=== PATIENT | female | born 1995 | race Caucasian/White ===

== ENCOUNTER 2022-02-01 09:16 | Emergency (ER) | payer OTHER ==
[2022-02-01 09:40] LABS: Absolute Lymphocytes (CBC) 0.7 K/uL (0.7-4.9); Hematocrit 36.5 % (36.0-45.0); Lymphocytes % 14.6 % (15.3-44.8); MCV 84.9 fL (80-100); MPV 6.8 fL (7.6-11.3)
[2022-02-01] MEDS ORDERED: NA CHLORIDE 0.9% 1,000 ML ONE (09:44)
[2022-02-01] MEDS ORDERED: ONDANSETRON 4 MG/2 ML VIAL ONE (09:44)
[2022-02-01 09:45] LABS: Urine Blood 1+ (Negative); Urine Glucose Negative (Negative); Urine Protein Negative (Negative); Urine pH 5.5 (5.0-7.0)
[2022-02-01] MEDS ORDERED: FAMOTIDINE 20 MG/2 ML VIAL IV ONE (09:46)
[2022-02-01 10:06] LABS: Albumin 3.9 g/dL (3.4-5.0); Bilirubin Total 0.3 mg/dL (0.2-1.0); Protein, Total 7.3 g/dL (6.4-8.2)
[2022-02-01 10:11] LABS: Potassium 3.8 mmol/L (3.5-5.1)
[2022-02-01] MEDS ORDERED: PROMETHAZINE INJ 25 MG/ML AMP ONE ×2 (10:29→12:03)
[2022-02-01] MEDS ORDERED: MORPHINE 2 MG/ML SYR ONE (10:30)
--- NOTE | 2022-02-01 10:50 | RAD REPORT ---
EXAM DESCRIPTION: CT - Abdomen Pelvis W Contrast - 02/01/2022 10:38 am CLINICAL HISTORY: Abdominal pain COMPARISON: none. TECHNIQUE: Computed axial tomography of the abdomen pelvis was obtained. 100 cc Isovue-300 was admin istered intravenously. Oral contrast was not requested which limits evaluation of bowel and appendix All CT scans are performed using dose optimization technique as appropriate and may include automated exposure control or mA/KV adjustment according to patient size. FINDINGS: The liver, spleen, pancreas, adrenal and kidneys appear unremarkable. There is no evidence of diverticulitis. Normal appendix. 2.1 centimeter right ovarian cyst with small amount of free fluid. IMPRESSION: 2.1 centimeter right ovarian cyst with small amount of free fluid.
--- NOTE | 2022-02-01 11:18 | EDPHYS ---
Physician Documentation [facility] Name: Deyanira Baxter Age: 26 yrs Sex: Female : 1995 Arrival Date: 02/01/2022 Time: 09:17 Bed 10 Private MD: BRIGID Physician Klaus Bernard HPI: 02/01 10:31 This 26 yrs old Female presents to ER via Ambulatory with complaints of jl9 Abdominal Pain, Back Pain, Vomiting. Patient reports a history of IBS and c/o worsening symptoms after eating fatty food. . 10:31 The patient presents with abdominal pain in the epigastric area. Onset: The jl9 symptoms/episode began/occurred yesterday. The symptoms do not radiate. Associated signs and symptoms: Pertinent positives: nausea and vomiting. Associated signs and symptoms: Pertinent positives: dysuria. The symptoms are described as achy. Modifying factors: The symptoms are alleviated by nothing, the symptoms are aggravated by food. Severity of pain: in the emergency department the pain is a 6 / 10. The patient has experienced a previous episode. Historical: - Allergies: 09:24 Reglan; tw2 09:24 Adhesives; tw2 - Home Meds: 09:24 Clonidine Oral [Active]; Latuda oral [Active]; tw2 - PMHx: 09:24 GERD; tw2 09:26 Anxiety; Bipolar disorder; tw2 09:27 CHF; Micardial infarction; tw2 - Immunization history:: Client reports receiving the 2nd dose of the Covid vaccine. - Social history:: Smoking status: Reported history of juuling and/or vaping. ROS: 10:32 Constitutional: Negative for fever, chills, and weight loss, Eyes: Negative for injury, jl9 pain, redness, and discharge, ENT: Negative for injury, pain, and discharge, Neck: Negative for injury, pain, and swelling, Cardiovascular: Negative for chest pain, palpitations, and edema, Respiratory: Negative for shortness of breath, cough, wheezing, and pleuritic chest pain. 10:32 Back: Negative for injury and pain, MS/Extremity: Negative for injury and deformity, Skin: Negative for injury, rash, and discoloration, Neuro: Negative for headache, weakness, numbness, tingling, and seizure, Psych: Negative for depression, anxiety, suicide ideation, homicidal ideation, and hallucinations. 10:32 Allergy/Immunology: Negative for hives, rash, and allergies, Endocrine: Negative for neck swelling, polydipsia, polyuria, polyphagia, and marked weight changes, Hematologic/Lymphatic: Negative for swollen nodes, abnormal bleeding, and unusual bruising. 10:32 Abdomen/GI: Positive for abdominal pain, nausea and vomiting. 10:32 : Positive for urinary symptoms. Exam: 10:33 Constitutional: This is a well developed, well nourished patient who is awake, alert, jl9 and in no acute distress. Head/Face: Normocephalic, atraumatic. Eyes: Pupils equal round and reactive to light, extra-ocular motions intact. Lids and lashes normal. Conjunctiva and sclera are non-icteric and not injected. Cornea within normal limits. Periorbital areas with no swelling, redness, or edema. ENT: Mucous membranes moist. Neck: Trachea midline, no thyromegaly or masses palpated, and no cervical lymphadenopathy. Supple, full range of motion without nuchal rigidity, or vertebral point tenderness. No Meningismus. Chest/axilla: Normal chest wall appearance and motion. Nontender with no deformity. No lesions are appreciated. Cardiovascular: Regular rate and rhythm with a normal S1 and S2. No gallops, murmurs, or rubs. Normal PMI, no JVD. No pulse deficits. Respiratory: Lungs have equal breath sounds bilaterally, clear to auscultation and percussion. No rales, rhonchi or wheezes noted. No increased work of breathing, no retractions or nasal flaring. 10:33 Back: No spinal tenderness. No costovertebral tenderness. Full range of motion. Skin: Warm, dry with normal turgor. Normal color with no rashes, no lesions, and no evidence of cellulitis. MS/ Extremity: Pulses equal, no cyanosis. Neurovascular intact. Full, normal range of motion. Neuro: Awake and alert, GCS 15, oriented to person, place, time, and situation. Cranial nerves II-XII grossly intact. Motor strength 5/5 in all extremities. Sensory grossly intact. Cerebellar exam normal. Normal gait. Psych: Awake, alert, with orientation to person, place and time. Behavior, mood, and affect are within normal limits. 10:33 Abdomen/GI: Inspection: abdomen appears normal, Bowel sounds: normal, Palpation: mild abdominal tenderness. Vital Signs: 09:21 BP 136 / 83; Pulse 105; Resp 18; Temp 98.2(TE); Pulse Ox 99% on R/A; Weight 90.72 kg tw2 (R); Height 5 ft. 4 in. (162.56 cm); Pain 7/10; 12:19 BP 118 / 72; Pulse 89; Resp 18; Temp 97.9; Pulse Ox 99% on R/A; ph 09:21 Body Mass Index 34.33 (90.72 kg, 162.56 cm) tw2 MDM: 09:28 Patient medically screened. samina 10:33 Data reviewed: vital signs, nurses notes. 9 11:16 Counseling: I had a detailed discussion with the patient and/or guardian regarding: the jl9 historical points, exam findings, and any diagnostic results supporting the discharge/admit diagnosis, lab results, radiology results, the need for outpatient follow up. Response to treatment: the patient's symptoms have markedly improved after treatment. 11:19 Special discussion: Patient agrees to follow up with [employer]. Patient requesting refill jl9 on her carafate. . 02/01 09:26 Order name: CBC with Diff; Complete Time: 10:03 jl9 02/01 09:26 Order name: CMP; Complete Time: 10:14 02/01 09:26 Order name: Lipase; Complete Time: 10:14 02/01 09:26 Order name: CT Abd/Pelvis - IV Contrast Only; Complete Time: 10:51 9 02/01 09:45 Order name: Urine Dipstick-Ancillary; Complete Time: 10:03 EDPA 02/01 09:26 Order name: IV Saline Lock; Complete Time: 09:34 02/01 09:26 Order name: Labs collected and sent; Complete Time: 09:34 9 02/01 09:26 Order name: Urine Dipstick-Ancillary (obtain specimen); Complete Time: :44 02/01 09:26 Order name: Urine Test (obtain specimen); Complete Time: :44 jl Administered Medications: :44 Drug: Pepcid (famotidine) 20 mg Route: IVP; Site: right antecubital; 11:29 Follow up: Response: No adverse reaction; Marked relief of symptoms ph 09:48 Drug: NS 0.9% 1000 ml Route: IV; Rate: 1 bolus; Site: right antecubital; ss 11:29 Follow up: IV Status: Completed infusion; IV Intake: 1000ml ph 09:48 Drug: Zofran (Ondansetron) 4 mg Route: IVP; Site: right antecubital; ss 11:30 Follow up: Response: Marked relief of symptoms ph 10:24 Drug: Phenergan (promethazine) 12.5 mg Route: IVP; Site: right antecubital; ss 12:18 Follow up: Response: No adverse reaction ph 10:27 Drug: morphine 2 mg Route: IVP; Infused Over: 4 mins; Site: right antecubital; ss 12:18 Follow up: Response: No adverse reaction; RASS: Alert and Calm (0) ph 12:04 Drug: Phenergan (promethazine) 12.5 mg Route: IVP; Site: right antecubital; ph 12:18 Follow up: Response: No adverse reaction ph 12:18 Drug: Ketorolac 30 mg Route: IVP; Site: right antecubital; ph 12:18 Follow up: Response: No adverse reaction ph Disposition Summary: 02/01/22 11:17 Discharge Ordered Location: Home jl9 Condition: Stable jl9 Diagnosis - Other ovarian cysts jl9 Followup: jl9 - With: Private Physician - When: 1 - 2 days - Reason: Recheck today's complaints, Continuance of care, Re-evaluation by your physician Discharge Instructions: - Discharge Summary Sheet tw2 - Ovarian Cyst, [id number] jl9 Forms: - Work release form tw2 - Family Work Release tw2 - Medication Reconciliation Form jl9 - Thank You Letter jl9 - Antibiotic Education jl9 - Prescription Opioid Use jl9 Prescriptions: - Carafate 1 gram Oral Tablet - take 1 tablet by ORAL route 4 times per day As needed take on an empty stomach, jl9 beginning on waking and last dose at bedtime; 100 tablet; Refills: 0, Product Selection Permitted - Tramadol 50 mg Oral Tablet - take 1 tablet by ORAL route every 8 hours as needed; 12 tablet; Refills: 0, jl9 Product Selection Permitted - dicyclomine 20 mg Oral Tablet - take 1 tablet by ORAL route 3 times per day As needed; 20 tablet; Refills: 0, jl9 Product Selection Permitted - ondansetron 8 mg Oral tablet,disintegrating - take 1 tablet by ORAL route every 8 hours As needed; 20 tablet; Refills: 0, jl9 Product Selection Permitted Signatures: Dispatcher [employer] Klaus Randhawa, Rebeca Styles MD, cha, RN RN Afshan Starks, RN RN Nancy Gordon RN RN tw2 Ivan Carbajal jl9
--- NOTE | 2022-02-01 11:18 | ER ---
Nurse's Notes [facility] Name: Deyanira Baxter Age: 26 yrs Sex: Female : 1995 Arrival Date: 02/01/2022 Time: 09:17 Bed 10 Private MD: Diagnosis: Other ovarian cysts Presentation: 02/01 09:21 Chief complaint: Patient states: i had the pain in my upper stomach for a while a few tw2 weeks. it feels bloated and swollen and when i eat pizz and or a burger. now any time i eat i throw up and it hurt when i peed and the pain is in my upper middle back. and i have indigestion and GERD but i am in so much pain now. Coronavirus screen: At this time, the client does not indicate any symptoms associated with coronavirus-19. Ebola Screen: Patient denies travel to an Ebola-affected area in the 21 days before illness onset. Initial Sepsis Screen: Does the patient meet any 2 criteria? HR > 90 bpm. No. Patient's initial sepsis screen is negative. Does the patient have a suspected source of infection? No. Patient's initial sepsis screen is negative. Risk Assessment: Do you want to hurt yourself or someone else? Patient reports no desire to harm self or others. Onset of symptoms was February 01, 2022. 09:21 Method Of Arrival: Ambulatory tw 09:21 Acuity: DEEPAK 3 tw2 09:26 Note pt actively vomiting in triage. tw2 Triage Assessment: 09:24 General: Appears uncomfortable, Behavior is calm, cooperative, appropriate for age. tw2 Pain: Complains of pain in abdomen Pain radiates to back. GI: Reports indigestion, nausea, vomiting. Historical: - Allergies: 09:24 Reglan; tw2 09:24 Adhesives; tw2 - Home Meds: 09:24 Clonidine Oral [Active]; Latuda oral [Active]; tw2 - PMHx: 09:24 GERD; tw2 09:26 Anxiety; Bipolar disorder; tw2 09:27 CHF; Micardial infarction; tw2 - Immunization history:: Client reports receiving the 2nd dose of the Covid vaccine. - Social history:: Smoking status: Reported history of juuling and/or vaping. Screenin:48 Abuse screen: Denies threats or abuse. Denies injuries from another. Nutritional ss screening: No deficits noted. Tuberculosis screening: Never had TB. Fall Risk None identified. Assessment: 09:48 General: Appears in no apparent distress. Behavior is calm, cooperative, Denies fever, ss fatigue, chills. Pain: Complains of pain in epigastric area Pain currently is 7 out of 10 on a pain scale. Quality of pain is described as "Like a dull pain" Pain began "It started weeks ago, like a month, but I've just been dealing with it at home." Is continuous. Neuro: Level of Consciousness is awake, alert, obeys commands, Oriented to person, place, time, situation. Cardiovascular: Capillary refill < 3 seconds is brisk in bilateral fingers Patient's skin is warm and dry. Respiratory: Airway is patent Respiratory effort is even, unlabored, Respiratory pattern is regular, symmetrical. GI: Bowel sounds present X 4 quads. Abd is soft X 4 quads Reports nausea, vomiting, "off and on for a month". EENT: Nares are clear Oral mucosa is moist. Derm: Skin is intact, is healthy with good turgor, Skin is dry, Skin is pink, warm \\T\\ dry. normal. Vital Signs: 09:21 BP 136 / 83; Pulse 105; Resp 18; Temp 98.2(TE); Pulse Ox 99% on R/A; Weight 90.72 kg tw2 (R); Height 5 ft. 4 in. (162.56 cm); Pain 7/10; 12:19 BP 118 / 72; Pulse 89; Resp 18; Temp 97.9; Pulse Ox 99% on R/A; ph 09:21 Body Mass Index 34.33 (90.72 kg, 162.56 cm) tw2 ED Course: 09:17 Patient arrived in ED. mr 09:18 [facility] jl9 09:18 Klaus Bernard MD is Attending Physician. jl9 09:24 Triage completed. tw2 09:26 Arm band placed on. tw2 09:34 CBC with Diff Sent. kc6 09:35 CMP Sent. kc6 09:35 Lipase Sent. kc6 09:35 Inserted saline lock: 20 gauge in right antecubital area, using aseptic technique. kc6 Blood collected. 09:39 Rebeca Eugene, RN is Primary Nurse. ss 09:48 Patient has correct armband on for positive identification. Bed in low position. Call ss light in reach. Side rails up X 1. Adult w/ patient. Pulse ox on. NIBP on. 10:40 CT Abd/Pelvis - IV Contrast Only In Process Unspecified. EDMS 12:19 No provider procedures requiring assistance completed. IV discontinued, intact, ph bleeding controlled, No redness/swelling at site. Pressure dressing applied. Administered Medications: 09:44 Drug: Pepcid (famotidine) 20 mg Route: IVP; Site: right antecubital; ss 11:29 Follow up: Response: No adverse reaction; Marked relief of symptoms ph 09:48 Drug: NS 0.9% 1000 ml Route: IV; Rate: 1 bolus; Site: right antecubital; ss 11:29 Follow up: IV Status: Completed infusion; IV Intake: 1000ml ph 09:48 Drug: Zofran (Ondansetron) 4 mg Route: IVP; Site: right antecubital; ss 11:30 Follow up: Response: Marked relief of symptoms ph 10:24 Drug: Phenergan (promethazine) 12.5 mg Route: IVP; Site: right antecubital; ss 12:18 Follow up: Response: No adverse reaction ph 10:27 Drug: morphine 2 mg Route: IVP; Infused Over: 4 mins; Site: right antecubital; ss 12:18 Follow up: Response: No adverse reaction; RASS: Alert and Calm (0) ph 12:04 Drug: Phenergan (promethazine) 12.5 mg Route: IVP; Site: right antecubital; ph 12:18 Follow up: Response: No adverse reaction ph 12:18 Drug: Ketorolac 30 mg Route: IVP; Site: right antecubital; ph 12:18 Follow up: Response: No adverse reaction ph Medication: 09:48 VIS not applicable for this client. ss Intake: 11:29 IV: 1000ml; Total: 1000ml. ph Outcome: 11:17 Discharge ordered by jlSatya 12:19 Discharged to home ambulatory, with significant other. ph 12:19 Condition: good 12:19 Discharge instructions given to patient, Instructed on discharge instructions, follow up and referral plans. medication usage, Demonstrated understanding of instructions, follow-up care, medications, Prescriptions given X 4. 12:19 Patient left the ED. ph Signatures: Dispatcher [employer] EDDC Alexus Garland Rebeca Lee RN RN Afshan Starks RN RN Nancy Gordon RN RN tw2 Ivan Carbajal 9 Barbara Pepper
[2022-02-01] MEDS ORDERED: KETOROLAC 30 MG/ML INJ ONE (12:20)
[2022-02-02 13:21] VITALS: O2SAT 99
[2022-02-02 13:26] VITALS: BP 118/72; TEMP 97.9
== END 2022-02-01 12:19 | disposition home or self-care (01) ==
LOC: ER 09:16
DX: N83.299 Other ovarian cyst, unspecified side (principal); R30.0 Dysuria
CPT/HCPCS: 96361; 85025; 36415; 81003; 83690; 80053; 74177; 96375; 96374; 99284; Q9967; J2550 ×2; J2270; J7030; J2405

== ENCOUNTER 2022-02-02 20:02 | Emergency (ER) | payer OTHER ==
--- OUTSIDE RECORDS SUMMARY | 2022-02-02 20:17 | XMS REPORT | Continuity of Care Document ---
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 (50 ity of (PROTONIX) 07:00: 05:09 mL/hr), IV [place] 80 mg in 00 :00 Piggyback, Medic al NaCl 0.9% CONTINUOUS Bran ch (NS) 500 mL , Starting infusion Sat07/22/19 at 0100, Until Sat07/22/19 at 2309, 500 mL proMETHazin 2019-0 2020- No 25mg 25 mg, IV Univers e 07-21 Piggyback, ity of (PHENERGAN) 06:13: 18:29 Q6HPRN, [place] 25 mg in 25 :57 Starting Medical NaCl 0.9% 07/22/19 Bran ch (NS) 50 mL at 0013, piggyback Until Sat07/22/19 at 1229, 50 mL ALBUTEROL 2020-0 Yes Inhale. [facility] rs INHALE 07-21 ity of 05:43: [place] 24 Medical Branch acetaminoph 2020-0 Yes 650mg 650 mg, Un trev en 07-21 Oral, ity of (TYLENOL) 05:42: Q6HPRN, [place] tablet 650 46 Starting Medic al mg 07/21/19 Branch at 2342, Until Discontinu ed, Routine, Pain (scale 1-3) proMETHazin 2019-0 2020- No 12.5mg 12.5 mg, Univers e 07-21 IV ity of (PHENERGAN) 03:30: 02:19 Piggyback, [place] 12.5 mg in 00 :00 ONCE, 1 Medica l NaCl 0.9% dose, e Branc h (NS) 50 mL 07/21/19 at piggyback 2130, 50 mL LORazepam 2019-0 2020- No 1mg 1 mg, Slow U nivers (ATIVAN) 07-21 IV Push, ity of injection 1 02:15: 04:12 ONCE, 1 [place] mg 00 :00 dose, [facility] Medical 07/21/19 at Branch 2014, STAT pantoprazol 2020-0 2020- No 80mg 80 mg, IV Univers e 07-20 Push, ity of (PROTONIX) 23:30: 23:32 ONCE, 1 [place] 80 mg in 00 :00 dose, Tue Medica l NaCl 0.9% 07/21/19 at [facility] h (NS) 20 mL 1730, 20 syringe mL NaCl 0.9% 2020-0 2020- No 1000mL at 999 Uni vers (NS) bolus 07-20 mL/hr, ity of infusion 23:15: 01:00 1,000 mL, [place] 1,000 mL 00 :00 IV Medical Infusion, [place] ONCE, 1 dose, [facility] 07/21/19 at 1715, STAT proMETHazin 2019-0 2020- No 12.5mg 12.5 mg, Univers e 07-20 IV ity of (PHENERGAN) 23:15: 22:29 Piggyback, [place] 12.5 mg in 00 :00 ONCE, 1 Medica l NaCl 0.9% dose, [facility] (NS) 50 mL 07/21/19 at piggyback 1715, 50 mL diphenhydrA 2019-0 2020- No 25mg 25 mg, Uni vers MINE 07-02- Slow IV ity of (BENADRYL) 02:15: 02:15 Push, [place] injection 00 :00 ONCE, 1 Medical 25 mg dose, Wed Branch 07/01/19 at 2015, STAT haloperidol 2020-0 2020- No 5mg 5 mg, Univ ers lactate 07-02 Intravenou ity o f (HALDOL) 01:30: 00:31 s, ONCE, 1 [place] injection 5 00 :00 dose, Wed Med ical mg 07/01/19 at Branch 1930, STAT pantoprazol 2020-0 Yes 8mg/h 8 mg/hr Un trev e 07-02 (50 ity of (PROTONIX) 01:15: mL/hr), IV [place] 80 mg in 00 Piggyback, Medic al NaCl 0.9% CONTINUOUS Bran ch (NS) 500 mL , Starting infusion 07/01/19 at 1915, Until Discontinu ed, 500 mL pantoprazol 2019-0 2020- No 80mg 80 mg, IV Univers e 07-02 Push, ity of (PROTONIX) 01:15: 00:59 ONCE, 1 [place] 80 mg in 00 :00 dose, Wed Medica l NaCl 0.9% 07/01/19 at [facility] ch (NS) 20 mL 1915, 20 syringe mL ondansetron 2020- No 4mg 4 mg, Slow Univers (ZOFRAN 07-02 IV Push, ity of (PF)) 01:15: 00:31 ONCE, 1 [place] injection 4 00 :00 dose, Sat Med ical mg 07/01/19 at Branch 1915, MARY NaCl 0.9% 2019-0 2020- No 1000mL at 999 Uni vers (NS) bolus 07-02 mL/hr, ity of infusion 00:15: 00:57 1,000 mL, [place] 1,000 mL 00 :00 IV Medical Infusion, [place] ONCE, 1 dose, 07/01/19 at 1815, MARY pantoprazol 2019-0 Yes 40mg 40 mg, Univ ers e 2-11 Oral, ity of (PROTONIX) 15:00: DAILY, [place] EC tablet 00 First dose Medi charli 40 mg on [facility] 06/30/19 at 0900, Until Discontinu ed, Routine pantoprazol 2020-0 Yes [id number] 40mg Take 1 Univers e 40 mg EC 2-11 tablet by ity of tablet 00:00: mouth [place] 00 daily. [facility] pantoprazol 2020-0 Yes [id number] 40mg Take 1 Univers e 40 mg EC 2-11 tablet by ity of tablet 00:00: mouth [place] 00 daily. [facility] pantoprazol 2020-0 Yes [id number] 40mg Take 1 Univers e 40 mg EC 2-11 tablet by ity of tablet 00:00: mouth [place] 00 daily. [facility] pantoprazol 2020-0 Yes [id number] 40mg Take 1 Univers e 40 mg EC 2-11 tablet by ity of tablet 00:00: mouth [place] 00 daily. [facility] pantoprazol 2020-0 Yes [id number] 40mg Take 1 Univers e 40 mg EC 2-11 tablet by ity of tablet 00:00: mouth [place] 00 daily. Medical Branch pantoprazol 2020-0 Yes [id number] 40mg Take 1 Univers e 40 mg EC 2-11 tablet by ity of tablet 00:00: mouth [place] 00 daily. Medical Branch pantoprazol 2020-0 Yes [id number] 40mg Take 1 Univers e 40 mg EC 2-11 tablet by ity of tablet 00:00: mouth [place] 00 daily. Medical Branch pantoprazol 2019-0 2020- No [id number] 40mg Take 1 Univers e 40 mg EC 2-11 03-05 tablet by ity of tablet 00:00: 00:00 mouth [place] 00 :00 daily. Medical Branch ALBUTEROL 2020-0 Yes Inhale. Unive rs INHALE 2-10 ity of 23:44: [place] 00 [facility] Branch ALBUTEROL 2020-0 Yes Inhale. Unive rs INHALE 2-10 ity of 23:44: [place] 00 [facility] Branch ALBUTEROL 2020-0 Yes Inhale. Unive rs INHALE 2-10 ity of 23:44: [place] 00 [facility] Branch ALBUTEROL 2020-0 Yes Inhale. Unive rs INHALE 2-10 ity of 23:44: [place] 00 [facility] Branch ALBUTEROL 2020-0 Yes Inhale. Unive rs INHALE 2-10 ity of 23:44: [place] 00 Medical Branch ALBUTEROL 2020-0 Yes Inhale. Unive rs INHALE 2-10 ity of 23:44: [place] 00 [facility] Branch proMETHazin 2019-0 Yes 25mg 25 mg, IV U nivers e 2-10 Piggyback, ity of (PHENERGAN) 18:00: Q4H WHILE [place] 25 mg in 00 AWAKE, Medical NaCl 0.9% First dose Bran ch (NS) 50 mL on Mon piggyback 06/29/19 at 1200, Until Discontinu ed, 50 mL lactated 2019-0 2020- No 1000mL at 150 Univ ers ringers IV 2-10 02-10 mL/hr, ity of infusion 03:00: 02:22 1,000 mL, [place] 1,000 mL 00 :00 Intravenou Medic al s, ONCE, 1 Branch dose, 06/28/19 at 2100, Routine ipratropium 2020-0 Yes 3mL 3 mL, Unive rs -albuterol 2-10 Inhalation ity of (DUONEB) 00:20: , Q6HPRN, [place] 0.5 mg-3 32 Starting Medical mg(2.5 mg 06/28/19 Bran ch base)/3 mL at 1820, nebulizer Until solution 3 Discontinu mL ed, Routine, Wheezing, Shortness of Breath acetaminoph 2020- No [id number] 650mg Take 2 Univers en 325 mg 2-10 02-10 tablets by ity of tablet 00:00: 05:59 mouth [place] 00 :00 every 6 Medical (six) Branch hours as needed for Pain (scale 1-3) or Pain (scale 4-6). acetaminoph 2020- No [id number] 650mg Take 2 Univers en 325 mg 2-10 02-10 tablets by ity of tablet 00:00: 05:59 mouth [place] 00 :00 every 6 Medical (six) Branch hours as needed for Pain (scale 1-3) or Pain (scale 4-6). acetaminoph 2020- No [id number] 650mg Take 2 Univers en 325 mg 2-10 02-10 tablets by ity of tablet 00:00: 05:59 mouth [place] 00 :00 every 6 Medical (six) Branch hours as needed for Pain (scale 1-3) or Pain (scale 4-6). acetaminoph 2020- No [id number] 650mg Take 2 Univers en 325 mg 2-10 02-10 tablets by ity of tablet 00:00: 05:59 mouth [place] 00 :00 every 6 Medical (six) Branch hours as needed for Pain (scale 1-3) or Pain (scale 4-6). acetaminoph 2020- No [id number] 650mg Take 2 Univers en 325 mg 2-10 02-10 tablets by ity of tablet 00:00: 05:59 mouth [place] 00 :00 every 6 Medical (six) Branch hours as needed for Pain (scale 1-3) or Pain (scale 4-6). acetaminoph 2020- No [id number] 650mg Take 2 Univers en 325 mg 2-10 02-10 tablets by ity of tablet 00:00: 05:59 mouth [place] 00 :00 every 6 Medical (six) Branch hours as needed for Pain (scale 1-3) or Pain (scale 4-6). acetaminoph 2020- No [id number] 650mg Take 2 Univers en 325 mg 2-10 02-10 tablets by ity of tablet 00:00: 05:59 mouth [place] 00 :00 every 6 Medical (six) Branch hours as needed for Pain (scale 1-3) or Pain (scale 4-6). acetaminoph 2020- No [id number] 650mg Take 2 Univers en 325 mg 2-10 02-10 tablets by ity of tablet 00:00: 05:59 mouth [place] 00 :00 every 6 Medical (six) Branch hours as needed for Pain (scale 1-3) or Pain (scale 4-6). acetaminoph 2020- No [id number] 650mg Take 2 Univers en 325 mg 2-10 02-10 tablets by ity of tablet 00:00: 05:59 mouth [place] 00 :00 every 6 Medical (six) Branch hours as needed for Pain (scale 1-3) or Pain (scale 4-6). acetaminoph 2020- No [id number] 650mg Take 2 Univers en 325 mg 2-10 02-10 tablets by ity of tablet 00:00: 05:59 mouth [place] 00 :00 every 6 Medical (six) Branch hours as needed for Pain (scale 1-3) or Pain (scale 4-6). acetaminoph 2020- No [id number] 650mg Take 2 Univers en 325 mg 2-10 02-10 tablets by ity of tablet 00:00: 05:59 mouth [place] 00 :00 every 6 Medical (six) Branch hours as needed for Pain (scale 1-3) or Pain (scale 4-6). acetaminoph 2020- No [id number] 650mg Take 2 Univers en 325 mg 2-10 02-10 tablets by ity of tablet 00:00: 05:59 mouth [place] 00 :00 every 6 Medical (six) Branch hours as needed for Pain (scale 1-3) or Pain (scale 4-6). acetaminoph 2020- No [id number] 650mg Take 2 Univers en 325 mg 2-10 02-10 tablets by ity of tablet 00:00: 05:59 mouth [place] 00 :00 every 6 Medical (six) Branch hours as needed for Pain (scale 1-3) or Pain (scale 4-6). acetaminoph 2019-2020- No [id number] 650mg Take 2 Univers en 325 mg 2-10 02-10 tablets by ity of tablet 00:00: 05:59 mouth [place] 00 :00 every 6 Medical (six) Branch hours as needed for Pain (scale 1-3) or Pain (scale 4-6). acetaminoph 2019-2020- No [id number] 650mg Take 2 Univers en 325 mg 2-10 02-10 tablets by ity of tablet 00:00: 05:59 mouth [place] 00 :00 every 6 Medical (six) Branch hours as needed for Pain (scale 1-3) or Pain (scale 4-6). acetaminoph 2019-2020- No [id number] 650mg Take 2 Univers en 325 mg 2-10 02-10 tablets by ity of tablet 00:00: 05:59 mouth [place] 00 :00 every 6 Medical (six) Branch hours as needed for Pain (scale 1-3) or Pain (scale 4-6). acetaminoph 2020- No [id number] 650mg Take 2 Univers en 325 mg 2-10 02-10 tablets by ity of tablet 00:00: 05:59 mouth [place] 00 :00 every 6 Medical (six) Branch hours as needed for Pain (scale 1-3) or Pain (scale 4-6). proMETHazin 2019-2019- No [id number] 25mg Take 1 Univers e 25 mg 2-10 02-26 tablet by ity of tablet 00:00: 05:59 mouth [place] 00 :00 every 4 Medical (four) Branch hours as needed for Nausea and Vomiting (N/V) for up to 15 days. proMETHazin 2019-2019- No [id number] 25mg Take 1 Univers e 25 mg 2-10 02-26 tablet by ity of tablet 00:00: 05:59 mouth [place] 00 :00 every 4 Medical (four) Branch hours as needed for Nausea and Vomiting (N/V) for up to 15 days. proMETHazin 2019- No [id number] 25mg Take 1 Univers e 25 mg 2-10 02-26 tablet by ity of tablet 00:00: 05:59 mouth [place] 00 :00 every 4 Medical (four) Branch hours as needed for Nausea and Vomiting (N/V) for up to 15 days. proMETHazin 2020-0 2020- No [id number] 25mg Take 1 Univers e 25 mg 06-29 tablet by ity of tablet 00:00: 05:59 mouth [place] 00 :00 every 4 Medical (four) Branch hours as needed for Nausea and Vomiting (N/V) for up to 15 days. HYDROcodone 2020-0 Yes 1{tbl} 1 tablet, Univers -acetaminop 2-09 Oral, ity of hen (NORCO 22:38: Q6HPRN, [place] 5) 5-325 mg 03 Starting Medi charli tablet 1 06/28/19 Branc h tablet at 1638, Until Discontinu ed, Routine, Pain (scale 4-6), Pain (scale 7-10) proMETHazin 2020-0 2020- No 25mg 25 mg, IV Univers e 206-29 Piggyback, ity of (PHENERGAN) 22:00: 15:56 Q4H WHILE [place] 25 mg in 00 :10 AWAKE, Medical NaCl 0.9% First dose Bran ch (NS) 50 mL on Sun piggyback 06/28/19 at 1600, Until Discontinu ed, 50 mL ondansetron 2020-0 Yes 4mg 4 mg, Slow Univers (ZOFRAN 06-28 IV Push, ity of (PF)) 21:55: Q6HPRN, [place] injection 4 58 Starting Medi charli mg 06/28/19 Branch at 1555, Until Discontinu ed, Routine, N/V unresponsi ve to Promethazi ne maalox:diph 2020-0 Yes 15mL 15 mL, Univ ers enhydrAMINE 2 Oral, ity of :lidocaine 21:55: QDAILYPRN, [place] 2 % viscous 00 Starting Medi charli 1:1:1 06/28/19 Branch (FIRST-MOUT at 1555, HWASH BLM) Until oral Discontinu suspension ed, MARY, 15 mL Heartburn/ esophagiti s acetaminoph 2020-0 Yes 650mg 650 mg, Un trev en 2 Oral, ity of (TYLENOL) 21:39: Q6HPRN, [place] tablet 650 29 Starting Medic al mg 06/28/19 Branch at 1539, Until Discontinu ed, Routine, Pain (scale 1-3) albuterol 2020-0 Yes 2{puff} 2 Puff, Un trev (VENTOLIN) 06-28 Inhalation ity of inhaler 2 21:25: , Q6HPRN, [place] Puff 31 Starting Medical 06/28/19 Branch at 1525, Until Discontinu ed, Wheezing, Shortness of Breath, Chest tightness pantoprazol 2019-0 2020- No 8mg/h 8 mg/hr U nivers e 06-28 (50 ity of (PROTONIX) 19:15: 15:56 mL/hr), IV [place] 80 mg in 00 :10 Piggyback, Medic al NaCl 0.9% CONTINUOUS Bran ch (NS) 500 mL , Starting infusion 06/28/19 at 1315, Until 06/29/19 at 0956, 500 mL proMETHazin 2019-0 2020- No 25mg 25 mg, IV Univers e 06-28 Piggyback, ity of (PHENERGAN) 19:15: 18:30 ONCE, 1 [place] 25 mg in 00 :00 dose, [place] Medica l NaCl 0.9% 06/28/19 at Branc h (NS) 50 mL 1315, 50 piggyback mL pantoprazol 2019-0 2020- No 80mg 80 mg, IV Univers e 06-28 Push, ity of (PROTONIX) 18:00: 17:06 ONCE, 1 [place] 80 mg in 00 :00 dose, [place] Medica l NaCl 0.9% 06/28/19 at Branc h (NS) 20 mL 1200, 20 syringe mL ondansetron 2019-0 2020- No 4mg 4 mg, Slow Univers (ZOFRAN 06-28 IV Push, ity of (PF)) 17:45: 16:53 ONCE, 1 [place] injection 4 00 :00 dose, [place] Med ical mg 06/28/19 at Branch 1145, MARY NaCl 0.9% 2020-0 2020- No 1000mL at 999 Uni vers (NS) bolus 06-28 mL/hr, ity of infusion 17:45: 16:53 1,000 mL, [place] 1,000 mL 00 :00 IV Medical Infusion, Branch ONCE, 1 dose, 06/28/19 at 1145, STAT ALBUTEROL 2019-0 Yes Inhale. Unive rs INHALE -09 ity of 15:52: [address] ALBUTEROL 2020-0 Yes Inhale. Unive rs INHALE - ity of 15:52: [address] ALBUTEROL 2019-0 Yes Inhale. Unive rs INHALE - ity of 15:52: [address] azithromyci 2018-05 Yes [id number] Take 500 Univers n 250 mg 2-06 mg day 1, ity of tablet 00:00: then 250 [place] 00 mg days 2 Medical to 5. [place] azithromyci 2018-05 Yes [id number] Take 500 Univers n 250 mg 2-06 mg day 1, ity of tablet 00:00: then 250 [place] 00 mg days [facility] [id number] Take 500 Univers n 250 mg 2-06 mg day 1, ity of tablet 00:00: then 250 [place] 00 mg days 2 [facility]- No [id number] Take 500 Univers n 250 mg 2-06 02-10 mg day 1, ity o f tablet 00:00: 00:00 then 250 [place] 00 :00 mg days 2 Medical to 5. Branch furosemide 2018-05 Yes [id number] 40mg Take 1 Univers 40 mg 2-03 tablet by ity of tablet 00:00: mouth [place] 00 every Medical morning Branch and evening. fluticasone 2018-05 Yes [id number] 1{puff} Inhale 1 Univers propionate 2-03 Puff every ity of (FLOVENT 00:00: 12 [place] HFA) 110 00 (twelve) Medical mcg/actuati hours. Branch on inhaler furosemide 2018-05 Yes [id number] 40mg Take 1 Univers 40 mg 2-03 tablet by ity of tablet 00:00: mouth [place] 00 every Medical morning Branch and evening. fluticasone 2018-05 Yes [id number] 1{puff} Inhale 1 Univers propionate 2-03 Puff every ity of (FLOVENT 00:00: 12 [place] HFA) 110 00 (twelve) Medical mcg/actuati hours. Branch on inhaler furosemide 2018-05 Yes [id number] 40mg Take 1 Univers 40 mg 2-03 tablet by ity of tablet 00:00: mouth [place] 00 every Medical morning Branch and evening. fluticasone 2018-05 Yes [id number] 1{puff} Inhale 1 Univers propionate 2-03 Puff every ity of (FLOVENT 00:00: 12 [place] HFA) 110 00 (twelve) Medical mcg/actuati hours. Branch on inhaler fluticasone 2018-05 Yes [id number] 1{puff} Inhale 1 Univers propionate 2-03 Puff every ity of (FLOVENT 00:00: 12 [place] HFA) 110 00 (twelve) Medical mcg/actuati hours. Branch on inhaler fluticasone 2018-05 Yes [id number] 1{puff} Inhale 1 Univers propionate 2-03 Puff every ity of (FLOVENT 00:00: 12 [place] HFA) 110 00 (twelve) Medical mcg/actuati hours. Branch on inhaler fluticasone 2018-05 Yes [id number] 1{puff} Inhale 1 Univers propionate 2-03 Puff every ity of (FLOVENT 00:00: 12 [place] HFA) 110 00 (twelve) Medical mcg/actuati hours. Branch on inhaler fluticasone 2018-05 Yes [id number] 1{puff} Inhale 1 Univers propionate 2-03 Puff every ity of (FLOVENT 00:00: 12 [place] HFA) 110 00 (twelve) Medical mcg/actuati hours. Branch on inhaler fluticasone 2018-05 Yes [id number] 1{puff} Inhale 1 Univers propionate 2-03 Puff every ity of (FLOVENT 00:00: 12 [place] HFA) 110 00 (twelve) Medical mcg/actuati hours. Branch on inhaler fluticasone 2018-05 Yes [id number] 1{puff} Inhale 1 Univers propionate 2-03 Puff every ity of (FLOVENT 00:00: 12 [place] HFA) 110 00 (twelve) Medical mcg/actuati hours. Branch on inhaler fluticasone 2018-05 Yes [id number] 1{puff} Inhale 1 Univers propionate 2-03 Puff every ity of (FLOVENT 00:00: 12 [place] HFA) 110 00 (twelve) Medical mcg/actuati hours. Branch on inhaler fluticasone 2018-05 Yes [id number] 1{puff} Inhale 1 Univers propionate 2-03 Puff every ity of (FLOVENT 00:00: 12 [place] HFA) 110 00 (twelve) Medical mcg/actuati hours. Branch on inhaler fluticasone 2018-05 Yes [id number] 1{puff} Inhale 1 Univers propionate 2-03 Puff every ity of (FLOVENT 00:00: 12 [place] HFA) 110 00 (twelve) Medical mcg/actuati hours. Branch on inhaler fluticasone 2018-05 Yes [id number] 1{puff} Inhale 1 Univers propionate 2-03 Puff every ity of (FLOVENT 00:00: 12 [place] HFA) 110 00 (twelve) Medical mcg/actuati hours. Branch on inhaler fluticasone 2018-05 Yes [id number] 1{puff} Inhale 1 Univers propionate 2-03 Puff every ity of (FLOVENT 00:00: 12 [place] HFA) 110 00 (twelve) Medical mcg/actuati hours. Branch on inhaler fluticasone 2018-05 Yes [id number] 1{puff} Inhale 1 Univers propionate 2-03 Puff every ity of (FLOVENT 00:00: 12 [place] HFA) 110 00 (twelve) Medical mcg/actuati hours. Branch on inhaler fluticasone 2018-05 Yes [id number] 1{puff} Inhale 1 Univers propionate 2-03 Puff every ity of (FLOVENT 00:00: 12 [place] HFA) 110 00 (twelve) Medical mcg/actuati hours. Branch on inhaler fluticasone 2018-05 Yes [id number] 1{puff} Inhale 1 Univers propionate 2-03 Puff every ity of (FLOVENT 00:00: 12 [place] HFA) 110 00 (twelve) Medical mcg/actuati hours. Branch on inhaler fluticasone 2018-05 Yes [id number] 1{puff} Inhale 1 Univers propionate 2-03 Puff every ity of (FLOVENT 00:00: 12 [place] HFA) 110 00 (twelve) Medical mcg/actuati hours. Branch on inhaler fluticasone 2018-05 Yes [id number] 1{puff} Inhale 1 Univers propionate 2-03 Puff every ity of (FLOVENT 00:00: 12 [place] HFA) 110 00 (twelve) Medical mcg/actuati hours. Branch on inhaler fluticasone 2018-05 Yes [id number] 1{puff} Inhale 1 Univers propionate 2-03 Puff every ity of (FLOVENT 00:00: 12 [place] HFA) 110 00 (twelve) Medical mcg/actuati hours. Branch on inhaler fluticasone 2018-05 Yes [id number] 1{puff} Inhale 1 Univers propionate 2-03 Puff every ity of (FLOVENT 00:00: 12 [place] HFA) 110 00 (twelve) Medical mcg/actuati hours. Branch on inhaler fluticasone 2018-05 Yes [id number] 1{puff} Inhale 1 Univers propionate 2-03 Puff every ity of (FLOVENT 00:00: 12 [place] HFA) 110 00 (twelve) Medical mcg/actuati hours. Branch on inhaler fluticasone 2018-05 Yes [id number] 1{puff} Inhale 1 Univers propionate 2-03 Puff every ity of (FLOVENT 00:00: 12 [place] HFA) 110 00 (twelve) Medical mcg/actuati hours. Branch on inhaler furosemide 2018-05 2020- No [id number] 40mg Take 1 Univers 40 mg 2-03 02-10 tablet by ity of tablet 00:00: 00:00 mouth [place] 00 :00 every Medical morning Branch and evening. Catheter 2018-05 Yes [id number] Use as Un trev (SELF-HARDY 1-21 directed ity of TER, 00:00: [place] FEMALE) Medical Fr Misc Branch Catheter 2018-05 Yes [id number] Use as Un trev (SELF-HARDY 1-21 directed ity of TER, 00:00: [place] FEMALE) Medical Fr Misc Branch Catheter 2018-05 Yes [id number] Use as Un trev (SELF-HARDY 1-21 directed ity of TER, 00:00: [place] FEMALE) Medical Fr Misc Branch Catheter 2018-05 Yes [id number] Use as Un trev (SELF-HARDY 1-21 directed ity of TER, 00:00: [place] FEMALE) Medical Fr Misc Branch Catheter 2018-05 Yes [id number] Use as Un trev (SELF-HARDY 1-21 directed ity of TER, 00:00: [place] FEMALE) Medical Fr Misc Branch Catheter 2018-05 Yes [id number] Use as Un trev (SELF-HARDY 1-21 directed ity of TER, 00:00: [place] FEMALE) 14 Medical Fr Misc Branch Catheter 2018-05 Yes [id number] Use as Un trev (SELF-HARDY 1-21 directed ity of TER, 00:00: [place] FEMALE) 14 Medical Fr Misc Branch Catheter 2018-05 Yes [id number] Use as Un trev (SELF-HARDY 1-21 directed ity of TER, 00:00: [place] FEMALE) 14 Medical Fr Misc Branch Catheter 2018-05 Yes [id number] Use as Un trev (SELF-HARDY 1-21 directed ity of TER, 00:00: [place] FEMALE) Medical Fr Misc Branch Catheter 2018-05 Yes [id number] Use as Un trev (SELF-HARDY 1-21 directed ity of TER, 00:00: [place] FEMALE) Medical Fr Misc Branch Catheter 2018-05 Yes [id number] Use as Un trev (SELF-HARDY 1-21 directed ity of TER, 00:00: [place] FEMALE) Medical Fr Misc Branch Catheter 2018-05 Yes [id number] Use as Un trev (SELF-HARDY 1-21 directed ity of TER, 00:00: [place] FEMALE) Medical Fr Misc Branch Catheter 2018-05 Yes [id number] Use as Un trev (SELF-HARDY 1-21 directed ity of TER, 00:00: [place] FEMALE) Medical Fr Misc Branch Catheter 2018-05 Yes [id number] Use as Un trev (SELF-HARDY 1-21 directed ity of TER, 00:00: [place] FEMALE) Medical Fr Misc Branch Catheter 2018-05 Yes [id number] Use as Un trev (SELF-HARDY 1-21 directed ity of TER, 00:00: [place] FEMALE) Medical Fr Misc Branch Catheter 2018-05 Yes [id number] Use as Un trev (SELF-HARDY 1-21 directed ity of TER, 00:00: [place] FEMALE) Medical Fr Misc Branch Catheter 2018-05 Yes [id number] Use as Un trev (SELF-HARDY 1-21 directed ity of TER, 00:00: [place] FEMALE) Medical Fr Misc Branch Catheter 2018-05 Yes [id number] Use as Un trev (SELF-HARDY 1-21 directed ity of TER, 00:00: [place] FEMALE) 14 Medical Fr Misc Branch Catheter 2018-05 Yes [id number] Use as Un trev (SELF-HARDY 1-21 directed ity of TER, 00:00: [place] FEMALE) Medical Fr Misc Branch Catheter 2018-05 Yes [id number] Use as Un trev (SELF-HARDY 1-21 directed ity of TER, 00:00: [place] FEMALE) Medical Fr Misc Branch Catheter 2018-05 Yes [id number] Use as Un trev (SELF-HARDY 1-21 directed ity of TER, 00:00: [place] FEMALE) Medical Fr Misc Branch Catheter 2018-05 Yes [id number] Use as Un trev (SELF-HARDY 1-21 directed ity of TER, 00:00: [place] FEMALE) Medical Fr Misc Branch Catheter 2018-05 Yes [id number] Use as Un trev (SELF-HARDY 1-21 directed ity of TER, 00:00: [place] FEMALE) Medical Fr Misc Branch lamoTRIgine 2018-05 Yes [id number] 150mg Take 1 Univers 150 mg 1-20 tablet by ity of tablet 00:00: mouth 2 00 (two) Medical times Branch daily. traZODone 2018-05 Yes [id number] 200mg Take 2 Univers 100 mg 1-20 tablets by ity of tablet 00:00: mouth at [place] 00 bedtime. Medical Branch busPIRone 2018-05 Yes [id number] 20mg Take 2 U nivers 10 mg 1-20 tablets by ity of tablet 00:00: mouth 3 [place] 00 (three) Medical times Branch daily. benzonatate 2018-05 Yes [id number] 100mg Take 1 Univers (TESSALON 1-20 capsule by ity of PERLES) 100 00:00: mouth [place] mg capsule 00 every 6 Medica l (six) Branch hours as needed for Cough. sod 2018-05 Yes [id number] 1{each} 1 Each by U nivers chlor-bicar 1-20 sinus ity of b-squeez 00:00: irrigation [place] bottle 00 route Medical (NEILMED daily. Branch SINUS RINSE COMPLETE) pkdv lamoTRIgine 2018-05 Yes [id number] 150mg Take 1 Univers 150 mg 1-20 tablet by ity of tablet 00:00: mouth 2 [place] 00 (two) Medical times Branch daily. traZODone 2018-05 Yes [id number] 200mg Take 2 Univers 100 mg 1-20 tablets by ity of tablet 00:00: mouth at [place] 00 bedtime. Medical Branch busPIRone 2018-05 Yes [id number] 20mg Take 2 U nivers 10 mg 1-20 tablets by ity of tablet 00:00: mouth 3 [place] 00 (three) Medical times Branch daily. benzonatate 2018-05 Yes [id number] 100mg Take 1 [facility] (TESSALON 1-20 capsule by ity of PERLES) 100 00:00: mouth [place] mg capsule 00 every 6 Medica l (six) Branch hours as needed for Cough. sod 2018-05 Yes [id number] 1{each} 1 Each by U nivers chlor-bicar 1-20 sinus ity of b-squeez 00:00: irrigation [place] as bottle 00 route Medical (NEILMED daily. Branch SINUS RINSE COMPLETE) pkdv lamoTRIgine 2018-05 Yes [id number] 150mg Take 1 [facility] 150 mg 1-20 tablet by ity of tablet 00:00: mouth 2 00 (two) Medical times Branch daily. traZODone 2018-05 Yes [id number] 200mg Take 2 [facility] 100 mg 1-20 tablets by ity of tablet 00:00: mouth at [place] 00 bedtime. Medical Branch busPIRone 2018-05 Yes [id number] 20mg Take 2 U nivers 10 mg 1-20 tablets by ity of tablet 00:00: mouth 3 [place] 00 (three) Medical times Branch daily. benzonatate 2018-05 Yes [id number] 100mg Take 1 [facility] (TESSALON 1-20 capsule by ity of PERLES) 100 00:00: mouth [place] mg capsule 00 every 6 Medica l (six) Branch hours as needed for Cough. sod 2018-05 Yes [id number] 1{each} 1 Each by U nivers chlor-bicar 1-20 sinus ity of b-squeez 00:00: irrigation [place] as bottle 00 route Medical (NEILMED daily. Branch SINUS RINSE COMPLETE) pkdv lamoTRIgine 2018-05 Yes [id number] 150mg Take 1 [facility] 150 mg 1-20 tablet by ity of tablet 00:00: mouth 2 (two) Medical times Branch daily. sod 2018-05 Yes [id number] 1{each} 1 Each by U nivers chlor-bicar 1-20 sinus ity of b-squeez 00:00: irrigation [place] as bottle 00 route Medical (NEILMED daily. Branch SINUS RINSE COMPLETE) pkdv lamoTRIgine 2018-05 Yes [id number] 150mg Take 1 [facility] 150 mg 1-20 tablet by ity of tablet 00:00: mouth 2 (two) Medical times Branch daily. sod 2018-05 Yes [id number] 1{each} 1 Each by U nivers chlor-bicar 1-20 sinus ity of b-squeez 00:00: irrigation [place] as bottle 00 route Medical (NEILMED daily. Branch SINUS RINSE COMPLETE) pkdv lamoTRIgine 2018-05 Yes [id number] 150mg Take 1 [facility] 150 mg 1-20 tablet by ity of tablet 00:00: mouth 2 (two) Medical times Branch daily. sod 2018-05 Yes [id number] 1{each} 1 Each by U nivers chlor-bicar 1-20 sinus ity of b-squeez 00:00: irrigation [place] as bottle 00 route Medical (NEILMED daily. Branch SINUS RINSE COMPLETE) pkdv lamoTRIgine 2018-05 Yes [id number] 150mg Take 1 [facility] 150 mg 1-20 tablet by ity of tablet 00:00: mouth 2 (two) Medical times Branch daily. sod 2018-05 Yes [id number] 1{each} 1 Each by U nivers chlor-bicar 1-20 sinus ity of b-squeez 00:00: irrigation [place] bottle 00 route Medical (NEILMED daily. Branch SINUS RINSE COMPLETE) pkdv lamoTRIgine 2018-05 Yes [id number] 150mg Take 1 [facility] 150 mg 1-20 tablet by ity of tablet 00:00: mouth 2 (two) Medical times Branch daily. sod 2018-05 Yes [id number] 1{each} 1 Each by U nivers chlor-bicar 1-20 sinus ity of b-squeez 00:00: irrigation [place] bottle 00 route Medical (NEILMED daily. Branch SINUS RINSE COMPLETE) pkdv lamoTRIgine 2018-05 Yes [id number] 150mg Take 1 [facility] 150 mg 1-20 tablet by ity of tablet 00:00: mouth 2 (two) Medical times Branch daily. sod 2018-05 Yes [id number] 1{each} 1 Each by U nivers chlor-bicar 1-20 sinus ity of b-squeez 00:00: irrigation [place] bottle 00 route Medical (NEILMED daily. Branch SINUS RINSE COMPLETE) pkdv lamoTRIgine 2018-05 Yes [id number] 150mg Take 1 [facility] 150 mg 1-20 tablet by ity of tablet 00:00: mouth 2 (two) Medical times Branch daily. sod 2018-05 Yes [id number] 1{each} 1 Each by U nivers chlor-bicar 1-20 sinus ity of b-squeez 00:00: irrigation [place] as bottle 00 route Medical (NEILMED daily. Branch SINUS RINSE COMPLETE) pkdv lamoTRIgine 2018-05 Yes [id number] 150mg Take 1 [facility] 150 mg 1-20 tablet by ity of tablet 00:00: mouth 2 (two) Medical times Branch daily. sod 2018-05 Yes [id number] 1{each} 1 Each by U nivers chlor-bicar 1-20 sinus ity of b-squeez 00:00: irrigation [place] bottle 00 route Medical (NEILMED daily. Branch SINUS RINSE COMPLETE) pkdv lamoTRIgine 2018-05 Yes [id number] 150mg Take 1 [facility] 150 mg 1-20 tablet by ity of tablet 00:00: mouth 2 (two) Medical times Branch daily. sod 2018-05 Yes [id number] 1{each} 1 Each by U nivers chlor-bicar 1-20 sinus ity of b-squeez 00:00: irrigation [place] bottle 00 route Medical (NEILMED daily. Branch SINUS RINSE COMPLETE) pkdv lamoTRIgine 2018-05 Yes [id number] 150mg Take 1 [facility] 150 mg 1-20 tablet by ity of tablet 00:00: mouth 2 (two) Medical times Branch daily. sod 2018-05 Yes [id number] 1{each} 1 Each by U nivers chlor-bicar 1-20 sinus ity of b-squeez 00:00: irrigation [place] bottle 00 route Medical (NEILMED daily. Branch SINUS RINSE COMPLETE) pkdv lamoTRIgine 2018-05 Yes [id number] 150mg Take 1 [facility] 150 mg 1-20 tablet by ity of tablet 00:00: mouth 2 (two) Medical times Branch daily. sod 2018-05 Yes [id number] 1{each} 1 Each by U nivers chlor-bicar 1-20 sinus ity of b-squeez 00:00: irrigation [place] bottle 00 route Medical (NEILMED daily. Branch SINUS RINSE COMPLETE) pkdv lamoTRIgine 2018-05 Yes [id number] 150mg Take 1 [facility] 150 mg 1-20 tablet by ity of tablet 00:00: mouth 2 (two) Medical times Branch daily. sod 2018-05 Yes [id number] 1{each} 1 Each by U nivers chlor-bicar 1-20 sinus ity of b-squeez 00:00: irrigation [place] bottle 00 route Medical (NEILMED daily. Branch SINUS RINSE COMPLETE) pkdv lamoTRIgine 2018-05 Yes [id number] 150mg Take 1 [facility] 150 mg 1-20 tablet by ity of tablet 00:00: mouth 2 (two) Medical times Branch daily. sod 2018-05 Yes [id number] 1{each} 1 Each by U nivers chlor-bicar 1-20 sinus ity of b-squeez 00:00: irrigation [place] bottle 00 route Medical (NEILMED daily. Branch SINUS RINSE COMPLETE) pkdv lamoTRIgine 2018-05 Yes [id number] 150mg Take 1 [facility] 150 mg 1-20 tablet by ity of tablet 00:00: mouth 2 (two) Medical times Branch daily. sod 2018-05 Yes [id number] 1{each} 1 Each by U nivers chlor-bicar 1-20 sinus ity of b-squeez 00:00: irrigation [place] bottle 00 route Medical (NEILMED daily. Branch SINUS RINSE COMPLETE) pkdv lamoTRIgine 2018-05 Yes [id number] 150mg Take 1 [facility] 150 mg 1-20 tablet by ity of tablet 00:00: mouth 2 (two) Medical times Branch daily. sod 2018-05 Yes [id number] 1{each} 1 Each by U nivers chlor-bicar 1-20 sinus ity of b-squeez 00:00: irrigation [place] bottle 00 route Medical (NEILMED daily. Branch SINUS RINSE COMPLETE) pkdv lamoTRIgine 2018-05 Yes [id number] 150mg Take 1 [facility] 150 mg 1-20 tablet by ity of tablet 00:00: mouth 2 (two) Medical times Branch daily. sod 2018-05 Yes [id number] 1{each} 1 Each by U nivers chlor-bicar 1-20 sinus ity of b-squeez 00:00: irrigation [place] bottle 00 route Medical (NEILMED daily. Branch SINUS RINSE COMPLETE) pkdv lamoTRIgine 2018-05 Yes [id number] 150mg Take 1 [facility] 150 mg 1-20 tablet by ity of tablet 00:00: mouth 2 (two) Medical times Branch daily. sod 2018-05 Yes [id number] 1{each} 1 Each by U nivers chlor-bicar 1-20 sinus ity of b-squeez 00:00: irrigation [place] bottle 00 route Medical (NEILMED daily. Branch SINUS RINSE COMPLETE) pkdv lamoTRIgine 2018-05 Yes [id number] 150mg Take 1 [facility] 150 mg 1-20 tablet by ity of tablet 00:00: mouth 2 (two) Medical times Branch daily. sod 2018-05 Yes [id number] 1{each} 1 Each by U nivers chlor-bicar 1-20 sinus ity of b-squeez 00:00: irrigation [place] bottle 00 route Medical (NEILMED daily. Branch SINUS RINSE COMPLETE) pkdv lamoTRIgine 2018-05 Yes [id number] 150mg Take 1 [facility] 150 mg 1-20 tablet by ity of tablet 00:00: mouth 2 (two) Medical times Branch daily. sod 2018-05 Yes [id number] 1{each} 1 Each by U nivers chlor-bicar 1-20 sinus ity of b-squeez 00:00: irrigation [place] bottle 00 route Medical (NEILMED daily. Branch SINUS RINSE COMPLETE) pkdv lamoTRIgine 2018-05 Yes [id number] 150mg Take 1 [facility] 150 mg 1-20 tablet by ity of tablet 00:00: mouth 2 (two) Medical times Branch daily. sod 2018-05 Yes [id number] 1{each} 1 Each by U nivers chlor-bicar 1-20 sinus ity of b-squeez 00:00: irrigation [place] as bottle 00 route Medical (NEILMED daily. Branch SINUS RINSE COMPLETE) pkdv traZODone 2018-05- No [id number] 200mg Take 2 [facility] 100 mg 1-20 02-10 tablets by ity of tablet 00:00: 00:00 mouth at [place] 00 :00 bedtime. Medical Branch busPIRone 2018-05 2020- No [id number] 20mg Take 2 [facility] 10 mg 1-20 02-10 tablets by ity of tablet 00:00: 00:00 mouth 3 [place] 00 :00 (three) Medical times Branch daily. benzonatate 2018-05- No [id number] 100mg Take 1 [facility] (TESSALON 1-20 02-10 capsule by ity of YAMILKA) 100 00:00: 00:00 mouth [place] mg capsule 00 :00 every 6 Medica l (six) Branch hours as needed for Cough. FLUTICASONE 2018-05 Yes [id number] SHAKE U nivers PROPIONATE 0-29 LIQUID AND ity of 50 00:00: USE 2 [place] mcg/actuati 00 SPRAYS IN Med ical on nasal EACH Branch spray NOSTRIL DAILY FOR 10 DAYS FLUTICASONE 2018-05 Yes [id number] SHAKE U nivers PROPIONATE 0-29 LIQUID AND ity of 50 00:00: USE 2 [place] mcg/actuati 00 SPRAYS IN Med ical on nasal EACH Branch spray NOSTRIL DAILY FOR 10 DAYS FLUTICASONE 2018-05 Yes [id number] SHAKE U nivers PROPIONATE 0-29 LIQUID AND ity of 50 00:00: USE 2 [place] mcg/actuati 00 SPRAYS IN Med ical on nasal EACH Branch spray NOSTRIL DAILY FOR 10 DAYS FLUTICASONE 2018-05 Yes [id number] SHAKE U nivers PROPIONATE 0-29 LIQUID AND ity of 50 00:00: USE 2 [place] mcg/actuati 00 SPRAYS IN Med ical on nasal EACH Branch spray NOSTRIL DAILY FOR 10 DAYS FLUTICASONE 2018-05 Yes [id number] SHAKE U nivers PROPIONATE 0-29 LIQUID AND ity of 50 00:00: USE 2 [place] mcg/actuati 00 SPRAYS IN Med ical on nasal EACH Branch spray NOSTRIL DAILY FOR 10 DAYS FLUTICASONE 2018-05 Yes [id number] SHAKE U nivers PROPIONATE 0-29 LIQUID AND ity of 50 00:00: USE 2 [place] mcg/actuati 00 SPRAYS IN Med ical on nasal EACH Branch spray NOSTRIL DAILY FOR 10 DAYS FLUTICASONE 2018-05 Yes [id number] SHAKE U nivers PROPIONATE 0-29 LIQUID AND ity of 50 00:00: USE 2 [place] mcg/actuati 00 SPRAYS IN Med ical on nasal EACH Branch spray NOSTRIL DAILY FOR 10 DAYS FLUTICASONE 2018-05 Yes [id number] SHAKE U nivers PROPIONATE 0-29 LIQUID AND ity of 50 00:00: USE 2 [place] mcg/actuati 00 SPRAYS IN Med ical on nasal EACH Branch spray NOSTRIL DAILY FOR 10 DAYS FLUTICASONE 2018-05 Yes [id number] SHAKE U nivers PROPIONATE 0-29 LIQUID AND ity of 50 00:00: USE 2 [place] mcg/actuati 00 SPRAYS IN Med ical on nasal EACH Branch spray NOSTRIL DAILY FOR 10 DAYS FLUTICASONE 2018-05 Yes [id number] SHAKE U nivers PROPIONATE 0-29 LIQUID AND ity of 50 00:00: USE 2 [place] mcg/actuati 00 SPRAYS IN Med ical on nasal EACH Branch spray NOSTRIL DAILY FOR 10 DAYS FLUTICASONE 2018-05 Yes [id number] SHAKE U nivers PROPIONATE 0-29 LIQUID AND ity of 50 00:00: USE 2 [place] mcg/actuati 00 SPRAYS IN Med ical on nasal EACH Branch spray NOSTRIL DAILY FOR 10 DAYS FLUTICASONE 2018-05 Yes [id number] SHAKE U nivers PROPIONATE 0-29 LIQUID AND ity of 50 00:00: USE 2 [place] mcg/actuati 00 SPRAYS IN Med ical on nasal EACH Branch spray NOSTRIL DAILY FOR 10 DAYS FLUTICASONE 2018-05 Yes [id number] SHAKE U nivers PROPIONATE 0-29 LIQUID AND ity of 50 00:00: USE 2 [place] mcg/actuati 00 SPRAYS IN Med ical on nasal EACH Branch spray NOSTRIL DAILY FOR 10 DAYS FLUTICASONE 2018-05 Yes [id number] SHAKE U nivers PROPIONATE 0-29 LIQUID AND ity of 50 00:00: USE 2 [place] mcg/actuati 00 SPRAYS IN Med ical on nasal EACH Branch spray NOSTRIL DAILY FOR 10 DAYS FLUTICASONE 2018-05 Yes [id number] SHAKE U nivers PROPIONATE 0-29 LIQUID AND ity of 50 00:00: USE 2 [place] mcg/actuati 00 SPRAYS IN Med ical on nasal EACH Branch spray NOSTRIL DAILY FOR 10 DAYS FLUTICASONE 2018-05 Yes [id number] SHAKE U nivers PROPIONATE 0-29 LIQUID AND ity of 50 00:00: USE 2 [place] mcg/actuati 00 SPRAYS IN Med ical on nasal EACH Branch spray NOSTRIL DAILY FOR 10 DAYS FLUTICASONE 2018-05 Yes [id number] SHAKE U nivers PROPIONATE 0-29 LIQUID AND ity of 50 00:00: USE 2 [place] mcg/actuati 00 SPRAYS IN Med ical on nasal EACH Branch spray NOSTRIL DAILY FOR 10 DAYS FLUTICASONE 2018-05 Yes [id number] SHAKE U nivers PROPIONATE 0-29 LIQUID AND ity of 50 00:00: USE 2 [place] mcg/actuati 00 SPRAYS IN Med ical on nasal EACH Branch spray NOSTRIL DAILY FOR 10 DAYS FLUTICASONE 2018-05 Yes [id number] SHAKE U nivers PROPIONATE 0-29 LIQUID AND ity of 50 00:00: USE 2 [place] mcg/actuati 00 SPRAYS IN Med ical on nasal EACH Branch spray NOSTRIL DAILY FOR 10 DAYS FLUTICASONE 2018-05 Yes [id number] SHAKE U nivers PROPIONATE 0-29 LIQUID AND ity of 50 00:00: USE 2 [place] mcg/actuati 00 SPRAYS IN Med ical on nasal EACH Branch spray NOSTRIL DAILY FOR 10 DAYS FLUTICASONE 2018-05 Yes [id number] SHAKE U nivers PROPIONATE 0-29 LIQUID AND ity of 50 00:00: USE 2 [place] mcg/actuati 00 SPRAYS IN Med ical on nasal EACH Branch spray NOSTRIL DAILY FOR 10 DAYS FLUTICASONE 2018-05 Yes [id number] SHAKE U nivers PROPIONATE 0-29 LIQUID AND ity of 50 00:00: USE 2 [place] mcg/actuati 00 SPRAYS IN Med ical on nasal EACH Branch spray NOSTRIL DAILY FOR 10 DAYS FLUTICASONE 2018-05 Yes [id number] SHAKE U nivers PROPIONATE 0-29 LIQUID AND ity of 50 00:00: USE 2 [place] mcg/actuati 00 SPRAYS IN Med ical on nasal EACH Branch spray NOSTRIL DAILY FOR 10 DAYS furosemide Yes 80mg Take 80 mg U nivers 80 mg 8-05 by mouth. ity of tablet 15:13: [address] omeprazole Yes 10mg Take 10 mg U nivers 10 mg 8-05 by mouth. ity of capsule 15:13: [address] furosemide Yes 80mg Take 80 mg U nivers 80 mg 8-05 by mouth. ity of tablet 15:13: [address] omeprazole Yes 10mg Take 10 mg U nivers 10 mg 8-05 by mouth. ity of capsule 15:13: [address] furosemide Yes 80mg Take 80 mg U nivers 80 mg 8-05 by mouth. ity of tablet 15:13: [address] omeprazole Yes 10mg Take 10 mg U nivers 10 mg 8-05 by mouth. ity of capsule 15:13: [address] proMETHazin 2018- No 25mg 25 mg, IV Univers e 12-22 Piggyback, ity of (PHENERGAN) 04:00: 04:00 [place] 1 [place] 25 mg in 00 :00 dose, [facility] NaCl 0.9% 12/21/18 at [facility] h (NS) 50 mL 2300, 50 piggyback mL iohexol 2018- No 100mL 100 mL, Unive rs (OMNIPAQUE 12-22 Intravenou it y of 350 02:45: 02:35 s, ONCE, 1 [place] BULK-100 00 :00 dose, [facility] mL) 12/21/18 at [place] injection 2145, 100 mL Routine dicyclomine 2018- No 20mg 20 mg, Uni vers (BENTYL) 12-22 Intramuscu ity of injection 01:15: 02:17 [place], ONCE, [place] 20 mg 00 :00 1 dose, Medical [place] 12/21/18 Branch at 2014, Routine ondansetron 2018- No 4mg 4 mg, Slow Univers (ZOFRAN 12-22 IV Push, ity of (PF)) 01:15: 01:53 ONCE, 1 [place] injection 4 00 :00 dose, [place] Med ical mg 12/21/18 at Branch 2015, MARY NaCl 0.9% 2019- 2019- No 1000mL at 999 Uni vers (NS) bolus 8-05 08-05 mL/hr, ity of infusion 00:15: 04:25 1,000 mL, [place]bo[place] as 1,000 mL 00 :00 IV Medical Infusion, Branch ONCE, 1 dose, 12/21/18 at 1915, MARY proMETHazin 2018-0 Yes [id number] 25mg Take 1 Univers e 25 mg 8-05 tablet by ity of tablet 00:00: mouth [place] 00 every 4 Medical (four) Branch hours as needed for N/V unresponsi ve to Ondansetro n. proMETHazin 2018- Yes [id number] 25mg Take 1 Univers e 25 mg 8-05 tablet by ity of tablet 00:00: mouth [place] 00 every 4 Medical (four) Branch hours as needed for N/V unresponsi ve to Ondansetro n. proMETHazin 2018- Yes [id number] 25mg Take 1 Univers e 25 mg 8-05 tablet by ity of tablet 00:00: mouth [place] 00 every 4 Medical (four) Branch hours as needed for N/V unresponsi ve to Ondansetro n. ondansetron 2018- Yes [id number] 4mg Take 1 [facility] (ZOFRAN 8-04 tablet by ity of ODT) 4 mg 00:00: mouth [place] disintegrat 00 every 8 Medic al ing tablet (eight) Branch hours as needed for Nausea and Vomiting (N/V). ondansetron 2018- Yes [id number] 4mg Take 1 [facility] (ZOFRAN 8-04 tablet by ity of ODT) 4 mg 00:00: mouth [place] disintegrat 00 every 8 Medic al ing tablet (eight) Branch hours as needed for Nausea and Vomiting (N/V). ondansetron 2018- Yes [id number] 4mg Take 1 [facility] (ZOFRAN 8-04 tablet by ity of ODT) 4 mg 00:00: mouth [place] disintegrat 00 every 8 Medic al ing tablet (eight) Branch hours as needed for Nausea and Vomiting (N/V). ondansetron 2018- Yes [id number] 4mg Take 1 [facility] (ZOFRAN 8-04 tablet by ity of ODT) 4 mg 00:00: mouth [place] disintegrat 00 every 8 Medic al ing tablet (eight) Branch hours as needed for Nausea and Vomiting (N/V). lamoTRIgine Yes TK 1 T PO U nivers 25 mg 7-20 D ity of tablet 00:00: [place] 00 [facility] lamoTRIgine Yes TK 1 T PO U nivers 25 mg 7-20 D ity of tablet 00:00: [address] lamoTRIgine Yes TK 1 T PO U nivers 25 mg 7-20 D ity of tablet 00:00: [place] 00 [facility] lamoTRIgine Yes TK 1 T PO U nivers 25 mg 7-20 D ity of tablet 00:00: [address] hydrOXYzine Yes TK 1-2 T Un trev 25 mg 7-20 PO BID PRN ity of tablet 00:00: [address] hydrOXYzine 2019- No TK 1-2 T U nivers 25 mg 7-20 08-05 PO BID PRN ity of tablet 00:00: 00:00 [place] 00 :00 [facility] hydrOXYzine 2019- No TK 1-2 T U nivers 25 mg 7-20 08-05 PO BID PRN ity of tablet 00:00: 00:00 [place] 00 :00 [facility] furosemide Yes 80mg Take 80 mg U nivers 80 mg 5-21 by mouth. ity of tablet 14:58: [address] omeprazole Yes 10mg Take 10 mg U nivers 10 mg 5-21 by mouth. ity of capsule 14:58: [address] montelukast 2019- No [id number] 10mg Take 1 [facility] 10 mg 5-21 08-20 tablet by ity of tablet 00:00: 04:59 mouth [place] 00 :00 daily for Medical 90 days. Branch fluticasone 2019- No [id number] 1{spray Use 1 [facility] 50 5-21 08-20 } [place] in ity of mcg/actuati 00:00: 04:59 each [place] on nasal 00 :00 nostril Medical spray daily for Branch 90 days. montelukast 2019- No [id number] 10mg Take 1 [facility] 10 mg 5-21 08-20 tablet by ity of tablet 00:00: 04:59 mouth [place] 00 :00 daily for Medical 90 days. [place] fluticasone 2019- No [id number] 1{spray Use 1 [facility] 50 5-21 08-20 } [place] in ity of mcg/actuati 00:00: 04:59 each [place] on nasal 00 :00 nostril Medical spray daily for Branch 90 days. montelukast 2019- No [id number] 10mg Take 1 [facility] 10 mg 5-21 08-20 tablet by ity of tablet 00:00: 04:59 mouth [place] 00 :00 daily for Medical 90 days. [place] fluticasone 2019- No [id number] 1{spray Use 1 [facility] 50 5-21 08-20 } [place] in ity of mcg/actuati 00:00: 04:59 each [place] on nasal 00 :00 nostril Medical spray daily for Branch 90 days. montelukast 2019- No [id number] 10mg Take 1 [facility] 10 mg 5-21 08-20 tablet by ity of tablet 00:00: 04:59 mouth [place] 00 :00 daily for Medical 90 days. [place] fluticasone 2019- No [id number] 1{spray Use 1 [facility] 50 5-21 08-20 } [place] in ity of mcg/actuati 00:00: 04:59 each [place] on nasal 00 :00 nostril Medical spray daily for Branch 90 days. ondansetron 2019- No [id number] 4mg Take 1 [facility] 4 mg 5-16 08-04 tablet by ity of disintegrat 00:00: 00:00 mouth [place] ing tablet 00 :00 every 8 Medica l (eight) Branch hours as needed for Nausea and Vomiting (N/V). Loperamide Yes [id number] 4mg Take 2 U nivers HCl 2 mg 5-03 tablets by ity o f Tab tablet 00:00: mouth 3 [place] 00 (three) Medical times Branch daily as needed (Diarrhea) . proCHLORper Yes [id number] 10mg Take 1 [facility] azine 10 mg 5-03 tablet by ity of tablet 00:00: mouth [place] 00 every 6 Medical (six) Branch hours as needed for Nausea and Vomiting (N/V) or N/V unresponsi ve to Promethazi ne. Loperamide Yes [id number] 4mg Take 2 U nivers HCl 2 mg 5-03 tablets by ity o f Tab tablet 00:00: mouth 3 [place] 00 (three) Medical times Branch daily as needed (Diarrhea) . proCHLORper 2018- Yes [id number] 10mg Take 1 [facility] azine 10 mg 5-03 tablet by ity of tablet 00:00: mouth [place] 00 every 6 Medical (six) Branch hours as needed for Nausea and Vomiting (N/V) or N/V unresponsi ve to [facility]. Loperamide Yes [id number] 4mg Take 2 U nivers HCl 2 mg 5-03 tablets by ity o f Tab tablet 00:00: mouth 3 [place] 00 (three) Medical times Branch daily as needed (Diarrhea) . proCHLORper Yes [id number] 10mg Take 1 [facility] azine 10 mg 5-03 tablet by ity of tablet 00:00: mouth [place] 00 every 6 Medical (six) Branch hours as needed for Nausea and Vomiting (N/V) or N/V unresponsi ve to [facility]. Loperamide Yes [id number] 4mg Take 2 U nivers HCl 2 mg 5-03 tablets by ity o f Tab tablet 00:00: mouth 3 [place] 00 (three) Medical times Branch daily as needed (Diarrhea) . proCHLORper Yes [id number] 10mg Take 1 [facility] azine 10 mg 5-03 tablet by ity of tablet 00:00: mouth [place] 00 every 6 Medical (six) Branch hours as needed for Nausea and Vomiting (N/V) or N/V unresponsi ve to [facility]. pantoprazol Yes 40mg Take 1 Univ ers e 40 mg EC 5-17 tablet by ity of tablet 00:00: mouth [place] 00 daily. Medical Branch pantoprazol Yes 40mg Take 1 Univ ers e 40 mg EC 5-17 tablet by ity of tablet 00:00: mouth [place] 00 daily. Medical Branch pantoprazol Yes 40mg Take 1 Univ ers e 40 mg EC 5-17 tablet by ity of tablet 00:00: mouth [place] 00 daily. Medical Branch pantoprazol Yes 40mg Take 1 Univ ers e 40 mg EC 5-17 tablet by ity of tablet 00:00: mouth [place] 00 daily. Medical Branch aspirin 81 Yes 81mg QD Take [address] MG EC 4-22 by mouth [facility] tablet 22:32: daily. [address] furosemide 0 Yes 80mg Q.5D Take [address] (LASIX) 80 4-22 by mouth 2 [facility]el [facility] MG tablet 22:32: (two) Medical 20 times Center daily. albuterol Yes 1{puff} Inhale [address] HFA 4-22 puff by [facility] (VENTOLIN 22:32: mouth via Med ical HFA) 90 20 inhaler Center mcg/actuati every 6 on inhaler (six) hours as needed for Wheezing. omeprazole Yes 10mg QD Take [address] (PRILOSEC) 4-22 by mouth [facility] 10 MG 22:32: daily. Medical capsule [address] [place] [address] aspirin 81 Yes 81mg QD Take [address] MG EC 4-22 by mouth [facility] tablet 22:32: daily. [address] furosemide 0 Yes 80mg Q.5D Take [address] (LASIX) 80 4-22 by mouth 2 [facility] es MG tablet 22:32: (two) Medical 20 times Center daily. albuterol Yes 1{puff} Inhale [address] HFA 4-22 puff by [facility] (VENTOLIN 22:32: mouth via Med ical HFA) 90 20 inhaler Center mcg/actuati every 6 on inhaler (six) hours as needed for Wheezing. omeprazole Yes 10mg QD Take [address] (PRILOSEC) 4-22 by mouth [facility] 10 MG 22:32: daily. Medical capsule [address] [place] [address] proMETHazin Yes 25mg Take 1 Univ ers e 25 mg 4-21 tablet by ity of tablet 00:00: mouth [place] 00 every 4 Medical (four) Branch hours as needed for N/V unresponsi ve to Ondansetro n. proMETHazin 2019- No 25mg Take 1 Uni vers e 25 mg 4-21 08-05 tablet by ity of tablet 00:00: 00:00 mouth [place] 00 :00 every 4 Medical (four) Branch hours as needed for N/V unresponsi ve to Ondansetro n. proMETHazin 2018-0 2019- No 25mg Take 1 Uni vers e 25 mg 09-07 tablet by ity of tablet 00:00: 00:00 mouth [place] 00 :00 every 4 Medical (four) Branch hours as needed for N/V unresponsi ve to Ondansetro n. busPIRone 2018-0 Yes 10mg Take 10 mg Un trev 10 mg 2-19 by mouth. ity of tablet 00:00: [address] Branch traZODONE 2018-0 Yes 100mg Take 100 Uni vers 100 mg 2-19 mg by ity of tablet 00:00: mouth. [address] lamoTRIgine 2017-0 Yes 50mg Take 50 mg Univers 150 mg 2-19 by mouth ity of tablet 00:00: daily. [address] busPIRone 2017-0 Yes 10mg Take 10 mg Un trev 10 mg 2-19 by mouth. ity of tablet 00:00: [address] Branch traZODONE 2018-0 Yes 100mg Take 100 Uni vers 100 mg 2-19 mg by ity of tablet 00:00: mouth. [address] lamoTRIgine 2017-0 Yes 50mg Take 50 mg Univers 150 mg 2-19 by mouth ity of tablet 00:00: daily. [address] busPIRone 2017-0 Yes 10mg Take 10 mg Un trev 10 mg 2-19 by mouth. ity of tablet 00:00: [address] traZODONE 2018-0 Yes 100mg Take 100 Uni vers 100 mg 2-19 mg by ity of tablet 00:00: mouth. [address] lamoTRIgine 2018-0 Yes 50mg Take 50 mg Univers 150 mg 2-19 by mouth ity of tablet 00:00: daily. [address] busPIRone 2018-0 Yes 10mg Take 10 mg Un trev 10 mg 2-19 by mouth. ity of tablet 00:00: [address] traZODONE 2018-0 Yes 100mg Take 100 Uni vers 100 mg 2-19 mg by ity of tablet 00:00: mouth. [address] lamoTRIgine 2018-0 Yes 150mg Take 150 U nivers 150 mg 2-19 mg by ity of tablet 00:00: mouth. [address] busPIRone Yes 10mg Q.5D Take [address] [facility] [address] (BUSPAR) 10 2-19 by mouth 2 Candie kes MG tablet 00:00: (two) Medical 00 times Center daily. divalproex Yes TAKE 2 [facility] (DEPAKOTE[facility] 2-19 TABLETS BY [facility] 500 MG EC 00:00: MOUTH Medical tablet 00 EVERY Center MORNING & 2 TABLETS EVERY EVENING FLUoxetine Yes 80mg QD Take [address] (PROZAC) 40 2-19 by mouth [facility] MG capsule 00:00: daily. Medic al [place] lamoTRIgine Yes 150mg Q.5D Take [address] (LAMICTAL) 2-19 mg by [facility] 150 MG 00:00: mouth 2 Medical tablet 00 (two) Center times daily. traZODone Yes 100mg QD Take [address] [facility] [address] (DESYREL) 2-19 mg by [facility] 100 MG 00:00: mouth Medical tablet 00 nightly. [place] divalproex Yes TAKE 2 [facility] (DEPAKOTE) 2-19 TABLETS BY [facility]el es 500 MG EC 00:00: MOUTH Medical tablet 00 EVERY Center MORNING & 2 TABLETS EVERY EVENING FLUoxetine Yes 80mg QD Take [address] (PROZAC) 40 2-19 by mouth [facility] MG capsule 00:00: daily. Medic al [place] lamoTRIgine Yes 150mg Q.5D Take [address] (LAMICTAL) 2-19 mg by [facility] 150 MG 00:00: mouth 2 Medical tablet 00 (two) Center times daily. traZODone 2017-0 Yes 100mg QD Take [address] [facility] (DESYREL) 2-19 mg by [facility] 00:00: mouth Medical tablet 00 nightly. [place] busPIRone Yes 10mg Q.5D Take [address] [facility] [address] [facility] (BUSPAR) 10 2-19 by mouth 2 Candie kes MG tablet 00:00: (two) Medical 00 times Center daily. FLUoxetine 2016-05 Yes 80mg Take 2 Unive rs 40 mg 1-25 capsules ity of capsule 00:00: by mouth [place] [id number] daily. Medical Branch divalproex 2016-05 Yes 1000mg Take 2 Uni vers ER 500 mg 1-25 tablets by ity of 24 hr 00:00: mouth [place] tablet 00 every 24 Medical (twenty- Branch ur) hours. gabapentin 2016-05 Yes 600mg Take 1 Univ ers 600 mg 1-25 tablet by ity of tablet 00:00: mouth 3 [place] 00 (three) Medical times Branch daily. FLUoxetine 2016-05 Yes 80mg Take 2 Unive rs 40 mg 1-25 capsules ity of capsule 00:00: by mouth [place] 00 daily. Medical Branch divalproex 2016-05 Yes 1000mg Take 2 Uni vers ER 500 mg 1-25 tablets by ity of 24 hr 00:00: mouth [place] tablet 00 every 24 Medical (twenty-fo Branch ur) hours. gabapentin 2016-05 Yes 600mg Take 1 Univ ers 600 mg 1-25 tablet by ity of tablet 00:00: mouth 3 [place] 00 (three) Medical times Branch daily. FLUoxetine 2016-05 Yes 80mg Take 2 Unive rs 40 mg 1-25 capsules ity of capsule 00:00: by mouth [place] 00 daily. Medical Branch divalproex 2016-05 Yes 1000mg Take 2 Uni vers ER 500 mg 1-25 tablets by ity of 24 hr 00:00: mouth [place] tablet 00 every 24 Medical (twenty-fo Branch ur) hours. gabapentin 2016-05 Yes 600mg Take 1 Univ ers 600 mg 1-25 tablet by ity of tablet 00:00: mouth 3 [place] 00 (three) Medical times Branch daily. FLUoxetine 2016-05 Yes 80mg Take 2 Unive rs 40 mg 1-25 capsules ity of capsule 00:00: by mouth [place] 00 daily. Medical Branch divalproex 2016-05 Yes 1000mg Take 2 Uni vers ER 500 mg 1-25 tablets by ity of 24 hr 00:00: mouth [place] tablet 00 every 24 Medical (twenty-fo Branch ur) hours. gabapentin 2016-05 Yes 600mg Take 1 Univ ers 600 mg 1-25 tablet by ity of tablet 00:00: mouth 3 [place] 00 (three) Medical times Branch daily. No known No No known Metho di medications 9-[address] [facility] l metOLazone Yes Take 1 Unive rs 2.5 mg 3-08 tablet 30 ity of tablet 00:00: minutes [place] 00 before Medical morning Branch dose of lasix if you gain > 3-5 lbs weight above baseline metOLazone Yes Take 1 Unive rs 2.5 mg 3-08 tablet 30 ity of tablet 00:00: minutes [place] 00 before Medical morning Branch dose of lasix if you gain > 3-5 lbs weight above baseline metOLazone Yes Take 1 Unive rs 2.5 mg 3-08 tablet 30 ity of tablet 00:00: minutes [place] 00 before Medical morning Branch dose of lasix if you gain > 3-5 lbs weight above baseline metOLazone Yes Take 1 Unive rs 2.5 mg 3-08 tablet 30 ity of tablet 00:00: minutes [place] 00 before Medical morning Branch dose of lasix if you gain > 3-5 lbs weight above baseline ciprofloxac Yes 500 mg = 1 Memoria in 500 mg 1-15 tab, PO, l oral 17:42: Daily, X [place] tablet, 00 day, # extended 10 tab, 0 release Refill(s) Acetaminoph No Notes: Do M emoria en 325 MG / -15 not exceed l Hydrocodone 16:38: 4gm/day of [place] Bitartrate 00 acetaminop 10 MG Oral hen. (Same Tablet as: [place] [[place] 325/10) 10/325] lactulose Yes 20 gm = 1 Mem oria 20 g oral 1-15 ea, PO, l powder 16:29: BID, X 14 David n 00 day, # 28 ea, 2 Refill(s) Sodium No 1,000 mL, Memori a Chloride -15 1,000 l 0.154 14:48: ml/hr, [place] MEQ/ML 00 Infuse Injectable Over: 1 Solution hr, Route: IV, ONCE, Priority: STAT, Dosing Weight 113.636 kg, Start date: 06/03/16 8:48:00 [employer], Duration: 1 doses or times, Stop date: 06/03/16 8:48:00 [employer] Zofran No 4 mg, Memoria -15 Route: l 14:48: IVP, Drug [place] 00 form: INJ, ONCE, Dosing Weight 113.636, kg, Priority: STAT, Start date: 06/03/16 8:48:00 [employer]SEM[employer]ER, Stop date: 06/03/16 8:48:00 [employer] Morphine No 4 mg, Memoria 15 Route: l 14:48: IVP, ONCE, [place] 00 Dosing Weight 113.636, kg, Start date: 06/03/16 8:48:00 SHE[employer]SEM[employer]ER, Stop date: 06/03/16 8:48:00 [employer] Divalproex Yes 125 mg = 1 M emoria Sodium 125 1-11 tab, PO, l MG Enteric 21:18: BID, 0 Meliza nn Coated 00 Refill(s) Tablet [Depakote] Aspirin Yes 81 mg = 1 Memor ia Enteric 1-11 tab, PO, l Coated 81 21:17: Daily, 0 Herm cristian mg oral 00 Refill(s) delayed release tablet Furosemide Yes 40 mg = 1 Me moria 40 MG Oral 1-11 tab, PO, l Tablet 21:17: BID, 0 [place] [Lasix] 00 Refill(s) aspirin 81 2015-05 Yes 81mg Take 1 Unive rs mg chewable 2-10 tablet by ity of tablet 00:00: mouth [place] 00 daily. Medical Branch aspirin 81 2015-05 Yes 81mg Take 1 Unive rs mg chewable 2-10 tablet by ity of tablet 00:00: mouth [place] 00 daily. Medical Branch aspirin 81 2015-05 Yes 81mg Take 1 Unive rs mg chewable 2-10 tablet by ity of tablet 00:00: mouth [place] 00 daily. Medical Branch aspirin 81 2015-05 Yes 81mg Take 1 Unive rs mg chewable 2-10 tablet by ity of tablet 00:00: mouth [place] 00 daily. Medical Branch ferrous 2015-05 Yes [id number] 325mg Take 1 Un trev sulfate 325 0-27 tablet by ity of mg (65 mg 00:00: mouth [place] iron) 00 daily. Medical tablet Branch ferrous 2015-05 Yes [id number] 325mg Take 1 Un trev sulfate 325 0-27 tablet by ity of mg (65 mg 00:00: mouth [place] iron) 00 daily. Medical tablet Branch ferrous 2015-05 Yes [id number] 325mg Take 1 Un trev sulfate 325 0-27 tablet by ity of mg (65 mg 00:00: mouth [place] iron) 00 daily. Medical tablet Branch ferrous 2015-05 Yes [id number] 325mg Take 1 Un trev sulfate 325 0-27 tablet by ity of mg (65 mg 00:00: mouth [place] iron) 00 daily. Medical tablet Branch ferrous 2015-05 Yes [id number] 325mg Take 1 Un trev sulfate 325 0-27 tablet by ity of mg (65 mg 00:00: mouth [place] iron) 00 daily. Medical tablet Branch ferrous 2015-05 Yes [id number] 325mg Take 1 Un trev sulfate 325 0-27 tablet by ity of mg (65 mg 00:00: mouth [place] iron) 00 daily. Medical tablet Branch ferrous 2015-05 Yes [id number] 325mg Take 1 Un trev sulfate 325 0-27 tablet by ity of mg (65 mg 00:00: mouth [place] iron) 00 daily. Medical tablet Branch ferrous 2015-05 Yes [id number] 325mg Take 1 Un trev sulfate 325 0-27 tablet by ity of mg (65 mg 00:00: mouth [place] iron) 00 daily. Medical tablet Branch ferrous 2015-05 Yes [id number] 325mg Take 1 Un trev sulfate 325 0-27 tablet by ity of mg (65 mg 00:00: mouth [place] iron) 00 daily. Medical tablet Branch ferrous 2015-05 Yes [id number] 325mg Take 1 Un trev sulfate 325 0-27 tablet by ity of mg (65 mg 00:00: mouth [place] iron) 00 daily. Medical tablet Branch ferrous 2015-05 Yes [id number] 325mg Take 1 Un trev sulfate 325 0-27 tablet by ity of mg (65 mg 00:00: mouth [place] iron) 00 daily. Medical tablet Branch ferrous 2015-05 Yes [id number] 325mg Take 1 Un trev sulfate 325 0-27 tablet by ity of mg (65 mg 00:00: mouth [place] iron) 00 daily. Medical tablet Branch ferrous 2015-05 Yes [id number] 325mg Take 1 Un trev sulfate 325 0-27 tablet by ity of mg (65 mg 00:00: mouth [place] iron) 00 daily. Medical tablet Branch ferrous 2015-05 Yes [id number] 325mg Take 1 Un trev sulfate 325 0-27 tablet by ity of mg (65 mg 00:00: mouth [place] iron) 00 daily. Medical tablet Branch ferrous 2015-05 Yes [id number] 325mg Take 1 Un trev sulfate 325 0-27 tablet by ity of mg (65 mg 00:00: mouth [place] iron) 00 daily. Medical tablet Branch [facility] 2015-05 Yes [id number] 325mg Take 1 Un trev sulfate 325 0-27 tablet by ity of mg (65 mg 00:00: mouth [place] iron) 00 daily. Medical tablet Branch ferrous 2015-05 Yes [id number] 325mg Take 1 Un trev sulfate 325 0-27 tablet by ity of mg (65 mg 00:00: mouth [place] iron) 00 daily. Medical tablet Branch [facility] 2015-05 Yes [id number] 325mg Take 1 Un trev sulfate 325 0-27 tablet by ity of mg (65 mg 00:00: mouth [place] iron) 00 daily. Medical tablet Branch [facility] 2015-05 Yes [id number] 325mg Take 1 Un trev sulfate 325 0-27 tablet by ity of mg (65 mg 00:00: mouth [place] iron) 00 daily. Medical tablet Branch [facility] 2015-05 Yes [id number] 325mg Take 1 Un trev sulfate 325 0-27 tablet by ity of mg (65 mg 00:00: mouth [place] iron) 00 daily. Medical tablet Branch [facility] 2015-05 Yes [id number] 325mg Take 1 Un trev sulfate 325 0-27 tablet by ity of mg (65 mg 00:00: mouth [place] iron) 00 daily. Medical tablet Branch [facility] 2015-05 Yes [id number] 325mg Take 1 Un trev sulfate 325 0-27 tablet by ity of mg (65 mg 00:00: mouth [place] iron) 00 daily. Medical tablet Branch [facility] 2015-05 Yes [id number] 325mg Take 1 Un trev sulfate 325 0-27 tablet by ity of mg (65 mg 00:00: mouth [place] iron) 00 daily. Medical tablet Branch [facility] 2015-05 Yes [id number] 325mg Take 1 Un trev sulfate 325 0-27 tablet by ity of mg (65 mg 00:00: mouth [place] iron) 00 daily. Medical tablet Branch ferrous 2015-05 Yes [id number] 325mg Take 1 Un trev sulfate 325 0-27 tablet by ity of mg (65 mg 00:00: mouth [place] iron) 00 daily. Medical tablet Branch [facility] 2015-05 Yes [id number] 325mg Take 1 Un trev sulfate 325 0-27 tablet by ity of mg (65 mg 00:00: mouth [place] iron) 00 daily. Medical tablet Branch [facility] Yes [id number] 325mg Take 1 Un trev sulfate 325 0-27 tablet by ity of mg (65 mg 00:00: mouth [place] iron) 00 daily. [facility] tablet [place] Immunizations Ordered Immunization Filled Immunization Date Status Commen ts Source Name Name HEPATITIS A 2015-12-16 Completed University [facility] 00:00:00 [facility] HPV 2015-12-16 Completed University of 00:00:00 [facility] Meningococcal 2015-12-16 Completed University of Polysaccharide 00:00:00 [place] [facility] (groups A, C, Y and Branc h W-135) conjugate vaccine (MCV4P) HEPATITIS A 2015-12-16 Completed University of 00:00:00 [facility] HPV 2015-12-16 Completed University of 00:00:00 [facility] Meningococcal 2015-12-16 Completed University of Polysaccharide 00:00:00 [place] [facility] (groups A, C, Y and Branc h W-135) conjugate vaccine (MCV4P) influenza virus 2015-06-13 Completed [facility] vaccine, 20:42:00 inactivated<sup>1</moya p> Influenza Virus 2015-06-13 Completed Universit y of Vaccine 00:00:00 [facility] Influenza Virus 2015-06-13 Completed Universit y of Vaccine 00:00:00 [facility] Influenza Virus 2015-06-13 Completed Universit y of Vaccine 00:00:00 [facility] Influenza Virus 2015-06-13 Completed Universit y of Vaccine 00:00:00 [facility] Influenza Virus 2015-06-13 Completed Universit y of Vaccine 00:00:00 [facility] Influenza Virus 2015-06-13 Completed Universit y of Vaccine 00:00:00 [facility] Influenza Virus 2015-06-13 Completed Universit y of Vaccine 00:00:00 [facility] Influenza Virus 2015-06-13 Completed Universit y of Vaccine 00:00:00 [facility] Influenza Virus 2015-06-13 Completed Universit y of Vaccine 00:00:00 [facility] Influenza Virus 2015-06-13 Completed Universit y of Vaccine 00:00:00 [facility] Influenza Virus 2015-06-13 Completed Universit y of Vaccine 00:00:00 [facility] HEPATITIS A 2010-01-05 Completed University of 00:00:00 [facility] Meningococcal 2010-01-05 Completed University of Polysaccharide 00:00:00 [facility] (groups A, C, Y and Branc h W-135) conjugate vaccine (MCV4P) TDAP 2010-01-05 Completed University of 00:00:00 [facility] Varicella 2010-01-05 Completed University of (varivax)(chicken 00:00:00 [place] [facility] pox) Branch HEPATITIS A 2010-01-05 Completed University of 00:00:00 [facility] Meningococcal 2010-01-05 Completed University of Polysaccharide 00:00:00 [facility] (groups A, C, Y and Branc h W-135) conjugate vaccine (MCV4P) TDAP 2010-01-05 Completed University of 00:00:00 [facility] Varicella 2010-01-05 Completed University of (varivax)(chicken 00:00:00 [place] [facility] pox) [facility] DTAP 2002-09-30 Completed University of 00:00:00 [facility] MMR 2002-09-30 Completed University of 00:00:00 [facility] Polio (IPV/OPV) 2002-09-30 Completed Universit y of 00:00:00 [facility] DTAP 2002-09-30 Completed University of 00:00:00 [facility] MMR 2002-09-30 Completed University of 00:00:00 [facility] Polio (IPV/OPV) 2002-09-30 Completed Universit y of 00:00:00 [facility] Varicella 1999-01-18 Completed University of (varivax)(chicken 00:00:00 [place] [facility] pox) [facility] Varicella 1999-01-18 Completed University of (varivax)(chicken 00:00:00 [place] [facility] pox) [facility] HIB 3 Dose Schedule 1998-11-04 Completed Unive rsity of 00:00:00 [facility] MMR 1998-11-04 Completed University of 00:00:00 [facility] Polio (IPV/OPV) 1998-11-04 Completed Universit y of 00:00:00 [facility] HIB 3 Dose Schedule 1998-11-04 Completed Unive rsity of 00:00:00 [facility] MMR 1998-11-04 Completed University of 00:00:00 [facility] Polio (IPV/OPV) 1998-11-04 Completed Universit y of 00:00:00 [facility] Polio (IPV/OPV) 1998-04-30 Completed Universit y of 00:00:00 [facility] Polio (IPV/OPV) 1998-04-30 Completed Universit y of 00:00:00 [facility] DTAP 1998-02-07 Completed University of 00:00:00 [facility] Hep B, Adol or Pedi 1998-02-07 Completed Unive rsity of Dosage 00:00:00 [facility] DTAP 1998-02-07 Completed University of 00:00:00 [facility] Hep B, Adol or Pedi 1998-02-07 Completed Unive rsity of Dosage 00:00:00 [facility] DTAP 1997 Completed University of 00:00:00 [facility] Polio (IPV/OPV) 1997 Completed Universit y of 00:00:00 [facility] DTAP 1997 Completed University of 00:00:00 [facility] Polio (IPV/OPV) 1997 Completed Universit y of 00:00:00 [facility] DTAP 1997 Completed University of 00:00:00 [facility] HIB 3 Dose Schedule 1997 Completed Unive rsity of 00:00:00 [facility] Hep B, Adol or Pedi 1997 Completed Unive rsity of Dosage 00:00:00 [facility] Polio (IPV/OPV) 1997 Completed Universit y of 00:00:00 [facility] DTAP 1997 Completed University of 00:00:00 [facility] HIB 3 Dose Schedule 1997 Completed Unive rsity of 00:00:00 [facility] Branch Hep B, Adol or Pedi 1997 Completed Unive rsity of Dosage 00:00:00 [facility] Polio (IPV/OPV) 1997 Completed Universit y of 00:00:00 [facility] Hep B, Adol or Pedi 1997 Completed Unive rsity of Dosage 00:00:00 [facility] Hep B, Adol or Pedi 1997 Completed Unive rsity of Dosage 00:00:00 [facility] Vital Signs Vital Name Observation Time Observation Value Comments Source Systolic blood 2019-07-29 14:59:00 114 mm[Hg] Univer sity of pressure [place] [facility] Diastolic blood 2019-07-29 14:59:00 82 mm[Hg] Unive rsity of pressure [place] [facility] Heart rate 2019-07-29 14:59:00 92 /min Universi ty of [place] [facility] Body temperature 2019-07-29 14:59:00 36.56 Marielena Univ ersity of [place] [facility] Respiratory rate 2019-07-29 14:59:00 18 /min Univ ersity of [place] [facility] Body height 2019-07-29 14:59:00 165.1 cm Universi ty of [place] [facility] Body weight 2019-07-29 14:59:00 105.348 kg Universi ty of [place] [facility] BMI 2019-07-29 14:59:00 38.65 kg/m2 Universi ty of [place] [facility] Oxygen saturation in 2019-07-29 14:59:00 98 /min University of Arterial blood by [facility] Pulse oximetry Branch Systolic blood 2019-07-29 14:59:00 114 mm[Hg] Univer sity of pressure [place] [facility] Diastolic blood 2019-07-29 14:59:00 82 mm[Hg] Unive rsity of pressure [place] [facility] Heart rate 2019-07-29 14:59:00 92 /min Universi ty of [place] [facility] Body temperature 2019-07-29 14:59:00 36.56 Marielena Univ ersity of [place] [facility] Respiratory rate 2019-07-29 14:59:00 18 /min Univ ersity of [place] [facility] Body height 2019-07-29 14:59:00 165.1 cm Universi ty of [place] [facility] Body weight 2019-07-29 14:59:00 105.348 kg Universi ty of [place] [facility] BMI 2019-07-29 14:59:00 38.65 kg/m2 Universi ty of [place] [facility] Oxygen saturation in 2019-07-29 14:59:00 98 /min University of Arterial blood by [facility] Pulse oximetry Branch Systolic blood 2019-07-23 13:37:00 129 mm[Hg] Univer sity of pressure [place] [facility] Diastolic blood 2019-07-23 13:37:00 73 mm[Hg] Unive rsity of pressure [place] [facility] Heart rate 2019-07-23 13:37:00 70 /min Universi ty of [place] [facility] Body temperature 2019-07-23 13:37:00 36.94 Marielena Univ ersity of [place] [facility] Respiratory rate 2019-07-23 13:37:00 18 /min Univ ersity of [place] [facility] Oxygen saturation in 2019-07-23 13:37:00 93 /min University of Arterial blood by [facility] Pulse oximetry Branch Body height 2019-07-21 20:52:00 165.1 cm Universi ty of [place] [facility] Body weight 2019-07-21 20:52:00 104.327 kg Universi ty of [place] [facility] BMI 2019-07-21 20:52:00 38.27 kg/m2 [facility] [place] [facility] Systolic blood 2019-07-02 00:58:18 127 mm[Hg] Univer sity of pressure [place] [facility] Diastolic blood 2019-07-02 00:58:18 89 mm[Hg] Unive rsity of pressure [place] [facility] Heart rate 2019-07-02 00:58:18 93 /min Universi ty of [place] [facility] Respiratory rate 2019-07-02 00:58:18 14 /min Univ ersity of [place] [facility] Oxygen saturation in 2019-07-02 00:58:18 96 /min University of Arterial blood by [facility] Pulse oximetry Branch Body temperature 2019-07-01 23:06:00 37.06 Marielena Univ ersity of [place] [facility] Body weight 2019-07-01 23:06:00 99.791 kg Universi ty of [place] [facility] BMI 2019-07-01 23:06:00 36.61 kg/m2 [facility] [place] [facility] Systolic blood 2019-06-29 17:33:00 114 mm[Hg] Univer sity of pressure [place] [facility] Diastolic blood 2019-06-29 17:33:00 63 mm[Hg] Unive rsity of pressure [place] [facility] Heart rate 2019-06-29 17:33:00 87 /min Universi ty [facility] [place] [facility] Body temperature 2019-06-29 17:33:00 36.78 Marielena Univ ersity of [place] [facility] Respiratory rate 2019-06-29 17:33:00 18 /min Univ ersity of [place] [facility] Oxygen saturation in 2019-06-29 17:33:00 97 /min University of Arterial blood by [facility] Pulse oximetry Branch Body height 2019-06-28 16:14:00 165.1 cm Universi ty [facility] [place] [facility] Body weight 2019-06-28 16:14:00 99.791 kg Universi ty of [place] [facility] BMI 2019-06-28 16:14:00 36.61 kg/m2 [facility] [place] [facility] Systolic blood 2019-05-28 15:39:00 119 mm[Hg] Univer sity of pressure [place] [facility] Diastolic blood 2019-05-28 15:39:00 80 mm[Hg] Unive rsity of pressure [facility] Branch Heart rate 2019-05-28 15:39:00 108 /min Universi ty of [facility] Body temperature 2019-05-28 15:39:00 36.94 Marielena Univ ersity of [facility] Body height 2019-05-28 15:39:00 162.6 cm Universi ty of [facility] Body weight 2019-05-28 15:39:00 98.657 kg Universi ty [facility] [place] [facility] [place] BMI 2019-05-28 15:39:00 37.33 kg/m2 Universi ty of [facility] Systolic blood 2018-12-22 15:09:00 100 mm[Hg] Univer sity of pressure [facility] Diastolic blood 2018-12-22 15:09:00 70 mm[Hg] Unive rsity of pressure [facility] Heart rate 2018-12-22 15:09:00 78 /min Universi ty of [facility] Body temperature 2018-12-22 15:09:00 36.5 Marielena Univ ersity of [facility] Respiratory rate 2018-12-22 15:09:00 18 /min Univ ersity of [facility] Body height 2018-12-22 15:09:00 165.1 cm Universi ty [facility] [place] [facility] [place] Body weight 2018-12-22 15:09:00 91.371 kg Universi ty [facility] [place] [facility] BMI 2018-12-22 15:09:00 33.52 kg/m2 Universi ty of [facility] Oxygen saturation in 2018-12-22 15:09:00 99 /min University of Arterial blood by [facility] Pulse oximetry Branch Systolic blood 2018-12-22 04:24:22 115 mm[Hg] Univer sity of pressure [place] [facility] Diastolic blood 2018-12-22 04:24:22 90 mm[Hg] Unive rsity of pressure [facility] Heart rate 2018-12-22 04:24:22 97 /min Universi ty of [facility] Body temperature 2018-12-22 04:24:22 36.89 Marielena [facility] Respiratory rate 2018-12-22 04:24:22 17 /min [facility] Oxygen saturation in 2018-12-22 04:24:22 99 /min [facility] Arterial blood by [facility] Pulse oximetry Branch Body weight 2018-12-22 00:03:00 87.091 kg [facility] BMI 2018-12-22 00:03:00 31.95 kg/m2 [facility] Systolic (mm Hg) 2016-06-03 18:13:00 Ollie rial [place] Diastolic (mm Hg) 2016-06-03 18:13:00 Mem orial [place] Systolic (mm Hg) 2016-06-03 14:19:00 Ollie rial [place] Diastolic (mm Hg) 2016-06-03 14:19:00 Mem orial [place] Respitory Rate 2016-06-03 14:19:00 Memori al [place] Weight 2016-06-03 13:47:00 [facility] [place] Height 2016-06-03 13:47:00 165.1 cm [facility] [place] Temperature Oral (F) 2016-06-03 13:47:00 97.7 F [facility] [place] Systolic (mm Hg) 2016-06-03 13:47:00 Ollie rial [place] Diastolic (mm Hg) 2016-06-03 13:47:00 Mem orial [place] Heart Rate 2016-06-03 13:47:00 [facility] [place] Respitory Rate 2016-06-03 13:47:00 Memori al [place] BMI Calculated 2016-06-03 13:47:00 Memori al [place] BMI Calculated 2016-05-30 21:15:00 Memori al [place] Weight 2016-05-30 21:15:00 [facility] [place] Height 2016-05-30 21:15:00 165.1 cm [facility] [place] Respitory Rate 2016-05-30 21:15:00 Memori al [place] Temperature Oral (F) 2016-05-30 21:15:00 98.6 F [facility] [place] Heart Rate 2016-05-30 21:15:00 [facility] [place] Systolic (mm Hg) 2016-05-30 21:15:00 Ollie rial [place] Diastolic (mm Hg) 2016-05-30 21:15:00 Delgado Jiménez Procedures Procedure Date / Time Performing Clinician Source Performed AUTHORIZATION FOR 2021-02-02 05:01:00 Doctor Unassigned, No [facility] RELEASE OF PHI Name Medical Branch CONSENT/REFUSAL FOR 2019-10-07 06:39:17 [facility] Name Medical Branch XR CHEST 2 VW 2019-07-23 15:50:00 Ines Buckley [facility] PROFILE / HEMOGRAM 2019 16:34:00 [facility] / INR 2019 16:34:00 Ines Buckley [facility] ACTIVATED PARTIAL 2019 16:34:00 Ines Buckley [facility] THRMPLAS VANESSA [facility] FIBRINOGEN 2019 16:34:00 Ina Ines [facility] LACTIC ACID WHOLE BLOOD 2019 16:34:00 [facility]es [facility] 16:07:01 [facility] ABORH CONFIRMATION 2019 08:09:00 Luciana Lama [facility] HB ABO GROUPING 2019 07:12:00 Davida [facility] FERRITIN SERUM 2019 07:11:00 Davida [facility] IRON 2019 07:11:00 Davida [facility] THYROID STIMULATING 2019 07:11:00 Davida [facility] HORMONE [facility] ETHANOL 2019 07:11:00 Davida [facility] CBC WITH DIFFERENTIAL 2019 07:11:[facility] 07:11[facility]00 [facility] HIV 1/2 AG-AB WITH 2019 07:11:00 Ines Buckley [facility] REFLEX Medical Branch XR CHEST 1 VW 2019 07:09:34 Malik Higuera [facility] ACUTE CARE ARTERIAL 2019 06:43:00 Malik Higuera [facility] BLOOD GAS Medical Branch ADC / LCC - DRUG SCREEN 2019 00:18:00 Luciana Lama [facility] TRIAGE [facility] URINALYSIS 2019-07-21 21:56:00 Luciana Lama Marysol Leola o [facility] POCT TEST 2019-07-21 21:56:00 Luciana Lama [facility] LIPASE 2019-07-21 21:13:[address] [facility] MAGNESIUM 2019-07-21 21:13:[address] [facility] COMP. METABOLIC PANEL 2019-07-21 21:13:00 Luciana Lama [facility] ([id number]) Medical Branch CBC WITH DIFFERENTIAL 2019-07-21 21:13:00 Luciana Lama [facility] NOTICE OF PRIVACY 2019-07-21 20:43:04 Doctor Unassigned, No [facility] Name Medical Branch CONSENT/REFUSAL FOR 2019-07-21 20:42:51 Doctor Unassigned, No [facility] DIAGNOSIS AND TREATMENT Name Medical Branch LIPASE 2019-07-02 00:24:00 Niki Mendoza [facility] COMP. METABOLIC PANEL 2019-07-02 00:24:00 [id number] Branch CBC WITH DIFFERENTIAL 2019-07-02 00:24:00 N[facility] URINALYSIS 2019-07-02 00:16:00 Niki Mendoza [facility] ADC / LCC - DRUG SCREEN 2019-07-02 00:16:00 Niki Mendoza [facility] TRIAGE [facility] CONSENT/REFUSAL FOR 2019-07-01 22:59:59 Doctor Unassigned, No [facility] [place] DIAGNOSIS AND TREATMENT Name [facility] PROFILE / HEMOGRAM 2019-06-29 15:13:00 Zachary Harmon [facility] MAGNESIUM 2019-06-29 10:30:00 [facility] BASIC METABOLIC PANEL 2019-06-29 10:30:00 Delgado, [facility] (NA, K, CL, CO2, Medical Branch GLUCOSE, BUN, CREATININE, CA) GALV/CLC ONLY - URINE 2019-06-29 04:07:00 Zachary Harmon [facility] DRUG (IMMUNOASSAY) - Medical [facility] COMPREHENSIVE DRUG SCREEN PROFILE / HEMOGRAM 2019-06-29 02:22:00 Zachary Harmon [facility] XR CHEST 1 VW 2019-06-29 00:02:00 Zachary Harmon [facility] PROTHROMBIN TIME / INR 2019-06-28 17:12:00 Antonella Royal [facility] ACTIVATED PARTIAL 2019-06-28 17:12:00 Antonella Royal [facility] LIPASE 2019-06-28 17:07:[address] [facility] COMP. METABOLIC PANEL 2019-06-28 17:07:00 Antonella Royal [facility] ([id number]) [facility] CBC WITH DIFFERENTIAL 2019-06-28 17:07:00 Antonella Royal [facility] URINALYSIS 2019-06-28 17:07:[address] [facility] URINE CULTURE 2019-06-28 17:07:00 Alysha Jefferson [facility] POCT TEST 2019-06-28 16:54:00 Antonella Royal [facility] NOTICE OF PRIVACY 2019-06-28 16:07:27 Doctor Unassigned, No [facility] PRACTICES Name Medical Branch CONSENT/REFUSAL FOR 2019-06-28 16:07:09 Doctor Unassigned, No [facility] DIAGNOSIS AND TREATMENT Name [facility] POCT URINALYSIS 2019-05-28 19:37:[address] [facility] CT ABDOMEN PELVIS W 2018-12-22 02:43:42 Alysha Jefferson [facility] Azleayesha [facility] CONTRAST [facility] XR ABDOMEN ACUTE SERIES 2018-12-22 01:06:26 [facility] 2018-12-22 00:55:00 Alysha Jefferson [facility] HEPATIC FUNCTION PANEL 2018-12-22 00:55:00 [facility] ([id number] (ALB,T.PRO,BILI [facility] T,BU/BC,ALT,AST,ALK PHOS) BASIC METABOLIC PANEL 2018-12-22 00:55:00 Alysha Jefferson [facility] (NA, K, CL, CO2, Medical Branch GLUCOSE, BUN, CREATININE, CA) CBC WITH DIFFERENTIAL 2018-12-22 00:55:00 Alysha Jefferson [facility] URINALYSIS 2018-12-22 00:55:00 Alysha Jefferson [facility] POCT TEST 2018-12-22 00:49:00 Alysha Jefferson [facility] Azlee [facility] Plan of Care Planned Activity Planned Date Details Comments Source Future Scheduled 2022-01-18 HEPATITIS B VACCINES Met [facility] Test 14:02:58 (1 of 3 - 3-dose series) [code = HEPATITIS B VACCINES (1 of 3 - 3-dose series)] Future Scheduled 2022-01-18 COVID-19 VACCINE (#1) [facility] Test 14:02:58 [code = COVID-19 VACCINE (#1)] Future Scheduled 2022-01-18 Screening for [facility] Test 14:02:58 Chlamydia trachomatis (procedure) [code = 462510937] Future Scheduled 2022-01-18 Screening for [facility] Test 14:02:58 malignant neoplasm of cervix (procedure) [code = 146306113] Future Scheduled 2022-01-18 INFLUENZA VACCINE Method [facility] Test 14:02:58 [code = INFLUENZA VACCINE] Encounters Start End Encounter Admission Attending Care Care Encounter Source Date/Time Date/Time Type Type Clinicians Facility Department ID 2021-03-16 Emergency [facility] [id number] Univers 21:37:[address] [facility] 2021-03-16 Outpatient R BRIEN SANZ [facility] GIE [id number] Univers 14:56:[address] [facility] 2021-02-02 2021-02-02 Orders Doctor MARYSOL 1.2.840.114 [id number] Univers 00:00:00 00:00:00 Only Unassigned, MARISOL 350.1.13.10 ity of [place] [facility] 4.2.7.2.686 [place] as [phone] [facility] 009 Branch 2020-12-14 2020-12-14 Emergency EM Oliver, [facility] [id number] [facility] 13:51:00 15:30:[address] [place] [address] 2020-10-03 2020-10-03 Case Vu Antonioalec 1.2.840.114 [id number] Univers 00:00:00 00:00:00 Management Mera Jones 350.1.13.10 ity of [place] [phone] [facility] 086 Branch 2020-10-03 2020-10-03 Case Vu Antonioalec 1.2.840.114 [id number] 00:00:00 00:00:00 Management Mera Jones 350.1.13.10 [place] [phone] 08 2020-08-09 2020-08-09 Patient Florencio [facility] 1.2.840.114 [id number] Univers 00:00:00 00:00:00 Outreach Eh PRIMARY 350.1.13.10 i ty of [place] [phone] La dical 388 Branch 2020-08-09 2020-08-09 Patient Florencio, [facility] 1.2.840.114 [id number] 00:00:00 00:00:00 Outreach Eh PRIMARY 350.1.13.10 Ed CARE 4.2.7.2.686 PAVILLION [id number] 388 2019-10-07 2019-10-07 Orders Doctor MARYSOL 1.2.840.114 [id number] Univers 00:00:00 00:00:00 Only Unassigned, MARISOL 350.1.13.10 ity of [place] [facility] 4.2.7.2.686 [place] [phone] [facility] 009 Branch 2019-10-07 2019-10-07 Orders Doctor MARYSOL 1.2.840.114 [id number] 00:00:00 00:00:00 Only Unassigned, MARISOL 350.1.13.10 [place] [facility] 4.2.7.2.686 [phone] 009 2019-09-08 2019-09-08 Telephone Too Rojo 1.2.840.114 [id number] Univers 00:00:00 00:00:00 , Maren Pediatric 350.1.13.10 ity [place] [phone] [facility] [address] [place] [facility] 2019-09-08 2019-09-08 Telephone Too Rojo 1.2.840.114 [id number] 00:00:00 00:00:00 , [facility] 350.1.13.10 M s and 4.2.7.2.686 Adult [phone] [address] 2019-09-03 2019-09-03 Outpatient R [facility] [id number] Univers 10:00:00 10:00:[id number] [facility] 2019-09-03 2019-09-03 Outpatient R [facility] [id number] Univers 10:00:00 10:00:[address] [facility] 2019-09-03 2019-09-03 Telemedici Neymar Beth UNIVERS 1.2.840.114 [id number] Univers 07:25:10 07:55:10 ne Visit Andres Khalil HEALTH 350.1.13 .10 ity of CL[place]ICS [place] [phone] [place] [address] [place] 2019-09-03 2019-09-03 Telemedici Ignacia [facility] 1.2.840.114 [id number] 07:25:10 07:55:10 ne Visit [facility] HEALTH 350.1.13.10 [facility] 4.2.7.2.686 [place] [phone] 071 2019-08-25 2019-08-25 Telephone Reep, UNIVERSIT 1.2.840.114 [id number] Univers 00:00:00 00:00:00 Brien L Y HEALTH 350.1.13.10 ity of CLINICS [place] [phone] [place] [address] [place] 2019-08-25 2019-08-25 Telephone Reep, UNIVERSIT 1.2.840.114 [id number] 00:00:00 00:00:00 Brien L Y HEALTH 350.1.13.10 CLINICS 4.2.7.2.686 [id number] [facility] 2019-08-05 2019-08-05 Patient Doctor UNIVERSIT 1.2.550.095 [id number] Univers 00:00:00 00:00:00 Secure Msg Unassigned, Y HEALTH 350.1.13.10 ity of [place] [facility] 4[place] [phone] [facility] 807 [place] 2019-08-05 2019-08-05 Patient Doctor UNIVERSIT 1.2.800.752 [id number] 00:00:00 00:00:00 Secure Msg Unassigned, Y HEALTH 350.1.13.10 [place] [facility] [id number] [employer] 2019-07-29 2019-07-29 Office Too Rojo 1.2.840.114 [id number] Univers 09:43:16 10:35:10 Visit , [facility] 350.1.13.10 ity of [place] [phone] [address] [facility] 2019-07-29 2019-07-29 Office Too Rojo 1.2.840.114 [id number] 09:43:16 10:35:10 Visit , [facility] 350.1.13.10 M s and 4.2.7.2.686 Adult [phone] [address] 2019-07-29 2019-07-29 Outpatient Aminta GAGE [facility] [id number] Univers 09:45:00 09:45:00 , MAREN [id number] it y of [facility] 2019-07-29 2019-07-29 Outpatient R TOO [facility] [id number] Univers 09:45:00 09:45:00 , MAREN it y of [facility] 2019-07-24 2019-07-24 Transition Zully Kapoor 1.2.840.114 [id number] Univers 00:00:00 00:00:00 of Care Nitadavid Jones 350.1.13.10 i ty of [place]2.7.2.[place] [phone] [facility] 403 Branch 2019-07-21 2019-07-23 Emergency KelbyLuciana salamanca Dior 1.2.840. 114 [id number] Univers 14:49:21 11:45:00 Nathen Mix 350.1.13.10 ity of [facility] 4.2.7.2 .686 [place] [phone] [facility] 094 Branch 2019-07-21 2019-07-23 Outpatient X MARIA DEL ROSARIO [facility] [id number] Univers 14:49:21 11:45:00 NATHEN ity of [facility] 2019 2019 Case MARYSOL Avina 1.2.007.222 [id number] Univers 00:00:00 00:00:00 Management Jared DAMON 350.1.13.10 ity of [facility] 4.2.7.2.686 [place] Salena [phone] [facility] 046 Branch 2019-07-21 2019-07-21 Orders Doctor MARYSOL 1.2.840.114 [id number] Univers 00:00:00 00:00:00 Only Unassigned, MARISOL 350.1.13.10 ity of [facility] 4.2.7.2.686 [place] [phone] [facility] 009 Branch 2019-07-02 2019-07-02 Patient Zully Ken 1.2.840.114 [id number] Univers 00:00:00 00:00:00 Outreach Mercedes Jones 350.1.13.10 ity of [place] 4[place] [phone] [facility] 403 Branch 2019-07-01 2019-07-01 Emergency [facility] 1.2.840.114 [id number] Univers 17:08:53 19:55:00 [facility] 350.1.13.10 ity of [place] [phone] [address] ([facility]) 2019-07-01 2019-07-01 Emergency X REJI [facility] ERT [id number] Univers 17:08:53 19:55:00 FOLUSHO ity of [facility] 2019-06-30 2019-06-30 Transition Zully Kapoor 1.2.840.114 [id number] Univers 00:00:00 00:00:00 of Care Nita Jones 350.1.13.10 i ty of [place]2.[place] [phone] [facility] 403 [place] 2019-06-28 2019-06-29 Emergency Antonella Royal 1.2.840.1 14 [id number] Univers 10:18:50 15:00:00 Yarely Thacker 350.1.13.10 ity of [facility] 4.2.7.2.686 [place] [phone] [facility] 094 Branch 2019-06-28 2019-06-29 Outpatient X KEDAR [facility] [id number] Univers 10:18:50 15:00:00 YARELY ity of [facility] 2019-06-29 2019-06-29 [facility] 1.2.840.114 [id number] Univers 00:00:00 00:00:00 Jeyanthan PRIMARY 350.1.13.10 ity of [place] [phone] [address] 2019-06-29 2019-06-29 [facility] 1.2.840.114 [id number] Univers 00:00:00 00:00:00 (Out) Jeyanthan PRIMARY 350.1.13.10 ity of [place] [id number] La dical 388 Branch 2019-06-29 2019-06-29 Letter Marquita [facility] 1.2.840.114 [id number] 00:00:00 00:00:00 (Out) Tavo PRIMARY 350.1.13.10 CARE 4.2.7.2.686 PAVILLION [id number] 388 2019-06-28 2019-06-28 Orders Doctor MARYSOL 1.2.840.114 [id number] Univers 00:00:00 00:00:00 Only Unassigned, MARISOL 350.1.13.10 ity of [place] [facility] 4.2.7.2.686 [place] [phone] [facility] 009 Branch 2019-05-28 2019-05-28 Office Jessica [facility] 1.2.840.114 [id number] Univers 09:33:17 12:08:23 Visit Donavan SPECIALTY 350.1.13.10 ity of C[place] C[place] AT [phone] La dicraad VICTORAbdias 098 [facility] 2019-04-21 2019-04-21 Outpatient R TOO [facility] [id number] Univers 09:20:00 23:59:00 , MAREN monteiro y of [facility] 2018-12-24 2018-12-24 Patient Zully Jacobo 1.2.840.114 [id number] Univers 00:00:00 00:00:00 Outreach Nu Jones 350.1.13.10 ity of [place] [phone] [facility] 403 Branch 2018-12-22 2018-12-22 Office Karmen Gonzalez 1.2.840.114 [id number] Univers 10:01:40 10:16:40 Visit Ali Pediatric 350.1.13.10 ity of s and [place] [phone] [facility] Primary 314 [place] [facility] 2018-12-21 2018-12-21 Emergency [facility] 1.2.840.114 [id number] Univers 19:06:32 23:26:00 Alysha [facility] 350.1.13.10 i [facility] 4.2.7.2.686 [facility] [phone] [address] ([facility]) 2016-06-03 2016-06-03 Emergency nullFlavo [facility] [id number] Memoria 13:37:00 18:26:00 aminta Jiménez 06 [facility] 2016-06-03 2016-06-03 Outpatient Mickey [facility] [id number] 07:37:00 12:26:00 Luisraad Whittaker 2016-05-30 2016-05-31 [id number] Memoria 19:46:00 05:59:00 r Tino 04 [facility] [place] [facility] Advanced Heart Failure 2016-05-30 2016-05-30 Outpatient Lyndsey [facility] [id number] 13:46:00 23:59:00 Dominic 04 2016-01-26 2016-01-26 Outpatient MHIE MHIE [id number] Memoria 13:30:00 13:30:00 09 erick Jiménez 2015-12-01 2015-12-01 Outpatient MHIE MHIE [id number] Memoria 09:40:00 09:40:00 08 erick Jiménez 2015-09-27 2015-09-27 Outpatient MHIE MHIE [id number] Memoria 09:00:00 09:00:00 07 erick Jiménez 2015-09-14 2015-09-14 Outpatient MHIE MHIE [id number] Memoria 14:15:00 14:15:00 05 erick Jiménez 2015-09-13 2015-09-13 Outpatient MHIE MHIE [id number] Memoria 13:15:00 13:15:00 06 erick Jiménez 2015-09-01 2015-09-01 Outpatient MHIE MHIE [id number] Memoria 13:15:00 13:15:00 04 erick Jiménez 2015-07-18 2015-07-18 Outpatient MHIE MHIE [id number] Memoria 09:45:00 09:45:00 03 erick Jiménez 2015-06-13 2015-06-13 Outpatient MHIE MHIE [id number] Memoria 13:30:00 13:30:00 02 erick Jiménez 2015-05-31 2015-05-31 Outpatient MHIE MHIE [id number] Memoria 13:00:00 13:00:00 01 erick Jiménez Results Test Description Test Time Test Comments Results Result [facility] ayesha Comments - CT HEAD/BRAIN 2020-11-18 W/O CONT 8 14:54:00 [facility] 1995 Sex: F Patient Name: MIKHAIL OSORIO Unit No: [id number] EXAMS: CPT CODE: [id number] CT HEAD/BRAIN W/O CONT 31417 Reason: fall/loc Location Code: B2 HISTORY: Fall, closed head injury. COMMENT: Axial imaging of the patient's brain was obtained without IV contrast. Soft tissue and bone window images were provided. No priors Dose lowering technique with automatic exposure control utilized. There is no evidence for acute mass effect, midline shift, hemorrhage, or herniation. The ventricles, sulci, and cisterns within normal limits. No intra or extra-axial fluid collections. The bone-windowing examination demonstrates no focal bony abnormalities. No abnormality within the sinuses. IMPRESSION: No acute intracranial findings at 1454 Reported and signed by: Yogesh Lund MD CC: Brett Boyd MD Technologist: DAGOBERTO Serrano Trscrpt Dt/ (1454)t.RK5 Orig Print D/T: S: 12/14/2020 (1107) CTDI: DLP: Chao FSED NAME: MIKHAIL OSORIO [address] PHYS: [place] [address] : 1995 AGE: 25 SEX: F LOC: ISABELLA PHONE #: EXAM DATE: 12/14/2020 STATUS: PRE ER FAX #: RAD NO: DC Dt: PAGE 1 Signed Report XR CHEST 2 VW EXAM: XR CHEST 2 VW Un iversity of 5 HISTORY: cough, SOB [facility] 17:25:17 COMPARISON: None. Branch FINDINGS: The heart and great vessels are normal and the lungs are well expanded andclear.[facility], Radiant Results Inft User - 07/23/2019 11:26 AM CSTEXAM: XR CHEST 2 VWHISTORY: cough, SOB COMPARISON: None.FINDINGS:The heart and great vessels are normal and the lungs are well expanded andclear. HIV 1/2 AG-AB WITH REFLEX 2019 22:46:00 Test Item Value Reference Range Interpretation Comme nts HIV Semi-quantitative (test code = Negative Negative 75501-2) JEFF (test code = JEFF) Non-reactive for HIV-1 antigen and HIV-1/HIV-2 antibodies. ?No laboratory evidence of HIV infection. ?Repeat in 2-4 weeks if acute HIV infection is suspected. [facility] 1 [id number] 17:06:28 No acute cardiopulmonary process. Preliminary Report Dictated by Resident: Donna Anguiano I, Rj Ho MD., have reviewed this study and agree with theabove report.XR CHEST 1 VW HISTORY: SOB COMPARISON: X-rays dated 06/28/2019 FINDINGS: The lungs are well expanded and clear. The costophrenic angles are clear.The heart is normal in size. No pneumothorax is found. [facility], Radiant Results Inft User - 2019 11:07 AM CSTXR CHEST 1 VWHISTORY: SOB COMPARISON: X-rays dated 06/28/2019FINDINGS: The lungs are well expanded and clear. The costophrenic angles are clear.The heart is normal insize.No pneumothorax is found.IMPRESSIONNo acute cardiopulmonary process.Preliminary Report Dictatedby Resident: Donna Miles, Rj Ho MD., have reviewed this study and agree with theabove report.[facility] HospitalLactic Acid Whole [id number] 17:05:00 Test Item Value Reference Range Interpretation Comments LACTIC ACID (test code = 1.33 mmol/L 0.5-2.2 0116571052) Lab Interpretation (test code = Normal 15901-2) [facility] HospitalPROTHROMBIN TIME / [id number] 16:52:00 Test Item Value Reference Range Interpretation Comments PROTIME PATIENT (test See_Comment [Auto mated message] code = 5964-2) The system [employer] generated this result transmitted ref erence range: 10.1 - 1 2.6 Seconds. The re ference range was not u sed to interpret this result as normal/abnor mal. INR (test code = 6301-6) Nor mal INR <1.1; Warfarin Therap eutic range 2.0 to 3. 0 or 2.5 to 3.5, dep ending upon the indica tions. Lab Interpretation (test Normal code = 76067-5) [facility] HospitalaPTT2020-03-04 16:52:00 Test Item Value Reference Range Interpretation Comments APTT Patient (test code = See_Comment [ Automated message] 3173-2) The system [employer] generated this result transmitted ref erence range: 26 - 36 Seconds. The re ference range was not u sed to interpret this result as normal/abnor mal. Lab Interpretation (test Normal code = 83206-9) [facility] HospitalFIBRINOGEN2020-03-04 16:52:00 Test Item Value Reference Range Interpretation Comments Fibrinogen (test code = 7026996685) 312 mg/dL 167-453 Lab Interpretation (test code = Normal 96751-6) [facility] HospitalPROFILE / [id number] 16:44:00 Test Item Value Reference Range Interpretation Comments WBC (test code = 6690-2) See_Comment [A utomated message] The system [employer] generated this result transmit jaya reference range : 4.30 - 11.10 10*3/?L. The reference range was not used to interpret this result as normal/abnormal . RBC (test code = 789-8) See_Comment [Au tomated message] The system [employer] generated this result transmit jaya reference range : 3.93 - 5.25 10* 6/?L. The reference r faisal was not used to interpret this result as normal/abnormal . HGB (test code = 718-7) 11.6 g/dL 11.6-15 HCT (test code = 4544-3) 36.5 % 35.7-45.2 MCH (test code = 785-6) 29.1 pg 25.9-32.8 MCV (test code = 787-2) 91.7 fL 80.6-95.5 MCHC (test code = 786-4) 31.8 g/dL 31.6-35.1 PLT (test code = 777-3) See_Comment [Au tomated message] The system [employer] generated this result transmit jaya reference range : 166 - 358 10*3/?L. The reference range was not used to interpret this result as normal/abnormal . MPV (test code = 9.4 fL 9.5-12.9 L 83842-1) RDW-CV (test code = 12.9 % 12-15.5 788-0) RDW-SD (test code = 42.9 fL 39-49.9 92974-2) NRBC x10^3 (test code = <0.01 See_Comment [Au tomated message] [id number]) The system [employer] generated this result transmit jaya reference range : 10*3/?L. The reference range was not used to interpret this result as normal/abnormal . NRBC/100 WBC (test code See_Comment [Au tomated message] = 5116394407) The system 1010data generated this result transmit jaya reference range : 0.0 - 10.0 /100 WBC s. The reference r faisal was not used to interpret this result as normal/abnormal . IPF % (test code = 4074204509) Lab Interpretation (test Abnormal code = 49927-1) [facility] HospitalTHYROID STIMULATING [id number] 11:57:00 Test Item Value Reference Range Interpretation Comments TSH (test code = See_Comment Biotin has been 5253938403) reported to cau se a negative bias, interpret resul ts relative to pat ient's use of biotin. [Automated mess age] The system [employer] generated this result transmitted ref erence range: 0.45 - 4 .70 mIU/L. The refe rence range was not u sed to interpret this result as normal/abnor mal. Lab Interpretation (test Normal code = 76270-2) [facility] HospitalABORH [id number] 09:00:29 Test Item Value Reference Range Interpretation Comments ABO & RH (test code O Positive Performe d at [facility] = 20) Laboratory [facility] Blood Bank3 [facility] [address]Fkbo Free: [phone] A No. [id number] [facility] HospitalFERRITIN [id number] 08:51:00 Test Item Value Reference Range Interpretation Comments FERRITIN (test code = 36.3 ng/mL 6-137 9337389125) JEFF (test code = JEFF) Biotin has been reported to cause a negative bias, interpret results relative to patient's use of biotin. Lab Interpretation (test Normal code = 69022-9) [facility] HospitalN-TERMINAL [id number] 08:25:00 Test Item Value Reference Range Interpretation Comments NT-proBNP (test code 33 pg/mL See_Comment [Autom ated = 0874239143) message] The system which generated this result transmitted reference range : <=125. The reference range was not used to interpret this result as normal/abnormal . JEFF (test code = JEFF) Biotin has been reported to cause a negative bias, interpret results relative to patient's use of biotin. Lab Interpretation Normal (test code = 53709-9) [facility] HospitalType and Screen - ONCE [id number] 08:11:50 Test Item Value Reference Range Interpretation Comments ABO & RH (test code O POSITIVE Performe d at [facility] = 20) Laboratory [facility] Blood Bank3 [facility] [address]Cjjg Free: [phone] A No. [id number] IAT (test code = Negative Performed a t [facility] 1185) Laboratory [facility] Blood Bank3 [facility] [address]Heto Free: [id number] A No. [id number] [facility]00 Test Item Value Reference Range Interpretation Comments ALCOHOL (test code = <10 mg/dL 4925762119) JEFF (test code = Toxic Greater than or JEFF) equal to 80 mg/dL. NOTE: Whole blood values are approximately 10% to 15% lower than serum and plasma. [facility]00 Test Item Value Reference Range Interpretation Comments IRON (test code = 8209123774) 95 ug/dL 50-160 Lab Interpretation (test code = Normal 85900-3) [facility] WITH [id number] 07:27:00 Test Item Value Reference Range Interpretation Comments WBC (test code = See_Comment [Automated 9890-2) message] The sy stem which generated this result transmitted reference range : 4.30 - 11.10 10*3/?L. The reference range was not used to interpret this result as normal/abnormal . RBC (test code = See_Comment [Automated 789-8) message] The sy stem which generated this result transmitted reference range : 3.93 - 5.25 10*6/?L. The reference range was not used to interpret this result as normal/abnormal . HGB (test code = 11.9 g/dL 11.6-15 718-7) HCT (test code = 36.2 % 35.7-45.2 4544-3) MCV (test code = 89.2 fL 80.6-95.5 787-2) MCH (test code = 29.3 pg 25.9-32.8 785-6) MCHC (test code = 32.9 g/dL 31.6-35.1 786-4) RDW-SD (test code = 42.6 fL 39-49.9 64733-8) RDW-CV (test code = 13.0 % 12-15.5 788-0) PLT (test code = See_Comment [Automated 777-3) message] The sy stem which generated this result transmitted reference range : 166 - 358 10*3/ ?L. The reference r faisal was not used to interpret this result as normal/abnormal . MPV (test code = 9.5 fL 9.5-12.9 36038-7) NRBC/100 WBC (test See_Comment [Automat ed code = 8202094438) message] The system which generated this result transmitted reference range : 0.0 - 10.0 /100 WBCs. The refer ence range was not u sed to interpret th is result as normal/abnormal . NRBC x10^3 (test code <0.01 See_Comment [Auto mated = 9333947254) message] The s ystem which generated this result transmitted reference range : 10*3/?L. The reference range was not used to interpret this result as normal/abnormal . GRAN MAT (NEUT) % 56.1 % (test code = 770-8) IMM GRAN % (test code 0.40 % = 8228202747) LYMPH % (test code = 34.2 % 736-9) MONO % (test code = 5.4 % 5905-5) EOS % (test code = 3.3 % 713-8) BASO % (test code = 0.6 % 706-2) GRAN MAT x10^3(ANC) 2.94 10*3/uL 1.88-7.09 (test code = 2053206385) IMM GRAN x10^3 (test <0.03 0-0.06 code = 6100226042) LYMPH x10^3 (test code 1.79 10*3/uL 1.32-3.29 = 731-0) MONO x10^3 (test code 0.28 10*3/uL 0.33-0.92 L = 742-7) EOS x10^3 (test code = 0.17 10*3/uL 0.03-0.39 711-2) BASO x10^3 (test code 0.03 10*3/uL 0.01-0.07 = 704-7) Lab Interpretation Abnormal (test code = 41106-5) [facility] [place] [facility].2019-07-22 07:02:00 Test Item Value Reference Range Interpretation Comments PH (test code = 2) 7.35-7.45 PCO2 (test code = See_Comment [Automate d message] 1512880545) The system [employer] generated this result transmitted ref erence range: 35 - 45 mmHg. The reference r faisal was not used to interpret this result as normal/abnor mal. PO2 (test code = See_Comment [Automated message] 3933904846) The system [employer] generated this result transmitted ref erence range: 80 - 100 mmHg. The reference r faisal was not used to interpret this result as normal/abnor mal. HCO3 (test code = See_Comment [Automate d message] 1844918070) The system [employer] generated this result transmitted ref erence range: 22 - 26 mEq/L. The reference r faisal was not used to interpret this result as normal/abnor mal. BE (test code = See_Comment [Automated message] 7955588114) The system [employer] generated this result transmitted ref erence range: -3.0 - 3 .0 mEq/L. The refe rence range was not u sed to interpret this result as normal/abnor mal. Lab Interpretation (test Normal code = 55652-5) [facility] / [facility] - DRUG SCREEN [id number] 00:43:00 Test Item Value Reference Range Interpretation Comments BENZO U (test code = Negative Negative 3203488492) LIGIA U (test code = Negative Negative 3606978712) AMPHET (test code = Negative Negative 9526863743) THC (test code = Presumptive Negative A Confirmatio n of 5401124213) Positive Presumptive Positive THC result requires physician order . METHADONE (test code Negative Negative = 5356000081) Meth U (test code = Negative Negative 9512726755) OPIATES (test code = Negative Negative 3341152500) Cocaine Metabolite Negative Negative (test code = 9999332367) PROPOXY (test code = Negative Negative 5518948542) Tric U (test code = Negative Negative 9875936572) PCP (test code = Negative Negative 5451512681) OXYCOD (test code = Negative Negative 3189597922) JEFF (test code = Urine Drug Cutoff JEFF) Ranges Benzodiazepines: ? ? 150 ng/mLBarbiturates : ?200 ng/mLAmphetamine: ? 500 ng/mLCannabinoids : ?50 ?ng/mLMethadone: ? 200 ng/mLMethamphetam ine: ? ? 500 ng/mL Opiates: ? 100 ng/mL or 2000 ng/mLCocaine: ? 150 ng/mLPropoxyphene : ?300 ng/mLTricyclics: ?300 ng/mLOxycodone: ? 100 ng/mLPCP: ? 25 ?ng/mL The results are to be used only for medical (i.e., treatment) purposes. Unconfirmed screening results must not be used for non-medical purposes (e.g., employment testing, legal testing). Lab Interpretation Abnormal (test code = 38483-2) [facility] 22:43:00 Test Item Value Reference Range Interpretation Comments APPEARANCE (test code = Hazy Clear A 6808341112) COLOR (test code = Yellow Yellow 4927949752) PH (test code = 4.8-8.0 0624780051) SP GRAVITY (test code = 1.003-1.030 H 3380512879) GLU U QUAL (test code = Normal Normal 3248974848) BLOOD (test code = Negative Negative 5376957973) KETONES (test code = Negative Negative 6646983414) PROTEIN (test code = Negative Negative 2887-8) UROBILIN (test code = Normal Normal 2234821014) BILIRUBIN (test code = Negative Negative 2988742680) NITRITE (test code = Negative Negative 9066268300) LEUK NOÉ (test code = Negative Negative 3076350366) RBC/HPF (test code = See_Comment H [Autom ated message] 4523473450) The system [employer] generated this result transmitted ref erence range: 0 - 3 HP F. The reference range was not used to int erpret this result as normal/abnormal . WBC/HPF (test code = See_Comment [Autom ated message] 7963821515) The system [employer] generated this result transmitted ref erence range: 0 - 5 HP F. The reference range was not used to int erpret this result as normal/abnormal . BACTERIA (test code = Negative Negative 9015929530) MUCOUS (test code = Marked Negative LPF A 0765236179) SQ EPITH (test code = HPF 7880340805) HYAL CAST (test code = See_Comment [Aut omated message] 0490454381) The system [employer] generated this result transmitted ref erence range: <=2 LPF. The reference range was not used to int erpret this result as normal/abnormal . Lab Interpretation (test Abnormal code = 23631-1) [facility]PO[facility] [id number] 21:56:00 Test Item Value Reference Range Interpretation Comments POCT PREG (test code = 1605) negative On board controls acceptable with C present Line (test code = 3574) Lab Interpretation (test code = Normal 01945-2) [facility]. METABOLIC PANEL (00169)2019-07-21 21:48:00 Test Item Value Reference Range Interpretation Comments NA (test code = 140 mmol/L 135-145 3199391247) K (test code = 3.9 mmol/L 3.5-5 5012981134) CL (test code = 106 mmol/L 98-108 0466030298) CO2 TOTAL (test code = 25 mmol/L 23-31 3514894237) AGAP (test code = 2-16 2308621449) BUN (test code = 15 mg/dL 7-23 9159431303) GLUCOSE (test code = 90 mg/dL 70-110 9794507358) CREATININE (test code 0.87 mg/dL 0.5-1.04 = 3501398221) TOTAL BILI (test code 0.2 mg/dL 0.1-1.1 = 6126886514) CALCIUM (test code = 9.1 mg/dL 8.6-10.6 4963501480) T PROTEIN (test code = 7.5 g/dL 6.3-8.2 8090035594) ALBUMIN (test code = 4.5 g/dL 3.5-5 1143311197) ALK PHOS (test code = 72 U/L 34-122 6470478021) ALTv (test code = 33 U/L 5-35 1742-6) AST(SGOT) (test code = 21 U/L 13-40 7548331069) eGFR Calculation mL/min/1.73m2 (Non-) (test code = 9315564227) eGFR Calculation mL/min/1.73m2 () (test code = 4536963141) JEFF (test code = JEFF) Association of Glomerular Filtration Rate (GFR) and Staging of Kidney Disease* + -+ + ---+| GFR (mL/min/1.73 m2) ?| With Kidney Damage ?| ?Without Kidney Damage+ -------+ ------+ ---------+| ?>90 ?| ?Stage one ?| ? Normal ?+ --+ -+ ----+| ?60-89 ?| ?Stage two ?| ? Decreased GFR ? + -+ + ---+| ?30-59 ?| ?Stage three ?| ? Stage three ? + -+ + ---+| ?15-29 ?| ?Stage four ? | ? Stage four ?+ --+ -+ ----+| ?<15 (or dialysis) ? ?| ?Stage five ? | ? Stage five ?+ --+ -+ ----+ *Each stage assumes the associated GFR level has been in effect for at least three months. ?Stages 1 to 5, with or without kidney disease, indicate chronic kidney disease. Notes: Determination of stages one and two (with eGFR >59mL/min/1.73 m2) requires estimation of kidney damage for at least three months as defined by structural or functional abnormalities of the kidney, manifested by either:Pathological abnormalities or Markers of kidney damage (including abnormalities in the composition of the blood or urine or abnormalities in imaging tests). [facility]UM[facility] 21:48:00 Test Item Value Reference Range Interpretation Comments MAGNESIUM (test code = 7356784145) 2.1 mg/dL 1.7-2.4 Lab Interpretation (test code = Normal 07393-5) [facility] 21:47:00 Test Item Value Reference Range Interpretation Comments LIPASE (test code = 4701812562) 81 U/L 0-220 Lab Interpretation (test code = Normal 42717-9) [facility]CB WITH [id number] 21:34:00 Test Item Value Reference Range Interpretation Comments WBC (test code = See_Comment [Automated message] 6690-2) The system [employer] generated this result transmitted ref erence range: 4.30 - 1 1.10 10*3/?L. The re ference range was not u sed to interpret this result as normal/abnor mal. RBC (test code = See_Comment [Automated message] 789-8) The system [employer] generated this result transmitted ref erence range: 3.93 - 5 .25 10*6/?L. The re ference range was not u sed to interpret this result as normal/abnor mal. HGB (test code = 13.1 g/dL 11.6-15 718-7) HCT (test code = 40.1 % 35.7-45.2 4544-3) MCV (test code = 89.7 fL 80.6-95.5 787-2) MCH (test code = 29.3 pg 25.9-32.8 785-6) MCHC (test code = 32.7 g/dL 31.6-35.1 786-4) RDW-SD (test code 42.1 fL 39-49.9 = 87000-3) RDW-CV (test code 12.9 % 12-15.5 = 788-0) PLT (test code = See_Comment [Automated message] 777-3) The system [employer] h generated this result transmitted ref erence range: 166 - 35 8 10*3/?L. The re ference range was not u sed to interpret this result as normal/abnor mal. MPV (test code = 9.7 fL 9.5-12.9 17961-8) NRBC/100 WBC (test See_Comment [Automat ed message] code = 5002181987) The syste m which generated this result transmitted ref erence range: 0.0 - 10 .0 /100 WBCs. The refer ence range was not u sed to interpret this result as normal/abnor mal. NRBC x10^3 (test <0.01 See_Comment [Automated message] code = 3768916744) The syste m which generated this result transmitted ref erence range: 10*3/?L. The reference range was not used to interpr et this result as normal/abnormal . GRAN MAT (NEUT) % 69.4 % (test code = 770-8) IMM GRAN % (test 0.50 % code = 9075790645) LYMPH % (test code 20.6 % = 736-9) MONO % (test code 6.6 % = 5905-5) EOS % (test code = 2.3 % 713-8) BASO % (test code 0.6 % = 706-2) GRAN MAT 4.45 10*3/uL 1.88-7.09 x10^3(ANC) (test code = 5513286063) IMM GRAN x10^3 0.03 10*3/uL 0-0.06 (test code = 6484050270) LYMPH x10^3 (test 1.32 10*3/uL 1.32-3.29 code = 731-0) MONO x10^3 (test 0.42 10*3/uL 0.33-0.92 code = 742-7) EOS x10^3 (test 0.15 10*3/uL 0.03-0.39 code = 711-2) BASO x10^3 (test 0.04 10*3/uL 0.01-0.07 code = 704-7) [facility]. METABOLIC PANEL (96528)2019-07-02 01:24:00 Test Item Value Reference Range Interpretation Comments NA (test code = 138 mmol/L 135-145 4611719103) K (test code = 4.4 mmol/L 3.5-5 8668361206) CL (test code = 104 mmol/L 98-108 3832502227) CO2 TOTAL (test code = 24 mmol/L 23-31 6321926510) AGAP (test code = 2-16 5646960848) BUN (test code = 17 mg/dL 7-23 1865188986) GLUCOSE (test code = 88 mg/dL 70-110 5181340322) CREATININE (test code = 0.75 mg/dL 0.5-1.04 9909095000) TOTAL BILI (test code = 0.3 mg/dL 0.1-1.9 3930181809) CALCIUM (test code = 9.4 mg/dL 8.6-10.6 5043357422) T PROTEIN (test code = 7.1 g/dL 6.3-8.2 7772239926) ALBUMIN (test code = 4.1 g/dL 3.5-5 5906864033) ALK PHOS (test code = 70 U/L 34-122 6665850954) ALTv (test code = 42 U/L 5-35 H 1742-6) AST(SGOT) (test code = 26 U/L 13-40 8629941021) eGFR Calculation mL/min/1.73m2 (Non-) (test code = 7901139167) eGFR Calculation mL/min/1.73m2 () (test code = 8942411198) JEFF (test code = JEFF) Association of Glomerular Filtration Rate (GFR) and Staging of Kidney Disease* + --+ --+ ------+| GFR (mL/min/1.73 m2) ?| With Kidney Damage ?| ?Without Kidney Damage+ --------+ --------+ +| ?>90 ?| ?Stage one ?| ? Normal ?+ ---+ ---+ -------+| ?60-89 ?| ?Stage two ?| ? Decreased GFR ? + --+ --+ ------+| ?30-59 ?| ?Stage three ?| ? Stage three ? + --+ --+ ------+| ?15-29 ?| ?Stage four ? | ? Stage four ?+ ---+ ---+ -------+| ?<15 (or dialysis) ? ?| ?Stage five ? | ? Stage five ?+ ---+ ---+ -------+ *Each stage assumes the associated GFR level has been in effect for at least three months. ?Stages 1 to 5, with or without kidney disease, indicate chronic kidney disease. Notes: Determination of stages one and two (with eGFR >59mL/min/1.73 m2) requires estimation of kidney damage for at least three months as defined by structural or functional abnormalities of the kidney, manifested by either:Pathological abnormalities or Markers of kidney damage (including abnormalities in the composition of the blood or urine or abnormalities in imaging tests). Lab Interpretation Abnormal (test code = 14884-4) [facility] 01:24:00 Test Item Value Reference Range Interpretation Comments LIPASE (test code = 4279687928) 107 U/L 0-220 Lab Interpretation (test code = Normal 35038-6) [facility] [id number] 00:57:00 Test Item Value Reference Range Interpretation Comments BENZO U (test code = Negative Negative 6917042875) LIGIA U (test code = Negative Negative 8879450245) AMPHET (test code = Negative Negative 1978812729) THC (test code = Presumptive Negative A Confirmatio n of 4393002617) Positive Presumptive Positive THC result requires physician order . METHADONE (test code Negative Negative = 0129276951) Meth U (test code = Negative Negative 9268960778) OPIATES (test code = Negative Negative 1072322953) Cocaine Metabolite Negative Negative (test code = 2797343249) PROPOXY (test code = Negative Negative 8588672914) Tric U (test code = Negative Negative 6487509495) PCP (test code = Negative Negative 9576584739) OXYCOD (test code = Negative Negative 8901769856) JEFF (test code = Urine Drug Cutoff JEFF) Ranges Benzodiazepines: ? ? 150 ng/mLBarbiturates : ?200 ng/mLAmphetamine: ? 500 ng/mLCannabinoids : ?50 ?ng/mLMethadone: ? 200 ng/mLMethamphetam ine: ? ? 500 ng/mL Opiates: ? 100 ng/mL or 2000 ng/mLCocaine: ? 150 ng/mLPropoxyphene : ?300 ng/mLTricyclics: ?300 ng/mLOxycodone: ? 100 ng/mLPCP: ? 25 ?ng/mL The results are to be used only for medical (i.e., treatment) purposes. Unconfirmed screening results must not be used for non-medical purposes (e.g., employment testing, legal testing). Lab Interpretation Abnormal (test code = 24374-3) [facility] HospitalUrinalysis2020-[facility] 00:56:00 Test Item Value Reference Range Interpretation Comments APPEARANCE (test code = Clear Clear 9228412118) COLOR (test code = Yellow Yellow 7300705540) PH (test code = 4.8-8.0 7070504826) SP GRAVITY (test code = 1.003-1.030 7534541274) GLU U QUAL (test code = Normal Normal 9864196263) BLOOD (test code = Negative Negative 2697414308) KETONES (test code = Negative Negative 1279260384) PROTEIN (test code = Negative Negative 2887-8) UROBILIN (test code = Normal Normal 4002624263) BILIRUBIN (test code = Negative Negative 4152387872) NITRITE (test code = Negative Negative 6268093926) LEUK NOÉ (test code = Negative Negative 9343855803) RBC/HPF (test code = See_Comment [Autom ated message] 4102525606) The system [employer] generated this result transmitted ref erence range: 0 - 3 HP F. The reference range was not used to int erpret this result as normal/abnormal . WBC/HPF (test code = See_Comment [Autom ated message] 4602254235) The system [employer] generated this result transmitted ref erence range: 0 - 5 HP F. The reference range was not used to int erpret this result as normal/abnormal . BACTERIA (test code = Negative Negative 1449567238) SQ EPITH (test code = <1 See_Comment [Auto mated message] 4355086447) The system [employer] generated this result transmitted ref erence range: <=2 HPF. The reference range was not used to int erpret this result as normal/abnormal . Lab Interpretation (test Normal code = 78359-6) [facility] WITH [id number] 00:35:00 Test Item Value Reference Range Interpretation Comments WBC (test code = See_Comment [Automated 6690-2) message] The sy stem which generated this result transmitted reference range : 4.30 - 11.10 10*3/?L. The reference range was not used to interpret this result as normal/abnormal . RBC (test code = See_Comment [Automated 789-8) message] The sy stem which generated this result transmitted reference range : 3.93 - 5.25 10*6/?L. The reference range was not used to interpret this result as normal/abnormal . HGB (test code = 13.1 g/dL 11.6-15 718-7) HCT (test code = 38.9 % 35.7-45.2 4544-3) MCV (test code = 90.0 fL 80.6-95.5 787-2) MCH (test code = 30.3 pg 25.9-32.8 785-6) MCHC (test code = 33.7 g/dL 31.6-35.1 786-4) RDW-SD (test code = 42.5 fL 39-49.9 58448-2) RDW-CV (test code = 13.0 % 12-15.5 788-0) PLT (test code = See_Comment [Automated 777-3) message] The sy stem which generated this result transmitted reference range : 166 - 358 10*3/ ?L. The reference r faisal was not used to interpret this result as normal/abnormal . MPV (test code = 9.6 fL 9.5-12.9 98682-3) NRBC/100 WBC (test See_Comment [Automat ed code = 6647274172) message] The system which generated this result transmitted reference range : 0.0 - 10.0 /100 WBCs. The refer ence range was not u sed to interpret th is result as normal/abnormal . NRBC x10^3 (test code <0.01 See_Comment [Auto mated = 0548946273) message] The s ystem which generated this result transmitted reference range : 10*3/?L. The reference range was not used to interpret this result as normal/abnormal . GRAN MAT (NEUT) % 76.2 % (test code = 770-8) IMM GRAN % (test code 0.30 % = 2418688875) LYMPH % (test code = 18.6 % 736-9) MONO % (test code = 4.0 % 5905-5) EOS % (test code = 0.5 % 713-8) BASO % (test code = 0.4 % 706-2) GRAN MAT x10^3(ANC) 5.97 10*3/uL 1.88-7.09 (test code = 5874982939) IMM GRAN x10^3 (test <0.03 0-0.06 code = 0044394413) LYMPH x10^3 (test code 1.46 10*3/uL 1.32-3.29 = 731-0) MONO x10^3 (test code 0.31 10*3/uL 0.33-0.92 L = 742-7) EOS x10^3 (test code = 0.04 10*3/uL 0.03-0.39 711-2) BASO x10^3 (test code 0.03 10*3/uL 0.01-0.07 = 704-7) Lab Interpretation Abnormal (test code = 59488-3) [facility]URINE [id number] 22:23:00 Test Item Value Reference Range Interpretation Comments URINE CULTURE (test No aerobic organisms code = 630-4) isolated [facility]PROFILE / [id number] 15:33:00 Test Item Value Reference Range Interpretation Comments WBC (test code = 6690-2) See_Comment [A utomated message] The system [employer] generated this result transmit jaya reference range : 4.30 - 11.10 10*3/?L. The reference range was not used to interpret this result as normal/abnormal . RBC (test code = 789-8) See_Comment L [Au tomated message] The system [employer] generated this result transmit jaya reference range : 3.93 - 5.25 10* 6/?L. The reference r faisal was not used to interpret this result as normal/abnormal . HGB (test code = 718-7) 11.1 g/dL 11.6-15 L HCT (test code = 4544-3) 34.5 % 35.7-45.2 L MCH (test code = 785-6) 29.7 pg 25.9-32.8 MCV (test code = 787-2) 92.2 fL 80.6-95.5 MCHC (test code = 786-4) 32.2 g/dL 31.6-35.1 PLT (test code = 777-3) See_Comment L [Au tomated message] The system [employer] generated this result transmit jaya reference range : 166 - 358 10*3/?L. The reference range was not used to interpret this result as normal/abnormal . MPV (test code = 10.3 fL 9.5-12.9 02606-9) RDW-CV (test code = 13.2 % 12-15.5 788-0) RDW-SD (test code = 45.2 fL 39-49.9 98546-9) NRBC x10^3 (test code = <0.01 See_Comment [Au tomated message] 3912497133) The system [employer] generated this result transmit jaya reference range : 10*3/?L. The reference range was not used to interpret this result as normal/abnormal . NRBC/100 WBC (test code See_Comment [Au tomated message] = 1158662321) The system [employer] generated this result transmit jaya reference range : 0.0 - 10.0 /100 WBC s. The reference r faisal was not used to interpret this result as normal/abnormal . IPF % (test code = 7005316417) Lab Interpretation (test Abnormal code = 54778-7) [facility] Metabolic Panel (NA, K, CL, CO2, GLUCOSE, BUN, CREATININE, CA)2019-06-29 11:17:00 Test Item Value Reference Range Interpretation Comments NA (test code = 139 mmol/L 135-145 4459703078) K (test code = 3.9 mmol/L 3.5-5 4103170848) CL (test code = 109 mmol/L 98-108 H 7678338909) CO2 TOTAL (test code = 24 mmol/L 23-31 8327827611) AGAP (test code = 2-16 7061262337) BUN (test code = 15 mg/dL 7-23 5142705092) GLUCOSE (test code = 93 mg/dL 70-110 8698034055) CREATININE (test code = 0.78 mg/dL 0.5-1.04 1970061456) CALCIUM (test code = 8.2 mg/dL 8.6-10.6 L 1159584584) eGFR Calculation mL/min/1.73m2 (Non-) (test code = 1710453048) eGFR Calculation mL/min/1.73m2 () (test code = 0735347945) JEFF (test code = JEFF) Association of Glomerular Filtration Rate (GFR) and Staging of Kidney Disease* + --+ --+ ------+| GFR (mL/min/1.73 m2) ?| With Kidney Damage ?| ?Without Kidney Damage+ --------+ --------+ +| ?>90 ?| ?Stage one ?| ? Normal ?+ ---+ ---+ -------+| ?60-89 ?| ?Stage two ?| ? Decreased GFR ? + --+ --+ ------+| ?30-59 ?| ?Stage three ?| ? Stage three ? + --+ --+ ------+| ?15-29 ?| ?Stage four ? | ? Stage four ?+ ---+ ---+ -------+| ?<15 (or dialysis) ? ?| ?Stage five ? | ? Stage five ?+ ---+ ---+ -------+ *Each stage assumes the associated GFR level has been in effect for at least three months. ?Stages 1 to 5, with or without kidney disease, indicate chronic kidney disease. Notes: Determination of stages one and two (with eGFR >59mL/min/1.73 m2) requires estimation of kidney damage for at least three months as defined by structural or functional abnormalities of the kidney, manifested by either:Pathological abnormalities or Markers of kidney damage (including abnormalities in the composition of the blood or urine or abnormalities in imaging tests). Lab Interpretation Abnormal (test code = 30683-2) [facility] HospitalMagnesium [id number] 11:17:00 Test Item Value Reference Range Interpretation Comments MAGNESIUM (test code = 7845069385) 1.9 mg/dL 1.7-2.4 Lab Interpretation (test code = Normal 78706-5) [facility] 1 [id number] 05:35:23 No acute cardiopulmonary abnormality. Preliminary Report Dictated by Resident: Paramjit Kitchen MD., have reviewed this study and agree with the abovereport.XR CHEST 1 VW HISTORY: rule out aspiration COMPARISON: 04/21/2019 TECHNIQUE: Frontal radiographs of the chest were performed. FINDINGS: The lungs are clear. No focal consolidation, pneumothorax or pleuraleffusion is seen. The cardiomediastinal silhouette is normal. No acute osseous abnormality. [facility], Radiant Results Inft User - 06/28/2019 11:36 PM CSTXR CHEST 1 VWHISTORY: rule out aspiration COMPARISON: 04/21/2019TECHNIQUE: Frontal radiographs of the chest were performed.FINDINGS:The lungs are clear. No focal consolidation, pneu mothorax or pleuraleffusion is seen.The cardiomediastinal silhouette is normal.No acute osseous abnormality.IMPRESSIONNo acute cardiopulmonary abnormality.Preliminary Report Dictated by Resident: Paramjit Reid MD., have reviewed this study and agree with the abovereport.[facility]GAL[facility]CLC ONLY - URINE DRUG (IMMUNOASSAY) - COMPREHENSIVE DRUG [id number] 05:14:00 Test Item Value Reference Range Interpretation Comments AMPHET (test code = Negative Negative 2111822786) LIGIA U (test code = Negative Negative 3655387112) BENZO U (test code = Negative Negative 9463492824) Cocaine Metabolite (test Negative Negative code = 8919538602) METHADONE (test code = Negative Negative 3495783061) OPIATES (test code = Presumptive Positive Negative A 3000317569) PCP (test code = Negative Negative 0802308233) THC (test code = Presumptive Positive Negative A 8441319168) JEFF (test code = JEFF) Urine Drug Cutoff Ranges Cocaine: ? 150 ng/mLBenzodiazepines: ? ? 200 ng/mLMethadone: ? 300 ng/mLAmphetamine: ? 1,000 ng/mLOpiates: ? 300 ng/mLCannabinoids: ?50 ng/mLPhencyclidine: ? ? ? 25 ng/mLBarbiturates: ?200 ng/mL The results are to be used only for medical (i.e., treatment) purposes. Unconfirmed screening results must not be used for non-medical purposes (e.g., employment testing, legal testing). Lab Interpretation (test Abnormal code = 67894-9) [facility]PROFILE / [id number] 02:47:00 Test Item Value Reference Range Interpretation Comments WBC (test code = See_Comment [Automated message] The 6690-2) system which nerated this result tra nsmitted reference range : 4.30 - 11.10 10*3/?L. The reference range was not used to interpr et this result as normal/abnormal . RBC (test code = See_Comment [Automated message] The 789-8) system which nerated this result tra nsmitted reference range : 3.93 - 5.25 10*6/?L. T he reference range was not used to interpr et this result as normal/abnormal . HGB (test code = 12.4 g/dL 11.6-15 718-7) HCT (test code = 38.3 % 35.7-45.2 4544-3) MCH (test code = 29.2 pg 25.9-32.8 785-6) MCV (test code = 90.1 fL 80.6-95.5 787-2) MCHC (test code = 32.4 g/dL 31.6-35.1 786-4) PLT (test code = See_Comment [Automated message] The 777-3) system which ge nerated this result tra nsmitted reference range : 166 - 358 10*3/?L. Th e reference range was not used to interpr et this result as normal/abnormal . MPV (test code = 9.5 fL 9.5-12.9 44445-3) RDW-CV (test code = 13.0 % 12-15.5 788-0) RDW-SD (test code = 43.3 fL 39-49.9 29133-4) NRBC x10^3 (test <0.01 See_Comment [Automated message] The code = 7277081845) system [facility] generated this result tra nsmitted reference range : 10*3/?L. The reference r faisal was not used to int erpret this result as normal/abnormal . NRBC/100 WBC (test See_Comment [Automat ed message] The code = 1728530474) system [facility] generated this result tra nsmitted reference range : 0.0 - 10.0 /100 WBCs. The reference range was not used to interpr et this result as normal/abnormal . IPF % (test code = 8644319527) [facility] HospitalURINALYSIS2020-02-09 17:52:00 Test Item Value Reference Range Interpretation Comments APPEARANCE (test code = Clear Clear 1394143319) COLOR (test code = Yellow Yellow 7158673417) PH (test code = 4.8-8.0 5512366285) SP GRAVITY (test code = 1.003-1.030 6281245381) GLU U QUAL (test code = Normal Normal 2375831909) BLOOD (test code = Negative Negative 5304668234) KETONES (test code = Negative Negative 0193915552) PROTEIN (test code = Negative Negative 2887-8) UROBILIN (test code = Normal Normal 0212548992) BILIRUBIN (test code = Negative Negative 5293984650) NITRITE (test code = Negative Negative 2118147253) LEUK NOÉ (test code = Negative Negative 4129498827) RBC/HPF (test code = See_Comment H [Autom ated message] 1984965883) The system [employer] generated this result transmitted ref erence range: 0 - 3 HP F. The reference range was not used to int erpret this result as normal/abnormal . WBC/HPF (test code = See_Comment [Autom ated message] 7656367155) The system [employer] generated this result transmitted ref erence range: 0 - 5 HP F. The reference range was not used to int erpret this result as normal/abnormal . BACTERIA (test code = Negative Negative 0698183229) MUCOUS (test code = Moderate Negative LPF A 0745705664) SQ EPITH (test code = HPF 2310204638) Lab Interpretation (test Abnormal code = 75463-7) [facility] HospitalPROTHROMBIN TIME / [id number] 17:37:00 Test Item Value Reference Range Interpretation Comments PROTIME PATIENT (test See_Comment [Auto mated message] code = 5964-2) The system ich generated this result transmitted ref erence range: 12.0 - 1 4.7 Seconds. The re ference range was not u sed to interpret this result as normal/abnor mal. INR (test code = 6301-6) Nor mal INR <1.1; Warfarin Therap eutic range 2.0 to 3. 0 or 2.5 to 3.5, dep ending upon the indica tions. Lab Interpretation (test Normal code = 89829-3) [facility] HospitalaPTT2020-02-09 17:36:00 Test Item Value Reference Range Interpretation Comments APTT Patient (test See_Comment [Automat ed code = 3173-2) message] The system which generated this result transmitted reference range : 23 - 38 Seconds . The reference range was not used to interpr et this result as normal/abnormal . JEFF (test code = JEFF) The [facility] patient population mean normal value for aPTT is 30 seconds. Lab Interpretation Normal (test code = 43667-0) [facility] HospitalCOMP. METABOLIC PANEL (44739)2019-06-28 17:34:00 Test Item Value Reference Range Interpretation Comments NA (test code = 142 mmol/L 135-145 6510478678) K (test code = 4.1 mmol/L 3.5-5 6296687221) CL (test code = 106 mmol/L 98-108 7445961675) CO2 TOTAL (test code = 26 mmol/L 23-31 1853676394) AGAP (test code = 2-16 1020837419) BUN (test code = 13 mg/dL 7-23 9656732819) GLUCOSE (test code = 103 mg/dL 70-110 8471928152) CREATININE (test code = 0.84 mg/dL 0.5-1.04 5397031758) TOTAL BILI (test code = 0.3 mg/dL 0.1-1.8 8895216901) CALCIUM (test code = 9.3 mg/dL 8.6-10.6 3995212341) T PROTEIN (test code = 7.2 g/dL 6.3-8.2 4826667588) ALBUMIN (test code = 4.6 g/dL 3.5-5 5692814765) ALK PHOS (test code = 61 U/L 34-122 6237973369) ALTv (test code = 57 U/L 5-35 H 1742-6) AST(SGOT) (test code = 28 U/L 13-40 2540577480) eGFR Calculation mL/min/1.73m2 (Non-) (test code = 8487472755) eGFR Calculation mL/min/1.73m2 () (test code = 9223442883) JEFF (test code = JEFF) Association of Glomerular Filtration Rate (GFR) and Staging of Kidney Disease* + --+ --+ ------+| GFR (mL/min/1.73 m2) ?| With Kidney Damage ?| ?Without Kidney Damage+ --------+ --------+ +| ?>90 ?| ?Stage one ?| ? Normal ?+ ---+ ---+ -------+| ?60-89 ?| ?Stage two ?| ? Decreased GFR ? + --+ --+ ------+| ?30-59 ?| ?Stage three ?| ? Stage three ? + --+ --+ ------+| ?15-29 ?| ?Stage four ? | ? Stage four ?+ ---+ ---+ -------+| ?<15 (or dialysis) ? ?| ?Stage five ? | ? Stage five ?+ ---+ ---+ -------+ *Each stage assumes the associated GFR level has been in effect for at least three months. ?Stages 1 to 5, with or without kidney disease, indicate chronic kidney disease. Notes: Determination of stages one and two (with eGFR >59mL/min/1.73 m2) requires estimation of kidney damage for at least three months as defined by structural or functional abnormalities of the kidney, manifested by either:Pathological abnormalities or Markers of kidney damage (including abnormalities in the composition of the blood or urine or abnormalities in imaging tests). Lab Interpretation Abnormal (test code = 36971-0) [facility] HospitalLIPASE2020-02-09 17:33:00 Test Item Value Reference Range Interpretation Comments LIPASE (test code = 2490129442) 96 U/L 0-220 Lab Interpretation (test code = Normal 84852-8) [facility] HospitalCB WITH [id number] 17:22:00 Test Item Value Reference Range Interpretation Comments WBC (test code = See_Comment [Automated 4590-2) message] The sy stem which generated this result transmitted reference range : 4.30 - 11.10 10*3/?L. The reference range was not used to interpret this result as normal/abnormal . RBC (test code = See_Comment [Automated 630-8) message] The sy stem which generated this result transmitted reference range : 3.93 - 5.25 10*6/?L. The reference range was not used to interpret this result as normal/abnormal . HGB (test code = 13.2 g/dL 11.6-15 718-7) HCT (test code = 41.2 % 35.7-45.2 4544-3) MCV (test code = 89.2 fL 80.6-95.5 787-2) MCH (test code = 28.6 pg 25.9-32.8 785-6) MCHC (test code = 32.0 g/dL 31.6-35.1 786-4) RDW-SD (test code = 42.4 fL 39-49.9 50983-0) RDW-CV (test code = 13.0 % 12-15.5 788-0) PLT (test code = See_Comment [Automated 307-3) message] The sy stem which generated this result transmitted reference range : 166 - 358 10*3/ ?L. The reference r faisal was not used to interpret this result as normal/abnormal . MPV (test code = 9.7 fL 9.5-12.9 41669-8) NRBC/100 WBC (test See_Comment [Automat ed code = 2291509570) message] The system which generated this result transmitted reference range : 0.0 - 10.0 /100 WBCs. The refer ence range was not u sed to interpret th is result as normal/abnormal . NRBC x10^3 (test code <0.01 See_Comment [Auto mated = 4113485953) message] The s ystem which generated this result transmitted reference range : 10*3/?L. The reference range was not used to interpret this result as normal/abnormal . GRAN MAT (NEUT) % 70.9 % (test code = 770-8) IMM GRAN % (test code 0.40 % = 8492614943) LYMPH % (test code = 22.9 % 736-9) MONO % (test code = 4.2 % 5905-5) EOS % (test code = 0.7 % 713-8) BASO % (test code = 0.9 % 706-2) GRAN MAT x10^3(ANC) 3.18 10*3/uL 1.88-7.09 (test code = 6276025095) IMM GRAN x10^3 (test <0.03 0-0.06 code = 0515936496) LYMPH x10^3 (test code 1.03 10*3/uL 1.32-3.29 L = 731-0) MONO x10^3 (test code 0.19 10*3/uL 0.33-0.92 L = 742-7) EOS x10^3 (test code = 0.03 10*3/uL 0.03-0.39 711-2) BASO x10^3 (test code 0.04 10*3/uL 0.01-0.07 = 704-7) Lab Interpretation Abnormal (test code = 04064-9) [facility] HospitalPOCT [id number] 16:54:00 Test Item Value Reference Range Interpretation Comments POCT PREG (test code = 1605) negative On board controls acceptable with C present Line (test code = 3574) Lab Interpretation (test code = Normal 24648-1) [facility] HospitalPOLA URINALYSIS W SPECIFIC [id number] 19:39:00 Test Item Value Reference Range Interpretation Comments POCT U SP GRAV (test code = 1.015 mg/dl 1.005-1.025 3255) POCT PH U (test code = 3254) 5 mg/dl 5-8 POCT U LEUK EST (test code = neg Negative - Negative 3263) POCT U NIT (test code = 3262) neg Negative - Negative POCT U PROT (test code = trace Negative - Negative 3259) POCT U GLU (test code = 3256) normal Negative - Negative POCT U KETONE (test code = neg Negative - Negative 3258) POCT U UROBILI (test code = normal 0.2-1 3260) POCT U BILI (test code = neg Negative - Negative 3261) POCT U BLD (test code = 3257) trace Negative - Negative POCT U COLOR (test code = yellow 3266) POCT U APPEAR (test code = clear 3267) Lab Interpretation (test code Abnormal = 08910-1) [facility]POL[facility] URINALYSIS W SPECIFIC [id number] 19:39:00 Test Item Value Reference Range Interpretation Comments POCT U SP GRAV (test code = 1.015 mg/dl 1.005-1.025 3255) POCT PH U (test code = 3254) 5 mg/dl 5-8 POCT U LEUK EST (test code = neg Negative - Negative 3263) POCT U NIT (test code = 3262) neg Negative - Negative POCT U PROT (test code = trace Negative - Negative 3259) POCT U GLU (test code = 3256) normal Negative - Negative POCT U KETONE (test code = neg Negative - Negative 3258) POCT U UROBILI (test code = normal 0.2-1 3260) POCT U BILI (test code = neg Negative - Negative 3261) POCT U BLD (test code = 3257) trace Negative - Negative POCT U COLOR (test code = yellow 3266) POCT U APPEAR (test code = clear 3267) Lab Interpretation (test code Abnormal = 82549-3) [facility]- XR ABDOMEN 1V (KUB)2019-01-02 20:07:00 FAX: Maren Wilkinson NP [phone] [place]: St: REG Name: MIKHAIL OSORIO [facility] [place] : 1995 Age/S: 23/F [address] [place] [address] Blvd Unit #: [id number] Loc: [place] [address] Phys: Jamia Wilkinson Acct: [id number] Dis Date: Status: REG ER PHONE #: [phone] Exam Date: 01/02/20192003 FAX #: [phone] Reason: Abdominal Pain EXAMS: CPT CODE: [id number] XR ABDOMEN 1V (KUB) 37715 ABDOMENSINGLE VIEW HISTORY: Abdominal pain. COMPARISON: CT abdomen dated 04/05/16 FINDINGS: There are no dilated small bowel loops or small bowel air-fluid levels. There is moderate formed fecal material in the ascending colon. There is no gross free intraperitoneal air. No abnormal calcifications identified. The lung bases are clear. IMPRESSION: 1. Nonspecific/unobstructed abdominal bowel gas pattern. 2.Moderate formed fecal material in ascending colon, consistent with constipation. SL:01 at 2006 Reported and signed by: Chace Rojas M.D. CC: Maren Wilkinson NP Technologist: RT Manuel(Aminta) Trnscrd Date/Time/By: 01/02/2019 (2006) : By: Quang Orig Print D/T: S: 01/02/2019 (2010) PAGE 1 Signed Report- US TRANSVAGINAL NON [id number] 19:50:00 Name: MIKHAIL OSORIO [facility] [place] : 1995 Age/S: 23 / F [address] [place] [address] Unit #: [id number] Loc: [place] [address] Phys: Phuc Espinal MD Acct: [id number] Dis Date: Status: REG ER PHONE #: [phone] Exam Date: 01/02/20191931 FAX #: [phone] Reason: PAIN EXAMS: CPT CODE: [id number] [place] [address] PELVIC ULTRASOUND HISTORY: Pelvic pain. Comparison made to CT abdomen dated 04/05/16. TECHNIQUE: Grayscale, color, and Doppler transabdominal and transvaginal imaging of the pelvis was performed with standard technique. Transvaginal ultrasound was obtained for further evaluation of the endometrium and adnexal regions. FINDINGS: Transabdominal images show uterine length of 6.8 cm. The endometrium is approximately 7 mm in thickness. Transvaginal imagesshow a retroverted uterus. There is small volume free pelvic fluid. The left ovary measures 2.8 x 1.9 x 1.7 cm, the right ovary measures 2.8 x 1.8 x 1.9 cm. Both ovaries have a normal sonographic appearance. Complex 15 mm cystic structure at the right ovary likely represents a hemorrhagic cyst. There is documented arterial flow to the right and left ovary by Doppler. IMPRESSION: 1. Echogenic lesion measuring 15 mm at the right ovary, likely representing a hemorrhagic cyst, consider follow-up to document resolution of finding. 2. Small volume free pelvic fluid. SL:01 at 1950 Reported and signed by: Chace Rojas M.D. CC:Phuc Espinal MD Technologist: Jaycee Harry RDMS(OB)(AB) Trnscb Date/Time: 01/02/2019 (1949) Quang Orig Print D/T: S: 01/02/2019 (1952) Probe: [id number] PAGE 1 Signed Report- DUP AB/PEL/SC/[id number] 19:50:00 Name: MIKHAIL OSORIO [facility] : 1995 Age/S: 23 / F [address] [place] [address] Unit #: [id number] Loc: [place] [address] Phys: Phuc Espinal MD Acct: [id number] Dis Date: Status: REG ER PHONE #: [phone] Exam Date: 01/02/20191931 FAX #: [phone] Reason: PAIN EXAMS: CPT CODE: [id number] DUP AB/PEL/SC/LTD 73775 PELVIC ULTRASOUND HISTORY: Pelvic pain. Comparison made to CT abdomen dated 04/05/16. TECHNIQUE: Grayscale, color, and Doppler transabdominal and transvaginal imaging of the pelvis was performed with standard technique. Transvaginal ultrasound was obtained for further evaluation of the endometrium and adnexal regions. FINDINGS: Transabdominal images show uterine length of 6.8 cm. The endometrium is approximately 7 mm in thickness. Transvaginal images show a retroverted uterus. There is small volume free pelvic fluid. The left ovary measures 2.8 x 1.9 x 1.7 cm, the right ovary measures 2.8 x 1.8 x 1.9 cm. Both ovaries have a normal sonographic appearance. Complex 15 mm cystic structure at the right ovary likely represents a hemorrhagic cyst. There is documented arterial flow to the right and left ovary by Doppler. IMPRESSION: 1. Echogenic lesion measuring 15 mm at the right ovary, likely representing a hemorrhagic cyst, consider follow-up to document resolution of finding. 2. Small volume free pelvic fluid. SL:01 at 1950 Reported and signed by: Chace Rojas M.D. CC: Phuc Espinal MD Technologist: Jaycee Harry RDMS(OB)(AB) Trnscb Date/Time: 01/02/2019 (1949) t.WUOrig Print D/T: S: 01/02/2019 (1952) Probe: PAGE 1 Signed Report- US PELVIS [id number] 19:50:00 Name: OSORIOMIKHAIL [facility] : 1995 Age/S: 23 / F [address] [place] [address] Unit #: [id number] Loc: [place] [address] Phys: Maren Wilkinson NP Acct: [id number] Dis Date: Status: REG ER PHONE #: [phone] Exam Date: 01/02/2019 193 FAX #: [phone] Reason: Pelvic Pain EXAMS: CPT CODE: [id number] US PELVIS COMPLETE 34865 PELVIC ULTRASOUND HISTORY: Pelvic pain. Comparison made to CT abdomen dated 04/05/16. TECHNIQUE: Grayscale, color, and Doppler transabdominal and transvaginal imaging of the pelvis was performed with standard technique. Transvaginal ultrasound was obtained for further evaluation of the endometrium and adnexal regions. FINDINGS: Transabdominal images show uterine length of 6.8 cm. The endometrium is approximately 7 mm in thickness. Transvaginal imagesshow a retroverted uterus. There is small volume free pelvic fluid. The left ovary measures 2.8 x 1.9 x 1.7 cm, the right ovary measures 2.8 x 1.8 x 1.9 cm. Both ovaries have a normal sonographic appearance. Complex 15 mm cystic structure at the right ovary likely represents a hemorrhagic cyst. There is documented arterial flow to the right and left ovary by Doppler. IMPRESSION: 1. Echogenic lesion measuring 15 mm at the right ovary, likely representing a hemorrhagic cyst, consider follow-up to document resolution of finding. 2. Small volume free pelvic fluid. SL:01 at 1950 Reported and signed by: Chace Rojas M.D. CC: Maren Wilkinson NP Technologist: Jaycee Harry RDMS(OB)(AB) Trnscb Date/Time: 01/02/2019 (1949) tDUNIA Orig Print D/T: S: 01/02/2019 (1952) Probe: PAGE 1 Signed ReportBASIC METABOLIC [id number] 19:24:00 Test Item Value Reference Range Interpretation Comments SODIUM (test code = NA) 139 mEq/L 134-147 N POTASSIUM (test code = 3.6 mEq/L 3.4-5.0 N K) CHLORIDE (test code = 106 mEq/L 100-108 N CL) CARBON DIOXIDE (test 28 mEq/L 21-33 N code = CO2) ANION GAP (test code = 9 0-20 N GAP) GLUCOSE (test code = 86 mg/dL 70-110 N GLU) BLOOD UREA NITROGEN 16 mg/dL 7-18 N (test code = BUN) GLOMERULAR FILTRATION 70.0 110-120 L Units of measure = RATE (test code = GFR) ml/mi n/1.73 m2 CREATININE (test code = 1.0 mg/dL 0.6-1.3 N CREAT) CALCIUM (test code = 9.1 mg/dL 8.0-10.5 N CA) HEPATIC FUNCTION [id number] 19:24:00 Test Item Value Reference Range Interpretation Comments TOTAL PROTEIN (test code = PROT) 7.5 g/dL 6.4-8.2 N ALBUMIN (test code = ALB) 4.20 g/dL 3.4-5.0 N BILIRUBIN TOTAL (test code = 0.20 mg/dL 0.0-1.0 N BILT) BILIRUBIN DIRECT (test code = < 0.10 MG/DL 0.0-0.30 N BILD) BILIRUBIN INDIRECT (test code = 0.10 MG/DL BILIND) SGOT/AST (test code = AST) 11 IUnit/L 15-37 L SGPT/ALT (test code = ALT) 26 IUnit/L 15-65 N ALKALINE PHOSPHATASE TOTAL (test 65 IUnit/L 20-125 N code = ALKP) [id number] 19:24:00 Test Item Value Reference Range Interpretation Comments LIPASE (test code = LIP) 156 IUnit/L 73-393 N HCG SERUM [id number] 19:24:00 Test Item Value Reference Range Interpretation Comments HCG SERUM QUAL (test code = SERUM NEGATIVE NEGATIVE HCGQL) HEPATIC FUNCTION [id number] 19:21:00 Test Item Value Reference Range Interpretation Comments TOTAL PROTEIN (test code = PROT) g/dL 6.4-8.2 ALBUMIN (test code = ALB) 4.20 g/dL 3.4-5.0 N BILIRUBIN TOTAL (test code = mg/dL 0.0-1.0 BILT) BILIRUBIN DIRECT (test code = < 0.10 MG/DL 0.0-0.30 N BILD) SGOT/AST (test code = AST) 11 IUnit/L 15-37 L SGPT/ALT (test code = ALT) 26 IUnit/L 15-65 N ALKALINE PHOSPHATASE TOTAL (test IUnit/L 20-125 code = ALKP) [id number] 19:21:00 Test Item Value Reference Range Interpretation Comments LIPASE (test code = LIP) 156 IUnit/L 73-393 N HCG SERUM [id number] 19:21:00 Test Item Value Reference Range Interpretation Comments HCG SERUM QUAL (test code = SERUM NEGATIVE NEGATIVE HCGQL) BASIC METABOLIC [id number] 19:21:00 Test Item Value Reference Range Interpretation Comments SODIUM (test code = NA) 139 mEq/L 134-147 N POTASSIUM (test code = 3.6 mEq/L 3.4-5.0 N K) CHLORIDE (test code = 106 mEq/L 100-108 N CL) CARBON DIOXIDE (test 28 mEq/L 21-33 N code = CO2) ANION GAP (test code = 9 0-20 N GAP) GLUCOSE (test code = 86 mg/dL 70-110 N GLU) BLOOD UREA NITROGEN 16 mg/dL 7-18 N (test code = BUN) GLOMERULAR FILTRATION 70.0 110-120 L Units of measure = RATE (test code = GFR) ml/mi n/1.73 m2 CREATININE (test code = 1.0 mg/dL 0.6-1.3 N CREAT) CALCIUM (test code = 9.1 mg/dL 8.0-10.5 N CA) URINALYSIS [id number] 19:17:00 Test Item Value Reference Range Interpretation Comments UA COLOR (test code = COLU) YELLOW YEL/STRAW UA APPEARANCE (test code = CLEAR CLEAR APPU) UA GLUCOSE DIPSTICK (test NEGATIVE NEGATIVE code = DGLUU) UA BILIRUBIN DIPSTICK (test NEGATIVE NEGATIVE code = BILU) UA KETONE DIPSTICK (test NEGATIVE NEGATIVE code = KETU) UA SPECIFIC GRAVITY (test 1.019 1.005-1.030 N code = SGU) UA BLOOD DIPSTICK (test NEGATIVE NEGATIVE code = DALJIT) UA PH DIPSTICK (test code = 5.0 5.0-7.0 N RALPH) UA PROTEIN DIPSTICK (test NEGATIVE NEGATIVE code = PROU) UA UROBILINIOGEN DIPSTICK 0.2 mg/dL 0.2-1.0 (test code = URO) UA NITRITE DIPSTICK (test NEGATIVE NEGATIVE code = ISREAL) UA LEUKOCYTE ESTERASE NEGATIVE NEGATIVE DIPSTICK (test code = LEUU) UA RBC (test code = RBCU) 4-10 RBC/HPF 0-3 UA WBC NO REFLEX (test code NONE SEEN WBC/HPF 0-3 = WBCUCL) UA BACTERIA (test code = NONE SEEN /HPF NONE SEEN BACU) UA SQUAMOUS CELLS (test 0-5 /HPF NONE SEEN code = SQU) UA MUCUS (test code = MUCU) TRACE /LPF NONE SEEN COMMENTS: Clean CatchBASIC METABOLIC [id number] 19:14:00 Test Item Value Reference Range Interpretation Comments SODIUM (test code = NA) mEq/L 134-147 POTASSIUM (test code = K) mEq/L 3.4-5.0 CHLORIDE (test code = CL) mEq/L 100-108 CARBON DIOXIDE (test code = CO2) mEq/L 21-33 ANION GAP (test code = GAP) 0-20 GLUCOSE (test code = GLU) mg/dL 70-110 BLOOD UREA NITROGEN (test code = BUN) mg/dL 7-18 GLOMERULAR FILTRATION RATE (test code 110-120 = GFR) CREATININE (test code = CREAT) mg/dL 0.6-1.3 CALCIUM (test code = CA) mg/dL 8.0-10.5 HEPATIC FUNCTION [id number] 19:14:00 Test Item Value Reference Range Interpretation Comments TOTAL PROTEIN (test code = PROT) g/dL 6.4-8.2 ALBUMIN (test code = ALB) g/dL 3.4-5.0 BILIRUBIN TOTAL (test code = BILT) mg/dL 0.0-1.0 BILIRUBIN DIRECT (test code = BILD) MG/DL 0.0-0.30 SGOT/AST (test code = AST) IUnit/L 15-37 SGPT/ALT (test code = ALT) IUnit/L 15-65 ALKALINE PHOSPHATASE TOTAL (test IUnit/L 20-125 code = ALKP) [id number] 19:14:00 Test Item Value Reference Range Interpretation Comments LIPASE (test code = LIP) IUnit/L 73-393 HCG SERUM [id number] 19:14:00 Test Item Value Reference Range Interpretation Comments HCG SERUM QUAL (test code = SERUM NEGATIVE NEGATIVE HCGQL) CBC W/AUTO [id number] 19:07:00 Test Item Value Reference Range Interpretation Comments WHITE BLOOD CELL (test code = 8.60 x10 3/uL 4.5-11.0 N WBC) RED BLOOD CELL (test code = 4.78 x10 6/uL 3.54-5.02 N RBC) HEMOGLOBIN (test code = HGB) 13.9 g/dL 11.0-15.0 N HEMATOCRIT (test code = HCT) 42.9 % 33.0-45.0 N MEAN CELL VOLUME (test code = 89.7 fL 81.0-99.0 N MCV) MEAN CELL HGB (test code = MCH) 29.1 pg 27.0-33.0 N MEAN CELL HGB CONCETRATION 32.4 g/dL 33.0-37.0 L (test code = MCHC) RED CELL DISTRIBUTION WIDTH CV 13.4 % 11.5-14.5 N (test code = RDW) RED CELL DISTRIBUTION WIDTH SD 44.1 fL 37.0-54.0 N (test code = RDW-SD) PLATELET COUNT (test code = 220 x10 3/uL 150-400 N PLT) MEAN PLATELET VOLUME (test code 9.4 fL 7.0-9.0 H = MPV) NEUTROPHIL % (test code = NT%) 68.7 % 56.0-77.0 N IMMATURE GRANULOCYTE % (test 0.3 % 0.0-2.0 N code = IG%) LYMPHOCYTE % (test code = LY%) 24.8 % 14.0-32.0 N MONOCYTE % (test code = MO%) 5.1 % 4.8-9.0 N EOSINOPHIL % (test code = EO%) 0.8 % 0.3-3.7 N BASOPHIL % (test code = BA%) 0.3 % 0.0-2.0 N NUCLEATED RBC % (test code = 0.0 % 0-0 N NRBC%) NEUTROPHIL # (test code = NT#) 5.90 x10 3/uL 2.0-7.6 N IMMATURE GRANULOCYTE # (test 0.03 x10 3/uL 0.00-0.03 N code = IG#) LYMPHOCYTE # (test code = LY#) 2.13 x10 3/uL 1.0-3.8 N MONOCYTE # (test code = MO#) 0.44 x10 3/uL 0.1-0.8 N EOSINOPHIL # (test code = EO#) 0.07 x10 3/uL 0.0-0.2 N BASOPHIL # (test code = BA#) 0.03 x10 3/uL 0.0-0.2 N NUCLEATED RBC # (test code = 0.00 x10 3/uL 0.0-0.1 N NRBC#) MANUAL DIFF REQUIRED (test code NO = MDIFF) CT ABDOMEN PELVIS W [id number] 03:57:54 Right buttock soft tissue stranding with foci of air. Correlate forinjection site. Cystic structurewithin the right adnexal region measuring 1.9 x 1.5 cm,potentially reflect an ovarian cyst. The appendix is normal. Evaluation of lower abdomen/pelvic structures arelimited secondary to patient's motion. Cale Garcia MD., have reviewed this study and agree with theabove report.* * * * * * ORIGINAL REPORT * * * * * * * *EXAM: CT ABDOMEN AND PELVIS WITH CONTRAST HISTORY: Abd pain, acute,generalized COMPARISON: 01/06/2018 DOSE: 780.33 mGy-cm TECHNIQUE AND FINDINGS: Contiguous axial imaging from the level of the lungbases through the pubic symphysis was performed after the uncomplicatedadministration of 120 cc of intravenous Omnipaque contrast. Coronal andsagittal reconstructions were ob tained.?Auto mA and/or iterativereconstruction were used to reduce radiation dose. FINDINGS: Evaluation of the pelvis is limited by patient's motion. LOWER THORAX: The lungs bases are clear. No cardiomegaly. LIVER: No focal hepatic lesions.?Normal contour. GALLBLADDER AND BILIARY TREE: No biliary ductal dilation.?No gallbladderwall thickening. PANCREAS: No ductal dilation or masses. SPLEEN: No splenomegaly. ADRENAL GLANDS: No adrenal nodules. KIDNEYS: No hydronephrosis, stones, or masses. PERITONEUMAND RETROPERITONEUM: No free air or fluid. LYMPH NODES: No lymphadenopathy. VESSELS: Unremarkable. GI TRACT: No dilation or wall thickening. The appendix is normal. PELVIS/BLADDER: A cystic structure measuring 1.9 x 1.5 cm (3:89) is notedwithin the right adnexal region, presumably reflect an ovarian cyst. Smallamount of fluid is noted within the uterine cavity. BONES AND SOFT TISSUES: No acute osseous finding. Soft tissue strandingwithin the right buttock in association with foci of air noted (3:93) [facility], Radiant Results Inft User - 12/21/2018 11:00 PM CDT* * * * * * * * ORIGINAL REPORT * * * * * *EXAM: CT ABDOMEN AND PELVIS WITH CONTRASTHISTORY: Abd pain, acute, generalized COMPARISON: 01/06/2018DOSE: 780.33 mGy-cmTECHNIQUE AND FINDINGS: Contiguous axial imaging from the level of the lungbases through the pubic symphysis was performed after the uncomplicatedadministration of 120 cc of intravenous Omnipaque contrast. Coronal andsagittal reconstructions were obtained. Auto mA and/or iterativereconstruction were used to reduce radiation dose.FINDINGS:Evaluation of the pelvis is limited by patient's motion.LOWER THORAX: The lungs bases are clear. No cardiomegaly.LIVER: No focal hepatic lesions. Normal contour.GALLBLADDER AND BILIARY TREE: No biliary ductal dilation. No gallbladderwall thickening.PANCREAS: No ductal dilation or masses.SPLEEN: No splenomegaly.ADRENAL GLANDS: No adrenal nodules.KIDNEYS: No hydronephrosis, stones, or masses.PERITONEUM AND RETROPERITONEUM: No free air or fluid.LYMPH NODES: No lymphadenopathy.VESSELS: Unremarkable.GI TRACT: No dilation or wall thickening. The appendix is normal.PELVIS/BLADDER: A cystic structure measuring 1.9 x 1.5 cm (3:89) is notedwithin theright adnexal region, presumably reflect an ovarian cyst. Smallamount of fluid is noted within the ut erine cavity.BONES AND SOFT TISSUES: No acute osseous finding. Soft tissue strandingwithin the rightbuttock in association with foci of air noted (3:93)IMPRESSIONRight buttock soft tissue stranding with foci of air. Correlate forinjection site.Cystic structure within the right adnexal region measuring 1.9 x 1.5 cm,potentially reflect an ovarian cyst.The appendix is normal. Evaluation of lower abdomen/pelvic structures arelimited secondary to patient's motion.Kayy Garcia MD., have reviewed this study and agree with theabove report.[facility]domen [id number] 01:49:11 No acute or pulmonary abnormality. Nonobstructive bowel gas pattern.XR ABDOMEN ACUTE SERIES Comparison: None available History: abdominal pain Findings: The lungs are clear with no focal consolidation. No pleural effusion orpneumothorax is present. The heart is normal in size. The bowel gas pattern is nonobstructive. No evidence of freeintra-abdominal air is present. No definite urolithiasis identified. No acute osseous abnormality is seen. [facility], Radiant Results Inft User - 12/21/2018 8:51 PM CDTXRABDOMEN ACUTE SERIESComparison: None availableHistory: abdominal pain Findings:The lungs are clear with no focal consolidation. No pleural effusion orpneumothorax is present. The heart is normal in size.The bowel gas pattern is nonobstructive. No evidence of freeintra-abdominal air is present.No definite urolithiasis identified. No acute osseous abnormality is seen.IMPRESSIONNo acute or pulmonary abnormality. Nonobstructive bowel gas pattern.[facility] Metabolic Panel (NA, K, CL, CO2, GLUCOSE, BUN, CREATININE, CA)2018-12-22 01:14:00 Test Item Value Reference Range Interpretation Comments NA (test code = 143 mmol/L 135-145 3901132653) K (test code = 4.5 mmol/L 3.5-5 Slight hemoly sis 1098152373) CL (test code = 107 mmol/L 98-108 8236353434) CO2 TOTAL (test 26 mmol/L 23-31 code = 2900245651) AGAP (test code = 2-16 4754497962) BUN (test code = 14 mg/dL 7-23 Slight hemo lysis 7179794368) GLUCOSE (test code 88 mg/dL 70-110 = 4283007490) CREATININE (test 0.92 mg/dL 0.5-1.04 code = 9373291447) CALCIUM (test code 9.5 mg/dL 8.6-10.6 = 1759382747) eGFR Calculation mL/min/1.73m2 (Non-) (test code = 4564168770) eGFR Calculation mL/min/1.73m2 () (test code = 7762968350) JEFF (test code = Association of JFEF) Glomerular Filtration Rate (GFR) and Staging of Kidney Disease*+ +------- +----- +| GFR (mL/min/1.73 m2)?| With Kidney Damage?|?Without Kidney Damage+ +--------- +------- +| ?>90?|?Stage one?|? Normal?+ +-------- +------ + |?60-89?|?Stage two?|? Decreased GFR? + ----+ ------+ +|?30-59 ?|?Stage three?|? Stage three? + ----+ ------+ +|?15-29 ?|?Stage four? |? Stage four?+ ---------+ +-------- +|? <15 (or dialysis)?|?Stage five? |? Stage five?+ ---------+ +-------- +*E ach stage assumes the associated GFR level has been in effect for at least three months.?Stages 1 to 5, with or without kidney disease, indicate chronic kidney disease.Notes: Determination of stages one and two (with eGFR >59mL/min/1.73 m2) requires estimation of kidney damage for at least three months as defined by structural or functional abnormalities of the kidney, manifested by either:Pathological abnormalities or Markers of kidney damage (including abnormalities in the composition of the blood or urine or abnormalities in imaging tests). [facility] (ALB, T.PRO, BILI T, BU/BC, ALT, AST, ALK PHOS)2018-12-22 01:14:00 Test Item Value Reference Range Interpretation Comments TOTAL BILI (test code = 7641246837) 0.6 mg/dL 0.1-1.1 BILI UNCON (test code = 6194030271) 0.3 mg/dL 0.1-1.1 BILI CONJ (test code = 7658744668) 0.0 mg/dL 0-0.3 T PROTEIN (test code = 8890949089) 7.8 g/dL 6.3-8.2 ALBUMIN (test code = 9095317899) 4.7 g/dL 3.5-5 ALK PHOS (test code = 1032535121) 49 U/L 34-122 ALT(SGPT) (test code = 7460089941) 30 U/L 9-51 AST(SGOT) (test code = 1361579877) 26 U/L 13-40 Lab Interpretation (test code = Normal 73849-0) [facility] HospitalLipase [id number] 01:14:00 Test Item Value Reference Range Interpretation Comments LIPASE (test code = 4579481237) 110 U/L 0-220 Lab Interpretation (test code = Normal 85935-0) [facility] HospitalUrinalysis2019-08-05 01:13:00 Test Item Value Reference Range Interpretation Comments APPEARANCE (test code = Hazy Clear A 1083592609) COLOR (test code = Yellow Yellow 8498434960) PH (test code = 4.8-8.0 1651765124) SP GRAVITY (test code = 1.003-1.030 0677632175) GLU U QUAL (test code = Normal Normal 1439513017) BLOOD (test code = Negative Negative INTERFERE NCE FROM 2698148507) ASCORBIC ACID M AY CAUSE FALSE NEG ATIVE RESULT KETONES (test code = Negative Negative 6021266496) PROTEIN (test code = Negative Negative 2887-8) UROBILIN (test code = Normal Normal 5649391516) BILIRUBIN (test code = Negative Negative 8449107484) NITRITE (test code = Negative Negative 0979093718) LEUK NOÉ (test code = Negative Negative 5575652194) RBC/HPF (test code = See_Comment H [Autom ated message] 6224694936) The system [employer] generated this result transmitted ref erence range: 0 - 3 HP F. The reference range was not used to int erpret this result as normal/abnormal . WBC/HPF (test code = See_Comment [Autom ated message] 1995195353) The system [employer] generated this result transmitted ref erence range: 0 - 5 HP F. The reference range was not used to int erpret this result as normal/abnormal . BACTERIA (test code = Negative Negative 9028723934) MUCOUS (test code = Slight Negative LPF A 6355961422) SQ EPITH (test code = See_Comment H [Auto mated message] 3955551048) The system [employer] generated this result transmitted ref erence range: <=2 HPF. The reference range was not used to int erpret this result as normal/abnormal . Lab Interpretation (test Abnormal code = 34712-1) [facility] HospitalCBC WITH [id number] 01:04:00 Test Item Value Reference Range Interpretation Comments WBC (test code = See_Comment [Automated 4090-2) message] The sy stem which generated this result transmitted reference range : 4.30 - 11.10 10*3/?L. The reference range was not used to interpret this result as normal/abnormal . RBC (test code = See_Comment [Automated 789-8) message] The sy stem which generated this result transmitted reference range : 3.93 - 5.25 10*6/?L. The reference range was not used to interpret this result as normal/abnormal . HGB (test code = 14.3 g/dL 11.6-15 718-7) HCT (test code = 42.8 % 35.7-45.2 4544-3) MCV (test code = 88.6 fL 80.6-95.5 787-2) MCH (test code = 29.6 pg 25.9-32.8 785-6) MCHC (test code = 33.4 g/dL 31.6-35.1 786-4) RDW-SD (test code = 44.0 fL 39-49.9 88266-9) RDW-CV (test code = 13.5 % 12-15.5 788-0) PLT (test code = See_Comment [Automated 777-3) message] The sy stem which generated this result transmitted reference range : 166 - 358 10*3/ ?L. The reference r faisal was not used to interpret this result as normal/abnormal . MPV (test code = 9.4 fL 9.5-12.9 L 46169-6) NRBC/100 WBC (test See_Comment [Automat ed code = 8376155078) message] The system which generated this result transmitted reference range : 0.0 - 10.0 /100 WBCs. The refer ence range was not u sed to interpret th is result as normal/abnormal . NRBC x10^3 (test code <0.01 See_Comment [Auto mated = 9566073410) message] The s ystem which generated this result transmitted reference range : 10*3/?L. The reference range was not used to interpret this result as normal/abnormal . GRAN MAT (NEUT) % 81.7 % (test code = 770-8) IMM GRAN % (test code 0.30 % = 1826292934) LYMPH % (test code = 14.9 % 736-9) MONO % (test code = 2.8 % 5905-5) EOS % (test code = 0.1 % 713-8) BASO % (test code = 0.2 % 706-2) GRAN MAT x10^3(ANC) 7.04 10*3/uL 1.88-7.09 (test code = 4215019106) IMM GRAN x10^3 (test 0.03 10*3/uL 0-0.06 code = 1177742245) LYMPH x10^3 (test code 1.29 10*3/uL 1.32-3.29 L = 731-0) MONO x10^3 (test code 0.24 10*3/uL 0.33-0.92 L = 742-7) EOS x10^3 (test code = <0.03 0.03-0.39 L 711-2) BASO x10^3 (test code <0.03 0.01-0.07 = 704-7) Lab Interpretation Abnormal (test code = 68873-2) [facility]PO[facility], [id number] 00:50:00 Test Item Value Reference Range Interpretation Comments POCT PREG (test code = 1605) Negative On board controls acceptable with C Yes Line (test code = 3574) POCT PREG LOT # (test code = 3575) POCT PREG TEST DATE (test code = 3576) Lab Interpretation (test code = Normal 79142-9) [facility] AND [id number] 16:08:00 Test Item Value Reference Range Interpretation Comments UA Leuk Est (test code Trace *ABN*(06/03/16 = UA Leuk Est) 10:08 AM) [facility] AND [id number] 16:08:00 Test Item Value Reference Range Interpretation Comments UA Urobilinogen (test code = UA 0.2 0.1-1.0 Urobilinogen) [facility] AND [id number] 16:08:00 Test Item Value Reference Range Interpretation Comments UA Nitrite (test code Negative (06/03/16 10:08 = UA Nitrite) AM) [facility] AND [id number] 16:08:00 Test Item Value Reference Range Interpretation Comments UA Bili (test code = Negative *NA*(06/03/16 UA Bili) 10:08 AM) [facility] AND [id number] 16:08:00 Test Item Value Reference Range Interpretation Comments UA Blood (test code = Negative (06/03/16 10:08 UA Blood) AM) [facility] AND [id number] 16:08:00 Test Item Value Reference Range Interpretation Comments UA Ketones (test code Negative *NA*(06/03/16 = UA Ketones) 10:08 AM) [facility] AND [id number] 16:08:00 Test Item Value Reference Range Interpretation Comments UA Spec Grav (test code = UA Spec 1.015 1 Grav) [facility] AND [id number] 16:08:00 Test Item Value Reference Range Interpretation Comments UA pH (test code = UA pH) 7.0 1 5.0-8.0 [facility] AND [id number] 16:08:00 Test Item Value Reference Range Interpretation Comments UA Turbidity (test code = Clear (06/03/16 10:08 UA Turbidity) AM) [facility] AND [id number] 16:08:00 Test Item Value Reference Range Interpretation Comments UA Color (test code = Yellow *NA*(06/03/16 UA Color) 10:08 AM) [facility] AND [id number] 16:08:00 Test Item Value Reference Range Interpretation Comments UA Glucose (test code Negative (06/03/16 10:08 = UA Glucose) AM) [facility] AND [id number] 16:08:00 Test Item Value Reference Range Interpretation Comments UA Protein (test code Negative (06/03/16 10:08 = UA Protein) AM) [facility] AND [id number] 16:08:00 Test Item Value Reference Range Interpretation Comments UA Sq Epi (test code = UA Sq Occasional /LPF Epi) [facility] AND [id number] 16:08:00 Test Item Value Reference Range Interpretation Comments UA WBC (test code = UA WBC) 21-50 /HPF [facility] AND [id number] 16:08:00 Test Item Value Reference Range Interpretation Comments UA RBC (test code = 0-2 /HPF See_Comment [Automa jaya message] The UA RBC) system which ge nerated this result tra nsmitted reference range : <=2. The reference range was not used to interpr et this result as sterling l/abnormal. [facility] [id number] 16:08:00 Test Item Value Reference Range Interpretation Comments UA Bacteria (test code = UA Occasional /HPF Bacteria) [facility] AND [id number] 16:08:00 Test Item Value Reference Range Interpretation Comments UA Mucus (test code = UA Mucus) Rare /LPF [facility] [id number] 16:08:00 Test Item Value Reference Range Interpretation Comments U Preg (test code = U Negative (06/03/16 10:08 Preg) AM) [facility]2017-01-15 14:53:56 Test Item Value Reference Range Interpretation Comments Lipase Lvl (test code = Lipase Lvl) 118 73-393 [facility]2017-01-15 14:53:56 Test Item Value Reference Range Interpretation Comments Lactic Acid WB (test code = Lactic Acid 0.9 0.5-2.2 WB) [facility]2017-01-15 14:53:56 Test Item Value Reference Range Interpretation Comments A/G Ratio (test code = A/G Ratio) 1.0 0.7-1.6 [facility]2017-01-15 14:53:56 Test Item Value Reference Range Interpretation Comments Globulin (test code = Globulin) 3.3 2.7-4.2 [facility]2017-01-15 14:53:56 Test Item Value Reference Range Interpretation Comments Albumin Lvl (test code = Albumin Lvl) 3.2 3.5-5.0 [facility]2017-01-15 14:53:56 Test Item Value Reference Range Interpretation Comments Total Protein (test code = Total 6.5 6.4-8.4 Protein) [facility]2017-01-15 14:53:56 Test Item Value Reference Range Interpretation Comments AST (test code = AST) 10 See_Comment [Auto mated message] The system which ge nerated this result transmit jaya reference range : <=37. The reference range was not used to interpr et this result as sterling l/abnormal. [facility]2017-01-15 14:53:56 Test Item Value Reference Range Interpretation Comments Alk Phos (test code = Alk Phos) 91 39-136 [facility]2017-01-15 14:53:56 Test Item Value Reference Range Interpretation Comments Bili Total (test code = Bili Total) 0.1 0.2-1.3 [facility]2017-01-15 14:53:56 Test Item Value Reference Range Interpretation Comments ALT (test code = ALT) 18 See_Comment [Auto mated message] The system which ge nerated this result transmit jaya reference range : <=65. The reference range was not used to interpr et this result as sterling l/abnormal. [facility]2017-01-15 14:53:56 Test Item Value Reference Range Interpretation Comments Bili Direct (test code 0.0 See_Comment [Aut omated message] The = Bili Direct) system which generated this result tra nsmitted reference range : <=0.3. The reference r faisal was not used to int erpret this result as sterling l/abnormal. [facility]2017-01-15 14:53:56 Test Item Value Reference Range Interpretation Comments Bili Indirect (test 0.1 See_Comment [Automa jaya message] The code = Bili Indirect) system which generated this result tra nsmitted reference range : <=1.0. The reference r faisal was not used to int erpret this result as normal/abnormal . [facility]WbfixwfJOCEMSXJBYWR1408-13-40 14:53:56 Test Item Value Reference Range Interpretation Comments AGAP (test code = AGAP) 16.2 10.0-20.0 [facility] HospitalRtxqrwfEYSKQCIXLBZQ8420-57-27 14:53:56 Test Item Value Reference Range Interpretation Comments Calcium Lvl (test code = Calcium Lvl) 8.4 8.5-10.5 [facility] HospitalFjunxwcGGPELOWAJTKR5606-13-12 14:53:56 Test Item Value Reference Range Interpretation Comments Chloride Lvl (test code = Chloride Lvl) 105 95-109 [facility] HospitalZymqdslJGGATWCNUGAF8996-19-32 14:53:56 Test Item Value Reference Range Interpretation Comments CO2 (test code = CO2) 26 24-32 [facility] HospitalPlugdweSOGVXBZDZYJK9719-82-08 14:53:56 Test Item Value Reference Range Interpretation Comments Potassium Lvl (test code = Potassium 4.2 3.5-5.1 Lvl) [facility] HospitalOeyhkhwDLWEKNDOZFUN2114-70-27 14:53:56 Test Item Value Reference Range Interpretation Comments Sodium Lvl (test code = Sodium Lvl) 143 135-145 [facility] HospitalZdqbqquZIDEOZVNGJQT9026-46-89 14:53:56 Test Item Value Reference Range Interpretation Comments BUN (test code = BUN) 14 7-22 [facility] HospitalVwxkzznLBDVLDZLRPKR9682-15-81 14:53:56 Test Item Value Reference Range Interpretation Comments Creatinine Lvl (test code = Creatinine 0.96 0.50-1.40 Lvl) [facility] HospitalDspmqfqIVEDHLNFLPUQ7300-69-11 14:53:56 Test Item Value Reference Range Interpretation Comments Glucose Lvl (test code = Glucose Lvl) 92 70-99 [facility] HospitalSpsahutPIZFCCNSGFHA6841-80-91 14:53:56 Test Item Value Reference Range Interpretation Comments eGFR (test code = eGFR) [address] [facility] [place], TXHpqrwsyUHQCUFIPUG6535-00-01 14:53:56 Test Item Value Reference Range Interpretation Comments Platelet (test code = Platelet) 233 133-[address] [facility] [place], TXQthgssrLSZHZUQJZT7919-20-80 14:53:56 Test Item Value Reference Range Interpretation Comments MPV (test code = MPV) 7.3 7.4-10.[address] [facility] [place], TXHjhkomzCTUXSNQDVG0833-00-40 14:53:56 Test Item Value Reference Range Interpretation Comments Hct (test code = Hct) 32.5 36.0-48.[address] [facility] [place], TXXllnigxCEZJQBBBFN8675-04-05 14:53:56 Test Item Value Reference Range Interpretation Comments MCH (test code = MCH) 26.0 pg 27.0-31.[address] [facility] [place], TXYcnbjspBVXXXAFINW1171-59-06 14:53:56 Test Item Value Reference Range Interpretation Comments MCV (test code = MCV) 81.1 80.0-98.[address] [facility] [place], TXOitittnFVRZLHYHHO3799-23-81 14:53:56 Test Item Value Reference Range Interpretation Comments RDW (test code = RDW) 16.8 11.5-14.[address] [facility] [place], TXCehnvqwDMUSCANKVJ2875-87-09 14:53:56 Test Item Value Reference Range Interpretation Comments MCHC (test code = MCHC) 32.1 32.0-36.[address] [facility] [place], TXPzomuxkXKGKJJRITQ0921-96-21 14:53:56 Test Item Value Reference Range Interpretation Comments RBC (test code = RBC) 4.01 4.20-5.[address] [facility] [place], TXPxauoasFLARYYKGIX7097-00-79 14:53:56 Test Item Value Reference Range Interpretation Comments Hgb (test code = Hgb) 10.4 12.0-16.[address] [facility] [place], TXIrllzjgYUWTIHOKFF2197-65-18 14:53:56 Test Item Value Reference Range Interpretation Comments WBC (test code = WBC) 7.7 3.7-10.[address] [facility] [place], TXMzlkafbTULGFDWBPW2448-44-39 14:53:56 Test Item Value Reference Range Interpretation Comments Monocytes # (test code 0.5 See_Comment [Aut omated message] The = Monocytes #) system which generated this result tra nsmitted reference range : <=0.8. The reference r faisal was not used to int erpret this result as normal/abnormal . [facility] [place], TXRbrizkkPCLVXHFYWS9589-37-89 14:53:56 Test Item Value Reference Range Interpretation Comments Lymphocytes # (test code = Lymphocytes 1.5 1.0-5.5 #) [facility] [place], TXXyoilnmIRNMBKBPQK9207-63-84 14:53:56 Test Item Value Reference Range Interpretation Comments Segs-Bands # (test code = Segs-Bands #) 5.6 1.5-8.[address] [facility] [place], TXGvabepiQHFCCUBAEG0019-11-25 14:53:56 Test Item Value Reference Range Interpretation Comments Basophils (test code = 0.3 See_Comment [Aut omated message] The Basophils) system which ge nerated this result tra nsmitted reference range : <=1.0. The reference r faisal was not used to int erpret this result as normal/abnormal . [facility] [place], TXGvntjotNINTRXHPUS9949-02-20 14:53:56 Test Item Value Reference Range Interpretation Comments Eosinophils (test code = 1.1 See_Comment [A utomated message] The Eosinophils) system which ge nerated this result tra nsmitted reference range : <=4.0. The reference r faisal was not used to int erpret this result as normal/abnormal . [facility] [place], TXUralvviRRWRDGRZUJ7110-56-25 14:53:56 Test Item Value Reference Range Interpretation Comments Segs (test code = Segs) 72.0 45.0-75.[address] [facility] [place], TXCfapmhkOEJLOMLBAD2394-84-35 14:53:56 Test Item Value Reference Range Interpretation Comments Monocytes (test code = Monocytes) 7.1 2.0-12.[address] [facility] [place], TXMzgjujtUTHEIEAGTM0215-70-51 14:53:56 Test Item Value Reference Range Interpretation Comments Lymphocytes (test code = Lymphocytes) 19.5 20.0-40.[address] [facility] [place], [id number] 14:53:56 Test Item Value Reference Range Interpretation Comments Eosinophils # (test code 0.1 See_Comment [A utomated message] The = Eosinophils #) system [employer] generated this result tra nsmitted reference range : <=0.5. The reference r faisal was not used to int erpret this result as normal/abnormal . [facility]
[2022-02-02] MEDS ORDERED: MORPHINE 4 MG/ML SYR ONE ×2 (21:27→23:16)
[2022-02-02] MEDS ORDERED: ONDANSETRON 4 MG/2 ML VIAL ONE (21:27)
[2022-02-02 21:37] LABS: Urine Blood Negative (Negative); Urine Glucose Negative (Negative); Urine Protein Negative (Negative); Urine Specific Gravity >=1.030 (1.005-1.030)
[2022-02-02 21:59] LABS: Potassium 3.4 mmol/L (3.5-5.1)
[2022-02-02 22:00] LABS: Albumin 3.8 g/dL (3.4-5.0); Bilirubin Total 0.2 mg/dL (0.2-1.0); Protein, Total 7.2 g/dL (6.4-8.2)
[2022-02-02 22:04] LABS: Absolute Lymphocytes (CBC) 0.7 K/uL (0.7-4.9); Hematocrit 36.5 % (36.0-45.0); Lymphocytes % 9.5 % (15.3-44.8); MCV 86.5 fL (80-100); MPV 7.2 fL (7.6-11.3); RBC Red Blood Cell Count 4.23 M/uL (3.86-4.86)
[2022-02-02 22:20] LABS: Urine Bacteria 20-50 /HPF (<20); Urine Mucus 3+ /HPF (None Seen)
--- NOTE | 2022-02-02 22:30 | RAD REPORT ---
EXAM DESCRIPTION: CT - CTFBWCON CLINICAL HISTORY: left upper dental pain COMPARISON: No comparisons TECHNIQUE: Axial 2 mm thick images of the face were obtained with sagittal and coronal reconstructio n images. All CT scans are performed using dose optimization technique as appropriate and may include automated exposure control or mA/KV adjustment according to patient size. FINDINGS: No acute facial bone fracture is seen.The mandible is intact. The globes and orbital contents are grossly unremarkable.The paranasal sinuses and mastoids are clear . Dental caries noted. Reportedly, there was an attempted tooth extraction with residual tooth remainin g. This may be the second left maxillary molar. The tooth is intact at the root. No periapical lucenc ies. IMPRESSION: The enamel and part of the second left maxillary molar is absent. Reportedly, the patien t had an attempted tooth extraction. This is presumably the tooth. The roots remain embedded in the m axilla and are intact. No abscess identified.
--- NOTE | 2022-02-02 23:05 | ER ---
Nurse's Notes [facility] Name: Deyanira Baxter Age: 26 yrs Sex: Female : 1995 Arrival Date: 02/02/2022 Time: 20:03 Bed 25 Private MD: Diagnosis: Encounter for surgical aftercare following surgery on the teeth or oral cavity Presentation: 02/02 20:57 Chief complaint: Patient states: "They were trying to pull the tooth and it broke. Now vc1 it hurts worse than when I went in.". Coronavirus screen: Vaccine status: Patient reports receiving the 2nd dose of the covid vaccine. Pfizer At this time, the client does not indicate any symptoms associated with coronavirus-19. Ebola Screen: No symptoms or risks identified at this time. Onset of symptoms was February 02, 2022 at 17:00. 20:57 Method Of Arrival: Wheelchair vc1 20:57 Acuity: DEEPAK 4 vc1 20:58 Risk Assessment: Do you want to hurt yourself or someone else? Patient reports no vc1 desire to harm self or others. 21:03 Care prior to arrival: Medication(s) given: 1 tramadol. vc1 23:13 Initial Sepsis Screen: Does the patient meet any 2 criteria? No. Patient's initial hb sepsis screen is negative. Does the patient have a suspected source of infection? No. Patient's initial sepsis screen is negative. 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 - Social history:: Smoking status: Reported history of juuling and/or vaping. Screenin:41 Abuse screen: Denies threats or abuse. Denies injuries from another. Nutritional hb screening: No deficits noted. Tuberculosis screening: No symptoms or risk factors identified. Fall Risk None identified. Assessment: 21:42 General: Appears in no apparent distress. Pain: Pain currently is 10 out of 10 on a hb pain scale. Neuro: Level of Consciousness is awake, alert, obeys commands, Oriented to person, place, time, situation. Cardiovascular: Patient's skin is warm and dry. Respiratory: Respiratory effort is even, unlabored, Respiratory pattern is regular, symmetrical. GI: No signs and/or symptoms were reported involving the gastrointestinal system. : No signs and/or symptoms were reported regarding the genitourinary system. EENT: No signs and/or symptoms were reported regarding the EENT system. Derm: Skin is pink, warm \\T\\ dry. Musculoskeletal: No signs and/or symptoms reported regarding the musculoskeletal system. 22:30 Reassessment: Patient appears in no apparent distress at this time. Patient and/or hb family updated on plan of care and expected duration. Pain level reassessed. Patient is alert, oriented x 3, equal unlabored respirations, skin warm/dry/pink. 23:12 Reassessment: Patient appears in no apparent distress at this time. Patient and/or hb family updated on plan of care and expected duration. Pain level reassessed. Patient is alert, oriented x 3, equal unlabored respirations, skin warm/dry/pink. Vital Signs: 21:00 BP 157 / 102; Pulse 88; Resp 17; Pulse Ox 100% ; Weight 90.72 kg; Height 5 ft. 4 in. vc1 (162.56 cm); Pain 10/10; 23:00 BP 142 / 82; Pulse 84; Resp 16; Pulse Ox 99% on R/A; Pain 10/10; hb 21:00 Body Mass Index 34.33 (90.72 kg, 162.56 cm) vc1 ED Course: 20:03 Patient arrived in ED. bp1 20:58 Triage completed. vc1 21:00 Klaus Butcher PA is PHCP. cp 21:00 Jose G Moses MD is Attending Physician. cp 21:00 Arm band placed on right wrist. vc1 21:24 Inserted saline lock: 20 gauge in left antecubital area, using aseptic technique. Blood hb collected. 21:41 Patient has correct armband on for positive identification. hb 22:19 CT Facial Bones W/ Con \\T\\ Mpr In Process Unspecified. EDMS 23:02 Bryan Hannon DDS is Referral Physician. cp 23:49 Melinda Sullivan, RN is Primary Nurse. hb 23:49 No provider procedures requiring assistance completed. IV discontinued, intact, hb bleeding controlled, No redness/swelling at site. Administered Medications: 21:25 Drug: Zofran (Ondansetron) 4 mg Route: IVP; Site: left antecubital; hb 22:00 Follow up: Response: No adverse reaction hb 21:25 Drug: morphine 4 mg Route: IVP; Infused Over: 4 mins; Site: left antecubital; hb 22:00 Follow up: Response: No adverse reaction hb 23:12 Drug: Clindamycin 900 mg Route: IVPB; Infused Over: 30 mins; Site: left antecubital; hb 23:12 Drug: morphine 4 mg Route: IVP; Infused Over: 4 mins; Site: left antecubital; hb Medication: 21:42 VIS not applicable for this client. hb Outcome: 23:04 Discharge ordered by . cp 23:49 Discharged to home ambulatory. hb 23:49 Condition: stable 23:49 Discharge instructions given to patient, Instructed on discharge instructions, follow up and referral plans. medication usage, Demonstrated understanding of instructions, follow-up care, medications, Prescriptions given X 2. 23:50 Patient left the ED. hb Signatures: Dispatcher [employer] EDMS Klaus Butcher PA PA cp Baxter, Heather, RN RN Missy Angel Vanessa, RN RN vc1
--- NOTE | 2022-02-02 23:05 | EDPHYS ---
Physician Documentation [facility] Name: Deyanira Baxter Age: 26 yrs Sex: Female : 1995 Arrival Date: 02/02/2022 Time: 20:03 Bed 25 Private MD: ED Physician Jose G Moses HPI: 02/02 21:30 This 26 yrs old Female presents to ER via Wheelchair with complaints of Post Surgical cp Pain, Passed Out Prior To Arrival. 21:30 The patient presents with pain. cp 21:30 The problem is located in the left upper jaw. Associated signs and symptoms: Pertinent cp positives: nausea, pain, vomiting. Patient reports having right upper molar partially extracted today at [facility]. Patient reports she was told tooth was only partially removed and to f/u at a later date to complete extraction. Patient reports bleeding and increased pain. 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 - Social history:: Smoking status: Reported history of juuling and/or vaping. ROS: 21:33 Constitutional: Negative for body aches, chills, fever. cp 21:33 Eyes: Negative for injury, pain, redness, and discharge. cp 21:33 ENT: Positive for dental pain, Negative for difficulty swallowing, difficulty handling secretions. 21:33 Cardiovascular: Negative for chest pain, palpitations. 21:33 Abdomen/GI: Positive for nausea and vomiting. 21:33 Neuro: Positive for syncope. 21:33 All other systems are negative. Exam: 21:40 Constitutional: The patient appears alert, awake, non-toxic, well developed, well cp nourished, in obvious pain, uncomfortable. 21:40 Head/face: Noted is swelling, that is mild, of the left cheek. cp 21:40 Eyes: Periorbital structures: appear normal, Conjunctiva: normal, no exudate, no injection, Sclera: no appreciated abnormality, Lids and lashes: appear normal, bilaterally. 21:40 ENT: External ear(s): are unremarkable, Nose: is normal, Mouth: Lips: moist, Oral mucosa: pink and intact, moist, Posterior pharynx: Airway: no evidence of obstruction, patent, swelling, is not appreciated, erythema, is not appreciated, exudate, is not appreciated, Dental exam: fractured teeth are noted, specifically the upper left second molar (#15), Voice: is normal. 21:40 Neck: ROM/movement: is normal, is supple, without pain, no range of motions limitations, no nuchal rigidity. 21:40 Chest/axilla: Inspection: normal. 21:40 Cardiovascular: Rate: normal, Rhythm: regular. 21:40 Respiratory: the patient does not display signs of respiratory distress, Respirations: normal, no use of accessory muscles, no retractions, labored breathing, is not present, Breath sounds: are clear throughout, no decreased breath sounds, no stridor, no wheezing. 21:40 Abdomen/GI: Exam negative for discomfort, distension, guarding, Inspection: abdomen appears normal. 21:40 Neuro: Orientation: to person, place \T\ time. Mentation: is normal, Motor: moves all fours, strength is normal. Vital Signs: 21:00 BP 157 / 102; Pulse 88; Resp 17; Pulse Ox 100% ; Weight 90.72 kg; Height 5 ft. 4 in. vc1 (162.56 cm); Pain 10/10; 23:00 BP 142 / 82; Pulse 84; Resp 16; Pulse Ox 99% on R/A; Pain 10/10; hb 21:00 Body Mass Index 34.33 (90.72 kg, 162.56 cm) vc1 MDM: 21:14 Patient medically screened. cp 23:04 Data reviewed: vital signs, nurses notes, lab test result(s), radiologic studies, CT cp scan. 23:04 Counseling: I had a detailed discussion with the patient and/or guardian regarding: the cp historical points, exam findings, and any diagnostic results supporting the discharge/admit diagnosis, lab results, radiology results. Response to treatment: the patient's symptoms have markedly improved after treatment, and as a result, I will discharge patient. ED course: VSS. Pain markedly improved with meds. Will discharge to home for continued monitoring. 02/02 21:15 Order name: CBC with Diff; Complete Time: 22:42 cp 02/02 21:15 Order name: CMP; Complete Time: 22:42 cp 02/02 21:15 Order name: Lipase; Complete Time: 22:42 cp 02/02 21:15 Order name: Urine Microscopic Only; Complete Time: 22:42 cp 02/02 21:38 Order name: Urine Dipstick-Ancillary; Complete Time: 21:54 EDMS 02/02 21:15 Order name: IV Saline Lock; Complete Time: 21:40 cp 02/02 21:15 Order name: Labs collected and sent; Complete Time: 21:41 cp 02/02 21:15 Order name: Urine Test (obtain specimen); Complete Time: 21:37 cp 02/02 21:55 Order name: CT Facial Bones W/ Con \T\ Mpr; Complete Time: 22:42 cp 02/02 22:43 Order name: PO challenge; Complete Time: 23:12 cp Administered Medications: 21:25 Drug: Zofran (Ondansetron) 4 mg Route: IVP; Site: left antecubital; hb 22:00 Follow up: Response: No adverse reaction hb 21:25 Drug: morphine 4 mg Route: IVP; Infused Over: 4 mins; Site: left antecubital; hb 22:00 Follow up: Response: No adverse reaction hb 23:12 Drug: Clindamycin 900 mg Route: IVPB; Infused Over: 30 mins; Site: left antecubital; hb 23:12 Drug: morphine 4 mg Route: IVP; Infused Over: 4 mins; Site: left antecubital; hb Disposition Summary: 02/02/22 23:04 Discharge Ordered Location: Home cp Problem: new cp Symptoms: have improved cp Condition: Stable cp Diagnosis - Encounter for surgical aftercare following surgery on the teeth or oral cavity cp Followup: cp - With: Bryan Hannon DDS - When: 2 - 3 days - Reason: Recheck today's complaints Discharge Instructions: - Discharge Summary Sheet cp - Dental Extraction cp - Dental Pain cp Forms: - Medication Reconciliation Form cp - Thank You Letter cp - Antibiotic Education cp - Prescription Opioid Use cp Prescriptions: - Clindamycin HCl 300 mg Oral Capsule - take 1 capsule by ORAL route every 6 hours for 10 days; 40 capsule; Refills: 0, cp Product Selection Permitted - Diclofenac Sodium 75 mg Oral Tablet Sustained Release - take 1 tablet by ORAL route 2 times per day; 30 tablet; Refills: 0, Product cp Selection Permitted Signatures: Dispatcher [employer] Klaus Messer PA PA cp Baxter, Heather, RN RN hb Bessie Haynes RN RN vc1
[2022-02-02] MEDS ORDERED: CLINDAMYCIN 900MG/D5W 900 MG/50 ML IVPB IV ONE (23:07)
[2022-02-04 09:59] VITALS: BP 142/82; O2SAT 99
== END 2022-02-02 23:50 | disposition home or self-care (01) ==
LOC: ER 20:02
DX: Z48.814 Encounter for surgical aftercare following surgery on the teeth or oral cavity (principal)
CPT/HCPCS: 85025; 36415; 83690; 80053; 70487; 76377; 96375; 96374; 99284; Q9967; J2405; 81003; 81015

== ENCOUNTER 2022-03-03 20:14 | Inpatient (IN) | payer OTHER ==
--- OUTSIDE RECORDS SUMMARY | 2022-03-03 20:27 | XMS REPORT | Continuity of Care Document ---
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 Branch hours as needed for Pain (scale 1-3) or Pain (scale 4-6). acetaminoph 2020- No [id number] 650mg Take 2 Univers en 325 mg 2-10 02-10 tablets by ity of tablet 00:00: 05:59 mouth [place] 00 :00 every 6 Medical (six) Branch hours as needed for Pain (scale 1-3) or Pain (scale 4-6). acetaminoph 2020- No [id number] 650mg Take 2 Univers en 325 mg 2-10 02-10 tablets by ity of tablet 00:00: 05:59 mouth [place] 00 :00 every 6 Medical (six) Branch hours as needed for Pain (scale 1-3) or Pain (scale 4-6). acetaminoph 2020- No [id number] 650mg Take 2 Univers en 325 mg 2-10 02-10 tablets by ity of tablet 00:00: 05:59 mouth [place] 00 :00 every 6 Medical (six) Branch hours as needed for Pain (scale 1-3) or Pain (scale 4-6). acetaminoph 2020- No [id number] 650mg Take 2 Univers en 325 mg 2-10 02-10 tablets by ity of tablet 00:00: 05:59 mouth [place] 00 :00 every 6 Medical (six) Branch hours as needed for Pain (scale 1-3) or Pain (scale 4-6). acetaminoph 2020- No [id number] 650mg Take 2 Univers en 325 mg 2-10 02-10 tablets by ity of tablet 00:00: 05:59 mouth [place] 00 :00 every 6 Medical (six) Branch hours as needed for Pain (scale 1-3) or Pain (scale 4-6). acetaminoph 2020- No [id number] 650mg Take 2 Univers en 325 mg 2-10 02-10 tablets by ity of tablet 00:00: 05:59 mouth [place] 00 :00 every 6 Medical (six) Branch hours as needed for Pain (scale 1-3) or Pain (scale 4-6). acetaminoph 2020- No [id number] 650mg Take 2 Univers en 325 mg 2-10 02-10 tablets by ity of tablet 00:00: 05:59 mouth [place] 00 :00 every 6 Medical (six) Branch hours as needed for Pain (scale 1-3) or Pain (scale 4-6). acetaminoph 2020- No [id number] 650mg Take 2 Univers en 325 mg 2-10 02-10 tablets by ity of tablet 00:00: 05:59 mouth [place] 00 :00 every 6 Medical (six) Branch hours as needed for Pain (scale 1-3) or Pain (scale 4-6). acetaminoph 2020- No [id number] 650mg Take 2 Univers en 325 mg 2-10 02-10 tablets by ity of tablet 00:00: 05:59 mouth [place] 00 :00 every 6 Medical (six) Branch hours as needed for Pain (scale 1-3) or Pain (scale 4-6). acetaminoph 2020- No [id number] 650mg Take 2 Univers en 325 mg 2-10 02-10 tablets by ity of tablet 00:00: 05:59 mouth [place] 00 :00 every 6 Medical (six) Branch hours as needed for Pain (scale 1-3) or Pain (scale 4-6). acetaminoph 2020- No [id number] 650mg Take 2 Univers en 325 mg 2-10 02-10 tablets by ity of tablet 00:00: 05:59 mouth [place] 00 :00 every 6 Medical (six) Branch hours as needed for Pain (scale 1-3) or Pain (scale 4-6). acetaminoph 2019-2020- No [id number] 650mg Take 2 Univers en 325 mg 2-10 02-10 tablets by ity of tablet 00:00: 05:59 mouth [place] 00 :00 every 6 Medical (six) Branch hours as needed for Pain (scale 1-3) or Pain (scale 4-6). acetaminoph 2019-2020- No [id number] 650mg Take 2 Univers en 325 mg 2-10 02-10 tablets by ity of tablet 00:00: 05:59 mouth [place] 00 :00 every 6 Medical (six) Branch hours as needed for Pain (scale 1-3) or Pain (scale 4-6). acetaminoph 2019-2020- No [id number] 650mg Take 2 Univers en 325 mg 2-10 02-10 tablets by ity of tablet 00:00: 05:59 mouth [place] 00 :00 every 6 Medical (six) Branch hours as needed for Pain (scale 1-3) or Pain (scale 4-6). acetaminoph 2020- No [id number] 650mg Take 2 Univers en 325 mg 2-10 02-10 tablets by ity of tablet 00:00: 05:59 mouth [place] 00 :00 every 6 Medical (six) Branch hours as needed for Pain (scale 1-3) or Pain (scale 4-6). proMETHazin 2019-2019- No [id number] 25mg Take 1 Univers e 25 mg 2-10 02-26 tablet by ity of tablet 00:00: 05:59 mouth [place] 00 :00 every 4 Medical (four) Branch hours as needed for Nausea and Vomiting (N/V) for up to 15 days. proMETHazin 2019-2019- No [id number] 25mg Take 1 Univers e 25 mg 2-10 02-26 tablet by ity of tablet 00:00: 05:59 mouth [place] 00 :00 every 4 Medical (four) Branch hours as needed for Nausea and Vomiting (N/V) for up to 15 days. proMETHazin 2019-2019- No [id number] 25mg Take 1 Univers e 25 mg 2-10 02-26 tablet by ity of tablet 00:00: 05:59 mouth [place] 00 :00 every 4 Medical (four) Branch hours as needed for Nausea and Vomiting (N/V) for up to 15 days. proMETHazin 2020-0 2020- No [id number] 25mg Take 1 Univers e 25 mg 06-29- tablet by ity of tablet 00:00: 05:59 mouth [place] 00 :00 every 4 Medical (four) Branch hours as needed for Nausea and Vomiting (N/V) for up to 15 days. HYDROcodone 2020-0 Yes 1{tbl} 1 tablet, Univers -acetaminop 2- Oral, ity of hen (NORCO 22:38: Q6HPRN, [place] 5) 5-325 mg 03 Starting Medi charli tablet 1 06/28/19 Branc h tablet at 1638, Until Discontinu ed, Routine, Pain (scale 4-6), Pain (scale 7-10) proMETHazin 2020-0 2020- No 25mg 25 mg, IV Univers e 2 02- Piggyback, ity of (PHENERGAN) 22:00: 15:56 Q4H WHILE [place] 25 mg in 00 :10 AWAKE, Medical NaCl 0.9% First dose Bran ch (NS) 50 mL on Sun piggyback 06/28/19 at 1600, Until Discontinu ed, 50 mL ondansetron 2020-0 Yes 4mg 4 mg, Slow Univers (ZOFRAN 06-28 IV Push, ity of (PF)) 21:55: Q6HPRN, [place] injection 4 58 Starting Medi charli mg [...] Yes 650mg 650 mg, Un trev en 2- Oral, ity of (TYLENOL) 21:39: Q6HPRN, [place] tablet 650 29 Starting Medic al mg [...] 06/28/19 at Branch 1145, MARY NaCl 0.9% 2019-0 2020- No 1000mL at 999 Uni vers (NS) bolus 06-28 mL/hr, ity of infusion 17:45: 16:53 1,000 mL, [place] 1,000 mL 00 :00 IV Medical Infusion, Branch ONCE, 1 dose, 06/28/19 at 1145, STAT ALBUTEROL 2019-0 Yes Inhale. Unive rs INHALE - ity of 15:52: [address] ALBUTEROL 2020-0 Yes Inhale. Unive rs INHALE - ity of 15:52: [address] ALBUTEROL 2019-0 Yes Inhale. Unive rs INHALE - ity of 15:52: [address] azithromyci 2018-05 Yes [id number] Take 500 Univers n 250 mg 2-06 mg day 1, ity of tablet 00:00: then 250 [place] 00 mg days 2 Medical to 5. [place] azithromyci 2018-05 Yes [id number] Take 500 Univers n 250 mg 2-06 mg day 1, ity of tablet 00:00: then 250 [place] 00 mg days 2 [facility] Yes [id number] Take 500 Univers n 250 mg 2-06 mg day 1, ity of tablet 00:00: then 250 [place] 00 mg days 2 Medical to 5. [facility] 2018-05 2020- No [id number] Take 500 Univers n 250 mg 2-06 02-10 mg day 1, ity o f tablet 00:00: 00:00 then 250 [place] 00 :00 mg days 2 Medical to 5. Branch furosemide 2018-05 Yes [id number] 40mg Take 1 Univers 40 mg 2-03 tablet by ity of tablet 00:00: mouth [place] 00 every Medical morning Branch and evening. fluticasone 2018-05 Yes [id number] 1{puff} Inhale 1 Univers propionate 2-03 Puff every ity of (FLOVENT 00:00: 12 [place] HFA) 110 00 (twelve) Medical mcg/actuati hours. Branch on inhaler furosemide 2018-05 Yes [id number] 40mg Take 1 Univers 40 mg 2-03 tablet by ity of tablet 00:00: mouth [place] 00 every Medical morning Branch and evening. fluticasone 2018-05 Yes [id number] 1{puff} Inhale 1 Univers propionate 2-03 Puff every ity of (FLOVENT 00:00: 12 [place] HFA) 110 00 (twelve) Medical mcg/actuati hours. Branch on inhaler furosemide 2018-05 Yes [id number] 40mg Take 1 Univers 40 mg 2-03 tablet by ity of tablet 00:00: mouth [place] 00 every Medical morning Branch and evening. fluticasone 2018-05 Yes [id number] 1{puff} Inhale 1 Univers propionate 2-03 Puff every ity of (FLOVENT 00:00: 12 [place] HFA) 110 00 (twelve) Medical mcg/actuati hours. Branch on inhaler fluticasone 2018-05 Yes [id number] 1{puff} Inhale 1 Univers propionate 2-03 Puff every ity of (FLOVENT 00:00: 12 [place] HFA) 110 00 (twelve) Medical mcg/actuati hours. Branch on inhaler fluticasone 2018-05 Yes [id number] 1{puff} Inhale 1 Univers propionate 2-03 Puff every ity of (FLOVENT 00:00: 12 [place] HFA) 110 00 (twelve) Medical mcg/actuati hours. Branch on inhaler fluticasone 2018-05 Yes [id number] 1{puff} Inhale 1 Univers propionate 2-03 Puff every ity of (FLOVENT 00:00: 12 [place] HFA) 110 00 (twelve) Medical mcg/actuati hours. Branch on inhaler fluticasone 2018-05 Yes [id number] 1{puff} Inhale 1 Univers propionate 2-03 Puff every ity of (FLOVENT 00:00: 12 [place] HFA) 110 00 (twelve) Medical mcg/actuati hours. Branch on inhaler fluticasone 2018-05 Yes [id number] 1{puff} Inhale 1 Univers propionate 2-03 Puff every ity of (FLOVENT 00:00: 12 [place] HFA) 110 00 (twelve) Medical mcg/actuati hours. Branch on inhaler fluticasone 2018-05 Yes [id number] 1{puff} Inhale 1 Univers propionate 2-03 Puff every ity of (FLOVENT 00:00: 12 [place] HFA) 110 00 (twelve) Medical mcg/actuati hours. Branch on inhaler fluticasone 2018-05 Yes [id number] 1{puff} Inhale 1 Univers propionate 2-03 Puff every ity of (FLOVENT 00:00: 12 [place] HFA) 110 00 (twelve) Medical mcg/actuati hours. Branch on inhaler fluticasone 2018-05 Yes [id number] 1{puff} Inhale 1 Univers propionate 2-03 Puff every ity of (FLOVENT 00:00: 12 [place] HFA) 110 00 (twelve) Medical mcg/actuati hours. Branch on inhaler fluticasone 2018-05 Yes [id number] 1{puff} Inhale 1 Univers propionate 2-03 Puff every ity of (FLOVENT 00:00: 12 [place] HFA) 110 00 (twelve) Medical mcg/actuati hours. Branch on inhaler fluticasone 2018-05 Yes [id number] 1{puff} Inhale 1 Univers propionate 2-03 Puff every ity of (FLOVENT 00:00: 12 [place] HFA) 110 00 (twelve) Medical mcg/actuati hours. Branch on inhaler fluticasone 2018-05 Yes [id number] 1{puff} Inhale 1 Univers propionate 2-03 Puff every ity of (FLOVENT 00:00: 12 [place] HFA) 110 00 (twelve) Medical mcg/actuati hours. Branch on inhaler fluticasone 2018-05 Yes [id number] 1{puff} Inhale 1 Univers propionate 2-03 Puff every ity of (FLOVENT 00:00: 12 [place] HFA) 110 00 (twelve) Medical mcg/actuati hours. Branch on inhaler fluticasone 2018-05 Yes [id number] 1{puff} Inhale 1 Univers propionate 2-03 Puff every ity of (FLOVENT 00:00: 12 [place] HFA) 110 00 (twelve) Medical mcg/actuati hours. Branch on inhaler fluticasone 2018-05 Yes [id number] 1{puff} Inhale 1 Univers propionate 2-03 Puff every ity of (FLOVENT 00:00: 12 [place] HFA) 110 00 (twelve) Medical mcg/actuati hours. Branch on inhaler fluticasone 2018-05 Yes [id number] 1{puff} Inhale 1 Univers propionate 2-03 Puff every ity of (FLOVENT 00:00: 12 [place] HFA) 110 00 (twelve) Medical mcg/actuati hours. Branch on inhaler fluticasone 2018-05 Yes [id number] 1{puff} Inhale 1 Univers propionate 2-03 Puff every ity of (FLOVENT 00:00: 12 [place] HFA) 110 00 (twelve) Medical mcg/actuati hours. Branch on inhaler fluticasone 2018-05 Yes [id number] 1{puff} Inhale 1 Univers propionate 2-03 Puff every ity of (FLOVENT 00:00: 12 [place] HFA) 110 00 (twelve) Medical mcg/actuati hours. Branch on inhaler fluticasone 2018-05 Yes [id number] 1{puff} Inhale 1 Univers propionate 2-03 Puff every ity of (FLOVENT 00:00: 12 [place] HFA) 110 00 (twelve) Medical mcg/actuati hours. Branch on inhaler fluticasone 2018-05 Yes [id number] 1{puff} Inhale 1 Univers propionate 2-03 Puff every ity of (FLOVENT 00:00: 12 [place] HFA) 110 00 (twelve) Medical mcg/actuati hours. Branch on inhaler fluticasone 2018-05 Yes [id number] 1{puff} Inhale 1 Univers propionate 2-03 Puff every ity of (FLOVENT 00:00: 12 [place] HF) 110 00 (twelve) Medical mcg/actuati hours. Branch on inhaler furosemide 2018-05 2020- No [id number] 40mg Take 1 Univers 40 mg 2-03 02-10 tablet by ity of tablet 00:00: 00:00 mouth [place] 00 :00 every Medical morning Branch and evening. Catheter 2018-05 Yes [id number] Use as Un trev (SELF-HARDY 1-21 directed ity of TER, 00:00: [place] FEMALE) 14 Medical Fr Misc Branch Catheter 2018-05 Yes [id number] Use as Un trev (SELF-HARDY 1-21 directed ity of TER, 00:00: [place] FEMALE) 14 Medical Fr Misc Branch Catheter 2018-05 Yes [id number] Use as Un trev (SELF-HARDY 1-21 directed ity of TER, 00:00: [place] FEMALE) 14 Medical Fr Misc Branch Catheter 2018-05 Yes [id number] Use as Un trev (SELF-HARDY 1-21 directed ity of TER, 00:00: [place] FEMALE) 14 Medical Fr Misc Branch Catheter 2018-05 Yes [id number] Use as Un trev (SELF-HARDY 1-21 directed ity of TER, 00:00: [place] FEMALE) 14 Medical Fr Misc Branch Catheter 2019-1 Yes [id number] Use as Un trev (SELF-HARDY 1-21 directed ity of TER, 00:00: [place] FEMALE) 14 Medical Fr Misc Branch Catheter 2018-05 Yes [id number] Use as Un trev (SELF-AHRDY 1-21 directed ity of TER, 00:00: [place] FEMALE) 14 Medical Fr Misc Branch Catheter 2018-05 Yes [id number] Use as Un trev (SELF-HARDY 1-21 directed ity of TER, 00:00: [place] FEMALE) 14 Medical Fr Misc Branch Catheter 2018-05 Yes [id number] Use as Un trev (SELF-HARDY 1-21 directed ity of TER, 00:00: [place] FEMALE) 14 Medical Fr Misc Branch Catheter 2018-05 Yes [id number] Use as Un trev (SELF-HARDY 1-21 directed ity of TER, 00:00: [place] FEMALE) Medical Fr Misc Branch Catheter 2018-05 Yes [id number] Use as Un trev (SELF-HARDY 1-21 directed ity of TER, 00:00: [place] FEMALE) Medical Fr Misc Branch Catheter 2018-05 Yes [id number] Use as Un trev (SELF-HARDY 1-21 directed ity of TER, 00:00: [place] FEMALE) Medical Fr Misc Branch Catheter 2018-05 Yes [id number] Use as Un trev (SELF-HARDY 1-21 directed ity of TER, 00:00: [place] FEMALE) Medical Fr Misc Branch Catheter 2018-05 Yes [id number] Use as Un trev (SELF-HARDY 1-21 directed ity of TER, 00:00: [place] FEMALE) 14 Medical Fr Misc Branch Catheter 2018-05 Yes [id number] Use as Un trev (SELF-HARDY 1-21 directed ity of TER, 00:00: [place] FEMALE) 14 Medical Fr Misc Branch Catheter 2018-05 Yes [id number] Use as Un trev (SELF-HARDY 1-21 directed ity of TER, 00:00: [place] FEMALE) 14 Medical Fr Misc Branch Catheter 2018-05 Yes [id number] Use as Un trev (SELF-HARDY 1-21 directed ity of TER, 00:00: [place] FEMALE) 14 Medical Fr Misc Branch Catheter 2018-05 Yes [id number] Use as Un trev (SELF-HARDY 1-21 directed ity of TER, 00:00: [place] FEMALE) 14 Medical Fr Misc Branch Catheter 2018-05 Yes [id number] Use as Un trev (SELF-HARDY 1-21 directed ity of TER, 00:00: [place] FEMALE) Medical Fr Misc Branch Catheter 2018-05 Yes [id number] Use as Un trev (SELF-HARDY 1-21 directed ity of TER, 00:00: [place] FEMALE) Medical Fr Misc Branch Catheter 2018-05 Yes [id number] Use as Un trev (SELF-HARDY 1-21 directed ity of TER, 00:00: [place] FEMALE) Medical Fr Misc Branch Catheter 2018-05 Yes [id number] Use as Un trev (SELF-HARDY 1-21 directed ity of TER, 00:00: [place] FEMALE) Medical Fr Misc Branch Catheter 2018-05 Yes [id number] Use as Un trev (SELF-HARDY 1-21 directed ity of TER, 00:00: [place] FEMALE) Medical Fr Misc Branch lamoTRIgine 2018-05 Yes [id number] 150mg Take 1 Univers 150 mg 1-20 tablet by ity of tablet 00:00: mouth 2 00 (two) Medical times Branch daily. traZODone 2018-05 Yes [id number] 200mg Take 2 Univers 100 mg 1-20 tablets by ity of tablet 00:00: mouth at [place] 00 bedtime. Medical Branch busPIRone 2018-05 Yes [id number] 20mg Take 2 U nivers 10 mg 1-20 tablets by ity of tablet 00:00: mouth 3 [place] 00 (three) Medical times Branch daily. benzonatate 2018-05 Yes [id number] 100mg Take 1 Univers (TESSALON 1-20 capsule by ity of PERLKAYODE) 100 00:00: mouth [place] mg capsule 00 every 6 Medica l (six) Branch hours as needed for Cough. sod 2018-05 Yes [id number] 1{each} 1 Each by U nivers chlor-bicar 1-20 sinus ity of b-squeez 00:00: irrigation [place] as bottle 00 route Medical (NEILMED daily. Branch SINUS RINSE COMPLETE) pkdv lamoTRIgine 2018-05 Yes [id number] 150mg Take 1 Univers 150 mg 1-20 tablet by ity of tablet 00:00: mouth 2 [place] 00 (two) Medical times Branch daily. traZODone 2018-05 Yes [id number] 200mg Take 2 Univers 100 mg 1-20 tablets by ity of tablet 00:00: mouth at [place] 00 bedtime. Medical Branch busPIRone 2018-05 Yes [id number] 20mg Take 2 U nivers 10 mg 1-20 tablets by ity of tablet 00:00: mouth 3 [place] 00 (three) Medical times Branch daily. benzonatate 2018-05 Yes [id number] 100mg Take 1 Univers (TESSALON 1-20 capsule by ity of PERLES) 100 00:00: mouth [place] mg capsule 00 every 6 Medica l (six) Branch hours as needed for Cough. sod 2018-05 Yes [id number] 1{each} 1 Each by U nivers chlor-bicar 1-20 sinus ity of b-squeez 00:00: irrigation [place] as bottle 00 route Medical (NEILMED daily. Branch SINUS RINSE COMPLETE) pkdv lamoTRIgine 2018-05 Yes [id number] 150mg Take 1 Univers 150 mg 1-20 tablet by ity of tablet 00:00: mouth 2 [place] 00 (two) Medical times Branch daily. traZODone 2018-05 Yes [id number] 200mg Take 2 Univers 100 mg 1-20 tablets by ity of tablet 00:00: mouth at [place] 00 bedtime. Medical Branch busPIRone 2018-05 Yes [id number] 20mg Take 2 U nivers 10 mg 1-20 tablets by ity of tablet 00:00: mouth 3 [place] 00 (three) Medical times Branch daily. benzonatate 2018-05 Yes [id number] 100mg Take 1 Univers (TESSALON 1-20 capsule by ity of PERLES) 100 00:00: mouth [place] mg capsule 00 every 6 Medica l (six) Branch hours as needed for Cough. sod 2018-05 Yes [id number] 1{each} 1 Each by U nivers chlor-bicar 1-20 sinus ity of b-squeez 00:00: irrigation [place] as bottle 00 route Medical (NEILMED daily. Branch SINUS RINSE COMPLETE) pkdv lamoTRIgine 2018-05 Yes [id number] 150mg Take 1 Univers 150 mg 1-20 tablet by ity of tablet 00:00: mouth 2 (two) Medical times Branch daily. sod 2018-05 Yes [id number] 1{each} 1 Each by U nivers chlor-bicar 1-20 sinus ity of b-squeez 00:00: irrigation [place] bottle 00 route Medical (NEILMED daily. Branch SINUS RINSE COMPLETE) pkdv lamoTRIgine 2018-05 Yes [id number] 150mg Take 1 Univers 150 mg 1-20 tablet by ity of tablet 00:00: mouth 2 (two) Medical times Branch daily. sod 2018-05 Yes [id number] 1{each} 1 Each by U nivers chlor-bicar 1-20 sinus ity of b-squeez 00:00: irrigation [place] bottle 00 route Medical (NEILMED daily. Branch SINUS RINSE COMPLETE) pkdv lamoTRIgine 2018-05 Yes [id number] 150mg Take 1 Univers 150 mg 1-20 tablet by ity of tablet 00:00: mouth 2 (two) Medical times Branch daily. sod 2018-05 Yes [id number] 1{each} 1 Each by U nivers chlor-bicar 1-20 sinus ity of b-squeez 00:00: irrigation [place] bottle 00 route Medical (NEILMED daily. Branch SINUS RINSE COMPLETE) pkdv lamoTRIgine 2018-05 Yes [id number] 150mg Take 1 Univers 150 mg 1-20 tablet by ity of tablet 00:00: mouth 2 (two) Medical times Branch daily. sod 2018-05 Yes [id number] 1{each} 1 Each by U nivers chlor-bicar 1-20 sinus ity of b-squeez 00:00: irrigation [place] as bottle 00 route Medical (NEILMED daily. Branch SINUS RINSE COMPLETE) pkdv lamoTRIgine 2018-05 Yes [id number] 150mg Take 1 Univers 150 mg 1-20 tablet by ity of tablet 00:00: mouth 2 (two) Medical times Branch daily. sod 2018-05 Yes [id number] 1{each} 1 Each by U nivers chlor-bicar 1-20 sinus ity of b-squeez 00:00: irrigation [place] bottle 00 route Medical (NEILMED daily. Branch SINUS RINSE COMPLETE) pkdv lamoTRIgine 2018-05 Yes [id number] 150mg Take 1 Univers 150 mg 1-20 tablet by ity of tablet 00:00: mouth 2 (two) Medical times Branch daily. sod 2018-05 Yes [id number] 1{each} 1 Each by U nivers chlor-bicar 1-20 sinus ity of b-squeez 00:00: irrigation [place] as bottle 00 route Medical (NEILMED daily. Branch SINUS RINSE COMPLETE) pkdv lamoTRIgine 2018-05 Yes [id number] 150mg Take 1 Univers 150 mg 1-20 tablet by ity of tablet 00:00: mouth 2 (two) Medical times Branch daily. sod 2018-05 Yes [id number] 1{each} 1 Each by U nivers chlor-bicar 1-20 sinus ity of b-squeez 00:00: irrigation [place] bottle 00 route Medical (NEILMED daily. Branch SINUS RINSE COMPLETE) pkdv lamoTRIgine 2018-05 Yes [id number] 150mg Take 1 Univers 150 mg 1-20 tablet by ity of tablet 00:00: mouth 2 (two) Medical times Branch daily. sod 2018-05 Yes [id number] 1{each} 1 Each by U nivers chlor-bicar 1-20 sinus ity of b-squeez 00:00: irrigation [place] as bottle 00 route Medical (NEILMED daily. Branch SINUS RINSE COMPLETE) pkdv lamoTRIgine 2018-05 Yes [id number] 150mg Take 1 Univers 150 mg 1-20 tablet by ity of tablet 00:00: mouth 2 (two) Medical times Branch daily. sod 2018-05 Yes [id number] 1{each} 1 Each by U nivers chlor-bicar 1-20 sinus ity of b-squeez 00:00: irrigation [place] as bottle 00 route Medical (NEILMED daily. Branch SINUS RINSE COMPLETE) pkdv lamoTRIgine 2018-05 Yes [id number] 150mg Take 1 Univers 150 mg 1-20 tablet by ity of tablet 00:00: mouth 2 (two) Medical times Branch daily. sod 2018-05 Yes [id number] 1{each} 1 Each by U nivers chlor-bicar 1-20 sinus ity of b-squeez 00:00: irrigation [place] as bottle 00 route Medical (NEILMED daily. Branch SINUS RINSE COMPLETE) pkdv lamoTRIgine 2018-05 Yes [id number] 150mg Take 1 Univers 150 mg 1-20 tablet by ity of tablet 00:00: mouth 2 (two) Medical times Branch daily. sod 2018-05 Yes [id number] 1{each} 1 Each by U nivers chlor-bicar 1-20 sinus ity of b-squeez 00:00: irrigation [place] as bottle 00 route Medical (NEILMED daily. Branch SINUS RINSE COMPLETE) pkdv lamoTRIgine 2018-05 Yes [id number] 150mg Take 1 Univers 150 mg 1-20 tablet by ity of tablet 00:00: mouth 2 (two) Medical times Branch daily. sod 2018-05 Yes [id number] 1{each} 1 Each by U nivers chlor-bicar 1-20 sinus ity of b-squeez 00:00: irrigation [place] as bottle 00 route Medical (NEILMED daily. Branch SINUS RINSE COMPLETE) pkdv lamoTRIgine 2018-05 Yes [id number] 150mg Take 1 Univers 150 mg 1-20 tablet by ity of tablet 00:00: mouth 2 (two) Medical times Branch daily. sod 2018-05 Yes [id number] 1{each} 1 Each by U nivers chlor-bicar 1-20 sinus ity of b-squeez 00:00: irrigation [place] as bottle 00 route Medical (NEILMED daily. Branch SINUS RINSE COMPLETE) pkdv lamoTRIgine 2018-05 Yes [id number] 150mg Take 1 Univers 150 mg 1-20 tablet by ity of tablet 00:00: mouth 2 (two) Medical times Branch daily. sod 2018-05 Yes [id number] 1{each} 1 Each by U nivers chlor-bicar 1-20 sinus ity of b-squeez 00:00: irrigation [place] as bottle 00 route Medical (NEILMED daily. Branch SINUS RINSE COMPLETE) pkdv lamoTRIgine 2018-05 Yes [id number] 150mg Take 1 Univers 150 mg 1-20 tablet by ity of tablet 00:00: mouth 2 (two) Medical times Branch daily. sod 2018-05 Yes [id number] 1{each} 1 Each by U nivers chlor-bicar 1-20 sinus ity of b-squeez 00:00: irrigation [place] as bottle 00 route Medical (NEILMED daily. Branch SINUS RINSE COMPLETE) pkdv lamoTRIgine 2018-05 Yes [id number] 150mg Take 1 Univers 150 mg 1-20 tablet by ity of tablet 00:00: mouth 2 (two) Medical times Branch daily. sod 2018-05 Yes [id number] 1{each} 1 Each by U nivers chlor-bicar 1-20 sinus ity of b-squeez 00:00: irrigation [place] as bottle 00 route Medical (NEILMED daily. Branch SINUS RINSE COMPLETE) pkdv lamoTRIgine 2018-05 Yes [id number] 150mg Take 1 Univers 150 mg 1-20 tablet by ity of tablet 00:00: mouth 2 (two) Medical times Branch daily. sod 2018-05 Yes [id number] 1{each} 1 Each by U nivers chlor-bicar 1-20 sinus ity of b-squeez 00:00: irrigation [place] as bottle 00 route Medical (NEILMED daily. Branch SINUS RINSE COMPLETE) pkdv lamoTRIgine 2018-05 Yes [id number] 150mg Take 1 Univers 150 mg 1-20 tablet by ity of tablet 00:00: mouth 2 (two) Medical times Branch daily. sod 2018-05 Yes [id number] 1{each} 1 Each by U nivers chlor-bicar 1-20 sinus ity of b-squeez 00:00: irrigation [place] as bottle 00 route Medical (NEILMED daily. Branch SINUS RINSE COMPLETE) pkdv lamoTRIgine 2018-05 Yes [id number] 150mg Take 1 Univers 150 mg 1-20 tablet by ity of tablet 00:00: mouth 2 (two) Medical times Branch daily. sod 2018-05 Yes [id number] 1{each} 1 Each by U nivers chlor-bicar 1-20 sinus ity of b-squeez 00:00: irrigation [place] as bottle 00 route Medical (NEILMED daily. Branch SINUS RINSE COMPLETE) pkdv lamoTRIgine 2018-05 Yes [id number] 150mg Take 1 Univers 150 mg 1-20 tablet by ity of tablet 00:00: mouth 2 (two) Medical times Branch daily. sod 2018-05 Yes [id number] 1{each} 1 Each by U nivers chlor-bicar 1-20 sinus ity of b-squeez 00:00: irrigation [place] as bottle 00 route Medical (NEILMED daily. Branch SINUS RINSE COMPLETE) pkdv traZODone 2018-05- No [id number] 200mg Take 2 [facility] 100 mg 1-20 02-10 tablets by ity of tablet 00:00: 00:00 mouth at [place] 00 :00 bedtime. Medical Branch busPIRone 2018-05 2020- No [id number] 20mg Take 2 [facility] 10 mg 1-20 02-10 tablets by ity of tablet 00:00: 00:00 mouth 3 [place] 00 :00 (three) Medical times Branch daily. benzonatate 2018-05 2020- No [id number] 100mg Take 1 [facility] (TESSALON 1-20 02-10 capsule by ity of YAMILKA) 100 00:00: 00:00 [place] mg capsule 00 :00 every 6 Medica l (six) Branch hours as needed for Cough. FLUTICASONE 2018-05 Yes [id number] SHAKE U nivers PROPIONATE 0-29 LIQUID AND ity of 50 00:00: USE 2 [place] mcg/actuati 00 SPRAYS IN Med ical on nasal EACH Branch spray NOSTRIL DAILY FOR 10 DAYS FLUTICASONE 2018-05 Yes [id number] SHAKE U nivers PROPIONATE 0-29 LIQUID AND ity of 50 00:00: USE 2 [place] mcg/actuati 00 SPRAYS IN Med ical on nasal EACH Branch spray NOSTRIL DAILY FOR 10 DAYS FLUTICASONE 2018-05 Yes [id number] SHAKE U nivers PROPIONATE 0-29 LIQUID AND ity of 50 00:00: USE 2 [place] mcg/actuati 00 SPRAYS IN Med ical on nasal EACH Branch spray NOSTRIL DAILY FOR 10 DAYS FLUTICASONE 2018-05 Yes [id number] SHAKE U nivers PROPIONATE 0-29 LIQUID AND ity of 50 00:00: USE 2 [place] mcg/actuati 00 SPRAYS IN Med ical on nasal EACH Branch spray NOSTRIL DAILY FOR 10 DAYS FLUTICASONE 2018-05 Yes [id number] SHAKE U nivers PROPIONATE 0-29 LIQUID AND ity of 50 00:00: USE 2 [place] mcg/actuati 00 SPRAYS IN Med ical on nasal EACH Branch spray NOSTRIL DAILY FOR 10 DAYS FLUTICASONE 2018-05 Yes [id number] SHAKE U nivers PROPIONATE 0-29 LIQUID AND ity of 50 00:00: USE 2 [place] mcg/actuati 00 SPRAYS IN Med ical on nasal EACH Branch spray NOSTRIL DAILY FOR 10 DAYS FLUTICASONE 2018-05 Yes [id number] SHAKE U nivers PROPIONATE 0-29 LIQUID AND ity of 50 00:00: USE 2 [place] mcg/actuati 00 SPRAYS IN Med ical on nasal EACH Branch spray NOSTRIL DAILY FOR 10 DAYS FLUTICASONE 2018-05 Yes [id number] SHAKE U nivers PROPIONATE 0-29 LIQUID AND ity of 50 00:00: USE 2 [place] mcg/actuati 00 SPRAYS IN Med ical on nasal EACH Branch spray NOSTRIL DAILY FOR 10 DAYS FLUTICASONE 2018-05 Yes [id number] SHAKE U nivers PROPIONATE 0-29 LIQUID AND ity of 50 00:00: USE 2 [place] mcg/actuati 00 SPRAYS IN Med ical on nasal EACH Branch spray NOSTRIL DAILY FOR 10 DAYS FLUTICASONE 2018-05 Yes [id number] SHAKE U nivers PROPIONATE 0-29 LIQUID AND ity of 50 00:00: USE 2 [place] mcg/actuati 00 SPRAYS IN Med ical on nasal EACH Branch spray NOSTRIL DAILY FOR 10 DAYS FLUTICASONE 2018-05 Yes [id number] SHAKE U nivers PROPIONATE 0-29 LIQUID AND ity of 50 00:00: USE 2 [place] mcg/actuati 00 SPRAYS IN Med ical on nasal EACH Branch spray NOSTRIL DAILY FOR 10 DAYS FLUTICASONE 2018-05 Yes [id number] SHAKE U nivers PROPIONATE 0-29 LIQUID AND ity of 50 00:00: USE 2 [place] mcg/actuati 00 SPRAYS IN Med ical on nasal EACH Branch spray NOSTRIL DAILY FOR 10 DAYS FLUTICASONE 2018-05 Yes [id number] SHAKE U nivers PROPIONATE 0-29 LIQUID AND ity of 50 00:00: USE 2 [place] mcg/actuati 00 SPRAYS IN Med ical on nasal EACH Branch spray NOSTRIL DAILY FOR 10 DAYS FLUTICASONE 2018-05 Yes [id number] SHAKE U nivers PROPIONATE 0-29 LIQUID AND ity of 50 00:00: USE 2 [place] mcg/actuati 00 SPRAYS IN Med ical on nasal EACH Branch spray NOSTRIL DAILY FOR 10 DAYS FLUTICASONE 2018-05 Yes [id number] SHAKE U nivers PROPIONATE 0-29 LIQUID AND ity of 50 00:00: USE 2 [place] mcg/actuati 00 SPRAYS IN Med ical on nasal EACH Branch spray NOSTRIL DAILY FOR 10 DAYS FLUTICASONE 2018-05 Yes [id number] SHAKE U nivers PROPIONATE 0-29 LIQUID AND ity of 50 00:00: USE 2 [place] mcg/actuati 00 SPRAYS IN Med ical on nasal EACH Branch spray NOSTRIL DAILY FOR 10 DAYS FLUTICASONE 2018-05 Yes [id number] SHAKE U nivers PROPIONATE 0-29 LIQUID AND ity of 50 00:00: USE 2 [place] mcg/actuati 00 SPRAYS IN Med ical on nasal EACH Branch spray NOSTRIL DAILY FOR 10 DAYS FLUTICASONE 2018-05 Yes [id number] SHAKE U nivers PROPIONATE 0-29 LIQUID AND ity of 50 00:00: USE 2 [place] mcg/actuati 00 SPRAYS IN Med ical on nasal EACH Branch spray NOSTRIL DAILY FOR 10 DAYS FLUTICASONE 2018-05 Yes [id number] SHAKE U nivers PROPIONATE 0-29 LIQUID AND ity of 50 00:00: USE 2 [place] mcg/actuati 00 SPRAYS IN Med ical on nasal EACH Branch spray NOSTRIL DAILY FOR 10 DAYS FLUTICASONE 2018-05 Yes [id number] SHAKE U nivers PROPIONATE 0-29 LIQUID AND ity of 50 00:00: USE 2 [place] mcg/actuati 00 SPRAYS IN Med ical on nasal EACH Branch spray NOSTRIL DAILY FOR 10 DAYS FLUTICASONE 2018-05 Yes [id number] SHAKE U nivers PROPIONATE 0-29 LIQUID AND ity of 50 00:00: USE 2 [place] mcg/actuati 00 SPRAYS IN Med ical on nasal EACH Branch spray NOSTRIL DAILY FOR 10 DAYS FLUTICASONE 2018-05 Yes [id number] SHAKE U nivers PROPIONATE 0-29 LIQUID AND ity of 50 00:00: USE 2 [place] mcg/actuati 00 SPRAYS IN Med ical on nasal EACH Branch spray NOSTRIL DAILY FOR 10 DAYS FLUTICASONE 2018-05 Yes [id number] SHAKE U nivers PROPIONATE 0-29 LIQUID AND ity of 50 00:00: USE 2 [place] mcg/actuati 00 SPRAYS IN Med ical on nasal EACH Branch spray NOSTRIL DAILY FOR 10 DAYS furosemide Yes 80mg Take 80 mg U nivers 80 mg 8-05 by mouth. ity of tablet 15:13: [address] omeprazole Yes 10mg Take 10 mg U nivers 10 mg 8-05 by mouth. ity of capsule 15:13: [address] furosemide Yes 80mg Take 80 mg U nivers 80 mg 8-05 by mouth. ity of tablet 15:13: [address] omeprazole Yes 10mg Take 10 mg U nivers 10 mg 8-05 by mouth. ity of capsule 15:13: [address] furosemide Yes 80mg Take 80 mg U nivers 80 mg 8-05 by mouth. ity of tablet 15:13: [address] omeprazole Yes 10mg Take 10 mg U nivers 10 mg 8-05 by mouth. ity of capsule 15:13: [address] proMETHazin 2018- No 25mg 25 mg, IV Univers e 12-22 Piggyback, ity of (PHENERGAN) 04:00: 04:00 [place] mg in 00 :00 dose, [facility] l NaCl 0.9% 12/21/18 at [facility] h (NS) 50 mL 2300, 50 piggyback mL iohexol 2018- No 100mL 100 mL, Unive rs (OMNIPAQUE 12-22 Intravenou it y of 350 02:45: 02:35 s, ONCE, 1 [place] BULK-100 00 :00 dose, [facility] l mL) 12/21/18 at [place] injection 2145, 100 mL Routine dicyclomine 2018- No 20mg 20 mg, Uni vers (BENTYL) 12-22 Intramuscu ity of injection 01:15: 02:17 [place], ONCE, [place] 20 mg 00 :00 1 dose, Medical [place] 12/21/18 Branch at 2014, Routine ondansetron 2018- No 4mg 4 mg, Slow Univers (ZOFRAN 12-22 IV Push, ity of (PF)) 01:15: 01:53 ONCE, 1 [place] injection 4 00 :00 dose, Sun Med ical mg 12/21/18 at Branch 2015, MARY NaCl 0.9% 2019-0 2019- No 1000mL at 999 Uni vers (NS) bolus 8-05 08-05 mL/hr, ity of infusion 00:15: 04:25 1,000 mL, [place] as 1,000 mL 00 :00 IV Medical Infusion, Branch ONCE, 1 dose, 12/21/18 at 1915, MARY proMETHazin 2019-0 Yes [id number] 25mg Take 1 Univers e 25 mg 8-05 tablet by ity of tablet 00:00: mouth [place] 00 every 4 Medical (four) Branch hours as needed for N/V unresponsi ve to Ondansetro n. proMETHazin 2018- Yes [id number] 25mg Take 1 Univers e 25 mg 8-05 tablet by ity of tablet 00:00: mouth [place] 00 every 4 Medical (four) Branch hours as needed for N/V unresponsi ve to Ondansetro n. proMETHazin 2019-0 Yes [id number] 25mg Take 1 Univers e 25 mg 8-05 tablet by ity of tablet 00:00: mouth [place] 00 every 4 Medical (four) Branch hours as needed for N/V unresponsi ve to Ondansetro n. ondansetron 2018- Yes [id number] 4mg Take 1 Univers (ZOFRAN 8-04 tablet by ity of ODT) 4 mg 00:00: mouth [place] disintegrat 00 every 8 Medic al ing tablet (eight) Branch hours as needed for Nausea and Vomiting (N/V). ondansetron 2019- Yes [id number] 4mg Take 1 Univers (ZOFRAN 8-04 tablet by ity of ODT) 4 mg 00:00: mouth [place] disintegrat 00 every 8 Medic al ing tablet (eight) Branch hours as needed for Nausea and Vomiting (N/V). ondansetron 2019-0 Yes [id number] 4mg Take 1 Univers (ZOFRAN 8-04 tablet by ity of ODT) 4 mg 00:00: mouth [place] disintegrat 00 every 8 Medic al ing tablet (eight) Branch hours as needed for Nausea and Vomiting (N/V). ondansetron 2019-0 Yes [id number] 4mg Take 1 Univers (ZOFRAN 8-04 tablet by ity of ODT) 4 mg 00:00: mouth [place] disintegrat 00 every 8 Medic al ing tablet (eight) Branch hours as needed for Nausea and Vomiting (N/V). lamoTRIgine Yes TK 1 T PO U nivers 25 mg 7-20 D ity of tablet 00:00: [place] 00 [facility] lamoTRIgine Yes TK 1 T PO U nivers 25 mg 7-20 D ity of tablet 00:00: [address] lamoTRIgine Yes TK 1 T PO U nivers 25 mg 7-20 D ity of tablet 00:00: [place] 00 [facility] lamoTRIgine Yes TK 1 T PO U nivers 25 mg 7-20 D ity of tablet 00:00: [place] 00 [facility] hydrOXYzine Yes TK 1-2 T Un trev 25 mg 7-20 PO BID PRN ity of tablet 00:00: [place] 00 [facility] hydrOXYzine 2019- No TK 1-2 T U nivers 25 mg 7-20 08-05 PO BID PRN ity of tablet 00:00: 00:00 [place] 00 :00 [facility] hydrOXYzine 2019- No TK 1-2 T U nivers 25 mg 7-20 08-05 PO BID PRN ity of tablet 00:00: 00:00 [place] 00 :00 [facility] furosemide Yes 80mg Take 80 mg U nivers 80 mg 5-21 by mouth. ity of tablet 14:58: [address] omeprazole Yes 10mg Take 10 mg U nivers 10 mg 5-21 by mouth. ity of capsule 14:58: [address] montelukast 2019- No [id number] 10mg Take 1 Univers 10 mg 5-21 08-20 tablet by ity of tablet 00:00: 04:59 mouth [place] 00 :00 daily for Medical 90 days. [place] fluticasone 2019- No [id number] 1{spray Use 1 Univers 50 5-21 08-20 } [place] in ity of mcg/actuati 00:00: 04:59 each [place] on nasal 00 :00 nostril Medical spray daily for Branch 90 days. montelukast 2019- No [id number] 10mg Take 1 [facility] 10 mg 5-21 08-20 tablet by ity of tablet 00:00: 04:59 mouth [place] 00 :00 daily for Medical 90 days. [place] fluticasone 2019- No [id number] 1{spray Use 1 Univers 50 5-21 08-20 } [place] in ity of mcg/actuati 00:00: 04:59 each [place] on nasal 00 :00 nostril Medical spray daily for Branch 90 days. montelukast 2019- No [id number] 10mg Take 1 [facility] 10 mg 5-21 08-20 tablet by ity of tablet 00:00: 04:59 mouth [place] 00 :00 daily for Medical 90 days. [place] fluticasone 2019- No [id number] 1{spray Use 1 [facility] 50 5-21 08-20 } [place] in ity of mcg/actuati 00:00: 04:59 each [place] on nasal 00 :00 nostril Medical spray daily for Branch 90 days. montelukast 2019- No [id number] 10mg Take 1 [facility] 10 mg 5-21 08-20 tablet by ity of tablet 00:00: 04:59 mouth [place] 00 :00 daily for Medical 90 days. [place] fluticasone 2019- No [id number] 1{spray Use 1 [facility] 50 5-21 08-20 } [place] in ity of mcg/actuati 00:00: 04:59 each [place] on nasal 00 :00 nostril Medical spray daily for Branch 90 days. ondansetron 2019- No [id number] 4mg Take 1 [facility] 4 mg 5-16 08-04 tablet by ity of disintegrat 00:00: 00:00 [place] ing tablet 00 :00 every 8 Medica l (eight) Branch hours as needed for Nausea and Vomiting (N/V). proCHLORper 2018- Yes [id number] 10mg Take 1 [facility] azine 10 mg 5-03 tablet by ity of tablet 00:00: mouth [place] 00 every 6 Medical (six) Branch hours as needed for Nausea and Vomiting (N/V) or N/V unresponsi ve to Promethazi ne. Loperamide 2018- Yes [id number] 4mg Take 2 U nivers HCl 2 mg 5-03 tablets by ity o f Tab tablet 00:00: mouth 3 [place] 00 (three) Medical times Branch daily as needed (Diarrhea) . proCHLORper Yes [id number] 10mg Take 1 [facility] azine 10 mg 5-03 tablet by ity of tablet 00:00: mouth [place] 00 every 6 Medical (six) Branch hours as needed for Nausea and Vomiting (N/V) or N/V unresponsi ve to [facility]. Loperamide Yes [id number] 4mg Take 2 U nivers HCl 2 mg 5-03 tablets by ity o f Tab tablet 00:00: mouth 3 [place] 00 (three) Medical times Branch daily as needed (Diarrhea) . proCHLORper Yes [id number] 10mg Take 1 [facility] azine 10 mg 5-03 tablet by ity of tablet 00:00: mouth [place] 00 every 6 Medical (six) Branch hours as needed for Nausea and Vomiting (N/V) or N/V unresponsi ve to [facility]. Loperamide Yes [id number] 4mg Take 2 U nivers HCl 2 mg 5-03 tablets by ity o f Tab tablet 00:00: mouth 3 [place] 00 (three) Medical times Branch daily as needed (Diarrhea) . proCHLORper Yes [id number] 10mg Take 1 [facility] azine 10 mg 5-03 tablet by ity of tablet 00:00: mouth [place] 00 every 6 Medical (six) Branch hours as needed for Nausea and Vomiting (N/V) or N/V unresponsi ve to [facility]. Loperamide Yes [id number] 4mg Take 2 U nivers HCl 2 mg 5-03 tablets by ity o f Tab tablet 00:00: mouth 3 [place] 00 (three) Medical times Branch daily as needed (Diarrhea) . pantoprazol Yes 40mg Take 1 Univ ers [...] [place] 00 daily. Medical Branch aspirin 81 0 Yes 81mg QD Take [address] MG EC 4-22 by mouth [facility] tablet 22:32: daily. [address] furosemide [address] Yes 80mg Q.5D Take [address] (LASIX) 80 4-22 by mouth 2 Christel es MG tablet 22:32: (two) Medical 20 times Center daily. albuterol 0 Yes 1{puff} Inhale [address] HFA 4-22 puff by [facility] (VENTOLIN 22:32: mouth via Med ical HFA) 90 20 inhaler Center mcg/actuati every 6 on inhaler (six) hours as needed for Wheezing. omeprazole Yes 10mg QD Take [address] (PRILOSEC) 4-22 by mouth [facility] 10 MG 22:32: daily. Medical capsule [address] [place] [address] aspirin 81 Yes 81mg QD Take [address] MG EC 4-22 by mouth [facility] tablet 22:32: daily. [address] furosemide 0 Yes 80mg Q.5D Take [address] (LASIX) 80 4-22 by mouth 2 Christel es MG tablet 22:32: (two) Medical 20 times Center daily. albuterol 0 Yes 1{puff} Inhale [address] HFA 4-22 puff by [facility] (VENTOLIN 22:32: mouth via Med ical HFA) 90 20 inhaler Center mcg/actuati every 6 on inhaler (six) hours as needed for Wheezing. omeprazole 0 Yes 10mg QD Take [address] (PRILOSEC) 4-22 by mouth [facility] 10 MG 22:32: daily. Medical capsule [address] [place] [address] proMETHazin Yes 25mg Take 1 Univ ers [...] unresponsi ve to Ondansetro n. proMETHazin 2018- 2019- No 25mg Take 1 Uni vers e 25 mg 4-07 01- tablet by ity of tablet 00:00: 00:00 mouth [place] 00 :00 every 4 Medical (four) Branch hours as needed for N/V unresponsi ve to Ondansetro n. lamoTRIgine 2018-0 Yes 50mg Take 50 mg Univers 150 mg 2-19 by mouth ity of tablet 00:00: daily. [address] busPIRone 2017- Yes 10mg Take 10 mg Un trev 10 mg 2-19 by mouth. ity of tablet 00:00: [address] traZODONE 2017- Yes 100mg Take 100 Uni vers 100 mg 2-19 mg by ity of tablet 00:00: mouth. [address] lamoTRIgine Yes 150mg Take 150 U nivers 150 mg 2-19 mg by ity of tablet 00:00: mouth. [address] divalproex Yes TAKE 2 [facility] (DEPAKOTE[facility] 2-19 TABLETS BY Christel es 500 MG EC 00:00: MOUTH Medical tablet 00 EVERY Center MORNING & 2 TABLETS EVERY EVENING FLUoxetine Yes 80mg QD Take [address] (PROZAC) 40 2-19 by mouth Luke s MG capsule 00:00: daily. [address] lamoTRIgine 0 Yes 150mg Q.5D Take [address] (LAMICTAL) 2-19 mg by [facility] 150 MG 00:00: mouth 2 Medical tablet 00 (two) Center times daily. traZODone 0 Yes 100mg QD Take [address] [facility] (DESYREL) 2-19 mg by [facility] 100 MG 00:00: mouth Medical tablet 00 nightly. [facility] busPIRone 0 Yes 10mg Q.5D Take [address] (BUSPAR) 10 2-19 by mouth 2 Candie kes MG tablet 00:00: (two) Medical 00 times Center daily. divalproex Yes TAKE 2 [facility] (DEPAKOTE) 2-19 TABLETS BY Christel es 500 MG EC 00:00: MOUTH Medical tablet 00 EVERY Center MORNING & 2 TABLETS EVERY EVENING FLUoxetine 2018-0 Yes 80mg QD Take [address] (PROZAC) 40 2-19 by mouth Luke s MG capsule 00:00: daily. Medic al [facility] lamoTRIgine 2017-0 Yes 150mg Q.5D Take [address] (LAMICTAL) 2-19 mg by [facility] 150 MG 00:00: mouth 2 Medical tablet 00 (two) Center times daily. traZODone 2017-0 Yes 100mg QD Take [address] (DESYREL) 2-19 mg by [facility] 100 MG 00:00: mouth Medical tablet 00 nightly. [facility] busPIRone 0 Yes 10mg Q.5D Take [address] (BUSPAR) 10 2-19 by mouth 2 Candie kes MG tablet 00:00: (two) Medical 00 times Center daily. busPIRone 2017-0 Yes 10mg Take 10 mg Un trev 10 mg 2-19 by mouth. ity of tablet 00:00: [address] traZODONE 2017-0 Yes 100mg Take 100 Uni vers 100 mg 2-19 mg by ity of tablet 00:00: mouth. [address] lamoTRIgine 0 Yes 50mg Take 50 mg [facility] 150 mg 2-19 by mouth ity of tablet 00:00: daily. [address] busPIRone 2017-0 Yes 10mg Take 10 mg Un trev 10 mg 2-19 by mouth. ity of tablet 00:00: [address] traZODONE 2017-0 Yes 100mg Take 100 Uni vers 100 mg 2-19 mg by ity of tablet 00:00: mouth. [address] lamoTRIgine 2017-0 Yes 50mg Take 50 mg Univers 150 mg 2-19 by mouth ity of tablet 00:00: daily. [address] busPIRone 2017-0 Yes 10mg Take 10 mg Un trev 10 mg 2-19 by mouth. ity of tablet 00:00: [address] traZODONE 2017-0 Yes 100mg Take 100 Uni vers 100 mg 2-19 mg by ity of tablet 00:00: mouth. [address] FLUoxetine 2016-05 Yes 80mg Take 2 Unive rs 40 mg 1-25 capsules ity of capsule 00:00: by mouth [place] [id number] daily. [facility] Branch divalproex 2016-05 Yes 1000mg Take 2 [...] tab, PO, l oral 17:42: Daily, X [place] tablet, day, # extended 10 tab, 0 release Refill(s) ciprofloxac Yes 500 mg = 1 [facility] in 500 mg 1-15 tab, PO, l oral 17:42: Daily, X [place] tablet, day, # extended 10 tab, 0 release Refill(s) Acetaminoph No Notes: Do M emoria en 325 MG / 1-15 not exceed l Hydrocodone 16:38: 4gm/day of [place] Bitartrate 00 acetaminop 10 MG Oral hen. (Same Tablet as: [place] [[place] 325/10) 325] Acetaminoph No Notes: Do M emoria en 325 MG / 1-15 not exceed l Hydrocodone 16:38: 4gm/day of [place] Bitartrate 00 acetaminop 10 MG Oral hen. 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, Duration: 1 doses or times, Stop date: 06/03/16 8:48:00 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 Zofran 2017-0 No 4 mg, [facility] 1-15 Route: l 14:48: IVP, Drug [place] 00 form: INJ, ONCE, Dosing Weight 113.636, kg, Priority: STAT, Start date: 06/03/16 8:48:00 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, Stop date: 06/03/16 8:48:00 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 Morphine 2017-0 No 4 mg, [facility] 1-15 Route: l 14:48: IVP, ONCE, [place] 00 Dosing Weight 113.636, kg, Start date: 06/03/16 8:48:00 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, Stop date: 06/03/16 8:48:00 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 Sodium 2017-0 No 1,000 mL, Memori a Chloride 1-15 1,000 l 0.154 14:48: ml/hr, [place] MEQ/ML 00 Infuse Injectable Over: 1 Solution hr, Route: IV, ONCE, Priority: STAT, Dosing Weight 113.636 kg, Start date: 06/03/16 8:48:00 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, Duration: 1 doses or times, Stop date: 06/03/16 8:48:00 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 Zofran 2017-0 No 4 mg, [facility] 1-15 Route: l 14:48: IVP, Drug [place] 00 form: INJ, ONCE, Dosing Weight 113.636, kg, Priority: STAT, Start date: 06/03/16 8:48:00 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, Stop date: 06/03/16 8:48:00 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 Morphine 2017-0 No 4 mg, [facility] 1-15 Route: l 14:48: IVP, ONCE, [place] 00 Dosing Weight 113.636, kg, Start date: 06/03/16 8:48:00 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, Stop date: 06/03/16 8:48:00 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 Divalproex 2017-0 Yes 125 mg = 1 M emoria Sodium 125 1-11 tab, PO, l MG Enteric 21:18: BID, 0 [place] nn Coated 00 Refill(s) Tablet [Depakote] Divalproex Yes 125 mg = 1 M emoria Sodium 125 1-11 tab, PO, l MG Enteric 21:18: BID, 0 [place] nn Coated 00 Refill(s) Tablet [Depakote] Aspirin Yes 81 mg = 1 Memor ia Enteric 1-11 tab, PO, l Coated 81 21:17: Daily, 0 Herm cristina mg oral 00 Refill(s) delayed release tablet Furosemide Yes 40 mg = 1 Me moria 40 MG Oral 1-11 tab, PO, l Tablet 21:17: BID, 0 [place] [Lasix] 00 Refill(s) Aspirin Yes 81 mg = 1 Memor ia Enteric 1-11 tab, PO, l Coated 81 21:17: Daily, 0 Herm cristian mg oral 00 Refill(s) delayed release tablet Furosemide Yes 40 mg = 1 Me moria 40 MG Oral 1-11 tab, PO, l Tablet 21:17: BID, 0 [place] [Lasix] 00 Refill(s) aspirin 81 2015-05 Yes [...] 00 daily. Medical Branch ferrous 2015-05 Yes [id number] 325mg Take 1 Un trev sulfate 325 0-27 tablet by ity of mg (65 mg 00:00: mouth [place] iron) 00 daily. Medical tablet Branch ferrous 2015-05 Yes [id number] 325mg Take 1 Un trev sulfate 325 0-27 tablet by ity of mg (65 mg 00:00: mouth [place] iron) 00 daily. Medical tablet Branch ferrous 2015-05 Yes [id number] 325mg Take 1 Un trev sulfate 325 0-27 tablet by ity of mg (65 mg 00:00: mouth [place] iron) 00 daily. Medical tablet Branch ferrous 2015-05 Yes [id number] 325mg Take 1 Un trev sulfate 325 0-27 tablet by ity of mg (65 mg 00:00: mouth [place] iron) 00 daily. Medical tablet Branch [facility] 2015-05 Yes [id number] 325mg Take 1 Un trev sulfate 325 0-27 tablet by ity of mg (65 mg 00:00: mouth [place] iron) 00 daily. Medical tablet Branch ferrous 2015-05 Yes [id number] 325mg Take 1 Un trev sulfate 325 0-27 tablet by ity of mg (65 mg 00:00: mouth [place] iron) 00 daily. [facility] tablet Branch [facility] 2015-05 Yes [id number] 325mg Take 1 Un trev sulfate 325 0-27 tablet by ity of mg (65 mg 00:00: mouth [place] iron) 00 daily. [facility] tablet Branch [facility] 2015-05 Yes [id number] 325mg Take 1 Un trev sulfate 325 0-27 tablet by ity of mg (65 mg 00:00: mouth [place] iron) 00 daily. [facility] tablet Branch [facility] 2015-05 Yes [id number] 325mg Take 1 Un trev sulfate 325 0-27 tablet by ity of mg (65 mg 00:00: mouth [place] iron) 00 daily. [facility] tablet Branch [facility] 2015-05 Yes [id number] 325mg Take 1 Un trev sulfate 325 0-27 tablet by ity of mg (65 mg 00:00: mouth [place] iron) 00 daily. [facility] tablet Branch [facility] 2015-05 Yes [id number] 325mg Take 1 Un trev sulfate 325 0-27 tablet by ity of mg (65 mg 00:00: mouth [place] iron) 00 daily. Medical tablet Branch ferrous 2015-05 Yes [id number] 325mg Take 1 Un trev sulfate 325 0-27 tablet by ity of mg (65 mg 00:00: mouth [place] iron) 00 daily. [facility] tablet Branch ferrous 2015-05 Yes [id number] 325mg Take 1 Un trev sulfate 325 0-27 tablet by ity of mg (65 mg 00:00: mouth [place] iron) 00 daily. Medical tablet Branch ferrous 2015-05 Yes [id number] 325mg Take 1 Un trev sulfate 325 0-27 tablet by ity of mg (65 mg 00:00: mouth [place] iron) 00 daily. Medical tablet Branch ferrous 2015-05 Yes [id number] 325mg Take 1 Un trev sulfate 325 0-27 tablet by ity of mg (65 mg 00:00: mouth [place] iron) 00 daily. Medical tablet Branch ferrous 2015-05 Yes [id number] 325mg Take 1 Un trev sulfate 325 0-27 tablet by ity of mg (65 mg 00:00: mouth [place] iron) 00 daily. Medical tablet Branch ferrous 2015-05 Yes [id number] 325mg Take 1 Un trev sulfate 325 0-27 tablet by ity of mg (65 mg 00:00: mouth [place] iron) 00 daily. Medical tablet Branch ferrous 2015-05 Yes [id number] 325mg Take 1 Un trev sulfate 325 0-27 tablet by ity of mg (65 mg 00:00: mouth [place] iron) 00 daily. Medical tablet Branch [facility] 2015-05 Yes [id number] 325mg Take 1 Un trev sulfate 325 0-27 tablet by ity of mg (65 mg 00:00: mouth [place] iron) 00 daily. Medical tablet Branch [facility] 2015-05 Yes [id number] 325mg Take 1 Un trev sulfate 325 0-27 tablet by ity of mg (65 mg 00:00: mouth [place] iron) 00 daily. Medical tablet Branch ferrous 2015-05 Yes [id number] 325mg Take 1 Un trev sulfate 325 0-27 tablet by ity of mg (65 mg 00:00: mouth [place] iron) 00 daily. Medical tablet Branch [facility] 2015-05 Yes [id number] 325mg Take 1 Un trev sulfate 325 0-27 tablet by ity of mg (65 mg 00:00: mouth [place] iron) 00 daily. Medical tablet Branch [facility] 2015-05 Yes [id number] 325mg Take 1 Un trev sulfate 325 0-27 tablet by ity of mg (65 mg 00:00: mouth [place] iron) 00 daily. Medical tablet Branch ferrous 2015-05 Yes [id number] 325mg Take 1 Un trev sulfate 325 0-27 tablet by ity of mg (65 mg 00:00: mouth [place] iron) 00 daily. Medical tablet Branch ferrous 2015-05 Yes [id number] 325mg Take 1 Un trev sulfate 325 0-27 tablet by ity of mg (65 mg 00:00: mouth [place] iron) 00 daily. [facility] tablet [place] ferrous 2015-05 Yes [id number] 325mg Take 1 Un trev sulfate 325 0-27 tablet by ity of mg (65 mg 00:00: mouth [place] iron) 00 daily. [facility] tablet [place] ferrous 2015-05 Yes [id number] 325mg Take 1 Un trev sulfate 325 0-27 tablet by ity of mg (65 mg 00:00: mouth [place] iron) 00 daily. [facility] Immunizations Ordered Immunization Filled Immunization Date Status Commen ts Source Name Name HEPATITIS A 2015-12-16 Completed University of 00:00:00 [facility] HPV 2015-12-16 Completed University of 00:00:00 [facility] Meningococcal 2015-12-16 Completed University of Polysaccharide 00:00:00 [place] [facility] (groups A, C, Y and Branc h W-135) conjugate vaccine (MCV4P) HEPATITIS A 2015-12-16 Completed University of 00:00:00 [facility] HPV 2015-12-16 Completed University of 00:00:00 [facility] Meningococcal 2015-12-16 Completed University of Polysaccharide 00:00:00 [place] [facility] (groups A, C, Y and Branc h W-135) conjugate vaccine (MCV4P) influenza virus 2015-06-13 Completed [facility] Tino vaccine, 20:42:00 inactivated<sup>1</moya p> influenza virus 2015-06-13 [facility] inactivated<sup>1</moya p> Influenza Virus 2015-06-13 Completed Universit y of Vaccine 00:00:00 [facility] Influenza Virus 2015-06-13 Completed Universit y of Vaccine 00:00:00 [facility] Influenza Virus 2015-06-13 Completed Universit y of Vaccine 00:00:00 [facility] Influenza Virus 2015-06-13 Completed Universit y of Vaccine 00:00:00 [facility] Influenza Virus 2015-06-13 Completed Universit y of Vaccine 00:00:00 [facility] Influenza Virus 2015-06-13 Completed Universit y of Vaccine 00:00:00 [facility] Influenza Virus 2015-06-13 Completed Universit y of Vaccine 00:00:00 [facility] Influenza Virus 2015-06-13 Completed Universit y of Vaccine 00:00:00 [facility] Influenza Virus 2015-06-13 Completed Universit y of Vaccine 00:00:00 [facility] Influenza Virus 2015-06-13 Completed Universit y of Vaccine 00:00:00 [facility] Influenza Virus 2015-06-13 Completed Universit y of Vaccine 00:00:00 [facility] HEPATITIS A 2010-01-05 Completed University of 00:00:00 [facility] Meningococcal 2010-01-05 Completed University of Polysaccharide 00:00:00 [place] [facility] (groups A, C, Y and Branc h W-135) conjugate vaccine (MCV4P) TDAP 2010-01-05 Completed University of 00:00:00 [facility] Varicella 2010-01-05 Completed University of (varivax)(chicken 00:00:00 [place] [facility] pox) Branch HEPATITIS A 2010-01-05 Completed University of 00:00:00 [facility] Meningococcal 2010-01-05 Completed University of Polysaccharide 00:00:00 [place] [facility] (groups A, C, Y and Branc h W-135) conjugate vaccine (MCV4P) TDAP 2010-01-05 Completed University of 00:00:00 [facility] Varicella 2010-01-05 Completed University of (varivax)(chicken 00:00:00 [place] [facility] [place] pox) Branch DTAP 2002-09-30 Completed University of 00:00:00 [facility] MMR 2002-09-30 Completed University of 00:00:00 [facility] Polio (IPV/OPV) 2002-09-30 Completed Universit y of 00:00:00 [facility] DTAP 2002-09-30 Completed University of 00:00:00 [facility] MMR 2002-09-30 Completed University of 00:00:00 [facility] Polio (IPV/OPV) 2002-09-30 Completed Universit y of 00:00:00 [facility] Varicella 1999-01-18 Completed University of (varivax)(chicken 00:00:00 [place] [facility] [place] pox) Branch Varicella 1999-01-18 Completed University of (varivax)(chicken 00:00:00 [place] [facility] [place] pox) Branch HIB 3 Dose Schedule 1998-11-04 Completed Unive rsity of 00:00:00 [facility] MMR 1998-11-04 Completed University of 00:00:00 [facility] Polio (IPV/OPV) 1998-11-04 Completed Universit y of 00:00:00 [facility] HIB 3 Dose Schedule 1998-11-04 Completed Unive rsity of 00:00:00 [facility] MMR 1998-11-04 Completed University of 00:00:00 [facility] Polio (IPV/OPV) 1998-11-04 Completed Universit y of 00:00:00 [facility] Polio (IPV/OPV) 1998-04-30 Completed Universit y of 00:00:00 [facility] Polio (IPV/OPV) 1998-04-30 Completed Universit y of 00:00:00 [facility] DTAP 1998-02-07 Completed University of 00:00:00 [facility] Hep B, Adol or Pedi 1998-02-07 Completed Unive rsity of Dosage 00:00:00 [facility] DTAP 1998-02-07 Completed University of 00:00:00 [facility] Hep B, Adol or Pedi 1998-02-07 Completed Unive rsity of Dosage 00:00:00 [facility] DTAP 1997 Completed University of 00:00:00 [facility] Polio (IPV/OPV) 1997 Completed Universit y of 00:00:00 [facility] DTAP 1997 Completed University of 00:00:00 [facility] Polio (IPV/OPV) 1997 Completed Universit y of 00:00:00 [facility] DTAP 1997 Completed University of 00:00:00 [facility] HIB 3 Dose Schedule 1997 Completed Unive rsity of 00:00:00 [facility] Hep B, Adol or Pedi 1997 Completed Unive rsity of Dosage 00:00:00 [facility] Polio (IPV/OPV) 1997 Completed Universit y of 00:00:00 [facility] DTAP 1997 Completed University of 00:00:00 [facility] HIB 3 Dose Schedule 1997 Completed Unive rsity of 00:00:00 [facility] Hep B, Adol or Pedi 1997 Completed Unive rsity of Dosage 00:00:00 [facility] Polio (IPV/OPV) 1997 Completed Universit y of 00:00:00 [facility] Hep B, Adol or Pedi 1997 Completed Unive rsity of Dosage 00:00:00 [facility] Hep B, Adol or Pedi 1997 Completed Unive rsity of Dosage 00:00:00 [facility] Vital Signs Vital Name Observation Time Observation Value Comments Source Systolic blood 2019-07-29 14:59:00 114 mm[Hg] Univer sity of pressure [facility] Diastolic blood 2019-07-29 14:59:00 82 mm[Hg] Unive rsity of pressure [facility] Heart rate 2019-07-29 14:59:00 92 /min Universi ty of [facility] Body temperature 2019-07-29 14:59:00 36.56 Marielena Univ ersity of [facility] Respiratory rate 2019-07-29 14:59:00 18 /min Univ ersity of [facility] Body height 2019-07-29 14:59:00 165.1 cm Universi ty of [place] [facility] [place] Body weight 2019-07-29 14:59:00 105.348 kg Universi ty of [place] [facility] BMI 2019-07-29 14:59:00 38.65 kg/m2 Universi ty [facility] [place] [facility] Oxygen saturation in 2019-07-29 14:59:00 98 /min University of Arterial blood by [employer] Pulse oximetry Branch Systolic blood 2019-07-29 14:59:00 114 mm[Hg] Univer sity of pressure [place] [facility] Diastolic blood 2019-07-29 14:59:00 82 mm[Hg] Unive rsity of pressure [place] [facility] Heart rate 2019-07-29 14:59:00 92 /min Universi ty of [place] [facility] Body temperature 2019-07-29 14:59:00 36.56 Marielena Univ ersity of [place] [facility] Respiratory rate 2019-07-29 14:59:00 18 /min Univ ersity of [place] [facility] Body height 2019-07-29 14:59:00 165.1 cm Universi ty [facility] [place] [facility] Body weight 2019-07-29 14:59:00 105.348 kg Universi ty [facility] [place] [facility] BMI 2019-07-29 14:59:00 38.65 kg/m2 Universi ty [facility] [place] [facility] Oxygen saturation in 2019-07-29 14:59:00 98 /min University of Arterial blood by [employer]re[employer] charli Pulse oximetry Branch Systolic blood 2019-07-23 13:37:00 129 mm[Hg] Univer sity of pressure [place] [facility] Diastolic blood 2019-07-23 13:37:00 73 mm[Hg] Unive rsity of pressure [place] [facility] Heart rate 2019-07-23 13:37:00 70 /min Universi ty of [place] [facility] Body temperature 2019-07-23 13:37:00 36.94 Marielena Univ ersity of [place] [facility] Respiratory rate 2019-07-23 13:37:00 18 /min Univ ersity of [place] [facility] Oxygen saturation in 2019-07-23 13:37:00 93 /min University of Arterial blood by [facility] charli Pulse oximetry Branch Body height 2019-07-21 20:52:00 165.1 cm Universi ty of [place] [facility] Body weight 2019-07-21 20:52:00 104.327 kg Universi ty of [place] [facility] BMI 2019-07-21 20:52:00 38.27 kg/m2 Universi ty [facility] [place] [facility] Systolic blood 2019-07-02 00:58:18 127 mm[Hg] Univer sity of pressure [place] [facility] Diastolic blood 2019-07-02 00:58:18 89 mm[Hg] Unive rsity of pressure [place] [facility] Heart rate 2019-07-02 00:58:18 93 /min Universi ty of [place] [facility] Respiratory rate 2019-07-02 00:58:18 14 /min Univ ersity of [place] [facility] Oxygen saturation in 2019-07-02 00:58:18 96 /min University of Arterial blood by [facility] Pulse oximetry Branch Body temperature 2019-07-01 23:06:00 37.06 Marielena Univ ersity of [place] [facility] Body weight 2019-07-01 23:06:00 99.791 kg Universi ty [facility] [place] [facility] BMI 2019-07-01 23:06:00 36.61 kg/m2 [facility]i [facility] [place] [facility] Systolic blood 2019-06-29 17:33:00 114 mm[Hg] Univer sity of pressure [place] [facility] Diastolic blood 2019-06-29 17:33:00 63 mm[Hg] Unive rsity of pressure [place] [facility] Heart rate 2019-06-29 17:33:00 87 /min Universi ty of [place] [facility] Body temperature 2019-06-29 17:33:00 36.78 Marielena Univ ersity of [place] [facility] Respiratory rate 2019-06-29 17:33:00 18 /min Univ ersity of [place] [facility] Oxygen saturation in 2019-06-29 17:33:00 97 /min University of Arterial blood by [facility] Pulse oximetry Branch Body height 2019-06-28 16:14:00 165.1 cm Universi ty [facility] [place] [facility] Body weight 2019-06-28 16:14:00 99.791 kg Universi ty [facility] [place] [facility] BMI 2019-06-28 16:14:00 36.61 kg/m2 [facility]i [facility] [place] [facility] Systolic blood 2019-05-28 15:39:00 119 mm[Hg] Univer sity of pressure [facility] Diastolic blood 2019-05-28 15:39:00 80 mm[Hg] Unive rsity of pressure [place] [facility] Heart rate 2019-05-28 15:39:00 108 /min Universi ty of [place] [facility] Body temperature 2019-05-28 15:39:00 36.94 Marielena Univ ersity of [place] [facility] Body height 2019-05-28 15:39:00 162.6 cm Universi ty [facility] [place] [facility] Body weight 2019-05-28 15:39:00 98.657 kg Universi ty [facility] [place] [facility] BMI 2019-05-28 15:39:00 37.33 kg/m2 [facility]i [facility] [place] [facility] Systolic blood 2018-12-22 15:09:00 100 mm[Hg] Univer sity of pressure [place] [facility] Diastolic blood 2018-12-22 15:09:00 70 mm[Hg] Unive rsity of pressure [place] [facility] Heart rate 2018-12-22 15:09:00 78 /min Universi ty [facility] [place] [facility] Body temperature 2018-12-22 15:09:00 36.5 Marielena Univ ersity of [place] [facility] Respiratory rate 2018-12-22 15:09:00 18 /min Univ ersity of [place] [facility] Body height 2018-12-22 15:09:00 165.1 cm [facility]i ty [facility] [place] [facility] Body weight 2018-12-22 15:09:00 91.371 kg [facility]i [facility] [place] [facility] BMI 2018-12-22 15:09:00 33.52 kg/m2 [facility] [place] [facility] Oxygen saturation in 2018-12-22 15:09:00 99 /min University of Arterial blood by [facility] Pulse oximetry Branch Systolic blood 2018-12-22 04:24:22 115 mm[Hg] Univer sity of pressure [facility] Diastolic blood 2018-12-22 04:24:22 90 mm[Hg] Unive rsity of pressure [facility] Heart rate 2018-12-22 04:24:22 97 /min [facility] Body temperature 2018-12-22 04:24:22 36.89 Marielena [facility] Res[facility] rate 2018-12-22 04:24:22 17 /min [facility] Oxygen saturation in 2018-12-22 04:24:22 99 /min [facility] Arterial blood by [facility] Pulse oximetry Branch Body weight 2018-12-22 00:03:00 87.091 kg [facility] BMI 2018-12-22 00:03:00 31.95 kg/m2 [facility] Systolic (mm Hg) 2016-06-03 18:13:00 Ollie rial [place] Diastolic (mm Hg) 2016-06-03 18:13:00 Mem orial [place] Systolic (mm Hg) 2016-06-03 14:19:00 Ollie rial [place] Diastolic (mm Hg) 2016-06-03 14:19:00 Mem orial [place] Respitory Rate 2016-06-03 14:19:00 Memori al [place] Height 2016-06-03 13:47:00 165.1 cm [facility] [place] Temperature Oral (F) 2016-06-03 13:47:00 97.7 F [facility] [place] Systolic (mm Hg) 2016-06-03 13:47:00 Ollie rial [place] Diastolic (mm Hg) 2016-06-03 13:47:00 Mem orial [place] Heart Rate 2016-06-03 13:47:00 [facility] [place] Respitory Rate 2016-06-03 13:47:00 Memori al [place] BMI Calculated 2016-06-03 13:47:00 Memori al [place] Weight 2016-06-03 13:47:00 [facility] [place] BMI Calculated 2016-05-30 21:15:00 Memori al [place] Weight 2016-05-30 21:15:00 [facility] [place] Height 2016-05-30 21:15:00 165.1 cm [facility] [place] Respitory Rate 2016-05-30 21:15:00 Benigno al [place] Temperature Oral (F) 2016-05-30 21:15:00 98.6 F Jeanne Jiménez Heart Rate 2016-05-30 21:15:00 [facility] [place] Systolic (mm Hg) 2016-05-30 21:15:00 Ollie banks [place] Diastolic (mm Hg) 2016-05-30 21:15:00 Mem orial [place] Procedures Procedure Date / Time Performing Clinician Source Performed AUTHORIZATION FOR 2021-02-02 05:01:00 Doctor Unassigned, No [facility] RELEASE OF PHI Name [facility] CONSENT/REFUSAL FOR 2019-10-07 06:39:17 [facility]REATMENT Name [facility] XR CHEST 2 VW 2019-07-23 15:50:00 Ines Buckley [facility] PROFILE / HEMOGRAM 2019 16:34:00 [facility] / INR 2019 16:34:00 Ines Buckley [facility] ACTIVATED PARTIAL 2019 16:34:00 Ines Buckley [facility] THRMPLAS [facility] FIBRINOGEN 2019 16:34:00 Ina Ines [facility] LACTIC ACID WHOLE BLOOD 2019 16:34:00 Ines Buckley [facility] EKG-12 LEAD 2019 16:07:01 Maria Del Rosario [facility] o f [facility] ABORH CONFIRMATION 2019 08:09:00 Luciana Lama [facility] HB ABO GROUPING 2019 07:12:00 Davida [facility] FERRITIN SERUM 2019 07:11:00 Davida [facility] IRON 2019 07:11:00 Davida [facility] THYROID STIMULATING 2019 07:11:00 Malik Higuera [facility] HORMONE [facility] ETHANOL 2019 07:11:00 Davida [facility] CBC WITH DIFFERENTIAL 2019 07:11:00 Malik Higuera [facility] N-TERMINAL PRO-BNP 2019 07:11:00 [facility] HIV 1/2 AG-AB WITH 2019 07:11:00 Ines Buckley [facility] REFLEX [facility] XR CHEST 1 VW 2019 07:09:34 Davida [facility] ACUTE CARE ARTERIAL 2019 06:43:00 Davida [facility] BLOOD GAS [facility] ADC / LCC - DRUG SCREEN 2019 00:18:00 Luciana Lama [facility] URINALYSIS 2019-07-21 21:56:00 Kelby [facility] POCT TEST 2019-07-21 21:56:00 Luciana Lama [facility] LIPASE 2019-07-21 21:13:00 Kelby [facility] MAGNESIUM 2019-07-21 21:13:00 Kelby [facility] COMP. METABOLIC PANEL 2019-07-21 21:13:00 Luciana Lama [facility] ([id number]) [facility] CBC WITH DIFFERENTIAL 2019-07-21 21:13:[address] [facility] NOTICE OF PRIVACY 2019-07-21 20:43:04 Doctor Unassigned, No Univ [facility] PRACTICES Name [facility] CONSENT/REFUSAL FOR 2019-07-21 20:42:51 Doctor Unassigned, No Un [facility] DIAGNOSIS AND TREATMENT Name Medical [place] LIPASE 2019-07-02 00:24:00 Niki Mendoza [facility] COMP. METABOLIC PANEL 2019-07-02 00:24:00 Niki Mendoza Un [facility] ([id number]) [facility] CBC WITH DIFFERENTIAL 2019-07-02 00:24:00 [facility] 2019-07-02 00:16:00 Niki Mendoza [facility] ADC / LCC - DRUG SCREEN 2019-07-02 00:16:00 Niki Mendoza [facility] CONSENT/REFUSAL FOR 2019-07-01 22:59:59 Doctor Unassigned, No [facility] DIAGNOSIS AND TREATMENT Name Medical Branch PROFILE / HEMOGRAM 2019-06-29 15:13:00 Zachary Harmon [facility] MAGNESIUM 2019-06-29 10:30:00 [facility] BASIC METABOLIC PANEL 2019-06-29 10:30:00 [facility] (NA, K, CL, CO2, Medical Branch GLUCOSE, BUN, CREATININE, CA) GALV/CLC ONLY - URINE 2019-06-29 04:07:00 Zachary Harmon [facility] DRUG (IMMUNOASSAY) - Medical [facility] COMPREHENSIVE DRUG SCREEN PROFILE / HEMOGRAM 2019-06-29 02:22:00 Zachary Harmon [facility] XR CHEST 1 VW 2019-06-29 00:02:00 Zachary Harmon [facility] PROTHROMBIN TIME / INR 2019-06-28 17:12:00 Antonella Royal [facility] ACTIVATED PARTIAL 2019-06-28 17:12:00 Antonella Royal [facility] THRMPLAS [facility] LIPASE 2019-06-28 17:07:00 Antonella Royal [facility] COMP. METABOLIC PANEL 2019-06-28 17:07:00 Antonella Royal [facility] ([id number]) [facility] CBC WITH DIFFERENTIAL 2019-06-28 17:07:[address] [facility] URINALYSIS 2019-06-28 17:07:00 Antonella Royal [facility] URINE CULTURE 2019-06-28 17:07:00 Alysha Jefferson [facility] POCT TEST 2019-06-28 16:54:00 Antonella Royal [facility] NOTICE OF PRIVACY 2019-06-28 16:07:27 Doctor Unassigned, No [facility] PRACTICES Name Medical Branch CONSENT/REFUSAL FOR 2019-06-28 16:07:09 Doctor Unassigned, No [facility]RE[facility] Name [facility] POCT URINALYSIS 2019-05-28 19:37:00 Donavan Lopez [place] o f [facility] CT ABDOMEN PELVIS W 2018-12-22 02:43:42 Alysha Jefferson [facility] CONTRAST [facility] XR ABDOMEN ACUTE SERIES 2018-12-22 01:06:26 [facility]lysha [facility] 2018-12-22 00:55:00 Alysha Jefferson [facility] HEPATIC FUNCTION PANEL 2018-12-22 00:55:00 [facility] ([id number] (ALB,T.PRO,BILI [facility] T,BU/BC,ALT,AST,ALK PHOS) BASIC METABOLIC PANEL 2018-12-22 00:55:00 Alysha Jefferson [facility] (NA, K, CL, CO2, Medical Branch GLUCOSE, BUN, CREATININE, CA) CBC WITH DIFFERENTIAL 2018-12-22 00:55:00 Alysha Jefferson [facility] URINALYSIS 2018-12-22 00:55:00 Alysha Jefferson [facility] POCT TEST 2018-12-22 00:49:00 [facility] Plan of Care Planned Activity Planned Date Details Comments Source Future Scheduled 2022-01-18 HEPATITIS B VACCINES [facility] Test 14:02:58 (1 of 3 - 3-dose series) [code = HEPATITIS B VACCINES (1 of 3 - 3-dose series)] Future Scheduled 2022-01-18 COVID-19 VACCINE (#1) [facility] Test 14:02:58 [code = COVID-19 VACCINE (#1)] Future Scheduled 2022-01-18 Screening for [facility] Test 14:02:58 Chlamydia trachomatis (procedure) [code = 520312540] Future Scheduled 2022-01-18 Screening for [facility] Test 14:02:58 malignant neoplasm of cervix (procedure) [code = 396412586] Future Scheduled 2022-01-18 INFLUENZA [facility]ACCINE [facility] Test 14:02:58 [code = INFLUENZA VACCINE] Encounters Start End Encounter Admission Attending Care Care Encounter Source Date/Time Date/Time Type Type Clinicians Facility Department ID 2021-03-16 Emergency [facility] [id number] Univers 21:37:32 ity of [facility] 2021-03-16 Outpatient R ROCIO BRIEN [facility] GIE [id number] Univers 14:56:01 BRIEN SANZ i ty of [facility] 2021-02-02 2021-02-02 Orders Doctor MARYSOL [id number] Univers 00:00:00 00:00:00 Only Unassigned, MARISOL [id number] ity of [place] [facility] [id number] [place] as [id number] [facility] 009 Branch 2020-12-14 2020-12-14 Emergency EM Oliver, [facility] [id number] [facility] 13:51:00 15:30:[address] [place] [id number] 2020-10-03 2020-10-03 Case Zully Womack [id number] 00:00:00 00:00:00 Management Mera Jones [id number] [place] [id number] 2020-10-03 2020-10-03 Case Zully Womack [id number] Univers 00:00:00 00:00:00 Management Mera Jones [id number] ity [id number] [id number] [facility] 086 Branch 2020-08-09 2020-08-09 Patient Florencio [facility] [id number] 00:00:00 00:00:00 Outreach Eh PRIMARY [id number] Ed CARE [id number] PAVILLION [id number] [facility] 2020-08-09 2020-08-09 Patient Florencio [facility] [id number] Univers 00:00:00 00:00:00 Outreach Eh PRIMARY [id number] i ty of [id number] [id number] Ga dical [address] [place] 2019-10-07 2019-10-07 Orders Doctor MARYSOL [id number] 00:00:00 00:00:00 Only Unassigned, MARISOL [id number] [place] [facility] [id number] 2019-10-07 2019-10-07 Orders Doctor MARYSOL [id number] Univers 00:00:00 00:00:00 Only Unassigned, MARISOL [id number] ity of [place] [facility] [id number] [place] [phone] [address] 2019-09-08 2019-09-08 Telephone Too Rojo [id number] 00:00:00 00:00:00 , [facility] [id number] M s and [id number] Adult [id number] Primary [facility] 2019-09-08 2019-09-08 Telephone [place] [id number] Univers 00:00:00 00:00:00 , [facility] 350.1.13.10 ity of [place] [id number] [facility] Primary [address] [facility] 2019-09-03 2019-09-03 Outpatient [facility] [id number] Univers 10:00:00 10:00:00 ity of [facility] 2019-09-03 2019-09-03 Telemedici Ignacia UNIVERSIT 1.2.840.114 [id number] 07:25:10 07:55:10 ne Visit [facility] HEALTH 350.1.13.10 [facility] 4.2.7.2.686 Sa'Eed [id number] [phone] 2019-09-03 Telemedici Neymar Beth 'Eejoby UNIVERSIT 1.2.840.114 [id number] Univers 07:25:10 07:55:10 ne Visit Andres Khalil Y HEALTH 350.1.13 .10 ity of CL[place] [phone] [address] 2019-08-25 2019-08-25 Telephone Reep, UNIVERSIT 1.2.840.114 [id number] 00:00:00 00:00:00 Brien Bullock Y HEALTH 350.1.13.10 CLINICS 4.2.7.2.686 [phone] [facility] 2019-08-25 2019-08-25 Telephone Reep, UNIVERSIT 1.2.840.114 [id number] Univers 00:00:00 00:00:00 Brien Bullock Y HEALTH 350.1.13.10 ity of CL[place] [phone] [address] 2019-08-05 2019-08-05 Patient Doctor UNIVERSIT 1.2.126.876 [id number] 00:00:00 00:00:00 Secure Msg Unassigned, Y HEALTH 350.1.13.10 [place] [facility] [phone] [facility] 2019-08-05 2019-08-05 Patient Doctor UNIVERSIT 1.2.291.285 [id number] Univers 00:00:00 00:00:00 Secure Msg Unassigned, Y HEALTH 350.1.13.10 ity of [place] CL[place] [phone] [place] 087987 [place] 2019-07-29 2019-07-29 Office Too Rojo 1.2.840.114 [id number] 09:43:16 10:35:10 Visit , [facility] 350.1.13.10 M s and 4.2.7.2.686 Adult [phone] Primary [facility] 2019-07-29 2019-07-29 Office Too Rojo 1.2.840.114 [id number] Univers 09:43:16 10:35:10 Visit , [facility] 350.1.13.10 ity of [place] [id number] [facility] [address] [facility] 2019-07-29 2019-07-29 Outpatient R [facility] [id number] Univers 09:45:00 09:45:00 , MAREN it y of [facility] 2019-07-24 2019-07-24 Transition Zully Kapoor 1.2.840.114 [id number] Univers 00:00:00 00:00:00 of Care Nita Bullock Jones 350.1.13.10 i ty of [place] [id number] [facility] [address] 2019-07-21 2019-07-23 Emergency Luciana Lama 1.2.840. 114 [id number] Univers 14:49:21 11:45:00 Nathen Mix 350.1.13.10 ity of [facility] 4.2.7.2 .686 [place] [id number] [facility] [address] 2019-07-21 2019-07-23 Outpatient X MARIA DEL ROSARIO [facility] [id number] Univers 14:49:21 11:45:00 NATHEN ity of [facility] 2019 2019 Case MARYSOL Avina 1.2.205.054 [id number] Univers 00:00:00 00:00:00 Management Jared DAMON 350.1.13.10 ity of [facility] 4.2.7.2.686 Robe as [place] [phone] [facility] [address] 2019-07-21 2019-07-21 Orders Doctor MARYSOL 1.2.840.114 [id number] Univers 00:00:00 00:00:00 Only Unassigned, MARISOL 350.1.13.10 ity of [facility] 4.2.7.2.686 [place] as [phone] [facility] [address] 2019-07-02 2019-07-02 Patient Zully Ken 1.2.840.114 [id number] Univers 00:00:00 00:00:00 Outreach Mercedes Jones 350.1.13.10 ity of [place] [id number] [facility] [address] 2019-07-01 2019-07-[address] [facility] 1.2.840.114 [id number] Univers 17:08:53 19:55:00 [facility] 350.1.13.10 [place]y of [place] [phone] [address] ([facility]) 2019-07-01 2019-07-[address] [facility] ERT [id number] Univers 17:08:53 19:55:00 FOLUSHO ity of [facility] 2019-06-30 2019-06-30 Transition Zully Kapoor 1.2.840.114 [id number] Univers 00:00:00 00:00:00 of Care Nita Keithy 350.1.13.10 i ty of [place] [id number] [facility] [address] 2019-06-28 2019-06-29 Emergency Antonella Royal 1.2.840.1 14 [id number] Univers 10:18:50 15:00:00 Yarely Thacker 350.1.13.10 ity of [facility] 4.2.7.2.686 [place] [phone] [facility] [address] 2019-06-28 2019-06-29 Outpatient X KDEAR [facility] SOFIE [id number] Univers 10:18:50 15:00:00 YARELY ity of [facility] 2019-06-29 2019-06-[address] [facility] 1.2.840.114 [id number] 00:00:00 00:00:00 (Out) Jed[place]than PRIMARY 350.1.13.10 CARE 4.2.7.2.686 PAVILLION [phone] [facility] 2019-06-29 2019-06-29 Telephone Marquita [facility] 1.2.840.114 [id number] Univers 00:00:00 00:00:00 Jeyanthan PRIMARY 350.1.13.10 ity of CARE [place] [phone] [place] [address] 2019-06-29 2019-06-29 Letter Marquita [facility] 1.2.840.114 [id number] Univers 00:00:00 00:00:00 (Out) Tavo PRIMARY 350.1.13.10 ity of C[place] [id number] [place] dicnm [address] [place] 2019-06-28 2019-06-28 Orders Doctor MARYSOL 1.2.840.114 [id number] Univers 00:00:00 00:00:00 Only Unassigned, MARISOL 350.1.13.10 ity of [place] [facility] 4.2.7.2.686 [place] [phone] [facility] 009 [place] 2019-05-28 2019-05-28 Office Jessica [facility] 1.2.840.114 [id number] Univers 09:33:17 12:08:23 Visit Donavan SPECIALTY 350.1.13.10 ity of CARE [place] C[place] AT [phone] [place] arminnm VICTORY 098 [facility] 2019-04-21 2019-04-21 Outpatient R [facility] [id number] Univers 09:20:00 23:59:00 , MAREN monteiro y of [facility] 2018-12-24 2018-12-24 Patient uZlly Jacobo 1.2.840.114 [id number] Univers 00:00:00 00:00:00 Outreach Nu Jones 350.1.13.10 ity of [place] [id number] [facility] [address] 2018-12-22 2018-12-22 Office Karmen Gonzalez 1.2.840.114 [id number] Univers 10:01:40 10:16:40 Visit Ali Pediatric 350.1.13.10 ity of [place] and [place] [phone] [facility] Primary [address] [place] Care Clinic 2018-12-21 2018-12-21 Emergency [facility] 1.2.840.114 [id number] Univers 19:06:32 23:26:00 Alysha Glasgow [facility] 350.1.13.10 i ty of [place] 4.2.7.2.686 Hazel Villalobos [phone] [address] ([facility]) 2016-06-03 2016-06-03 [facility] [id number] Memoria 13:37:00 18:26:00 r Tino [address] [place] [address] 2016-06-03 2016-06-03 [facility] [id number] Memoria 13:37:00 18:26:00 r Tino [address] [place] [address] 2016-06-03 2016-06-03 Outpatient Mickey [facility] [id number] 07:37:00 12:26:00 Luisraad Canohav 2016-05-30 2016-05-31 [facility] 4035 [id number] Memoria 19:46:00 05:59:00 r Tino 04 [facility] 2016-05-30 2016-05-31 [facility]patient [facility] 4035 [id number] Memoria 19:46:00 05:59:00 r Tino Segura [facility] 2016-05-30 2016-05-30 Outpatient Dejahpacheco [facility] [id number] 13:46:00 23:59:00 Dominic Segura 2016-01-26 2016-01-26 Outpatient MHIE MHIE [id number] Memoria 13:30:00 13:30:00 09 erick Jiménez 2016-01-26 2016-01-26 Outpatient MHIE MHIE [id number] Memoria 13:30:00 13:30:00 09 erick Jiménez 2015-12-01 2015-12-01 Outpatient MHIE MHIE [id number] Memoria 09:40:00 09:40:00 08 erick Jiménez 2015-12-01 2015-12-01 Outpatient MHIE MHIE [id number] Memoria 09:40:00 09:40:00 08 erick Jiménez 2015-09-27 2015-09-27 Outpatient MHIE MHIE [id number] Memoria 09:00:00 09:00:00 07 erick Jiménez 2015-09-27 2015-09-27 Outpatient MHIE MHIE [id number] Memoria 09:00:00 09:00:00 07 erick Jiménez 2015-09-14 2015-09-14 Outpatient MHIE MHIE [id number] Memoria 14:15:00 14:15:00 05 erick Jiménez 2015-09-14 2015-09-14 Outpatient MHIE MHIE [id number] Memoria 14:15:00 14:15:00 05 erick Jiménez 2015-09-13 2015-09-13 Outpatient MHIE MHIE [id number] Memoria 13:15:00 13:15:00 06 erick Jiménez 2015-09-13 2015-09-13 Outpatient MHIE MHIE [id number] Memoria 13:15:00 13:15:00 06 erick Jiménez 2015-09-01 2015-09-01 Outpatient MHIE MHIE [id number] Memoria 13:15:00 13:15:00 04 erick Jiménez 2015-09-01 2015-09-01 Outpatient MHIE MHIE [id number] Memoria 13:15:00 13:15:00 04 erick Jiménez 2015-07-18 2015-07-18 Outpatient MHIE MHIE [id number] Memoria 09:45:00 09:45:00 03 erick Jiménez 2015-07-18 2015-07-18 Outpatient MHIE MHIE [id number] Memoria 09:45:00 09:45:00 03 erick Jiménez 2015-06-13 2015-06-13 Outpatient MHIE MHIE [id number] Memoria 13:30:00 13:30:00 02 erick Jiménez 2015-06-13 2015-06-13 Outpatient MHIE MHIE [id number] Memoria 13:30:00 13:30:00 02 erick Jiménez 2015-05-31 2015-05-31 Outpatient MHIE MHIE [id number] Memoria 13:00:00 13:00:00 01 erick Jiménez 2015-05-31 2015-05-31 Outpatient MHIE MHIE [id number] Memoria 13:00:00 13:00:00 01 erick Jiménez Results Test Description Test Time Test Comments Results Result [facility] e Comments - CT HEAD/BRAIN 2020-11-18 W/O CONT 8 14:54:00 [facility] 1995 Sex: F Patient Name: MIKHAIL OSORIO Unit No: [id number] EXAMS: CPT CODE: [id number] CT HEAD/BRAIN W/O CONT 74127 Reason: fall/loc Location Code: B2 HISTORY: Fall, [...] Boyd MD Technologist: DAGOBERTO Serrano Trscrpt Dt/ (8749)t.SDR.RK5 Orig Print D/T: S: 12/14/2020 (6616) CTDI: DLP: [place] FSED NAME: MIKHAIL OSORIO [address] PHYS: [place] [address] : 1995 AGE: 25 SEX: F LOC: D.RER PHONE #: EXAM DATE: 12/14/2020 STATUS: PRE ER FAX #: RAD NO: DC Dt: PAGE 1 Signed Report XR CHEST 2 VW EXAM: XR CHEST 2 VW Un iversity of 5 HISTORY: cough, SOB [place] [facility] 17:25:17 COMPARISON: None. Branch FINDINGS: The heart and great vessels are normal and the lungs are well expanded andclear.[facility], Radiant Results Inft User - 07/23/2019 11:26 AM CSTEXAM: XR CHEST 2 VWHISTORY: cough, SOB COMPARISON: None.FINDINGS:The heart and great vessels are normal and the lungs are well expanded andclear. HIV 1/2 AG-AB WITH REFLEX 2019 22:46:00 Test Item Value Reference Range Interpretation Comme nts HIV Semi-quantitative (test code = Negative Negative 67578-6) JEFF (test code = JEFF) Non-reactive for HIV-1 antigen and HIV-1/HIV-2 antibodies. ?No laboratory evidence of HIV infection. ?Repeat in 2-4 weeks if acute HIV infection is suspected. [facility] 1 [id number] 17:06:28 No acute cardiopulmonary process. Preliminary Report [...] reviewed this study and agree with theabove report.[facility] HospitalLactic Acid Whole [id number] 17:05:00 Test Item Value Reference Range Interpretation Comments LACTIC ACID (test code = 1.33 mmol/L 0.5-2.2 6433628408) Lab Interpretation (test code = Normal 31132-0) [facility] HospitalPROTHROMBIN TIME / [id number] 16:52:00 Test Item Value Reference Range Interpretation Comments PROTIME PATIENT (test See_Comment [Auto mated message] code = 5964-2) The system [employer] generated this result transmitted ref erence range: 10.1 - 1 2.6 Seconds. The re ference range was not u sed to interpret this result as normal/abnor mal. INR (test code = 6301-6) Nor mal INR <1.1; Warfarin Therap eutic range 2.0 to 3. 0 or 2.5 to 3.5, dep ending upon the indica tions. Lab Interpretation (test Normal code = 75188-1) [facility] HospitalaPTT2020-03-04 16:52:00 Test Item Value Reference Range Interpretation Comments APTT Patient (test code = See_Comment [ Automated message] 3173-2) The system [employer] generated this result transmitted ref erence range: 26 - 36 Seconds. The re ference range was not u sed to interpret this result as normal/abnor mal. Lab Interpretation (test Normal code = 43786-2) [facility] HospitalFIBRINOGEN2020-03-04 16:52:00 Test Item Value Reference Range Interpretation Comments Fibrinogen (test code = 9513408550) 312 mg/dL 167-453 Lab Interpretation (test code = Normal 30648-3) [facility] HospitalPROFILE / [id number] 16:44:00 Test Item Value Reference Range Interpretation Comments WBC (test code = 6690-2) See_Comment [A utomated message] The system [employer] generated this result transmit jaya reference range : 4.30 - 11.10 10*3/?L. The reference range was not used to interpret this result as normal/abnormal . RBC (test code = 789-8) See_Comment [Au tomated message] The system [employer] generated this result transmit jaya reference range [...] 777-3) See_Comment [Au tomated message] The system [employer] generated this result transmit jaya reference range : 166 - 358 10*3/?L. The reference range was not used to interpret this result as normal/abnormal . MPV (test code = 9.4 fL 9.5-12.9 L 77777-4) RDW-CV (test code = 12.9 % 12-15.5 788-0) RDW-SD (test code = 42.9 fL 39-49.9 27808-2) NRBC x10^3 (test code = <0.01 See_Comment [Au tomated message] 2760865454) The system [employer] generated this result transmit jaya reference range : 10*3/?L. The reference range was not used to interpret this result as normal/abnormal . NRBC/100 WBC (test code See_Comment [Au tomated message] = 9521783474) The system [facility] generated this result transmit jaya reference range : 0.0 - 10.0 /100 WBC s. The reference r faisal was not used to interpret this result as normal/abnormal . IPF % (test code = 5978398349) Lab Interpretation (test Abnormal code = 36845-3) [facility] HospitalTHYROID STIMULATING [id number] 11:57:00 Test Item Value Reference Range Interpretation Comments TSH (test code = See_Comment Biotin has been 6361826551) reported to cau se a negative bias, interpret resul ts relative to pat shirlene's use of biotin. [Automated mess age] The system [employer] generated this result transmitted ref erence range: 0.45 - 4 .70 mIU/L. The refe rence range was not u sed to interpret this result as normal/abnor mal. Lab Interpretation (test Normal code = 23956-4) [facility] HospitalABORH [id number] 09:00:29 Test Item Value Reference Range Interpretation Comments ABO & RH (test code O Positive Performe d at [facility] = 20) Laboratory Serv [facility] Blood Bank[address] [place] [address] s [address]Tocf Free: [phone] A No. [id number] [facility] HospitalFERRITIN [id number] 08:51:00 Test Item Value Reference Range Interpretation Comments FERRITIN (test code = 36.3 ng/mL 6-137 6795433445) JEFF (test code = JEFF) Biotin has been reported to cause a negative bias, interpret results relative to patient's use of biotin. Lab Interpretation (test Normal code = 95396-5) [facility] HospitalN-TERMINAL [id number] 08:25:00 Test Item Value Reference Range Interpretation Comments NT-proBNP (test code 33 pg/mL See_Comment [Autom ated = 0427993239) message] The system which generated this result transmitted reference range : <=125. The reference range was not used to interpret this result as normal/abnormal . JEFF (test code = JEFF) Biotin has been reported to cause a negative bias, interpret results relative to patient's use of biotin. Lab Interpretation Normal (test code = 80889-5) [facility] HospitalType and Screen - ONCE [id number] 08:11:50 Test Item Value Reference Range Interpretation Comments ABO & RH (test code O POSITIVE Performe d at [facility] = 20) Laboratory Serv [facility] Blood [facility]3 [facility] s [address]Kybt Free: [phone] A No. [id number] IAT (test code = Negative Performed a t [facility] 1185) Laboratory Serv [facility] Blood [facility]3 [address] [facility] s [address]Xzbv Free: [phone] A No. [id number] [facility] HospitalETHANOL2020-03-04 08:09:00 Test Item Value Reference Range Interpretation Comments ALCOHOL (test code = <10 mg/dL 4619917546) JEFF (test code = Toxic Greater than or JEFF) equal to 80 mg/dL. NOTE: Whole blood values are approximately 10% to 15% lower than serum and plasma. [facility] HospitalIRON2020-03-04 08:08:00 Test Item Value Reference Range Interpretation Comments IRON (test code = 3764270202) 95 ug/dL 50-160 Lab Interpretation (test code = Normal 47451-1) [facility] WITH [id number] 07:27:00 Test Item Value Reference Range Interpretation [...] RDW-SD (test code = 42.6 fL 39-49.9 65308-7) RDW-CV (test code = 13.0 % 12-15.5 788-0) PLT (test code = See_Comment [Automated 777-3) message] The sy stem which generated this result transmitted reference range : 166 - 358 10*3/ ?L. The reference r faisal was not used to interpret this result as normal/abnormal . MPV (test code = 9.5 fL 9.5-12.9 48543-4) NRBC/100 WBC (test See_Comment [Automat ed code = 1116142750) message] The system which generated this result transmitted reference range : 0.0 - 10.0 /100 WBCs. The refer ence range was not u sed to interpret th is result as normal/abnormal . NRBC x10^3 (test code <0.01 See_Comment [Auto mated = 7535155848) message] The s ystem which generated this result transmitted reference range : 10*3/?L. The reference range was not used to interpret this result as normal/abnormal . GRAN MAT (NEUT) % 56.1 % (test code = 770-8) IMM GRAN % (test code 0.40 % = 2234069361) LYMPH % (test code = 34.2 % 736-9) MONO % (test code = 5.4 % 5905-5) EOS % (test code = 3.3 % 713-8) BASO % (test code = 0.6 % 706-2) GRAN MAT x10^3(ANC) 2.94 10*3/uL 1.88-7.09 (test code = 5398876946) IMM GRAN x10^3 (test <0.03 0-0.06 code = 1259335048) LYMPH x10^3 (test code 1.79 10*3/uL 1.32-3.29 = 731-0) MONO x10^3 (test code 0.28 10*3/uL 0.33-0.92 L = 742-7) EOS x10^3 (test code = 0.17 10*3/uL 0.03-0.39 711-2) BASO x10^3 (test code 0.03 10*3/uL 0.01-0.07 = 704-7) Lab Interpretation Abnormal (test code = 26238-9) [facility] HospitalAcute [facility].2019-07-22 07:02:00 Test Item Value Reference Range Interpretation Comments PH (test code = 2) 7.35-7.45 PCO2 (test code = See_Comment [Automate d message] 9206415693) The system [employer] generated this result transmitted ref erence range: 35 - 45 mmHg. The reference r faisal was not used to interpret this result as normal/abnor mal. PO2 (test code = See_Comment [Automated message] 5238582586) The system [employer] generated this result transmitted ref erence range: 80 - 100 mmHg. The reference r faisal was not used to interpret this result as normal/abnor mal. HCO3 (test code = See_Comment [Automate d message] 7359806483) The system [employer] generated this result transmitted ref erence range: 22 - 26 mEq/L. The reference r faisal was not used to interpret this result as normal/abnor mal. BE (test code = See_Comment [Automated message] 6457130218) The system [employer] generated this result transmitted ref erence range: -3.0 - 3 .0 mEq/L. The refe rence range was not u sed to interpret this result as normal/abnor mal. Lab Interpretation (test Normal code = 66386-8) [facility] - DRUG SCREEN [id number] 00:43:00 Test Item Value Reference Range Interpretation Comments BENZO U (test code = Negative Negative 1566848168) LIGIA U (test code = Negative Negative 5561593191) AMPHET (test code = Negative Negative 0212508057) THC (test code = Presumptive Negative A Confirmatio n of 8967807059) Positive Presumptive Positive THC result requires physician order . METHADONE (test code Negative Negative = 5591836737) Meth U (test code = Negative Negative 9614908724) OPIATES (test code = Negative Negative 8226289026) Cocaine Metabolite Negative Negative (test code = 7010211675) PROPOXY (test code = Negative Negative 9164087005) Tric U (test code = Negative Negative 4266019667) PCP (test code = Negative Negative 4480600038) OXYCOD (test code = Negative Negative 1315978993) JEFF (test code = Urine Drug Cutoff [...] testing). Lab Interpretation Abnormal (test code = 98866-5) [facility] HospitalURINALYSIS2020-03-03 22:43:00 Test Item Value Reference Range Interpretation Comments APPEARANCE (test code = Hazy Clear A 3351360866) COLOR (test code = Yellow Yellow 5266321654) PH (test code = 4.8-8.0 6772355510) SP GRAVITY (test code = 1.003-1.030 H 8214277341) GLU U QUAL (test code = Normal Normal 7126122336) BLOOD (test code = Negative Negative 8995098590) KETONES (test code = Negative Negative 3194566662) PROTEIN (test code = Negative Negative 2887-8) UROBILIN (test code = Normal Normal 3789213720) BILIRUBIN (test code = Negative Negative 8619767030) NITRITE (test code = Negative Negative 2436218097) LEUK NOÉ (test code = Negative Negative 0074658200) RBC/HPF (test code = See_Comment H [Autom ated message] 3964297894) The system [employer] generated this result transmitted ref erence range: 0 - 3 HP F. The reference range was not used to int erpret this result as normal/abnormal . WBC/HPF (test code = See_Comment [Autom ated message] 0813263017) The system [employer] generated this result transmitted ref erence range: 0 - 5 HP F. The reference range was not used to int erpret this result as normal/abnormal . BACTERIA (test code = Negative Negative 0295868719) MUCOUS (test code = Marked Negative LPF A 6793085224) SQ EPITH (test code = HPF 8104230616) HYAL CAST (test code = See_Comment [Aut omated message] 6776569748) The system [employer] generated this result transmitted ref erence range: <=2 LPF. The reference range was not used to int erpret this result as normal/abnormal . Lab Interpretation (test Abnormal code = 91629-8) [facility] HospitalPOCT [id number] 21:56:00 Test Item Value Reference Range Interpretation Comments POCT PREG (test code = 1605) negative On board controls acceptable with C present Line (test code = 3574) Lab Interpretation (test code = Normal 43686-7) [facility] HospitalCOMP. METABOLIC PANEL (46721)2019-07-21 21:48:00 Test Item Value Reference Range Interpretation Comments NA (test code = 140 mmol/L 135-145 0437628321) K (test code = 3.9 mmol/L 3.5-5 4795397932) CL (test code = 106 mmol/L 98-108 9802588443) CO2 TOTAL (test code = 25 mmol/L 23-31 6239838895) AGAP (test code = 2-16 5162650714) BUN (test code = 15 mg/dL 7-23 6048794125) GLUCOSE (test code = 90 mg/dL 70-110 2327602608) CREATININE (test code 0.87 mg/dL 0.5-1.04 = 9044382718) TOTAL BILI (test code 0.2 mg/dL 0.1-1.1 = 3513443926) CALCIUM (test code = 9.1 mg/dL 8.6-10.6 5182867105) T PROTEIN (test code = 7.5 g/dL 6.3-8.2 7693142155) ALBUMIN (test code = 4.5 g/dL 3.5-5 0835960614) ALK PHOS (test code = 72 U/L 34-122 9714219092) ALTv (test code = 33 U/L 5-35 1742-6) AST(SGOT) (test code = 21 U/L 13-40 0911793784) eGFR Calculation mL/min/1.73m2 (Non-) (test code = 7233869534) eGFR Calculation mL/min/1.73m2 () (test code = 6845319956) JEFF (test code = JEFF) Association of [...] or urine or abnormalities in imaging tests). [facility] HospitalMAGNESIUM2020-03-03 21:48:00 Test Item Value Reference Range Interpretation Comments MAGNESIUM (test code = 9738979639) 2.1 mg/dL 1.7-2.4 Lab Interpretation (test code = Normal 44130-2) [facility] HospitalLIPASE2020-03-03 21:47:00 Test Item Value Reference Range Interpretation Comments LIPASE (test code = 0707850919) 81 U/L 0-220 Lab Interpretation (test code = Normal 15601-4) [facility] WITH [id number] 21:34:00 Test Item Value Reference Range Interpretation Comments WBC (test code = See_Comment [Automated message] 6690-2) The system [employer] generated this result transmitted ref erence range: 4.30 - 1 1.10 10*3/?L. The re ference range was not u sed to interpret this result as normal/abnor mal. RBC (test code = See_Comment [Automated message] 789-8) The system [employer] generated this result transmitted ref erence range: [...] RDW-SD (test code 42.1 fL 39-49.9 = 06746-9) RDW-CV (test code 12.9 % 12-15.5 = 788-0) PLT (test code = See_Comment [Automated message] 777-3) The system whic h generated this result transmitted ref erence range: 166 - 35 8 10*3/?L. The re ference range was not u sed to interpret this result as normal/abnor mal. MPV (test code = 9.7 fL 9.5-12.9 06873-2) NRBC/100 WBC (test See_Comment [Automat ed message] code = 5680664399) The syste m which generated this result transmitted ref erence range: 0.0 - 10 .0 /100 WBCs. The refer ence range was not u sed to interpret this result as normal/abnor mal. NRBC x10^3 (test <0.01 See_Comment [Automated message] code = 4646067609) The syste m which generated this result transmitted ref erence range: 10*3/?L. The reference range was not used to interpr et this result as normal/abnormal . GRAN MAT (NEUT) % 69.4 % (test code = 770-8) IMM GRAN % (test 0.50 % code = 8395965622) LYMPH % (test code 20.6 % = 736-9) MONO % (test code 6.6 % = 5905-5) EOS % (test code = 2.3 % 713-8) BASO % (test code 0.6 % = 706-2) GRAN MAT 4.45 10*3/uL 1.88-7.09 x10^3(ANC) (test code = 5016656011) IMM GRAN x10^3 0.03 10*3/uL 0-0.06 (test code = 9811424015) LYMPH x10^3 (test 1.32 10*3/uL 1.32-3.29 code = 731-0) MONO x10^3 (test 0.42 10*3/uL 0.33-0.92 code = 742-7) EOS x10^3 (test 0.15 10*3/uL 0.03-0.39 code = 711-2) BASO x10^3 (test 0.04 10*3/uL 0.01-0.07 code = 704-7) [facility]14469[facility]2019-07-02 01:24:00 Test Item Value Reference Range Interpretation Comments NA (test code = 138 mmol/L 135-145 6023015939) K (test code = 4.4 mmol/L 3.5-5 3401603472) CL (test code = 104 mmol/L 98-108 4757610177) CO2 TOTAL (test code = 24 mmol/L 23-31 9571431743) AGAP (test code = 2-16 1184450125) BUN (test code = 17 mg/dL 7-23 6777431710) GLUCOSE (test code = 88 mg/dL 70-110 4516501797) CREATININE (test code = 0.75 mg/dL 0.5-1.04 4927068591) TOTAL BILI (test code = 0.3 mg/dL 0.1-1.5 2638310877) CALCIUM (test code = 9.4 mg/dL 8.6-10.6 4566593218) T PROTEIN (test code = 7.1 g/dL 6.3-8.2 0827693510) ALBUMIN (test code = 4.1 g/dL 3.5-5 8283948448) ALK PHOS (test code = 70 U/L 34-122 1271779855) ALTv (test code = 42 U/L 5-35 H 1742-6) AST(SGOT) (test code = 26 U/L 13-40 3914110671) eGFR Calculation mL/min/1.73m2 (Non-) (test code = 8298835066) eGFR Calculation mL/min/1.73m2 () (test code = 2552429540) JEFF (test code = JEFF) Association of [...] tests). Lab Interpretation Abnormal (test code = 43754-9) [facility] 01:24:00 Test Item Value Reference Range Interpretation Comments LIPASE (test code = 5058953009) 107 U/L 0-220 Lab Interpretation (test code = Normal 48184-6) [facility] / [facility] - DRUG SCREEN [id number] 00:57:00 Test Item Value Reference Range Interpretation Comments BENZO U (test code = Negative Negative 1374543481) LIGIA U (test code = Negative Negative 1333002210) AMPHET (test code = Negative Negative 0000962172) THC (test code = Presumptive Negative A Confirmatio n of 4979735878) Positive Presumptive Positive THC result requires physician order . METHADONE (test code Negative Negative = 6093641102) Meth U (test code = Negative Negative 8765366182) OPIATES (test code = Negative Negative 5139504259) Cocaine Metabolite Negative Negative (test code = 3318054154) PROPOXY (test code = Negative Negative 8740860506) Tric U (test code = Negative Negative 6891343515) PCP (test code = Negative Negative 2767588234) OXYCOD (test code = Negative Negative 3584680708) JEFF (test code = Urine Drug Cutoff [...] testing). Lab Interpretation Abnormal (test code = 62200-4) [facility]inalysis2020-[facility] 00:56:00 Test Item Value Reference Range Interpretation Comments APPEARANCE (test code = Clear Clear 8181946294) COLOR (test code = Yellow Yellow 8460297640) PH (test code = 4.8-8.0 3412004699) SP GRAVITY (test code = 1.003-1.030 4858598826) GLU U QUAL (test code = Normal Normal 9697735595) BLOOD (test code = Negative Negative 2973225855) KETONES (test code = Negative Negative 6965554795) PROTEIN (test code = Negative Negative 2887-8) UROBILIN (test code = Normal Normal 1551180772) BILIRUBIN (test code = Negative Negative 3800330131) NITRITE (test code = Negative Negative 8756590340) LEUK NOÉ (test code = Negative Negative 0068221811) RBC/HPF (test code = See_Comment [Autom ated message] 9558013916) The system [employer] generated this result transmitted ref erence range: 0 - 3 HP F. The reference range was not used to int erpret this result as normal/abnormal . WBC/HPF (test code = See_Comment [Autom ated message] 2458091097) The system [employer] h generated this result transmitted ref erence range: 0 - 5 HP F. The reference range was not used to int erpret this result as normal/abnormal . BACTERIA (test code = Negative Negative 6802940144) SQ EPITH (test code = <1 See_Comment [Auto mated message] 3668309460) The system [employer] h generated this result transmitted ref erence range: <=2 HPF. The reference range was not used to int erpret this result as normal/abnormal . Lab Interpretation (test Normal code = 74666-3) [facility] WITH [id number] 00:35:00 Test Item Value Reference Range Interpretation [...] RDW-SD (test code = 42.5 fL 39-49.9 37192-7) RDW-CV (test code = 13.0 % 12-15.5 788-0) PLT (test code = See_Comment [Automated 777-3) message] The sy stem which generated this result transmitted reference range : 166 - 358 10*3/ ?L. The reference r faisal was not used to interpret this result as normal/abnormal . MPV (test code = 9.6 fL 9.5-12.9 32436-9) NRBC/100 WBC (test See_Comment [Automat ed code = 8380750368) message] The system which generated this result transmitted reference range : 0.0 - 10.0 /100 WBCs. The refer ence range was not u sed to interpret th is result as normal/abnormal . NRBC x10^3 (test code <0.01 See_Comment [Auto mated = 2106547244) message] The s ystem which generated this result transmitted reference range : 10*3/?L. The reference range was not used to interpret this result as normal/abnormal . GRAN MAT (NEUT) % 76.2 % (test code = 770-8) IMM GRAN % (test code 0.30 % = 1645674435) LYMPH % (test code = 18.6 % 736-9) MONO % (test code = 4.0 % 5905-5) EOS % (test code = 0.5 % 713-8) BASO % (test code = 0.4 % 706-2) GRAN MAT x10^3(ANC) 5.97 10*3/uL 1.88-7.09 (test code = 4624599877) IMM GRAN x10^3 (test <0.03 0-0.06 code = 6001829481) LYMPH x10^3 (test code 1.46 10*3/uL 1.32-3.29 = 731-0) MONO x10^3 (test code 0.31 10*3/uL 0.33-0.92 L = 742-7) EOS x10^3 (test code = 0.04 10*3/uL 0.03-0.39 711-2) BASO x10^3 (test code 0.03 10*3/uL 0.01-0.07 = 704-7) Lab Interpretation Abnormal (test code = 53438-5) [facility] [id number] 22:23:00 Test Item Value Reference Range Interpretation Comments URINE CULTURE (test No aerobic organisms code = 630-4) isolated [facility]PRO[facility] / [id number] 15:33:00 Test Item Value Reference Range Interpretation Comments WBC (test code = 6690-2) See_Comment [A utomated message] The system ic h generated this result transmit jaya reference range : 4.30 - 11.10 10*3/?L. The reference range was not used to interpret this result as normal/abnormal . RBC (test code = 789-8) See_Comment L [Au tomated message] The system [employer] generated this result transmit jaya reference range [...] See_Comment L [Au tomated message] The system [facility] generated this result transmit jaya reference range : 166 - 358 10*3/?L. The reference range was not used to interpret this result as normal/abnormal . MPV (test code = 10.3 fL 9.5-12.9 31994-8) RDW-CV (test code = 13.2 % 12-15.5 788-0) RDW-SD (test code = 45.2 fL 39-49.9 26895-4) NRBC x10^3 (test code = <0.01 See_Comment [Au tomated message] 1320578052) The system [employer] generated this result transmit jaya reference range : 10*3/?L. The reference range was not used to interpret this result as normal/abnormal . NRBC/100 WBC (test code See_Comment [Au tomated message] = 0655566064) The system [facility] generated this result transmit jaya reference range : 0.0 - 10.0 /100 WBC s. The reference r faisal was not used to interpret this result as normal/abnormal . IPF % (test code = 4661380272) Lab Interpretation (test Abnormal code = 89179-1) [facility] Metabolic Panel (NA, K, CL, CO2, GLUCOSE, BUN, CREATININE, CA)2019-06-29 11:17:00 Test Item Value Reference Range Interpretation Comments NA (test code = 139 mmol/L 135-145 3882968963) K (test code = 3.9 mmol/L 3.5-5 3902671883) CL (test code = 109 mmol/L 98-108 H 9564129355) CO2 TOTAL (test code = 24 mmol/L 23-31 0393585225) AGAP (test code = 2-16 8252797693) BUN (test code = 15 mg/dL 7-23 0478255665) GLUCOSE (test code = 93 mg/dL 70-110 8432867845) CREATININE (test code = 0.78 mg/dL 0.5-1.04 7302203511) CALCIUM (test code = 8.2 mg/dL 8.6-10.6 L 8112122791) eGFR Calculation mL/min/1.73m2 (Non-) (test code = 3761829443) eGFR Calculation mL/min/1.73m2 () (test code = 3228175309) JEFF (test code = JEFF) Association of [...] tests). Lab Interpretation Abnormal (test code = 35190-9) [facility] HospitalMagnesium [id number] 11:17:00 Test Item Value Reference Range Interpretation Comments MAGNESIUM (test code = 6531432565) 1.9 mg/dL 1.7-2.4 Lab Interpretation (test code = Normal 10047-7) [facility] HospitalXR [facility] 1 [id number] 05:35:23 No acute cardiopulmonary abnormality. Preliminary Report Dictated by Resident: Paramjit Kitchen MD., have reviewed this study and agree with the abovereport.XR CHEST 1 VW HISTORY: rule out aspiration COMPARISON: 04/21/2019 TECHNIQUE: Frontal radiographs of the chest were performed. FINDINGS: The lungs are clear. No focal consolidation, pneumothorax or pleuraleffusion is seen. The cardiomediastinal silhouette is normal. No acute osseous abnormality. [facility], Radiant Results Inft User - 06/28/2019 11:36 PM CSTXR CHEST 1 VWHISTORY: rule out aspiration COMPARISON: 04/21/2019TECHNIQUE: Frontal radiographs of the chest were performed.FINDINGS:The lungs are clear. No focal consolidation, pneu mothorax or pleuraleffusion is seen.The cardiomediastinal silhouette is normal.No acute osseous abnormality.IMPRESSIONNo acute cardiopulmonary abnormality.Preliminary Report Dictated by Resident: Paramjit Reid MD., have reviewed this study and agree with the abovereport.[facility] HospitalGALV/CLC ONLY - URINE DRUG (IMMUNOASSAY) - COMPREHENSIVE DRUG [id number] 05:14:00 Test Item Value Reference Range Interpretation Comments AMPHET (test code = Negative Negative 6103553148) LIGIA U (test code = Negative Negative 7844006583) BENZO U (test code = Negative Negative 4794039043) Cocaine Metabolite (test Negative Negative code = 9224532389) METHADONE (test code = Negative Negative 4147439574) OPIATES (test code = Presumptive Positive Negative A 4245713370) PCP (test code = Negative Negative 0880397560) THC (test code = Presumptive Positive Negative A 6349808114) JEFF (test code = JEFF) Urine Drug [...] testing). Lab Interpretation (test Abnormal code = 09216-1) [facility] HospitalPROFILE / [id number] 02:47:00 Test Item Value Reference Range Interpretation Comments WBC (test code = See_Comment [Automated message] The 1390-2) system which nerated this result tra nsmitted reference range : 4.30 - 11.10 10*3/?L. The reference range was not used to interpr et this result as normal/abnormal . RBC (test code = See_Comment [Automated message] The 989-8) system which [employer] nerated this result tra nsmitted reference range [...] See_Comment [Automated message] The 777-3) system which nerated this result tra nsmitted reference range : 166 - 358 10*3/?L. Th e reference range was not used to interpr et this result as normal/abnormal . MPV (test code = 9.5 fL 9.5-12.9 13827-7) RDW-CV (test code = 13.0 % 12-15.5 788-0) RDW-SD (test code = 43.3 fL 39-49.9 92920-1) NRBC x10^3 (test <0.01 See_Comment [Automated message] The code = 1915607466) system [facility] generated this result tra nsmitted reference range : 10*3/?L. The reference r faisal was not used to int erpret this result as normal/abnormal . NRBC/100 WBC (test See_Comment [Automat ed message] The code = 3571120142) system [facility] generated this result tra nsmitted reference range : 0.0 - 10.0 /100 WBCs. The reference range was not used to interpr et this result as normal/abnormal . IPF % (test code = 6537647894) [facility] HospitalURINALYSIS2020-02-09 17:52:00 Test Item Value Reference Range Interpretation Comments APPEARANCE (test code = Clear Clear 8504447339) COLOR (test code = Yellow Yellow 7331661849) PH (test code = 4.8-8.0 2493308241) SP GRAVITY (test code = 1.003-1.030 5371720900) GLU U QUAL (test code = Normal Normal 9445458385) BLOOD (test code = Negative Negative 1653120858) KETONES (test code = Negative Negative 7129425617) PROTEIN (test code = Negative Negative 2887-8) UROBILIN (test code = Normal Normal 7125982936) BILIRUBIN (test code = Negative Negative 6143346895) NITRITE (test code = Negative Negative 2853592380) LEUK NOÉ (test code = Negative Negative 3134748118) RBC/HPF (test code = See_Comment H [Autom ated message] 6091231397) The system [employer] generated this result transmitted ref erence range: 0 - 3 HP F. The reference range was not used to int erpret this result as normal/abnormal . WBC/HPF (test code = See_Comment [Autom ated message] 7614574133) The system [employer] generated this result transmitted ref erence range: 0 - 5 HP F. The reference range was not used to int erpret this result as normal/abnormal . BACTERIA (test code = Negative Negative 7526994212) MUCOUS (test code = Moderate Negative LPF A 0905724324) SQ EPITH (test code = HPF 5227628262) Lab Interpretation (test Abnormal code = 14238-6) [facility] HospitalPROTHROMBIN TIME / [id number] 17:37:00 Test Item Value Reference Range Interpretation Comments PROTIME PATIENT (test See_Comment [Auto mated message] code = 5964-2) The system wh ich generated this result transmitted ref erence range: 12.0 - 1 4.7 Seconds. The re ference range was not u sed to interpret this result as normal/abnor mal. INR (test code = 6301-6) Nor mal INR <1.1; Warfarin Therap eutic range 2.0 to 3. 0 or 2.5 to 3.5, dep ending upon the indica tions. Lab Interpretation (test Normal code = 68664-6) [facility] HospitalaPTT2020-02-09 17:36:00 Test Item Value Reference Range Interpretation Comments APTT Patient (test See_Comment [Automat ed code = 3173-2) message] The system which generated this result transmitted reference range : 23 - 38 Seconds . The reference range was not used to interpr et this result as normal/abnormal . JEFF (test code = JEFF) The [facility] patient population mean normal value for aPTT is 30 seconds. Lab Interpretation Normal (test code = 17532-3) [facility] HospitalCOMP. METABOLIC PANEL (54204)2019-06-28 17:34:00 Test Item Value Reference Range Interpretation Comments NA (test code = 142 mmol/L 135-145 1789075330) K (test code = 4.1 mmol/L 3.5-5 1677589610) CL (test code = 106 mmol/L 98-108 5246405626) CO2 TOTAL (test code = 26 mmol/L 23-31 3783588605) AGAP (test code = 2-16 1188159493) BUN (test code = 13 mg/dL 7-23 6107601960) GLUCOSE (test code = 103 mg/dL 70-110 0335471896) CREATININE (test code = 0.84 mg/dL 0.5-1.04 3906958538) TOTAL BILI (test code = 0.3 mg/dL 0.1-1.9 8351954083) CALCIUM (test code = 9.3 mg/dL 8.6-10.6 8622590941) T PROTEIN (test code = 7.2 g/dL 6.3-8.2 9122498444) ALBUMIN (test code = 4.6 g/dL 3.5-5 9239272120) ALK PHOS (test code = 61 U/L 34-122 4781141055) ALTv (test code = 57 U/L 5-35 H 1742-6) AST(SGOT) (test code = 28 U/L 13-40 5374216330) eGFR Calculation mL/min/1.73m2 (Non-) (test code = 1962895502) eGFR Calculation mL/min/1.73m2 () (test code = 9331473663) JEFF (test code = JEFF) Association of [...] tests). Lab Interpretation Abnormal (test code = 34087-3) [facility]ASE2020-02-[facility] 17:33:00 Test Item Value Reference Range Interpretation Comments LIPASE (test code = 8862396217) 96 U/L 0-220 Lab Interpretation (test code = Normal 07250-6) [facility] HospitalCB WITH [id number] 17:22:00 Test Item Value Reference Range Interpretation [...] RDW-SD (test code = 42.4 fL 39-49.9 75705-4) RDW-CV (test code = 13.0 % 12-15.5 788-0) PLT (test code = See_Comment [Automated 777-3) message] The sy stem which generated this result transmitted reference range : 166 - 358 10*3/ ?L. The reference r faisal was not used to interpret this result as normal/abnormal . MPV (test code = 9.7 fL 9.5-12.9 05808-5) NRBC/100 WBC (test See_Comment [Automat ed code = 3202687281) message] The system which generated this result transmitted reference range : 0.0 - 10.0 /100 WBCs. The refer ence range was not u sed to interpret th is result as normal/abnormal . NRBC x10^3 (test code <0.01 See_Comment [Auto mated = 3190559323) message] The s ystem which generated this result transmitted reference range : 10*3/?L. The reference range was not used to interpret this result as normal/abnormal . GRAN MAT (NEUT) % 70.9 % (test code = 770-8) IMM GRAN % (test code 0.40 % = 6647841239) LYMPH % (test code = 22.9 % 736-9) MONO % (test code = 4.2 % 5905-5) EOS % (test code = 0.7 % 713-8) BASO % (test code = 0.9 % 706-2) GRAN MAT x10^3(ANC) 3.18 10*3/uL 1.88-7.09 (test code = 5305830573) IMM GRAN x10^3 (test <0.03 0-0.06 code = 1057299196) LYMPH x10^3 (test code 1.03 10*3/uL 1.32-3.29 L = 731-0) MONO x10^3 (test code 0.19 10*3/uL 0.33-0.92 L = 742-7) EOS x10^3 (test code = 0.03 10*3/uL 0.03-0.39 711-2) BASO x10^3 (test code 0.04 10*3/uL 0.01-0.07 = 704-7) Lab Interpretation Abnormal (test code = 21077-4) [facility] [id number] 16:54:00 Test Item Value Reference Range Interpretation Comments POCT PREG (test code = 1605) negative On board controls acceptable with C present Line (test code = 3574) Lab Interpretation (test code = Normal 43846-0) [facility] URINALYSIS W SPECIFIC [id number] 19:39:00 Test Item Value Reference Range Interpretation [...] 3267) Lab Interpretation (test code Abnormal = 29172-0) [facility] HospitalPO[facility] URINALYS[facility] W SPECIFIC [id number] 19:39:00 Test Item Value Reference Range Interpretation [...] 3267) Lab Interpretation (test code Abnormal = 39503-8) [facility]- XR ABDOMEN 1V (KUB)2019-01-02 20:07:00 FAX: Maren Wilkinson NP [phone] [place]: MANINDER St: REG Name: MIKHAIL OSORIO [facility] Vel [place]era : 1995 Age/S: 23/F [address] [place] [address] Unit #: [id number] Loc: [place] [address] Phys: Maren Wilkinson NP Acct: [id number] Dis Date: Status: REG ER PHONE #: [phone] Exam Date: 01/02/20192003 FAX #: [phone] Reason: Abdominal Pain EXAMS: CPT CODE: [id number] XR ABDOMEN 1V (KUB) 40966 ABDOMEN SINGLE VIEW HISTORY: Abdominal pain. COMPARISON: CT abdomen dated 04/05/16 FINDINGS: There are no dilated small bowel loops or small bowel air-fluid levels. There is moderate formed fecal material in the ascending colon. There is no gross free intraperitoneal air. No abnormal calcifications identified.The lung bases are clear. IMPRESSION: 1. Nonspecific/unobstructed abdominal bowel gas pattern. 2. Moderate formed fecal material in ascending colon, consistent with constipation. SL:01 at 2006 Reported and signed by: Chace Rojas M.D. CC: Maren Wilkinson NP Technologist: RT Manuel(Aminta) Trnscrd Date/Time/By: 01/02/2019 (2006) : By: Quang Orig Print D/T: S: 01/02/2019 (2010) PAGE 1 Signed Report- US TRANSVAGINAL NON [id number] 19:50:00 Name: MIKHAIL OSORIO [facility] Vel Ribera : 1995 Age/S: 23 / F [address] [place] [address] Unit #: [id number] Loc: [place] [address] Phys: Phuc Espinal MD Acct: [id number] Dis Date: Status: REG ER PHONE #: [phone] Exam Date: 01/02/2019 193 FAX #: [phone] Reason: PAIN EXAMS: CPT CODE: [id number] [place] [address] PELVIC ULTRASOUND HISTORY: Pelvic pain. Comparison made [...] fluid. The left ovary measures 2.8 x 1.9x 1.7 cm, the right ovary measures 2.8 [...] Jaycee Harry RDMS(OB)(AB) Trnscb Date/Time: 01/02/2019 (1949) [email or web address] Orig Print D/T: S: 01/02/2019 (1952) Probe: [id number] PAGE 1 Signed Report- DUP AB/PEL/SC/[id number] 19:50:00 Name: MIKHAIL OSORIO [facility] : 1995 Age/S: 23 / F [address] [place] [address] Bl Unit #: [id number] Loc: [place] [address] Phys: Phuc Espinal MD Acct: [id number] Dis Date: Status: REG ER PHONE #: [phone] Exam Date: 01/02/20191931 FAX #: [phone] Reason: PAIN EXAMS: CPT CODE: [id number] DUP AB/PEL/SC/LTD 40769 PELVIC ULTRASOUND HISTORY: Pelvic pain. Comparison made [...] cm. Both ovaries have a normal sonographic appearance.Complex 15 mm cystic structure at the right [...] Phuc Espinal MD Technologist: Jaycee Harry RDMS(OB)(AB) Trnsdb Date/Time: 01/02/2019 (1949) Quang Orig Print D/T: S: 01/02/2019 (1952) Probe: PAGE 1 Signed Report- US PELVIS [id number] 19:50:00 Name: MIKHAIL OSORIO [facility] : 1995 Age/S: 23 / F [address] [place] [address] Blvd Unit #: [id number] Loc: [place] [address] Phys: Maren Wilkinson NP Acct: [id number] Dis Date: Status: REG ER PHONE #: [phone] Exam Date: 01/02/20191931 FAX #: [phone] Reason: Pelvic Pain EXAMS: CPT CODE: [id number] US PELVIS COMPLETE 95711 PELVIC ULTRASOUND HISTORY: Pelvic pain. Comparison made [...] right ovary likely represents a hemorrhagic cyst. Thereis documented arterial flow to the right and [...] (1952) Probe: PAGE 1 Signed ReportBASIC METABOLIC [id number] 19:24:00 Test Item Value Reference Range Interpretation [...] 9.1 mg/dL 8.0-10.5 N CA) HEPATIC FUNCTION [id number] 19:24:00 Test Item Value Reference Range Interpretation [...] 65 IUnit/L 20-125 N code = ALKP) [id number] 19:24:00 Test Item Value Reference Range Interpretation Comments LIPASE (test code = LIP) 156 IUnit/L 73-393 N HCG SERUM [id number] 19:24:00 Test Item Value Reference Range Interpretation Comments HCG SERUM QUAL (test code = SERUM NEGATIVE NEGATIVE HCGQL) BASIC METABOLIC [id number] 19:21:00 Test Item Value Reference Range Interpretation [...] 9.1 mg/dL 8.0-10.5 N CA) HEPATIC FUNCTION [id number] 19:21:00 Test Item Value Reference Range Interpretation [...] TOTAL (test IUnit/L 20-125 code = ALKP) [id number] 19:21:00 Test Item Value Reference Range Interpretation Comments LIPASE (test code = LIP) 156 IUnit/L 73-393 N HCG SERUM [id number] 19:21:00 Test Item Value Reference Range Interpretation Comments HCG SERUM QUAL (test code = SERUM NEGATIVE NEGATIVE HCGQL) URINALYSIS [id number] 19:17:00 Test Item Value Reference Range Interpretation [...] /LPF NONE SEEN COMMENTS: Clean CatchBASIC METABOLIC [id number] 19:14:00 Test Item Value Reference Range Interpretation [...] code = CA) mg/dL 8.0-10.5 HEPATIC FUNCTION [id number] 19:14:00 Test Item Value Reference Range Interpretation Comments TOTAL PROTEIN (test code = PROT) g/dL 6.4-8.2 ALBUMIN (test code = ALB) g/dL 3.4-5.0 BILIRUBIN TOTAL (test code = BILT) mg/dL 0.0-1.0 BILIRUBIN DIRECT (test code = BILD) MG/DL 0.0-0.30 SGOT/AST (test code = AST) IUnit/L 15-37 SGPT/ALT (test code = ALT) IUnit/L 15-65 ALKALINE PHOSPHATASE TOTAL (test IUnit/L 20-125 code = ALKP) [id number] 19:14:00 Test Item Value Reference Range Interpretation Comments LIPASE (test code = LIP) IUnit/L 73-393 HCG SERUM [id number] 19:14:00 Test Item Value Reference Range Interpretation Comments HCG SERUM QUAL (test code = SERUM NEGATIVE NEGATIVE HCGQL) CBC W/AUTO [id number] 19:07:00 Test Item Value Reference Range Interpretation [...] NO = MDIFF) CT ABDOMEN PELVIS W [id number] 03:57:54 Right buttock soft tissue stranding with [...] lower abdomen/pelvic structures arelimited secondary to patient's motion.IKayy MD., have reviewed this study and agree with theabove report.[facility] Somail6787-32-05 01:49:11 No acute or pulmonary abnormality. Nonobstructive [...] acute or pulmonary abnormality. Nonobstructive bowel gas pattern.[facility] Metabolic Panel (NA, K, CL, CO2, GLUCOSE, BUN, CREATININE, CA)2018-12-22 01:14:00 Test Item Value Reference Range Interpretation Comments NA (test code = 143 mmol/L 135-145 3433303387) K (test code = 4.5 mmol/L 3.5-5 Slight hemoly sis 7515373198) CL (test code = 107 mmol/L 98-108 2832386484) CO2 TOTAL (test 26 mmol/L 23-31 code = 0578362261) AGAP (test code = 2-16 3274379887) BUN (test code = 14 mg/dL 7-23 Slight hemo lysis 3296806455) GLUCOSE (test code 88 mg/dL 70-110 = 4885773351) CREATININE (test 0.92 mg/dL 0.5-1.04 code = 2723536627) CALCIUM (test code 9.5 mg/dL 8.6-10.6 = 3557336998) eGFR Calculation mL/min/1.73m2 (Non-) (test code = 9925077856) eGFR Calculation mL/min/1.73m2 () (test code = 7357882572) JEFF (test code = Association of JEFF) Glomerular Filtration Rate (GFR) and Staging of [...] or urine or abnormalities in imaging tests). [facility] (ALB, T.PRO, BILI T, BU/BC, ALT, AST, ALK PHOS)2018-12-22 01:14:00 Test Item Value Reference Range Interpretation Comments TOTAL BILI (test code = 4392764505) 0.6 mg/dL 0.1-1.1 BILI UNCON (test code = 5498846854) 0.3 mg/dL 0.1-1.1 BILI CONJ (test code = 5309010406) 0.0 mg/dL 0-0.3 T PROTEIN (test code = 6081742459) 7.8 g/dL 6.3-8.2 ALBUMIN (test code = 4673674364) 4.7 g/dL 3.5-5 ALK PHOS (test code = 4641123853) 49 U/L 34-122 ALT(SGPT) (test code = 3303428865) 30 U/L 9-51 AST(SGOT) (test code = 4913370408) 26 U/L 13-40 Lab Interpretation (test code = Normal 61029-3) [facility] HospitalLipase [id number] 01:14:00 Test Item Value Reference Range Interpretation Comments LIPASE (test code = 8906668714) 110 U/L 0-220 Lab Interpretation (test code = Normal 44061-9) [facility] Hospital[facility]inalysis2019-[facility] 01:13:00 Test Item Value Reference Range Interpretation Comments APPEARANCE (test code = Hazy Clear A 5835869138) COLOR (test code = Yellow Yellow 7233126695) PH (test code = 4.8-8.0 5074924163) SP GRAVITY (test code = 1.003-1.030 7641370796) GLU U QUAL (test code = Normal Normal 6632141939) BLOOD (test code = Negative Negative INTERFERE NCE FROM 8252067073) ASCORBIC ACID M AY CAUSE FALSE NEG ATIVE RESULT KETONES (test code = Negative Negative 9489964558) PROTEIN (test code = Negative Negative 2887-8) UROBILIN (test code = Normal Normal 1298109169) BILIRUBIN (test code = Negative Negative 6735272368) NITRITE (test code = Negative Negative 9314761001) LEUK NOÉ (test code = Negative Negative 8904427833) RBC/HPF (test code = See_Comment H [Autom ated message] 2919912883) The system [employer] generated this result transmitted ref erence range: 0 - 3 HP F. The reference range was not used to int erpret this result as normal/abnormal . WBC/HPF (test code = See_Comment [Autom ated message] 0773803532) The system [employer] generated this result transmitted ref erence range: 0 - 5 HP F. The reference range was not used to int erpret this result as normal/abnormal . BACTERIA (test code = Negative Negative 3085509271) MUCOUS (test code = Slight Negative LPF A 2301191492) SQ EPITH (test code = See_Comment H [Auto mated message] 3306313018) The system [employer] generated this result transmitted ref erence range: <=2 HPF. The reference range was not used to int erpret this result as normal/abnormal . Lab Interpretation (test Abnormal code = 48203-1) [facility] WITH [id number] 01:04:00 Test Item Value Reference Range Interpretation Comments WBC (test code = See_Comment [Automated 2590-2) message] The sy stem which generated this result transmitted reference range : 4.30 - 11.10 10*3/?L. The reference range was not used to interpret this result as normal/abnormal . RBC (test code = See_Comment [Automated 099-8) message] The sy stem which generated this [...] RDW-SD (test code = 44.0 fL 39-49.9 59426-6) RDW-CV (test code = 13.5 % 12-15.5 788-0) PLT (test code = See_Comment [Automated 777-3) message] The sy stem which generated this result transmitted reference range : 166 - 358 10*3/ ?L. The reference r faisal was not used to interpret this result as normal/abnormal . MPV (test code = 9.4 fL 9.5-12.9 L 97458-7) NRBC/100 WBC (test See_Comment [Automat ed code = 4339496145) message] The system which generated this result transmitted reference range : 0.0 - 10.0 /100 WBCs. The refer ence range was not u sed to interpret th is result as normal/abnormal . NRBC x10^3 (test code <0.01 See_Comment [Auto mated = 8949292713) message] The s ystem which generated this result transmitted reference range : 10*3/?L. The reference range was not used to interpret this result as normal/abnormal . GRAN MAT (NEUT) % 81.7 % (test code = 770-8) IMM GRAN % (test code 0.30 % = 8041112768) LYMPH % (test code = 14.9 % 736-9) MONO % (test code = 2.8 % 5905-5) EOS % (test code = 0.1 % 713-8) BASO % (test code = 0.2 % 706-2) GRAN MAT x10^3(ANC) 7.04 10*3/uL 1.88-7.09 (test code = 3707999406) IMM GRAN x10^3 (test 0.03 10*3/uL 0-0.06 code = 4158683493) LYMPH x10^3 (test code 1.29 10*3/uL 1.32-3.29 L = 731-0) MONO x10^3 (test code 0.24 10*3/uL 0.33-0.92 L = 742-7) EOS x10^3 (test code = <0.03 0.03-0.39 L 711-2) BASO x10^3 (test code <0.03 0.01-0.07 = 704-7) Lab Interpretation Abnormal (test code = 98403-9) [facility]PO[facility], [id number] 00:50:00 Test Item Value Reference Range Interpretation Comments POCT PREG (test code = 1605) Negative On board controls acceptable with C Yes Line (test code = 3574) POCT PREG LOT # (test code = 3575) POCT PREG TEST DATE (test code = 3576) Lab Interpretation (test code = Normal 25919-9) [facility] AND [id number] 16:08:00 Test Item Value Reference Range Interpretation Comments UA WBC (test code = UA WBC) 21-50 /HPF [facility] AND [id number] 16:08:00 Test Item Value Reference Range Interpretation Comments UA RBC (test code = 0-2 /HPF See_Comment [Automa jaya message] The UA RBC) system which ge nerated this result tra nsmitted reference range : <=2. The reference range was not used to interpr et this result as sterling l/abnormal. [facility] [id number] 16:08:00 Test Item Value Reference Range Interpretation Comments UA Bacteria (test code = UA Occasional /HPF Bacteria) [facility] [id number] 16:08:00 Test Item Value Reference Range Interpretation Comments UA Mucus (test code = UA Mucus) Rare /[facility]F [facility] [id number] 16:08:00 Test Item Value Reference Range Interpretation Comments U Preg (test code = U Negative (06/03/16 10:08 Preg) AM) [facility] AND [id number] 16:08:00 Test Item Value Reference Range Interpretation Comments UA Leuk Est (test code Trace *ABN*(06/03/16 = UA Leuk Est) 10:08 AM) [facility] AND [id number] 16:08:00 Test Item Value Reference Range Interpretation Comments UA Urobilinogen (test code = UA 0.2 0.1-1.0 Urobilinogen) [facility] AND [id number] 16:08:00 Test Item Value Reference Range Interpretation Comments UA Nitrite (test code Negative (06/03/16 10:08 = UA Nitrite) AM) [facility] AND [id number] 16:08:00 Test Item Value Reference Range Interpretation Comments UA Bili (test code = Negative *NA*(06/03/16 UA Bili) 10:08 AM) [facility] AND [id number] 16:08:00 Test Item Value Reference Range Interpretation Comments UA Blood (test code = Negative (06/03/16 10:08 UA Blood) AM) [facility] AND [id number] 16:08:00 Test Item Value Reference Range Interpretation Comments UA Ketones (test code Negative *NA*(06/03/16 = UA Ketones) 10:08 AM) [facility] AND [id number] 16:08:00 Test Item Value Reference Range Interpretation Comments UA Spec Grav (test code = UA Spec 1.015 1 Grav) [facility] AND [id number] 16:08:00 Test Item Value Reference Range Interpretation Comments UA pH (test code = UA pH) 7.0 1 5.0-8.0 [facility] AND [id number] 16:08:00 Test Item Value Reference Range Interpretation Comments UA Turbidity (test code = Clear (06/03/16 10:08 UA Turbidity) AM) [facility] AND [id number] 16:08:00 Test Item Value Reference Range Interpretation Comments UA Color (test code = Yellow *NA*(06/03/16 UA Color) 10:08 AM) [facility] AND [id number] 16:08:00 Test Item Value Reference Range Interpretation Comments UA Glucose (test code Negative (06/03/16 10:08 = UA Glucose) AM) [facility] AND [id number] 16:08:00 Test Item Value Reference Range Interpretation Comments UA Protein (test code Negative (06/03/16 10:08 = UA Protein) AM) [facility] AND [id number] 16:08:00 Test Item Value Reference Range Interpretation Comments UA Sq Epi (test code = UA Sq Occasional /LPF Epi) [facility] [id number] 16:08:00 Test Item Value Reference Range Interpretation Comments UA WBC (test code = UA WBC) 21-50 /HPF [facility] [id number] 16:08:00 Test Item Value Reference Range Interpretation Comments UA RBC (test code = 0-2 /HPF See_Comment [Automa jaya message] The UA RBC) system which ge nerated this result tra nsmitted reference range : <=2. The reference range was not used to interpr et this result as sterling l/abnormal. [facility] [id number] 16:08:00 Test Item Value Reference Range Interpretation Comments UA Bacteria (test code = UA Occasional /HPF Bacteria) [facility] [id number] 16:08:00 Test Item Value Reference Range Interpretation Comments UA Mucus (test code = UA Mucus) Rare /LPF [facility] [id number] 16:08:00 Test Item Value Reference Range Interpretation Comments U Preg (test code = U Negative (06/03/16 10:08 Preg) AM) [facility] AND [id number] 16:08:00 Test Item Value Reference Range Interpretation Comments UA Leuk Est (test code Trace *ABN*(06/03/16 = UA Leuk Est) 10:08 AM) [facility] [id number] 16:08:00 Test Item Value Reference Range Interpretation Comments UA Urobilinogen (test code = UA 0.2 0.1-1.0 Urobilinogen) [facility] [id number] 16:08:00 Test Item Value Reference Range Interpretation Comments UA Nitrite (test code Negative (06/03/16 10:08 = UA Nitrite) AM) [facility] [id number] 16:08:00 Test Item Value Reference Range Interpretation Comments UA Bili (test code = Negative *NA*(06/03/16 UA Bili) 10:08 AM) [facility] [id number] 16:08:00 Test Item Value Reference Range Interpretation Comments UA Blood (test code = Negative (06/03/16 10:08 UA Blood) AM) [facility] [id number] 16:08:00 Test Item Value Reference Range Interpretation Comments UA Ketones (test code Negative *NA*(06/03/16 = UA Ketones) 10:08 AM) [facility] AND [id number] 16:08:00 Test Item Value Reference Range Interpretation Comments UA Spec Grav (test code = UA Spec 1.015 1 Grav) [facility] AND [id number] 16:08:00 Test Item Value Reference Range Interpretation Comments UA pH (test code = UA pH) 7.0 1 5.0-8.0 [facility] AND [id number] 16:08:00 Test Item Value Reference Range Interpretation Comments UA Turbidity (test code = Clear (06/03/16 10:08 UA Turbidity) AM) [facility] AND [id number] 16:08:00 Test Item Value Reference Range Interpretation Comments UA Color (test code = Yellow *NA*(06/03/16 UA Color) 10:08 AM) [facility] AND [id number] 16:08:00 Test Item Value Reference Range Interpretation Comments UA Glucose (test code Negative (06/03/16 10:08 = UA Glucose) AM) [facility] AND [id number] 16:08:00 Test Item Value Reference Range Interpretation Comments UA Protein (test code Negative (06/03/16 10:08 = UA Protein) AM) [facility] AND [id number] 16:08:00 Test Item Value Reference Range Interpretation Comments UA Sq Epi (test code = UA Sq Occasional /LPF Epi) [facility]2017-01-15 14:53:56 Test Item Value Reference Range Interpretation Comments Lipase Lvl (test code = Lipase Lvl) 118 73-393 [facility]2017-01-15 14:53:56 Test Item Value Reference Range Interpretation Comments Lactic Acid WB (test code = Lactic Acid 0.9 0.5-2.2 WB) [facility]2017-01-15 14:53:56 Test Item Value Reference Range Interpretation Comments A/G Ratio (test code = A/G Ratio) 1.0 0.7-1.6 [facility]2017-01-15 14:53:56 Test Item Value Reference Range Interpretation Comments Globulin (test code = Globulin) 3.3 2.7-4.2 [place] [id number] 14:53:56 Test Item Value Reference Range Interpretation Comments Albumin Lvl (test code = Albumin Lvl) 3.2 3.5-5.0 [facility]2017-01-15 14:53:56 Test Item Value Reference Range Interpretation Comments Total Protein (test code = Total 6.5 6.4-8.4 Protein) [place] [id number] 14:53:56 Test Item Value Reference Range Interpretation Comments AST (test code = AST) 10 See_Comment [Auto mated message] The system which ge nerated this result transmit jaya reference range : <=37. The reference range was not used to interpr et this result as sterling l/abnormal. [facility]2017-01-15 14:53:56 Test Item Value Reference Range Interpretation Comments Alk Phos (test code = Alk Phos) 91 39-136 [facility]2017-01-15 14:53:56 Test Item Value Reference Range Interpretation Comments Bili Total (test code = Bili Total) 0.1 0.2-1.3 [facility]2017-01-15 14:53:56 Test Item Value Reference Range Interpretation Comments ALT (test code = ALT) 18 See_Comment [Auto mated message] The system which ge nerated this result transmit jaya reference range : <=65. The reference range was not used to interpr et this result as sterling l/abnormal. [facility]2017-01-15 14:53:56 Test Item Value Reference Range Interpretation Comments Bili Direct (test code 0.0 See_Comment [Aut omated message] The = [employer] Direct) system which generated this result tra nsmitted reference range : <=0.3. The reference r faisal was not used to int erpret this result as sterling l/abnormal. [facility]2017-01-15 14:53:56 Test Item Value Reference Range Interpretation Comments Bili Indirect (test 0.1 See_Comment [Automa jaya message] The code = Bili Indirect) system which generated this result tra nsmitted reference range : <=1.0. The reference r faisal was not used to int erpret this result as normal/abnormal . [facility]IpwamzcCKUBDHUOOJML8573-69-63 14:53:56 Test Item Value Reference Range Interpretation Comments AGAP (test code = AGAP) 16.2 10.0-20.0 [facility] InstituteDsnkddcYAXIKOMQHXBF1903-85-66 14:53:56 Test Item Value Reference Range Interpretation Comments Calcium Lvl (test code = Calcium Lvl) 8.4 8.5-10.5 [facility] InstituteIknylzeGFROMFGYSWMH3998-00-99 14:53:56 Test Item Value Reference Range Interpretation Comments Chloride Lvl (test code = Chloride Lvl) 105 95-109 [facility] InstituteYghuvcfPOYBYNGRGSEY9126-82-89 14:53:56 Test Item Value Reference Range Interpretation Comments CO2 (test code = CO2) 26 24-32 [facility] InstituteTdmqvtfUSBGUBDKNQYA0791-41-83 14:53:56 Test Item Value Reference Range Interpretation Comments Potassium Lvl (test code = Potassium 4.2 3.5-5.1 Lvl) [facility] InstituteLcmaphmYDFQDCZBSRLX1706-34-05 14:53:56 Test Item Value Reference Range Interpretation Comments Sodium Lvl (test code = Sodium Lvl) 143 135-145 [facility] InstituteFfmjnbjFOPLDEINEEQB5689-99-89 14:53:56 Test Item Value Reference Range Interpretation Comments BUN (test code = BUN) 14 7-22 [facility] InstituteZpmxbdjVQHYYSYBLWQI6968-39-70 14:53:56 Test Item Value Reference Range Interpretation Comments Creatinine Lvl (test code = Creatinine 0.96 0.50-1.40 Lvl) [facility] InstituteShawnsgSKEORGDZSVGK3368-55-49 14:53:56 Test Item Value Reference Range Interpretation Comments Glucose Lvl (test code = Glucose Lvl) 92 70-99 [facility] InstituteAbqnzqsFMVIPPZOGNHT4100-52-57 14:53:56 Test Item Value Reference Range Interpretation Comments eGFR (test code = eGFR) 87 [facility] HospitalAbzpkslYKRTZSCFRB9837-16-98 14:53:56 Test Item Value Reference Range Interpretation Comments Platelet (test code = Platelet) 233 133-450 [facility] HospitalUnmspgpGOLDGFICLH5721-78-54 14:53:56 Test Item Value Reference Range Interpretation Comments MPV (test code = MPV) 7.3 7.4-10.4 [facility] HospitalXgstkkpJLJIMRAZMH2272-10-53 14:53:56 Test Item Value Reference Range Interpretation Comments Hct (test code = Hct) 32.5 36.0-48.0 [facility] HospitalAvplaxqAEZQFQJJFY8238-56-66 14:53:56 Test Item Value Reference Range Interpretation Comments MCH (test code = MCH) 26.0 pg 27.0-31.0 [facility] HospitalBmzbjffAFYJTYKRKL7444-82-52 14:53:56 Test Item Value Reference Range Interpretation Comments MCV (test code = MCV) 81.1 80.0-98.0 [facility] HospitalZxuydcoUEYGXQYDYL0934-90-54 14:53:56 Test Item Value Reference Range Interpretation Comments RDW (test code = RDW) 16.8 11.5-14.5 [facility] HospitalGtemmwxBROHGOMXJP0931-57-55 14:53:56 Test Item Value Reference Range Interpretation Comments MCHC (test code = MCHC) 32.1 32.0-36.0 [facility]2017-01-15 14:53:56 Test Item Value Reference Range Interpretation Comments Lipase Lvl (test code = Lipase Lvl) 118 73-393 [facility]2017-01-15 14:53:56 Test Item Value Reference Range Interpretation Comments Lactic Acid WB (test code = Lactic Acid 0.9 0.5-2.2 WB) [facility]2017-01-15 14:53:56 Test Item Value Reference Range Interpretation Comments A/G Ratio (test code = A/G Ratio) 1.0 0.7-1.6 [facility]2017-01-15 14:53:56 Test Item Value Reference Range Interpretation Comments Globulin (test code = Globulin) 3.3 2.7-4.2 [facility]2017-01-15 14:53:56 Test Item Value Reference Range Interpretation Comments Albumin Lvl (test code = Albumin Lvl) 3.2 3.5-5.0 [facility]2017-01-15 14:53:56 Test Item Value Reference Range Interpretation Comments Total Protein (test code = Total 6.5 6.4-8.4 Protein) [facility]2017-01-15 14:53:56 Test Item Value Reference Range Interpretation Comments AST (test code = AST) 10 See_Comment [Auto mated message] The system which ge nerated this result transmit jaya reference range : <=37. The reference range was not used to interpr et this result as sterling l/abnormal. [facility] HospitalHqpznkgBRXTFLUXPJ7274-34-32 14:53:56 Test Item Value Reference Range Interpretation Comments RBC (test code = RBC) 4.01 4.20-5.40 [facility]2017-01-15 14:53:56 Test Item Value Reference Range Interpretation Comments Alk Phos (test code = Alk Phos) 91 39-136 [facility]2017-01-15 14:53:56 Test Item Value Reference Range Interpretation Comments Bili Total (test code = Bili Total) 0.1 0.2-1.3 [facility]2017-01-15 14:53:56 Test Item Value Reference Range Interpretation Comments ALT (test code = ALT) 18 See_Comment [Auto mated message] The system which ge nerated this result transmit jaya reference range : <=65. The reference range was not used to interpr et this result as sterling l/abnormal. [facility]2017-01-15 14:53:56 Test Item Value Reference Range Interpretation Comments Bili Direct (test code 0.0 See_Comment [Aut omated message] The = B[employer] Direct) system which generated this result tra nsmitted reference range : <=0.3. The reference r faisal was not used to int erpret this result as sterling l/abnormal. [facility]2017-01-15 14:53:56 Test Item Value Reference Range Interpretation Comments Bili Indirect (test 0.1 See_Comment [Automa jaya message] The code = Bili Indirect) system which generated this result tra nsmitted reference range : <=1.0. The reference r faisal was not used to int erpret this result as normal/abnormal . [facility] InstituteWkvtbsnXGNVPOFHKAOQ0606-20-15 14:53:56 Test Item Value Reference Range Interpretation Comments AGAP (test code = AGAP) 16.2 10.0-20.0 [facility] InstituteFrvbttbVONZVWZIIADU6233-25-36 14:53:56 Test Item Value Reference Range Interpretation Comments Calcium Lvl (test code = Calcium Lvl) 8.4 8.5-10.5 [facility] InstituteCupgzlxTWDHMVLLCHVW1993-04-19 14:53:56 Test Item Value Reference Range Interpretation Comments Chloride Lvl (test code = Chloride Lvl) 105 95-109 [facility] InstituteUjtuzgkQGPRZSSKEUUM9145-52-11 14:53:56 Test Item Value Reference Range Interpretation Comments CO2 (test code = CO2) 26 24-32 [facility] InstituteNdyntqhAIBNGUGOSQHT1730-15-00 14:53:56 Test Item Value Reference Range Interpretation Comments Potassium Lvl (test code = Potassium 4.2 3.5-5.1 Lvl) [facility] HospitalIyptbaoZRTEQFWYDH1163-07-72 14:53:56 Test Item Value Reference Range Interpretation Comments Hgb (test code = Hgb) 10.4 12.0-16.0 [facility] InstituteSfwvxstCTVSSIACPWBF2749-04-84 14:53:56 Test Item Value Reference Range Interpretation Comments Sodium Lvl (test code = Sodium Lvl) 143 135-145 [facility] InstituteSdpdtkxRCVAZLKYUCXG2879-09-44 14:53:56 Test Item Value Reference Range Interpretation Comments BUN (test code = BUN) 14 7-22 [facility] InstituteMmuvjwdFGJBZWODLUEF8137-48-40 14:53:56 Test Item Value Reference Range Interpretation Comments Creatinine Lvl (test code = Creatinine 0.96 0.50-1.40 Lvl) [facility] InstituteDlhlzglGDLWONWVPOFF6018-26-66 14:53:56 Test Item Value Reference Range Interpretation Comments Glucose Lvl (test code = Glucose Lvl) 92 70-99 [facility] InstituteUwybcsxYEHMGINYKKLG8010-19-27 14:53:56 Test Item Value Reference Range Interpretation Comments eGFR (test code = eGFR) 87 [facility] HospitalEkqorkrIAMMKJDTTO9042-91-30 14:53:56 Test Item Value Reference Range Interpretation Comments Platelet (test code = Platelet) 233 133-450 [facility] HospitalZbwfaplIRJKKINOFX0366-36-57 14:53:56 Test Item Value Reference Range Interpretation Comments MPV (test code = MPV) 7.3 7.4-10.4 [facility] HospitalVqbempnYLQVPOHMTW3600-06-99 14:53:56 Test Item Value Reference Range Interpretation Comments Hct (test code = Hct) 32.5 36.0-48.0 [facility] HospitalFonwycoVRVODUPRFN1020-32-90 14:53:56 Test Item Value Reference Range Interpretation Comments MCH (test code = MCH) 26.0 pg 27.0-31.0 [facility] HospitalBdbbmawEQVUXYKKEQ9427-43-26 14:53:56 Test Item Value Reference Range Interpretation Comments MCV (test code = MCV) 81.1 80.0-98.0 [facility] HospitalQwhwrkiBWGEJMHVSR3034-42-94 14:53:56 Test Item Value Reference Range Interpretation Comments WBC (test code = WBC) 7.7 3.7-10.4 [facility] HospitalJomxmoeVARTKGORWP3481-74-37 14:53:56 Test Item Value Reference Range Interpretation Comments RDW (test code = RDW) 16.8 11.5-14.5 [facility] HospitalYscbugsDUQPSNGFBJ3142-78-67 14:53:56 Test Item Value Reference Range Interpretation Comments MCHC (test code = MCHC) 32.1 32.0-36.0 [facility] HospitalPyavotiVIJQCVGLTN9275-02-64 14:53:56 Test Item Value Reference Range Interpretation Comments RBC (test code = RBC) 4.01 4.20-5.40 [facility] HospitalIsdchhnPFEENEREMY5591-74-07 14:53:56 Test Item Value Reference Range Interpretation Comments Hgb (test code = Hgb) 10.4 12.0-16.0 [facility] [id number] 14:53:56 Test Item Value Reference Range Interpretation Comments WBC (test code = WBC) 7.7 3.7-10.4 [id number] 14:53:56 Test Item Value Reference Range Interpretation Comments Monocytes # (test code 0.5 See_Comment [Aut omated message] The = Monocytes #) system which generated this result tra nsmitted reference range : <=0.8. The reference r faisal was not used to int erpret this result as normal/abnormal . [facility] H[id number] 14:53:56 Test Item Value Reference Range Interpretation Comments Lymphocytes # (test code = Lymphocytes 1.5 1.0-5.5 #) [facility] H[id number] 14:53:56 Test Item Value Reference Range Interpretation Comments Segs-Bands # (test code = Segs-Bands #) 5.6 1.5-8.1 [facility] H[id number] 14:53:56 Test Item Value Reference Range Interpretation Comments Basophils (test code = 0.3 See_Comment [Aut omated message] The Basophils) system which ge nerated this result tra nsmitted reference range : <=1.0. The reference r faisal was not used to int erpret this result as normal/abnormal . [facility] H[id number] 14:53:56 Test Item Value Reference Range Interpretation Comments Eosinophils (test code = 1.1 See_Comment [A utomated message] The Eosinophils) system which ge nerated this result tra nsmitted reference range : <=4.0. The reference r faisal was not used to int erpret this result as normal/abnormal . [facility] H[id number] 14:53:56 Test Item Value Reference Range Interpretation Comments Monocytes # (test code 0.5 See_Comment [Aut omated message] The = Monocytes #) system which generated this result tra nsmitted reference range : <=0.8. The reference r faisal was not used to int erpret this result as normal/abnormal . [facility] H[id number] 14:53:56 Test Item Value Reference Range Interpretation Comments Segs (test code = Segs) 72.0 45.0-75.0 [facility] H[id number] 14:53:56 Test Item Value Reference Range Interpretation Comments Monocytes (test code = Monocytes) 7.1 2.0-12.0 [facility] H[id number] 14:53:56 Test Item Value Reference Range Interpretation Comments Lymphocytes (test code = Lymphocytes) 19.5 20.0-40.0 [facility] H[id number] 14:53:56 Test Item Value Reference Range Interpretation Comments Eosinophils # (test code 0.1 See_Comment [A utomated message] The = Eosinophils #) system [facility] generated this result tra nsmitted reference range : <=0.5. The reference r faisal was not used to int erpret this result as normal/abnormal . [facility] [id number] 14:53:56 Test Item Value Reference Range Interpretation Comments Lymphocytes # (test code = Lymphocytes 1.5 1.0-5.5 #) [facility] H[id number] 14:53:56 Test Item Value Reference Range Interpretation Comments Segs-Bands # (test code = Segs-Bands #) 5.6 1.5-8.1 [facility] [id number] 14:53:56 Test Item Value Reference Range Interpretation Comments Basophils (test code = 0.3 See_Comment [Aut omated message] The Basophils) system which ge nerated this result tra nsmitted reference range : <=1.0. The reference r faisal was not used to int erpret this result as normal/abnormal . [facility] H[id number] 14:53:56 Test Item Value Reference Range Interpretation Comments Eosinophils (test code = 1.1 See_Comment [A utomated message] The Eosinophils) system which ge nerated this result tra nsmitted reference range : <=4.0. The reference r faisal was not used to int erpret this result as normal/abnormal . [facility] H[id number] 14:53:56 Test Item Value Reference Range Interpretation Comments Segs (test code = Segs) 72.0 45.0-75.0 [facility] H[id number] 14:53:56 Test Item Value Reference Range Interpretation Comments Monocytes (test code = Monocytes) 7.1 2.0-12.0 [facility] [id number] 14:53:56 Test Item Value Reference Range Interpretation Comments Lymphocytes (test code = Lymphocytes) 19.5 20.0-40.[address] [facility] H[id number] 14:53:56 Test Item Value Reference Range Interpretation Comments Eosinophils # (test code 0.1 See_Comment [A utomated message] The = Eosinophils #) system [facility] h generated this result tra nsmitted reference range : <=0.5. The reference r faisal was not used to int erpret this result as normal/abnormal . [facility]
[2022-03-03] MEDS ORDERED: NA CHLORIDE 0.9% 1,000 ML ONE (20:43)
[2022-03-03] MEDS ORDERED: ONDANSETRON 4 MG/2 ML VIAL ONE ×2 (20:43→21:53)
[2022-03-03] MEDS ORDERED: FAMOTIDINE 20 MG/2 ML VIAL IV ONE (20:43)
[2022-03-03 21:19] LABS: Absolute Lymphocytes (CBC) 2.1 K/uL (0.7-4.9); Hematocrit 37.7 % (36.0-45.0); Lymphocytes % 28.9 % (15.3-44.8); MCV 87.3 fL (80-100); MPV 7.3 fL (7.6-11.3); RBC Red Blood Cell Count 4.32 M/uL (3.86-4.86)
[2022-03-03 21:22] LABS: Urine Blood Negative (Negative); Urine Glucose Negative (Negative); Urine Protein Negative (Negative); Urine Specific Gravity 1.025 (1.005-1.030); Urine pH 6.5 (5.0-7.0)
[2022-03-03 21:33] LABS: Albumin 4.2 g/dL (3.4-5.0); Bilirubin Total 0.2 mg/dL (0.2-1.0); Potassium 3.9 mmol/L (3.5-5.1); Protein, Total 7.3 g/dL (6.4-8.2)
[2022-03-03] MEDS ORDERED: MORPHINE 4 MG/ML SYR ONE (21:53)
--- NOTE | 2022-03-03 21:54 | RAD REPORT ---
EXAM DESCRIPTION: US - Abdomen Exam Limited - 03/03/2022 9:40 pm CLINICAL HISTORY: Abdominal pain. COMPARISON: None. FINDINGS: The gallbladder wall is not thickened. A gallstone is not seen. The biliary tree is normal caliber. IMPRESSION: Unremarkable gallbladder ultrasound.
--- NOTE | 2022-03-03 23:28 | RAD REPORT ---
EXAM DESCRIPTION: CT - Abdomen Pelvis W Contrast - 03/03/2022 11:15 pm CLINICAL HISTORY: Abdominal pain COMPARISON: January 2022 TECHNIQUE: Computed axial tomography of the abdomen pelvis was obtained. 100 cc Isovue-300 was admin istered intravenously. Oral contrast was not requested which limits evaluation of bowel and appendix All CT scans are performed using dose optimization technique as appropriate and may include automated exposure control or mA/KV adjustment according to patient size. FINDINGS: The liver, spleen, pancreas, adrenal and kidneys appear unremarkable. There is no evidence of diverticulitis. Normal appendix The small right ovarian cyst has resolved. IMPRESSION: No acute abnormality is displayed.
[2022-03-03] MEDS ORDERED: KETOROLAC 30 MG/ML INJ ONE (23:30)
[2022-03-03] MEDS ORDERED: PROMETHAZINE INJ 25 MG/ML AMP ONE (23:30)
[2022-03-04] MEDS ORDERED: PROMETHAZINE INJ 25 MG/ML AMP ONE (00:48)
--- NOTE | 2022-03-04 00:53 | ER ---
Nurse's Notes [facility] Name: Deyanira Baxter Age: 26 yrs Sex: Female : 1995 Arrival Date: 03/03/2022 Time: 20:17 Bed 20 Private MD: Diagnosis: Nausea with vomiting, unspecified-intractable;Upper abdominal pain, unspecified Presentation: 03/03 20:37 Chief complaint: Patient states: upper abd pain that started months ago and is getting hb worse. Coronavirus screen: Client presents with at least one sign or symptom that may indicate coronavirus-19. Standard/surgical mask placed on the client. Provider contacted for isolation considerations. Ebola Screen: No symptoms or risks identified at this time. Initial Sepsis Screen: Does the patient meet any 2 criteria? No. Patient's initial sepsis screen is negative. Does the patient have a suspected source of infection? No. Patient's initial sepsis screen is negative. Risk Assessment: Do you want to hurt yourself or someone else? Patient reports no desire to harm self or others. Onset of symptoms was March 03, 2022. 20:37 Method Of Arrival: Ambulatory hb 20:37 Acuity: DEEPAK 3 hb Historical: - Allergies: 20:39 Adhesives; hb 20:39 Reglan; hb - PMHx: 20:39 Anxiety; Bipolar disorder; CHF; GERD; Micardial infarction; hb - Immunization history:: Adult Immunizations up to date. Screenin/16 01:15 Abuse screen: Denies threats or abuse. Denies injuries from another. Nutritional ll3 screening: No deficits noted. Tuberculosis screening: No symptoms or risk factors identified. Fall Risk None identified. Assessment: 03/03 20:45 General: Appears in no apparent distress. uncomfortable, Behavior is calm, cooperative. ll3 Pain: Complains of pain in abdomen Pain does not radiate. Pain currently is 8 out of 10 on a pain scale. Quality of pain is described as crampy, Pain began 2-3 days ago. Is continuous. Neuro: Level of Consciousness is awake, alert, obeys commands, Oriented to person, place, time, situation. Cardiovascular: Reports since Indigestion Patient's skin is warm and dry. Respiratory: Respiratory effort is even, unlabored, Respiratory pattern is regular, symmetrical. Derm: Skin is pink, warm \T\ dry. 22:02 Reassessment: ERP notified, medicated as ordered. GI: Reports nausea, vomiting. ll3 22:51 Reassessment: Pt c/o abdominal pain 09/26, ERP notified. ll3 03/04 00:30 Reassessment: MICKIE José notified. GI: Reports nausea, vomiting. ll3 01:14 Reassessment: No changes from previously documented assessment. Patient and/or family ll3 updated on plan of care and expected duration. Pain level reassessed. Patient is alert, oriented x 3, equal unlabored respirations, skin warm/dry/pink. Vital Signs: 03/03 20:37 BP 149 / 87; Pulse 101; Resp 18; Temp 99.1; Pulse Ox 98% ; Weight 90.72 kg; Height 5 hb ft. 4 in. (162.56 cm); Pain 6/10; 22:09 BP 131 / 86; Pulse 74; Resp 17; Pulse Ox 100% on R/A; ll3 23:11 BP 136 / 87; Pulse 73; Resp 16; Pulse Ox 100% on R/A; ll3 03/04 01:14 BP 113 / 76; Pulse 78; Resp 17; Pulse Ox 100% on R/A; ll3 03/03 20:37 Body Mass Index 34.33 (90.72 kg, 162.56 cm) hb ED Course: 03/03 20:17 Patient arrived in ED. bp1 20:29 Carmen Glez F[facility]C [facility]. kb 20:29 Arnold Leyva DO is Attending Physician. kb 20:39 Triage completed. hb 20:39 Arm band placed on. hb 20:52 Initial lab(s) drawn, by ma, sent to lab. Inserted saline lock: 22 gauge in right ll3 antecubital area, using aseptic technique. Blood collected. 21:42 Abdomen Limited US In Process Unspecified. EDMS 22:08 Nelsy Card, NEELIMA is Primary Nurse. ll3 23:16 CT Abd/Pelvis - IV Contrast Only In Process Unspecified. EDMS 03/04 01:06 Pepe Ramon MD is Hospitalizing Provider. kb 01:15 Patient has correct armband on for positive identification. Bed in low position. Call ll3 light in reach. Side rails up X 1. Adult w/ patient. Pulse ox on. NIBP on. 01:15 No provider procedures requiring assistance completed. Patient maintains SpO2 ll3 saturation greater than 95% on room air. 02:23 Patient admitted, IV remains in place. ll3 Administered Medications: 03/03 20:55 Drug: NS 0.9% 1000 ml Route: IV; Rate: 1 bolus; Site: right antecubital; ll3 20:55 Drug: Pepcid (famotidine) 20 mg Route: IVP; Site: right antecubital; ll3 20:55 Drug: Zofran (Ondansetron) 4 mg Route: IVP; Site: right antecubital; ll3 21:59 Drug: morphine 4 mg Route: IVP; Infused Over: 4 mins; Site: right antecubital; ll3 21:59 Drug: Zofran (Ondansetron) 4 mg Route: IVP; Site: right antecubital; ll3 23:42 Drug: Ketorolac 15 mg Route: IVP; Site: right antecubital; ll3 23:43 Drug: Phenergan (promethazine) 12.5 mg Route: IVP; Site: right antecubital; ll3 03/04 00:53 Drug: Phenergan (promethazine) 12.5 mg Route: IVP; Site: right antecubital; ll3 01:01 Not Given (Patient Refused): Bentyl (dicyclomine) 20 mg PO once ll3 Medication: 01:15 VIS not applicable for this client. ll3 Outcome: 00:52 Discharge ordered by . juan 01:07 Decision to Hospitalize by Provider. kb 02:23 Admitted to Tele accompanied by nurse, via stretcher, with chart, Report called to sindi Flores RN 02:23 Condition: stable 02:23 Instructed on the need for admit, Demonstrated understanding of instructions. 02:43 Patient left the ED. 3 Signatures: Dispatcher [employer] EDCarmen Alba, VERA CORADO-Melinda Marie, RN NEELIMA Missy Angel Lynsea, RN RN ll3
--- NOTE | 2022-03-04 00:53 | EDPHYS ---
Physician Documentation [facility] Name: Deyanira Baxter Age: 26 yrs Sex: Female : 1995 Arrival Date: 03/03/2022 Time: 20:17 Bed 20 Private MD: ED Physician Arnold Leyva HPI: 03/04 00:49 This 26 yrs old Female presents to ER via Ambulatory with complaints of Chest Pain, kb Vomiting, Indigestion. 00:50 The patient presents with abdominal pain in the upper abdomen. kb 00:50 Onset: The symptoms/episode began/occurred today. The symptoms do not radiate. kb Associated signs and symptoms: Pertinent positives: nausea and vomiting. The symptoms are described as constant. Modifying factors: The symptoms are alleviated by nothing, the symptoms are aggravated by food. Severity of pain: At its worst the pain was moderate in the emergency department the pain is unchanged. The patient has experienced similar episodes in the past. The patient has not recently seen a physician. Pt reports upper abd pain that has been intermittent for months and got bad today after eating quesadilla with jalapenos. States the last time it flared up was after eating pizza. . Historical: - Allergies: 03/03 20:39 Adhesives; hb 20:39 Reglan; hb - PMHx: 20:39 Anxiety; Bipolar disorder; CHF; GERD; Micardial infarction; hb - Immunization history:: Adult Immunizations up to date. ROS: 03/04 00:42 Constitutional: Negative for fever, chills, and weight loss. kb Abdomen/GI: Positive for abdominal pain, nausea and vomiting. All other systems are negative. Exam: 00:42 Constitutional: This is a well developed, well nourished patient who is awake, alert, kb and in no acute distress. Head/Face: Normocephalic, atraumatic. ENT: Moist Mucous membranes Cardiovascular: Regular rate and rhythm with a normal S1 and S2. No gallops, murmurs, or rubs. No pulse deficits. Respiratory: Respirations even and unlabored. No increased work of breathing. Talking in full sentences Skin: Warm, dry with normal turgor. Normal color. MS/ Extremity: Pulses equal, no cyanosis. Neurovascular intact. Full, normal range of motion. Neuro: Awake and alert, GCS 15, oriented to person, place, time, and situation. Moves all extremities. Normal gait. Psych: Awake, alert, with orientation to person, place and time. Behavior, mood, and affect are within normal limits. 00:42 Abdomen/GI: Inspection: abdomen appears normal, Bowel sounds: normal, in all quadrants, Palpation: soft, in all quadrants, moderate abdominal tenderness, in the epigastric area, right upper quadrant and left upper quadrant. Vital Signs: 03/03 20:37 BP 149 / 87; Pulse 101; Resp 18; Temp 99.1; Pulse Ox 98% ; Weight 90.72 kg; Height 5 hb ft. 4 in. (162.56 cm); Pain 6/10; 22:09 BP 131 / 86; Pulse 74; Resp 17; Pulse Ox 100% on R/A; ll3 23:11 BP 136 / 87; Pulse 73; Resp 16; Pulse Ox 100% on R/A; ll3 03/04 01:14 BP 113 / 76; Pulse 78; Resp 17; Pulse Ox 100% on R/A; ll3 03/03 20:37 Body Mass Index 34.33 (90.72 kg, 162.56 cm) hb MDM: 03/03 20:39 Patient medically screened. kb 03/04 00:39 Data reviewed: vital signs, nurses notes. Data interpreted: Pulse oximetry: on room air kb is 100 %. Interpretation: normal. Counseling: I had a detailed discussion with the patient and/or guardian regarding: the historical points, exam findings, and any diagnostic results supporting the discharge/admit diagnosis, lab results, radiology results, the need for further work-up and treatment in the hospital. ED course: Pt unable to tolerate po intake after third dose of antiemetics. Will admit for intractable vomiting. . 00:47 ED course: Pt does not want to be admitted. States she is going to go home and can kb tolerate ice chips to start. Will gradually increase diet and will follow up with GI. Will return for worsening symptoms or other concerns.. 01:05 Physician consultation: Pepe Ramon MD was contacted at 01:06, regarding admission, to the medical/surgical unit. patient's condition, and will see patient in ED, shortly. ED course: Pt now decided to be admitted. . 03/03 20:39 Order name: CBC with Diff; Complete Time: 21:20 kb 03/03 20:39 Order name: CMP; Complete Time: 22:12 kb 03/03 20:39 Order name: Lipase; Complete Time: 22:12 kb 03/03 21:22 Order name: Urine Dipstick-Ancillary; Complete Time: 21:25 EDMS 03/03 23:40 Order name: UDS kb 03/04 00:31 Order name: SARS RAPID ll3 03/03 20:39 Order name: Abdomen Limited US; Complete Time: 22:12 kb 03/03 22:12 Order name: CT Abd/Pelvis - IV Contrast Only; Complete Time: 23:30 kb 03/03 20:39 Order name: IV Saline Lock; Complete Time: 20:52 kb 03/03 20:39 Order name: Labs collected and sent; Complete Time: 20:52 kb 03/03 20:39 Order name: Urine Dipstick-Ancillary (obtain specimen); Complete Time: 21:21 kb 03/03 20:39 Order name: Urine Test (obtain specimen); Complete Time: 21:21 kb 03/04 01:39 Order name: NPO EDMS Administered Medications: 03/03 20:55 Drug: NS 0.9% 1000 ml Route: IV; Rate: 1 bolus; Site: right antecubital; ll3 20:55 Drug: Pepcid (famotidine) 20 mg Route: IVP; Site: right antecubital; ll3 20:55 Drug: Zofran (Ondansetron) 4 mg Route: IVP; Site: right antecubital; ll3 21:59 Drug: morphine 4 mg Route: IVP; Infused Over: 4 mins; Site: right antecubital; ll3 21:59 Drug: Zofran (Ondansetron) 4 mg Route: IVP; Site: right antecubital; ll3 23:42 Drug: Ketorolac 15 mg Route: IVP; Site: right antecubital; ll3 23:43 Drug: Phenergan (promethazine) 12.5 mg Route: IVP; Site: right antecubital; ll3 03/04 00:53 Drug: Phenergan (promethazine) 12.5 mg Route: IVP; Site: right antecubital; ll3 01:01 Not Given (Patient Refused): Bentyl (dicyclomine) 20 mg PO once ll3 Disposition: 05:11 Co-signature as Attending Physician, Arnold Leyva DO I was immediately available onsite ms3 in the emergency department for consultation in the care of the patient. Disposition Summary: 03/04/22 01:07 Hospitalization Ordered Hospitalization Status: Observation kb Provider: Pepe Ramon Location: Telemetry/MedSurg (observation)(03/04/22 01:07) kb Condition: Stable(03/04/22 01:07) kb Problem: new kb Symptoms: are unchanged kb Bed/Room Type: Standard kb Room Assignment: 429(03/04/22 01:50) eb1 Diagnosis - Nausea with vomiting, unspecified - intractable(03/04/22 01:07) kb - Upper abdominal pain, unspecified(03/04/22 01:07) kb Forms: - Medication Reconciliation Form kb - SBAR form kb Signatures: Dispatcher [employer] EDCarmen Alba, MICKIE-C [employer]-Melinda Marie RN RN Vita Baldwin RN RN eb1 Arnold Leyva DO DO ms3 Nelsy Card RN RN ll3 Corrections: (The following items were deleted from the chart) 01:05 00:52 Home kb kb 01:05 00:52 Stable kb kb 01:05 00:52 Upper abdominal pain, unspecified kb kb 01:05 00:52 Nausea with vomiting, unspecified kb kb 01:50 01:07 kb eb1
[2022-03-04] MEDS ORDERED: DICYCLOMINE HCL 10 MG CAP ONE (00:55)
--- NOTE | 2022-03-04 01:35 | P.HP ---
Certification for Inpatient Patient admitted to: Observation With expected LOS: <2 Midnights Patient will require the following post-hospital care: None Practitioner: I am a practitioner with admitting privileges, knowledge of patient current condition, hospital course, and medical plan of care. Services: Services provided to patient in accordance with Admission requirements found in Title 42 Section 412.3 of the Code of Federal Regulations Patient History Date of Service: 03/04/22 Reason for admission: Intractable Nausea/Vomiting History of Present Illness: Ms. Deyanira Baxter is a 26 year old female who has a past medical history of bipolar disorder, irritable bowel syndrome, and anxiety who presents to the [facility] Emergency Department for abdominal pain, nausea, and vomiting. She reports that, over the last two months, she has had intermittent episodes of abdominal pain which appear to occur after eating (particularly with pizza or spaghetti). Yesterday, she developed progressively worsening abdominal pain, without any clear obvious inciting or alleviating factors. She reports that she woke up in the morning with mid-epigastric abdominal pain. She describes the pain as dull and non-radiating. She grades the pain a 4-4.5/10 in severity. She has tried taking acetaminophen, without alleviation of her symptoms. On review of systems, she denies any fevers, chills, headaches, dizziness, syncope, weakness, chest pain, palpitations, shortness of breath, wheezing, cough, hematemesis, diarrhea, constipation, hematochezia, melena, dysuria, hematuria, myalgia, or any other symptoms. She presented to the Emergency Department for further evaluation. Upon presentation, her vital signs were stable. Her laboratory studies were fairly unremarkable. Abdominal ultrasound revealed, "unremarkable gallbladder ultrasound." CT abdomen/pelvis revealed, "no acute abnormality is displayed." In the Emergency Department, she was given ondansetron, promethazine, ketorolac, morphine, famotidine, and 1 L Normal Saline. She was admitted to the General Internal Medicine service for further evaluation. Allergies adhesive tape Allergy (Verified 03/04/22 01:47) Hives/Rash metoclopramide [From Reglan] Allergy (Verified 03/04/22 01:47) Itching/Hives/Rash Home medications list reviewed: Yes Home Medications: Citalopram [Celexa] 20 mg PO DAILY 10/16/22 Clonidine HCl [Catapres*] 0.2 mg PO DAILY 6PM PRN 03/04/22 Dicyclomine [Bentyl] 20 mg PO TID PRN 03/04/22 Lurasidone HCl [Latuda] 40 mg PO DAILY 03/04/22 clonazePAM [Klonopin*] 0.5 mg PO BID PRN 03/04/22 - Past Medical/Surgical History -: Bipolar Disorder -: Anxiety -: GERD -: IBS - Family History Family History: Reviewed- Non-Contributory - Social History Smoking Status: Never smoker Alcohol use: No CD- Drugs: Yes Review of Systems General: Unremarkable Eyes: Unremarkable ENT: Unremarkable Respiratory: Unremarkable Cardiovascular: Unremarkable Gastrointestinal: Nausea, Vomiting, Abdominal Pain Genitourinary: Unremarkable Musculoskeletal: Unremarkable Integumentary: Unremarkable Neurological: Unremarkable Lymphatics: Unremarkable Physical Examination - Vital Signs Temperature: 99.1 F Blood Pressure: 136/87 Pulse: 73 Respirations: 16 Pulse Ox (%): 100 - Physical Exam General: Alert, In no apparent distress, Oriented x3 HEENT: Atraumatic, Mucous membr. moist/pink, EOMI, Sclerae nonicteric Neck: JVD not distended Respiratory: Clear to auscultation bilaterally, Normal air movement Cardiovascular: No edema, Regular rate/rhythm, Normal S1 S2, No gallops, No rubs, No murmurs Gastrointestinal: Normal bowel sounds, Soft and benign, Non-distended, No rebound, No guarding, Tenderness (midepigastric) Musculoskeletal: No clubbing Integumentary: No rashes Neurological: Normal speech, Cranial nerves 3-12 intact, Normal affect - Studies Laboratory Data (last 24 hrs) 03/03/22 21:00: Sodium 140, Potassium 3.9, BUN 19 H, Creatinine 1.00, Glucose 98, Total Bilirubin 0.2, AST 8 L, ALT 24, Alkaline Phosphatase 69, Lipase 203 03/03/22 21:00: WBC 7.40, Hgb 12.6, Hct 37.7, Plt Count 225 Assessment and Plan - Plan # Intractable Abdominal Pain, Nausea, Vomiting # Substance Use Disorder - Cannabinoids # Irritable Bowel Syndrome She endorses the use of cannabinoids, which certainly placed her at risk for cannabis hyperemesis syndrome. Other considerations include, but are not limited to, gastritis, gastroenteritis, gastroesophageal reflux disease, and peptic ulcer disease. Despite multiple rounds of medications, her symptoms have not improved in the ED. - Admit under observation status - Urine test, UDS pending - S/P 1 L NS in ED - Further fluids not given as she reports possible CHF requiring PO furosemide at home (although not in the list of medications she provided) - PRN ondansetron, morphine, dicyclomine - Place NPO - advance diet as tolerated - Cannabinoid cessation counseling provided # Bipolar Disorder # Anxiety - Continue home lurasidone, citalopram, PRN clonazepam Pepe Ramon M.D. Discharge Plan: Home Plan to discharge in: 24 Hours - Advance Directives Does patient have a Living Will: No Does patient have a Durable POA for Healthcare: No - Code Status/Comfort Care Code Status Assessed: Yes Code Status: Full Code
[2022-03-04 01:36] LABS: SARS-CoV-2 Antigen Rapid Res Negative (Negative)
[2022-03-04] MEDS ORDERED: HOME MED 1 EA UNK (Clonidine Hcl [Catapres*] 0.2 MG Tablet) PO PRN (01:50)
[2022-03-04] MEDS ORDERED: DICYCLOMINE HCL 10 MG CAP PO PRN (01:50)
[2022-03-04] MEDS ORDERED: MORPHINE 2 MG/ML SYR IV PRN (02:04)
[2022-03-04 02:40] VITALS: BMI 36.1
[2022-03-04] MEDS: ONDANSETRON 4 MG/2 ML VIAL IV PRN ×2 (02:56→09:35)
[2022-03-04 03:36] LABS: Specific Gravity > 1.030 (1.005-1.030)
[2022-03-04 03:51] LABS: Barbiturates NEGATIVE (NEGATIVE); Benzodiazepines POSITIVE (NEGATIVE); Cocaine NEGATIVE (NEGATIVE); METHAMPHETAM NEGATIVE (NEGATIVE); Methadone NEGATIVE (NEGATIVE); Opiates POSITIVE (NEGATIVE); Phencyclidine NEGATIVE (NEGATIVE); THC Cannibis POSITIVE (NEGATIVE)
[2022-03-04] MEDS ORDERED: Oxycodone HCl/Acetaminophen 1 TAB TAB PO ONE (08:18)
[2022-03-04] MEDS: Lurasidone Hcl [Latuda] 40 MG Tablet PO SCH (09:00)
[2022-03-04] MEDS: CITALOPRAM 10 MG TABLET PO SCH (09:00)
[2022-03-04] MEDS ORDERED: ENOXAPARIN 40 MG/0.4 ML SQ SCH (09:00)
[2022-03-04] MEDS: clonazePAM 0.5 MG TAB PO PRN (09:14)
[2022-03-04] MEDS: MORPHINE 2 MG/ML SYR IV PRN ×3 (09:34→22:42)
[2022-03-04] MEDS: PROMETHAZINE INJ 25 MG/ML AMP IV PRN ×2 (14:05→22:43)
[2022-03-04] MEDS: Ringers Lactate 1,000 ML IV SCH ×2 (16:13→22:42)
[2022-03-04] MEDS: ENSURE CLEAR 200 ML CAN PO SCH (21:00)
--- NOTE | 2022-03-04 23:07 | P.PN ---
Date of Service: 03/04/22 Informed by nursing staff and by Dr. Jackson mid morning that patient was unhappy with conversation / care by Dr. Jackson this morning and requesting a new physician. Reviewed HPI and PMH/PSH with patient. Multiple episodes of moderate-severe cramping RUQ/Epigastric pain after eating fatty/fried/highly processed/dairy foods. Despite this, patient continues to try eating these foods. Reports, every time eating these types of foods, she has these episodes. Also with waking in AM with sore throat at times, acid reflux. Has chronic intermittent nausea and vomiting, often symptoms beginning in the morning, and with these symptoms, only a very hot bath/shower seems to help. C-scope done when ~19yrs of age, no EGD, no prior workup of gallbladder, pancreas it seems. Over last ~1 year, reports significant weight loss. Teeth enamel has eroded, and recently (~1month ago) had multiple teeth pulled. Patient with nausea and epigastric/RUQ pain after eating potato soup this morning. symptoms appear to be multifactorial, possible biliary dysfunction, gastritis/GERD, cannabinoid hyperemesis syndrome, IBS Sips with ice chips, slowly advance diet to full liquids. HIDA scan - r/o biliary dyskinesia, sphincter of Oddi dysfunction DC home in ~1-2 days pending results counselled on smoking cessation patient seemingly became defensive when simply inquiring how much nicotine and marijuana she uses daily Expressed frustration with many healthcare professionals "blaming" marijuana, but she reports 100% abstinence for 1 entire year with no change in her symptoms.
[2022-03-05] MEDS ORDERED: Ringers Lactate 500 ML IV ONE ×2 (00:05→08:32)
[2022-03-05] MEDS: PROMETHAZINE INJ 25 MG/ML AMP IV PRN ×3 (04:44→20:26)
[2022-03-05] MEDS: MORPHINE 2 MG/ML SYR IV PRN ×3 (04:45→20:26)
[2022-03-05 04:52] LABS: Absolute Lymphocytes (CBC) 1.9 K/uL (0.7-4.9); Hematocrit 34.4 % (36.0-45.0); Lymphocytes % 33.6 % (15.3-44.8); MCV 89.1 fL (80-100); MPV 7.3 fL (7.6-11.3); RBC Red Blood Cell Count 3.86 M/uL (3.86-4.86)
[2022-03-05 05:09] LABS: Albumin 3.2 g/dL (3.4-5.0); Bilirubin Total 0.2 mg/dL (0.2-1.0); Phosphorus 3.7 mg/dL (2.5-4.9); Potassium 4.1 mmol/L (3.5-5.1); Protein, Total 5.9 g/dL (6.4-8.2)
[2022-03-05] MEDS: Ringers Lactate 1,000 ML IV SCH ×2 (06:48→21:34)
[2022-03-05] MEDS ORDERED: SODIUM CHLORIDE 0.9% 10ML INJ IV PRN (06:48)
[2022-03-05] MEDS: SUCRALFATE 1 GM TABLET PO SCH ×4 (07:30→20:28)
[2022-03-05] MEDS ORDERED: INFLUENZA VACCINE (for 6+ mo) 0.5 ML DOSE IMVAC ONE (08:00)
[2022-03-05] MEDS: CITALOPRAM 10 MG TABLET PO SCH (08:05)
[2022-03-05] MEDS: ENSURE CLEAR 200 ML CAN PO SCH ×3 (08:12→20:38)
[2022-03-05] MEDS: Lurasidone Hcl [Latuda] 40 MG Tablet PO SCH (09:00)
[2022-03-05] MEDS: PANTOPRAZOLE 40 MG INJ IVP SCH ×2 (09:24→20:28)
--- NOTE | 2022-03-05 13:09 | RAD REPORT ---
EXAM DESCRIPTION: NM - Hepatobiliary System W/ Ph - 03/05/2022 1:03 pm CLINICAL HISTORY: abd pain Right upper quadrant abdominal pain COMPARISON: No comparisons TECHNIQUE: The patient was administered 6.1 mCi Tc99m Mebrofenin. Imaging of the right upper quadran t was performed initially for up to 60 minutes. Gallbladder ejection fraction determination was then performed utilizing synthetic 1.9 mgm CCK over a slow 30 minute infusion. FINDINGS: Normal hepatic uptake and excretion with appropriate clearance of background blood pool ac tivity. Normal visualization of biliary and small bowel activity. Gallbladder visualizes within normal time limits. The calculated ejection fraction is 47% (normal gre ater than 35%). 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 No delay in visualization of the gallb ladder, biliary tree, or duodenum. Ejection fraction is 47% (normal greater than 35%). Subjective patient pain assessment as detailed above.
--- NOTE | 2022-03-05 18:03 | P.CNS ---
Date of Consult: 03/05/22 PC: I was asked to see this 26-year-old female in regards to her complaint of severe right upper quadrant abdominal pain. HPC: Patient apparently has been having abdominal pain for the last few days. Describes as very severe. States it is located in the right upper quadrant of her abdomen. No radiation or associated symptoms with it. Says she was unable to stand it any longer and came in for evaluation. PSHx: Negative PMHx: Bipolar disorder, depression, irritable bowel syndrome, cardiac issues Social Hx: Allergic to adhesive tape, and metoclopramide Sys R: No cough, wheeze, shortness of breath. No chest pain or palpitations at this time. States that she is lost 100 pounds from April to July of this year. Has not followed up with any physicians for this abdominal pain. History of heart issues, was seen by physicians in [place]. O/E: Awake alert vital signs are stable, sitting up crosslegged in the bed eating her evening meal. HEENT: Nonicteric Chest: Chest movement equal bilateral Abd: Abdomen soft, no guarding or rebound, minimal right upper tenderness [place]: Intact Data: Ultrasound does not display any demonstrable pathology. CT scan was also negative. A HIDA scan today came back as equivocal, but the patient did complain of discomfort when she had the chest Impression: Patient appears to be relatively comfortable during our conversation. Able to move around, slate picker her phone, reset IV machine. I explained to her her findings at this time. I outlined the fact that she had a equivocal number of studies, but by history it did sound like it could be possibly her gallbladder. I explained to her in detail that any surgery involves risks. Possibly bleeding, possibly an open procedure need for further surgeries and procedures as well. We discussed the HIDA scan being an indirect indicator of gallbladder pathology. She states that she has had this pain for a long time and it is so debilitating. I did give her the option of gallbladder surgery with the above risk. I also recommended at the current time we cut back on her pain medicine as she is somewhat dysarthric on just 2 mg every 6 hours. She at this point stated that she was not sure what she wanted to do. I told her that she had the option obviously of going home, and following up with me as an outpatient physician. She could also revisit with a cloud physicist [there is nobody consumer lender syeda]. I will make her n.p.o., and we can reassess in the a.m. She is of course welcome to follow-up with me in my office should she have any questions or problems.
[2022-03-05] MEDS ORDERED: ZOLPIDEM TARTRATE 5 MG TABLET PO PRN (22:29)
[2022-03-05] MEDS: clonazePAM 0.5 MG TAB PO PRN (22:49)
--- NOTE | 2022-03-05 23:20 | P.PN ---
Date of Service: 03/05/22 Subjective: toelrated smita upset she's NPO ROS: 10 point ROS as noted above, otherwise negative Physical Exam: Gen: NAD, AOx3 HEENT: normal conjunctiva, sclera anicteric CV: regular rate & rhythm, no edema Pulm: non-labored respirations, clear bilaterally Abd: soft, diffuse tenderness, worse in epigastrium Skin: no rashes, no lesions Neuro: normal speech, anxious vitals reviewed Problem List # Intractable Abdominal Pain, Nausea, Vomiting # Substance Use Disorder - Cannabinoids; nicotine dependence # Irritable Bowel Syndrome symptoms appear to be multifactorial, possible biliary dysfunction, ga stritis/GERD, cannabinoid hyperemesis syndrome, IBS HIDA Scan ordered if abnormal, consult general surgery, CLD otherrwise, advance diet as tolerated if no surgery patient requesting more food, yet constantly stating she is nauseous IVF PRN antiemetics, pain meds NPO last night continue home psych meds if tolerating PO VTE: lovenox Code: full Dispo: home, tomorrow if no surgery to be done/needed Time Spent Managing Pts Care (In Minutes): 35
[2022-03-05 23:27] VITALS: O2SAT 99
[2022-03-06] MEDS: MORPHINE 2 MG/ML SYR IV PRN ×3 (01:56→15:06)
[2022-03-06] MEDS ORDERED: HYDROMORPHONE HCL 0.5 MG/0.5 ML INJ IV ONE (04:04)
[2022-03-06] MEDS: PROMETHAZINE INJ 25 MG/ML AMP IV PRN (04:11)
[2022-03-06 04:19] LABS: Hematocrit 35.5 % (36.0-45.0); MCV 89.1 fL (80-100); MPV 7.2 fL (7.6-11.3); RBC Red Blood Cell Count 3.98 M/uL (3.86-4.86)
[2022-03-06 04:34] LABS: Albumin 3.3 g/dL (3.4-5.0); Bilirubin Total 0.2 mg/dL (0.2-1.0); Phosphorus 3.6 mg/dL (2.5-4.9); Potassium 3.8 mmol/L (3.5-5.1); Protein, Total 6.3 g/dL (6.4-8.2)
[2022-03-06] MEDS: SUCRALFATE 1 GM TABLET PO SCH ×2 (07:30→11:30)
[2022-03-06] MEDS: CITALOPRAM 10 MG TABLET PO SCH (08:07)
[2022-03-06] MEDS: ENSURE CLEAR 200 ML CAN PO SCH ×2 (08:07→13:42)
[2022-03-06] MEDS: Lurasidone Hcl [Latuda] 40 MG Tablet PO SCH (08:07)
[2022-03-06] MEDS: PANTOPRAZOLE 40 MG INJ IVP SCH (09:19)
[2022-03-06 12:55] VITALS: BP 129/67; TEMP 97.9
--- NOTE | 2022-03-06 13:25 | P.PN ---
Date of Service: 03/06/22 Went to see patient to see how she was today, and discuss options. I again outlined with the findings on her test so far have been. I explained to her once again that we do not have GI available to us at this time. She is not clear initially on whether she wanted surgery or not and was quite hesitant. When I said to her that we would have her worked up as an outpatient, and if by ruling out other entities we were left with gallbladder as the cause of her problems, then at that time we would do her surgery. Patient is still not clear on what she wants done. When I went through the operative surgery and potential risks, she became quite distressed, but I feel she is not understanding the full consequences of our discussion. Our charge nurse was in the room for the latter part of the discussion. I recommend the patient be discharged and worked up as an outpatient. I will be glad to take her after she has consulted with a building services engineer I explained to her such entities as gastritis, a flareup of her irritable bowel that she said she had before, can mimic these type of symptoms. There is risk involved with all surgeries including the possibility of morbidity. At the end of our conversation she says well I would like to have the surgery however I am not comfortable doing it at this time. She asked me to record this in her notes that she said she wanted to have the procedure. I will record in mine that I do not feel she fully understands the potential downside. Today her white cell count is not elevated her liver enzymes are normal including her alkaline phosphatase. As I have said, I will be glad to provide her services if I have stronger evidence from a building services engineer that a cholecystectomy would be in her interest. I do not have this evidence at this time.
[2022-03-06] MEDS: Ringers Lactate 1,000 ML IV SCH (13:41)
[2022-03-06] MEDS ORDERED: LIDOCAINE VISCOUS 2% SOLN 15 ML UDC PO PRN (14:59)
--- NOTE | 2022-03-06 15:32 | P.DS ---
Admission Date: 03/05/22 Discharge Date: 03/06/22 Disposition: ROUTINE DISCHARGE Discharge Condition: FAIR Reason for Admission: Intractable Nausea/Vomiting Brief History of Present Illness: Ms. Deyanira Baxter is a 26 year old female who has a past medical history of bipolar disorder, irritable bowel syndrome, and anxiety who presented to the [facility] Emergency Department for abdominal pain, nausea, and vomiting. She reported that, over the last two months, she has had intermittent episodes of abdominal pain which appear to occur after eating (particularly with pizza or spaghetti). She developed progressively worsening abdominal pain, without any clear obvious inciting or alleviating factors. Upon presentation, her vital signs were stable. Her laboratory studies were fairly unremarkable. Abdominal ultrasound revealed, "unremarkable gallbladder ultrasound." CT abdomen/pelvis revealed, "no acute abnormality is displayed." In the Emergency Department, she was given ondansetron, promethazine, ketorolac, morphine, famotidine, and 1 L Normal Saline. She was admitted to the General Internal Medicine service for further evaluation. Hospital Course: Diagnosis Intractable Abdominal Pain, Nausea, Vomiting Substance Use Disorder - Cannabinoids; nicotine dependence Irritable Bowel Syndrome Patient admitted to the medical floor and treated supportively with IV fluids, antiemetics and IV pain medications. She was seen in consultation by general surgery-Dr. Rivers, biliary dyskinesia was suspected and HIDA scan ordered. HIDA scan was normal. Dr. Rivers recommended medical management only and follow-up with GI before any consideration for cholecystectomy. She was not happy Dr. Rivers's care. Patient was seen by the tap grinder Dr. Dunlap who affirmed Dr. Rivers's plan and recommended outpatient evaluation by GI before any cholecystectomy. Patient put on GI cocktail for symptom relief Patient tolerated liquid diet. No GI available this week. She is discharged to seek further attention from GI as outpatient. Vital Signs/Physical Exam: Temp Pulse Resp BP Pulse Ox 97.9 F 76 16 129/67 100 03/06/22 12:00 03/06/22 12:00 03/06/22 12:00 03/06/22 12:00 03/06/22 12:00 General: Alert, In no apparent distress, Oriented x3 HEENT: Mucous membr. moist/pink Neck: JVD not distended Respiratory: Clear to auscultation bilaterally, Normal air movement Cardiovascular: No edema, Regular rate/rhythm, Normal S1 S2, No murmurs Gastrointestinal: Normal bowel sounds, Soft and benign, Non-distended, No tenderness Musculoskeletal: No swelling Integumentary: No rashes, No cyanosis Neurological: Normal strength at 5/5 x4 extr Laboratory Data at Discharge: WBC 5.60 K/uL (4.3-10.9) 03/06/22 03:52 Hgb 11.8 g/dL (12.0-15.0) L 03/06/22 03:52 Hct 35.5 % (36.0-45.0) L 03/06/22 03:52 Plt Count 197 K/uL (152-406) 03/06/22 03:52 Sodium 142 mmol/L (136-145) 03/06/22 03:52 Potassium 3.8 mmol/L (3.5-5.1) 03/06/22 03:52 BUN 14 mg/dL (7-18) 03/06/22 03:52 Creatinine 0.96 mg/dL (0.55-1.3) 03/06/22 03:52 Glucose 69 mg/dL (74-106) L 03/06/22 03:52 Phosphorus 3.6 mg/dL (2.5-4.9) 03/06/22 03:52 Magnesium 2.0 mg/dL (1.8-2.4) 03/06/22 03:52 Total Bilirubin 0.2 mg/dL (0.2-1.0) 03/06/22 03:52 AST 10 U/L (15-37) L 03/06/22 03:52 ALT 20 U/L (12-78) 03/06/22 03:52 Alkaline Phosphatase 62 U/L (45-117) D 03/06/22 03:52 Lipase 203 U/L (73-393) 03/03/22 21:00 Home Medications: Citalopram [Celexa*] 20 mg PO DAILY 03/04/22 Clonidine HCl [Catapres*] 0.2 mg PO DAILY 6PM PRN 03/04/22 Dicyclomine [Bentyl*] 20 mg PO TID PRN 03/04/22 Lurasidone HCl [Latuda] 40 mg PO DAILY 03/04/22 clonazePAM [Klonopin*] 0.5 mg PO BID PRN 03/04/22 Hydrocodone 5/APAP 325 [[place] 5/325] 1 tab PO Q6H PRN #12 tab 03/06/22 Lidocaine Viscous 2% Soln [Xylocaine Viscous Oral 2%*] 15 ml PO TID PRN #1 bottle 03/06/22 Pantoprazole [Protonix Tab] 40 mg PO DAILY #30 tab 03/06/22 Sucralfate [Carafate*] 1 gm PO ACHS #30 tab 03/06/22 New Medications: Sucralfate [Carafate*] 1 gm PO ACHS #30 tab Hydrocodone 5/APAP 325 [[place] 5/325] 1 tab PO Q6H PRN #12 tab PRN Reason: Pain Pantoprazole [Protonix Tab] 40 mg PO DAILY #30 tab Lidocaine Viscous 2% Soln [Xylocaine Viscous Oral 2%*] 15 ml PO TID PRN #1 bottle PRN Reason: Sore Throat Physician Discharge Instructions: Soft diet and advance as tolerated. Diet: Regular Activity: Ad rayna Followup: NONE,NONE [Primary Care Provider] - Chace Lewis MD [ASSOCIATE-ACTIVE - CAN ADMIT] - 1-2 Weeks Time spent managing pt's care (in minutes): 33
[2022-03-06] MEDS ORDERED: MAGNES/ALUMIN/SIMET 30ML UCUP PO ONE (16:00)
== END 2022-03-06 16:06 | disposition home or self-care (01) | DRG 392 ==
LOC: ER 20:14 → ERHOLD 03-04 01:44 → 4TH 03-04 01:53 → OBSVTOIN 03-05 09:03
PROVIDERS: ADMIT Internal Medicine; ATTEND Internal Medicine
DX: R11.2 Nausea with vomiting, unspecified (principal); R10.9 Unspecified abdominal pain; K21.9 Gastro-esophageal reflux disease without esophagitis; K58.9 Irritable bowel syndrome, unspecified; F41.9 Anxiety disorder, unspecified; F31.9 Bipolar disorder, unspecified; I25.2 Old myocardial infarction; G24.9 Dystonia, unspecified; Z88.8 Allergy status to other drugs, medicaments and biological substances; Z91.048 Other nonmedicinal substance allergy status; Z79.899 Other long term (current) drug therapy; Z20.822 Contact with and (suspected) exposure to COVID-19
CPT/HCPCS: 36415; 74177; 76705; 78227; 80053; 80307; 81003; 81025; 83690; 83735; 84100; 84702; 85025; 85027; 87811; 96374; 96375; 99285; A9537; C9113; G0378; J1170; J2270; J2405; J2550; J2805; J7030; J7120; Q9967

== ENCOUNTER 2024-04-21 11:02 | Emergency (ER) | payer OTHER, SELFPAY ==
[2024-04-21 11:47] LABS: Absolute Lymphocytes (CBC) 1.1 K/uL (0.7-4.9); Absolute Monocytes 0.3 K/uL (0.1-1.3); Absolute Neutrophil 7.6 K/uL (1.8-8.0); Basophils % 0.3 % (0-1.3); Eosinophils % 0.1 % (0-4.4); Hematocrit 37.2 % (36.0-45.0); Hemoglobin 11.6 g/dL (12.0-15.0); Lymphocytes % 11.9 % (15.3-44.8); MCH 25.2 pg (27.0-35.0); MCHC 31.3 g/dL (32.0-36.0); MCV 80.7 fL (80-100); MPV 7.7 fL (7.6-11.3); Monocytes % 3.3 % (3.3-12.3); Neutrophils % 84.4 % (41.7-73.7); Platelets 296 thou/uL (152-406); RBC Red Blood Cell Count 4.61 M/uL (3.86-4.86)
[2024-04-21 12:00] LABS: Anion Gap 10.6 mEq/L (5.0-15.0); BUN Blood Urea Nitrogen 10 mg/dL (7-18); Bicarbonate 25 mEq/L (21-32); Glomerular Filtration Rate 79 ml/min (=/>90); Glucose Level 103 mg/dL (74-106); NT PRO-BNP 118 pg/mL (<125); Potassium 3.6 mEq/L (3.5-5.1); Sodium Level 138 mEq/L (136-145)
[2024-04-21 12:07] LABS: Troponin High Sensitivity < 3.0 pg/mL (<58.9)
--- NOTE | 2024-04-21 12:50 | RAD REPORT ---
EXAMINATION: ONE VIEW CHEST XR CLINICAL INDICATION: COUGH TECHNIQUE: Frontal chest projection is submitted. Examination is limited by patient positioning and t echnique. COMPARISON: No prior exam. FINDINGS: The lungs are well inflated and clear. The heart is normal in size. No displaced fractures identified . IMPRESSION: No acute intrathoracic abnormalities.
--- NOTE | 2024-04-21 13:41 | ER ---
Nurse's Notes [facility] Name: Deyanira Baxter Age: 28 yrs Sex: Female : 1995 Arrival Date: 04/21/2024 Time: 11:02 Bed 6 Private MD: Diagnosis: Chest pain, unspecified;Nausea Presentation: 04/21 11:22 Chief complaint: Patient states: she started having chest tightness and feeling like ap3 her heart was racing last night. Coronavirus screen: At this time, the client does not indicate any symptoms associated with coronavirus-19. Ebola Screen: No symptoms or risks identified at this time. Initial Sepsis Screen: Does the patient meet any 2 criteria? HR > 90 bpm. Does the patient have a suspected source of infection? No. Patient's initial sepsis screen is negative. Risk Assessment: Do you want to hurt yourself or someone else? Patient reports no desire to harm self or others. Onset of symptoms was April 20, 2024. 11:22 Method Of Arrival: Ambulatory ap3 11:22 Acuity: DEEPAK 2 ap3 Triage Assessment: 11:24 General: Appears in no apparent distress. Behavior is calm, cooperative, appropriate ap3 for age. Pain: Complains of pain in chest Pain currently is 4 out of 10 on a pain scale. Quality of pain is described as tightness Pain began 1 day ago. Neuro: Level of Consciousness is awake, alert, obeys commands, Oriented to person, place, time, situation, Appropriate for age. Cardiovascular: Reports chest pain, lightheadedness, near syncope Rhythm is sinus tachycardia. Respiratory: Airway is patent Respiratory effort is even, unlabored, Respiratory pattern is regular, symmetrical. 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 - Infectious Disease History:: Denies. - Social history:: Smoking status: Reported history of juuling and/or vaping. Screenin:25 [facility] ED Fall Risk Assessment (Adult) History of falling in the last 3 months, ap3 including since admission Yes- fall prone (multiple falls) (3 pts) Confusion or Disorientation No (0 pts) Intoxicated or Sedated No (0 pts) Impaired Gait No (0 pts) Mobility Assist Device Used No (0 pt) Altered Elimination No (0 pt) Score/Fall Risk Level 3 or more points = High Risk Oriented to surroundings, Maintained a safe environment, Educated pt \T\ family on fall prevention, incl call for assistance when getting out of bed, Assessed \T\ reinforced patient's understanding of fall precautions, Hourly rounding (assess needs \T\ fall precautionary measures) done, Used ambulatory aids as needed (educated on \T\ assisted with), Used gait belt as appropriate Apply high fall risk patient identification: yellow non skid footwear/ fall signage, Remained w/in arm's length of patient and in sight while toileting, Offered frequent toileting (1:1 observation), Remained with patient while ambulating. Abuse screen: Denies threats or abuse. Nutritional screening: No deficits noted. Tuberculosis screening: No symptoms or risk factors identified. Assessment: 11:38 Pain: Pain does not radiate. ap3 12:46 Reassessment: Patient appears in no apparent distress at this time. Patient is alert, bp oriented x 3, equal unlabored respirations, skin warm/dry/pink. Pain: Complains of pain in chest. Vital Signs: 11:22 BP 145 / 82; Pulse 104; Resp 15; Temp 98.9(O); Pulse Ox 100% on R/A; ap3 12:46 BP 108 / 59; Pulse 85; Resp 16; Pulse Ox 99% ; bp 13:21 BP 128 / 74; Pulse 94; Pulse Ox 98% on R/A; ap3 ED Course: 11:04 Patient arrived in ED. mg5 11:12 Andrea Elizondo MD is Attending Physician. ec2 11:17 Jose L Copeland, NEELIMA is Primary Nurse. bp 11:24 Triage completed. ap3 11:26 Arm band placed on right wrist. ap3 11:26 Patient has correct armband on for positive identification. Allergy band placed. Fall ap3 risk band placed. Provided Education on: call light education. Client placed on continuous cardiac and pulse oximetry monitoring. NIBP monitoring applied. surveillance monitor on. Pulse ox on. NIBP on. 11:27 Patient maintains SpO2 saturation greater than 95% on room air. ap3 11:38 Initial lab(s) drawn, by me, sent to lab. EKG done, by ED staff, reviewed by Andrea Elizondo MD. Inserted saline lock: 22 gauge in right antecubital area, using aseptic technique. Blood collected. Flushed with 10 mL NS. 12:06 Radiology exam delayed due to test not completed at this time. md2 12:43 XRAY Chest (1 view) In Process Unspecified. EDMS 13:47 No provider procedures requiring assistance completed. IV discontinued, intact, ap3 bleeding controlled, No redness/swelling at site. Pressure dressing applied. Administered Medications: 13:47 Drug: Ondansetron IVP 4 mg IVP once; over 2 minutes Route: IVP; Site: right antecubital;ap3 13:53 Follow up: Response: No adverse reaction; Medication administered at discharge. ap3 Medication: 13:52 VIS not applicable for this client. ap3 Outcome: 13:41 Discharge ordered by . ec2 13:52 Discharged to home ambulatory, ap3 13:52 Condition: good 13:52 Discharge instructions given to patient, Instructed on discharge instructions, follow up and referral plans. medication usage, Demonstrated understanding of instructions, follow-up care, medications, Prescriptions given X 1, 13:53 Patient left the ED. ap3 Signatures: Dispatcher [employer] Jose L Melendez, RN RN Aleja Reynaga RN RN ap3 Rosangela Klein md2 Toya Vu mg5 Andrea Elizondo MD MD ec2
--- NOTE | 2024-04-21 13:41 | EDPHYS ---
Physician Documentation [facility] Name: Deyanira Baxter Age: 28 yrs Sex: Female : 1995 Arrival Date: 04/21/2024 Time: 11:02 Bed 6 Private MD: ED Physician Andrea Elizondo HPI: 04/21 11:22 This 28 yrs old Female presents to ER via Unassigned with complaints of Chest Pain, ec2 Shortness Of Breath. 11:22 Patient arrives today for evaluation of chest pain and shortness of breath. Patient ec2 reports that she has been experiencing some chest pain intermittently which she describes as tightness without radiating symptoms. Reports of regular chronic cough that is unchanged from baseline. No vomiting, no diarrhea. Patient reports a history of ACS, history of CHF, intermittently on Lasix. Has not been on this for several months.. 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 - Infectious Disease History:: Denies. - Social history:: Smoking status: Reported history of juuling and/or vaping. ROS: 11:22 Constitutional: as per hpi ec2 Exam: 11:22 Constitutional: GEN: NAD Head: atraumatic Eyes: EOMI Ears: External ears are ec2 normal. CV: Tachycardia LUNGS: no respiratory distress, no wheezes or rales or rhonchi ABD: non-distended SKIN: no evidence of rashes MSK: no evidence of trauma Vital Signs: 11:22 BP 145 / 82; Pulse 104; Resp 15; Temp 98.9(O); Pulse Ox 100% on R/A; ap3 12:46 BP 108 / 59; Pulse 85; Resp 16; Pulse Ox 99% ; bp 13:21 BP 128 / 74; Pulse 94; Pulse Ox 98% on R/A; ap3 MDM: 11:12 Medical Screening Exam initiated ec2 11:22 Data reviewed: vital signs, nurses notes. ED course: Patient arrives today for chest ec2 tightness and shortness of breath. Examination is remarkable for slight tachycardia. Will obtain lab work, EKG, chest x-ray as well as D-dimer. Differential includes ACS, PE, additionally considered other processes such as dissection.. 11:23 ED course: EKG obtained, independently reviewed and interpreted by me, shows sinus ec2 tachycardia, rate of 101, no acute ST segment elevations, normals are nonactionable.. 12:19 ED course: Metabolic profile reassuring. CBC reassuring. BNP within normal ranges, ec2 troponin within normal ranges, D-dimer within normal ranges.. 13:41 ED course: On reassessment patient is well-appearing no acute distress. Does report ec2 some nausea, denies any abdominal pain, abdominal examination is reassuring. Will discharge home have her follow-up with cardiology. Return precautions given.. 04/21 11:12 Order name: Basic Metabolic Panel; Complete Time: 12:19 ec2 04/21 11:12 Order name: CBC with Diff; Complete Time: 12:19 ec2 04/21 11:12 Order name: NT PRO-BNP; Complete Time: 12:19 ec2 04/21 11:12 Order name: Troponin HS; Complete Time: 12:19 ec2 04/21 11:22 Order name: D-Dimer; Complete Time: 12:19 ec2 04/21 11:12 Order name: XRAY Chest (1 view); Complete Time: 13:18 ec2 04/21 11:12 Order name: Cardiac monitoring; Complete Time: 11:27 ec2 04/21 11:12 Order name: EKG - Nurse/Tech; Complete Time: 11:27 ec2 04/21 11:12 Order name: IV Saline Lock; Complete Time: 11:38 ec2 04/21 11:12 Order name: Labs collected and sent; Complete Time: 11:38 ec2 04/21 11:12 Order name: O2 Per Protocol; Complete Time: 11:27 ec2 04/21 11:12 Order name: O2 Sat Monitoring; Complete Time: 11:27 ec2 Administered Medications: 13:47 Drug: Ondansetron IVP 4 mg IVP once; over 2 minutes Route: IVP; Site: right antecubital;ap3 13:53 Follow up: Response: No adverse reaction; Medication administered at discharge. ap3 Disposition Summary: 04/21/24 13:41 Discharge Ordered Notes: Location: Home ec2 Condition: Stable ec2 Diagnosis - Chest pain, unspecified ec2 - Nausea ec2 Discharge Instructions: - Discharge Summary Sheet ec2 - Nonspecific Chest Pain, Adult, [id number] ec2 Forms: - Medication Reconciliation Form ec2 - Antibiotic Education ec2 - Prescription Opioid Use ec2 - Patient Portal Instructions ec2 - Leadership Thank You Letter ec2 Prescriptions: - Zofran 4 mg Oral Tablet - take 1 tablet ORAL route every 12 hours As needed; 20 tablet; Refills: 0, ec2 Product Selection Permitted Signatures: Dispatcher [employer] [facility] Aleja Mathews RN RN ap3 Andrea Elizondo MD MD ec2 Corrections: (The following items were deleted from the chart) 11:13 11:13 Chest Single View+[email or web address] ordered. [facility] 11:23 11:22 Patient arrives today for evaluation of chest pain and shortness of breath. ec2 Patient reports that she has been experiencing some chest pain intermittently which she describes as tightness without radiating symptoms. Reports of regular chronic cough that is unchanged from baseline. No vomiting, no diarrhea.. ec2
[2024-04-21] MEDS ORDERED: ONDANSETRON 4 MG/2 ML VIAL ONE (13:43)
[2024-04-21 15:43] VITALS: TEMP 98.9
[2024-04-21 15:45] VITALS: BP 128/74; O2SAT 98
== END 2024-04-21 13:53 | disposition home or self-care (01) ==
LOC: ER 11:02
DX: R07.89 Other chest pain (principal); R11.0 Nausea
CPT/HCPCS: 36415; 71045; 80048; 83880; 84484; 85025; 85379; 96374; 99285; J2405

== ENCOUNTER 2024-07-14 12:53 | Emergency (ER) | payer SELFPAY ==
[2024-07-14 13:47] LABS: Urine Clarity Turbid (Clear); Urine Color Light-Yellow (Yellow); Urine Glucose NEGATIVE (Negative)
[2024-07-14 13:48] LABS: Sqamous Epithelial <5 /HPF (None Seen); Transitional Epithelial <5 /HPF (None Seen); Urine Bacteria None Seen /HPF (<20); Urine Bilirubin NEGATIVE (Negative); Urine Blood Negative (Negative); Urine Culture Reflex Order NOT NEEDED; Urine Ketones NEGATIVE (Negative); Urine Microscopic Reflex YN ORDER UMIC; Urine Mucus Slight /HPF (None Seen); Urine Nitrite NEGATIVE (Negative); Urine Protein NEGATIVE (Negative); Urine RBC <5 /HPF (None Seen); Urine Urobilinogen Normal (Normal); Urine WBC <5 /HPF (<5)
[2024-07-14 14:33] LABS: Absolute Lymphocytes (CBC) 1.2 K/uL (0.7-4.9); Absolute Monocytes 0.2 K/uL (0.1-1.3); Absolute Neutrophil 4.4 K/uL (1.8-8.0); Basophils % 0.6 % (0-1.3); Eosinophils % 0.5 % (0-4.4); Hematocrit 36.5 % (36.0-45.0); Lymphocytes % 20.4 % (15.3-44.8); MCH 25.9 pg (27.0-35.0); MCHC 32.9 g/dL (32.0-36.0); MCV 78.9 fL (80-100); MPV 7.7 fL (7.6-11.3); Monocytes % 4.1 % (3.3-12.3); Neutrophils % 74.4 % (41.7-73.7); Platelets 275 thou/uL (152-406); RBC Red Blood Cell Count 4.63 M/uL (3.86-4.86)
[2024-07-14 14:47] LABS: Albumin 3.6 g/dL (3.4-5.0); Albumin/Globulin Ratio 0.9 (1.1-1.8); Anion Gap 8.7 mEq/L (5.0-15.0); Bilirubin Total 0.3 mg/dL (0.2-1.0); Globulin 3.8 g/dL (2.3-3.5); Potassium 3.7 mEq/L (3.5-5.1); Protein, Total 7.4 g/dL (6.4-8.2)
[2024-07-14] MEDS ORDERED: NA CHLORIDE 0.9% 1,000 ML ONE (15:36)
[2024-07-14] MEDS ORDERED: ONDANSETRON 4 MG/2 ML VIAL ONE (15:36)
[2024-07-14] MEDS ORDERED: KETOROLAC 30 MG/ML INJ ONE (15:57)
--- NOTE | 2024-07-14 16:43 | RAD REPORT ---
EXAMINATION: CT Abdomen Pelvis W Contrast CLINICAL INDICATION: Female, 28 years old. ABD PAIN TECHNIQUE: CT abdomen and pelvis was performed, after the administration of IV contrast, as per [facility] protocol. Axial, sagittal and coronal reconstructions were obtained. One or more of the following dose reduction techniques were used: Automated exposure control, adjustment of the mA and k V according to patient size, and iterative reconstruction. Unless otherwise specified, incidental findings do not require dedicated imaging follow-up. COMPARISON: 03/03/2022 FINDINGS: LOWER CHEST: The visualized lung bases are clear. LIVER: Normal in size and contour. No focal lesion. BILIARY SYSTEM: No suspicious abnormalities. SPLEEN: Normal size. No focal lesion. PANCREAS: No mass, ductal dilation, or iwona-pancreatic fluid. ADRENALS: Normal; no mass. KIDNEYS: Normal size and contour. No hydronephrosis. URINARY BLADDER: Unremarkable. GASTROINTESTINAL TRACT: No evidence of free air, significant intra-abdominal free fluid, bowel obstru ction or abscess. APPENDIX: Normal appendix. LYMPH NODES: No lymphadenopathy. MUSCULOSKELETAL: No acute or suspicious osseous abnormality. ADDITIONAL FINDINGS: None. IMPRESSION: No acute or concerning abnormalities seen in the abdomen or pelvis.
--- NOTE | 2024-07-14 16:56 | EDPHYS ---
Physician Documentation [facility] Name: Deyanira Baxter Age: 28 yrs Sex: Female : 1995 Arrival Date: 07/14/2024 Time: 12:53 Bed 10 Private MD: ED Physician Mauricio Montana HPI: 07/14 13:09 This 28 yrs old Female presents to ER via Unassigned with complaints of kb Vomiting/Diarrhea, Pain With Urination. 13:09 Pt is a 28 year old female who presents for dysuria, dark urine, frequency, urgency for kb 4 days; vomiting and diarrhea that started 3 days ago. Unknown fever. Reports fatigue. Unable to tolerate anything by mouth for 3 days. . Historical: - Allergies: 13:15 Adhesives; iw 13:15 Reglan; iw - PMHx: 13:15 Bipolar disorder; Anxiety; CHF; GERD; Micardial infarction; iw - PSHx: 13:15 ovarian cyst (Micardial infarction); iw - Immunization history:: Adult Immunizations up to date. - Infectious Disease History:: Denies. - Social history:: Smoking status: Patient/guardian denies using tobacco, Stopped _ months ago 1. ROS: 13:09 Constitutional: As per HPI kb Exam: 13:09 Constitutional: This is a well developed, well nourished patient who is awake, alert, kb and in no acute distress. Head/Face: Normocephalic, atraumatic. ENT: Moist Mucous membranes Cardiovascular: Regular rate Respiratory: Respirations even and unlabored. No increased work of breathing. Talking in full sentences Skin: Warm, dry with normal turgor. Normal color. MS/ Extremity: Pulses equal, no cyanosis. Neurovascular intact. Full, normal range of motion. Neuro: Awake and alert, GCS 15, oriented to person, place, time, and situation. 13:09 Abdomen/GI: Inspection: obese Bowel sounds: normal, Palpation: soft, in all quadrants, mild abdominal tenderness, in the right upper quadrant, 13:09 Back: CVA tenderness, that is mild, is noted on the left, Vital Signs: 13:12 BP 131 / 82; Pulse 92; Resp 18; Temp 98.5(O); Pulse Ox 99% ; Weight 126.1 kg; Height 5 kb ft. 5 in. ; 13:14 BP 131 / 82; Pulse 91; Resp 16; Temp 97; Pulse Ox 100% on R/A; iw 17:21 BP 127 / 75; Pulse 81; Resp 16; Pulse Ox 100% ; bp 13:12 Body Mass Index 46.26 (126.10 kg, 165.1 cm) kb MDM: 12:55 Medical Screening Exam initiated kb 13:12 Data reviewed: vital signs, nurses notes. kb 16:54 Differential diagnosis: Nonspecific abd pain, viral gastroenteritis, uti, kb pyelonephritis. Counseling: I had a detailed discussion with the patient and/or guardian regarding the historical points, exam findings, and any diagnostic results supporting the discharge/admit diagnosis, lab results, radiology results, the need for outpatient follow up, a family practitioner, to return to the emergency department if symptoms worsen or persist or if there are any questions or concerns that arise at home. 07/14 13:12 Order name: CBC with Diff; Complete Time: 14:36 kb 07/14 13:12 Order name: CMP; Complete Time: 14:49 kb 07/14 13:12 Order name: Lipase; Complete Time: 14:49 kb 07/14 13:12 Order name: Test, Urine; Complete Time: 13:48 kb 07/14 13:12 Order name: Urinalysis w/ reflexes; Complete Time: 13:48 kb 07/14 13:12 Order name: CT Abd/Pelvis - IV Contrast Only; Complete Time: 16:48 kb 07/14 13:12 Order name: IV Saline Lock; Complete Time: 14:23 kb 07/14 13:12 Order name: Labs collected and sent; Complete Time: 14:23 kb Administered Medications: 15:49 Drug: Ondansetron IVP 4 mg IVP once; over 2 minutes Route: IVP; Site: left hand; bp 17:22 Follow up: Response: No adverse reaction bp 15:49 Drug: NS 0.9% IV 1000 ml IV at 1 bolus Per protocol; to be given as a bolus over 60 bp minutes Route: IV; Rate: 1 bolus; Site: left hand; 17:22 Follow up: IV Status: Completed infusion bp 15:58 Drug: Ketorolac IVP 15 mg IVP once Route: IVP; Site: left hand; bp 17:22 Follow up: Response: No adverse reaction bp Disposition: 07/15 07:06 Co-signature as Attending Physician, Mauricio Montana MD I reviewed the patient's care rn provided by the Advanced Practice Provider and agree with the diagnosis and treatment plan. Disposition Summary: 07/14/24 16:55 Discharge Ordered Notes: Location: Home kb Condition: Stable kb Diagnosis - Noninfective gastroenteritis and colitis, unspecified kb Followup: kb - With: Emergency Department - When: As needed - Reason: Worsening of condition Followup: kb - With: Private Physician - When: 2 - 3 days - Reason: Recheck today's complaints, Continuance of care, Re-evaluation by your physician Discharge Instructions: - Discharge Summary Sheet kb - Viral Gastroenteritis, Adult, [id number] kb Forms: - Work release form kb - Medication Reconciliation Form kb - Antibiotic Education kb - Prescription Opioid Use kb - Patient Portal Instructions kb - Leadership Thank You Letter kb Prescriptions: - Zofran 4 mg Oral tablet - take 1 tablet ORAL route every 6 hours As needed; 12 tablet; Refills: 0, kb Product Selection Permitted Signatures: Dispatcher [employer] Carmen Hernandez FNP-C FNP-Zully Zaragoza, RN Mauricio Mendez MD MD rn Peltier, Brian, RN RN bp Corrections: (The following items were deleted from the chart) 07/14 13:12 13:12 Abdomen Pelvis W Con+CT.RAD.BRZ ordered. BRIGIDAR NASIR
--- NOTE | 2024-07-14 16:56 | ER ---
Nurse's Notes [facility] Name: Deyanira Baxter Age: 28 yrs Sex: Female : 1995 Arrival Date: 07/14/2024 Time: 12:53 Bed 10 Private MD: Diagnosis: Noninfective gastroenteritis and colitis, unspecified Presentation: 07/14 13:14 Chief complaint: Patient states: UTI symptoms, vomiting and diarrhea since Saturday. iw Coronavirus screen: At this time, the client does not indicate any symptoms associated with coronavirus-19. Ebola Screen: No symptoms or risks identified at this time. Initial Sepsis Screen: Does the patient meet any 2 criteria? No. Patient's initial sepsis screen is negative. Does the patient have a suspected source of infection? No. Patient's initial sepsis screen is negative. Risk Assessment: Do you want to hurt yourself or someone else? Patient reports no desire to harm self or others. Onset of symptoms was July 11, 2024. 13:14 Acuity: DEEPAK 3 iw 13:14 Method Of Arrival: Ambulatory Triage Assessment: 14:45 General: Appears in no apparent distress. uncomfortable, Behavior is cooperative, bp appropriate for age, anxious. Pain: Complains of pain in pelvis. EENT: No deficits noted. Neuro: No deficits noted. Cardiovascular: No deficits noted. Respiratory: No deficits noted. GI: Reports lower abdominal pain. : Reports burning with urination. Derm: No deficits noted. Musculoskeletal: No deficits noted. Historical: - Allergies: 13:15 Adhesives; iw 13:15 Reglan; iw - PMHx: 13:15 Bipolar disorder; Anxiety; CHF; GERD; Micardial infarction; iw - PSHx: 13:15 ovarian cyst (Micardial infarction); iw - Immunization history:: Adult Immunizations up to date. - Infectious Disease History:: Denies. - Social history:: Smoking status: Patient/guardian denies using tobacco, Stopped _ months ago 1. Screenin:16 [facility] ED Fall Risk Assessment (Adult) History of falling in the last 3 months, bp including since admission No falls in past 3 months (0 pts) Confusion or Disorientation No (0 pts) Intoxicated or Sedated No (0 pts) Impaired Gait No (0 pts) Mobility Assist Device Used No (0 pt) Altered Elimination No (0 pt) Score/Fall Risk Level 0 - 2 = Low Risk Oriented to surroundings. Abuse screen: Denies threats or abuse. Denies injuries from another. Nutritional screening: No deficits noted. Tuberculosis screening: No symptoms or risk factors identified. Assessment: 14:45 General: Appears in no apparent distress. comfortable, Behavior is cooperative, bp appropriate for age, anxious. GI: Abdomen is non-distended. Vital Signs: 13:12 BP 131 / 82; Pulse 92; Resp 18; Temp 98.5(O); Pulse Ox 99% ; Weight 126.1 kg; Height 5 kb ft. 5 in. ; 13:14 BP 131 / 82; Pulse 91; Resp 16; Temp 97; Pulse Ox 100% on R/A; iw 17:21 BP 127 / 75; Pulse 81; Resp 16; Pulse Ox 100% ; bp 13:12 Body Mass Index 46.26 (126.10 kg, 165.1 cm) kb ED Course: 12:55 Patient arrived in ED. al6 12:55 [facility] kb 12:55 Mauricio Montana MD is Attending Physician. kb 13:15 Triage completed. iw 13:16 Arm band placed on. iw 13:33 Urinalysis w/ reflexes Sent. iw 13:33 Test, Urine Sent. iw 14:23 CBC with Diff Sent. bc6 14:23 CMP Sent. bc6 14:23 Lipase Sent. bc6 14:23 Initial lab(s) drawn, by ia, sent to lab. Inserted saline lock: 20 gauge in right bc6 wrist, using aseptic technique. Blood collected. Flushed with 10 mL NS. 14:56 CT Abd/Pelvis - IV Contrast Only In Process Unspecified. EDMS 15:07 Jose L Copeland, RN is Primary Nurse. bp 15:16 Patient has correct armband on for positive identification. bp 17:21 Provided Education on: NA. bp 17:21 No provider procedures requiring assistance completed. IV discontinued, intact, bp bleeding controlled, No redness/swelling at site. Pressure dressing applied. Administered Medications: 15:49 Drug: Ondansetron IVP 4 mg IVP once; over 2 minutes Route: IVP; Site: left hand; bp 17:22 Follow up: Response: No adverse reaction bp 15:49 Drug: NS 0.9% IV 1000 ml IV at 1 bolus Per protocol; to be given as a bolus over 60 bp minutes Route: IV; Rate: 1 bolus; Site: left hand; 17:22 Follow up: IV Status: Completed infusion bp 15:58 Drug: Ketorolac IVP 15 mg IVP once Route: IVP; Site: left hand; bp 17:22 Follow up: Response: No adverse reaction bp Medication: 14:45 VIS not applicable for this client. bp Outcome: 16:55 Discharge ordered by MD. martinez 17:21 Discharged to home ambulatory, bp 17:21 Condition: stable 17:21 Discharge instructions given to patient, Instructed on discharge instructions, follow up and referral plans. medication usage, Demonstrated understanding of instructions, follow-up care, medications, Prescriptions given X 1, 17:22 Patient left the ED. bp Signatures: Dispatcher [employer] EDMS Carmen Glez, MACHINE PLUG SHAPER-C MACHINE PLUG SHAPER-Davidb Zully Jefferson, RN NEELIMA iw Jose L Copeland RN RN bp Vidhya Crum 6 Nitza Madrigal6
[2024-07-14 17:53] VITALS: TEMP 97; O2SAT 100
[2024-07-14 17:54] VITALS: BP 127/75
== END 2024-07-14 17:22 | disposition home or self-care (01) ==
LOC: ER 12:53
DX: K52.9 Noninfective gastroenteritis and colitis, unspecified (principal)
CPT/HCPCS: 36415; 74177; 80053; 81001; 81025; 83690; 85025; 96361; 96374; 96375; 99284; J2405; J7030; Q9967

== ENCOUNTER 2024-12-28 06:54 | Emergency (ER) | payer OTHER, SELFPAY ==
--- NOTE | 2024-12-28 07:52 | RAD REPORT ---
Procedure: Chest Pa And Lat (2 Views) HISTORY: Cough COMPARISON: 2023 FINDINGS: The lungs appear clear of acute infiltrate. No significant pleural effusion noted. The heart is normal size. IMPRESSION: No acute abnormality is displayed.
[2024-12-28] MEDS ORDERED: NA CHLORIDE 0.9% 1,000 ML ONE (08:14)
[2024-12-28] MEDS ORDERED: ONDANSETRON 4 MG/2 ML VIAL ONE (08:14)
[2024-12-28 08:22] LABS: Absolute Lymphocytes (CBC) 1.2 K/uL (0.7-4.9); Hematocrit 36.4 % (36.0-45.0); Hemoglobin 12.0 g/dL (12.0-15.0); MCH 26.5 pg (27.0-35.0); MCHC 32.9 g/dL (32.0-36.0); MCV 80.6 fL (80-100); MPV 7.5 fL (7.6-11.3); Nucleated RBC Absolute Count 0.0 (0-0); Nucleated Red Blood Cells % 0.1 % (0-0); RBC Red Blood Cell Count 4.52 M/uL (3.86-4.86); White Blood Count 6.50 thou/uL (4.3-10.9)
[2024-12-28 08:38] LABS: D-Dimer 0.562 FEUug/mL (0-0.500); PT Prothrombin Time 11.3 SECONDS (10-13.0); Protime INR 1.0
[2024-12-28 08:40] LABS: ALT/SGPT 22 U/L (13-56); Albumin 3.5 g/dL (3.4-5.0); Albumin/Globulin Ratio 1.0 (1.1-1.8); Alkaline Phosphatase 75 U/L (45-117); Anion Gap 9.6 mEq/L (5.0-15.0); BUN Blood Urea Nitrogen 12 mg/dL (7-18); Globulin 3.5 g/dL (2.3-3.5); Glucose Level 102 mg/dL (74-106); Influenza A Ag Negative; Influenza B Ag Negative; Magnesium 2.0 mg/dL (1.6-2.4); NT PRO-BNP 105 pg/mL (<125); Potassium 3.6 mEq/L (3.5-5.1); SARS-CoV-2 Antigen Rapid Res Negative (Negative)
[2024-12-28 08:41] LABS: AST/SGOT < 10 U/L (15-37); Bilirubin Indirect, Calculated 0.0 mg/dL (0.2-0.8); Troponin High Sensitivity < 3.0 pg/mL (<58.9)
[2024-12-28 08:50] LABS: Urine Culture Reflex Order NOT NEEDED; Urine Microscopic Reflex YN ORDER UMIC; Urine Yeast (Budding) Trace /HPF (None Seen)
[2024-12-28] MEDS ORDERED: NA CHLORIDE 0.9% 50 ML ONE (09:25)
[2024-12-28] MEDS ORDERED: AZITHROMYCIN 250 MG TAB ONE (09:25)
[2024-12-28] MEDS ORDERED: CEFTRIAXONE 1000 MG/VIAL ONE (09:25)
--- NOTE | 2024-12-28 11:27 | RAD REPORT ---
EXAMINATION: CTA CHEST PE CLINICAL INDICATION: Shortness of breath TECHNIQUE: 100 cc 370 Isovue administered intravenously. This examination was performed according to an angiographic protocol with 3D post-processing. This involves 3D reconstructions, MIPs, volume rendered images and/or shaded surface rendering. One or more of the following dose reduction techniqu es were used: Automated exposure control, adjustment of the mA and/or kV according to patient size, and/or iterative reconstruction. Unless otherwise specified, incidental findings do not require dedic ated imaging follow-up. [id number]. COMPARISON: No prior exam. FINDINGS: A pulmonary embolus is not seen. An aortic aneurysm not noted. No pleural effusion. No pericardial effusion. Lungs are clear. Cardiomegaly IMPRESSION: No evidence of a pulmonary embolism
--- NOTE | 2024-12-28 12:07 | EDPHYS ---
Physician Documentation [facility] Name: Deyanira Baxter Age: 29 yrs Sex: Female : 1995 Arrival Date: 12/28/2024 Time: 06:54 Bed 16 Private MD: BRIGID Physician Klaus Bernard HPI: 12/28 12:00 This 29 yrs old Female presents to ER via Ambulatory with complaints of samina Nausea/Vomiting, Fever. 12:00 The patient presents to the emergency department with nausea, vomiting, diarrhea, that samina is intermittent. Onset: The symptoms/episode began/occurred 3 day(s) ago. Possible causes: unknown. The symptoms are aggravated by nothing. The symptoms are alleviated by nothing. Associated signs and symptoms: Pertinent positives: diarrhea, fever, nausea, vomiting. Severity of symptoms: At their worst the symptoms were moderate in the emergency department the symptoms are unchanged. The patient has experienced similar episodes in the past, several times. 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 - Infectious Disease History:: Denies. - Social history:: Smoking status: Reported history of juuling and/or vaping. - Family history:: not pertinent. ROS: 12:00 Constitutional: Negative for fever, chills, and weight loss, Eyes: Negative for injury, samina pain, redness, and discharge, ENT: Negative for injury, pain, and discharge, Neck: Negative for injury, pain, and swelling, Cardiovascular: Negative for chest pain, palpitations, and edema, Respiratory: Negative for shortness of breath, cough, wheezing, and pleuritic chest pain, Back: Negative for injury and pain, : Negative for injury, bleeding, discharge, and swelling, MS/Extremity: Negative for injury and deformity, Skin: Negative for injury, rash, and discoloration, Neuro: Negative for headache, weakness, numbness, tingling, and seizure, Psych: Negative for depression, anxiety, suicide ideation, homicidal ideation, and hallucinations, Allergy/Immunology: Negative for hives, rash, and allergies, Endocrine: Negative for neck swelling, polydipsia, polyuria, polyphagia, and marked weight changes, Hematologic/Lymphatic: Negative for swollen nodes, abnormal bleeding, and unusual bruising, 12:00 Abdomen/GI: Positive for nausea and vomiting, diarrhea, abdominal cramps, Exam: 12:00 Constitutional: This is a well developed, well nourished patient who is awake, alert, samina and in no acute distress. Head/Face: Normocephalic, atraumatic. Eyes: Pupils equal round and reactive to light, extra-ocular motions intact. Lids and lashes normal. Conjunctiva and sclera are non-icteric and not injected. Cornea within normal limits. Periorbital areas with no swelling, redness, or edema. ENT: Nares patent. No nasal discharge, no septal abnormalities noted. Tympanic membranes are normal and external auditory canals are clear. Oropharynx with no redness, swelling, or masses, exudates, or evidence of obstruction, uvula midline. Mucous membranes moist. Neck: Trachea midline, no thyromegaly or masses palpated, and no cervical lymphadenopathy. Supple, full range of motion without nuchal rigidity, or vertebral point tenderness. No Meningismus. Chest/axilla: Normal chest wall appearance and motion. Nontender with no deformity. No lesions are appreciated. Cardiovascular: Regular rate and rhythm with a normal S1 and S2. No gallops, murmurs, or rubs. Normal PMI, no JVD. No pulse deficits. Respiratory: Lungs have equal breath sounds bilaterally, clear to auscultation and percussion. No rales, rhonchi or wheezes noted. No increased work of breathing, no retractions or nasal flaring. Abdomen/GI: Soft, non-tender, with normal bowel sounds. No distension or tympany. No guarding or rebound. No evidence of tenderness throughout. Back: No spinal tenderness. No costovertebral tenderness. Full range of motion. Skin: Warm, dry with normal turgor. Normal color with no rashes, no lesions, and no evidence of cellulitis. MS/ Extremity: Pulses equal, no cyanosis. Neurovascular intact. Full, normal range of motion., bilateral aka Neuro: Awake and alert, GCS 15, oriented to person, place, time, and situation. Cranial nerves II-XII grossly intact. Motor strength 5/5 in all extremities. Sensory grossly intact. Cerebellar exam normal. Normal gait. Psych: Awake, alert, with orientation to person, place and time. Behavior, mood, and affect are within normal limits. 12:00 ECG was reviewed by the Attending Physician. 12:00 Musculoskeletal/extremity: DVT Exam: No signs of deep vein thrombosis. no pain, no swelling, no tenderness, negative Homans' sign noted on exam, no appreciated bluish discoloration, no erythema, no increased warmth, Vital Signs: 07:05 Resp 18; Temp 97.5; Weight 127.01 kg; Height 5 ft. 5 in. ; Pain 6/10; ll1 08:17 BP 129 / 80; Pulse 83; Resp 19; Pulse Ox 97% on R/A; ap3 09:23 BP 120 / 88; Pulse 92; Resp 18; Pulse Ox 100% on R/A; ap3 11:55 BP 123 / 58; Pulse 64; Resp 18; Pulse Ox 98% on R/A; ap3 12:20 BP 113 / 55; Pulse 75; Resp 16; Pulse Ox 98% ; ll1 07:05 Body Mass Index 46.59 (127.01 kg, 165.1 cm) ll1 07:05 Pain Scale: Adult ll1 MDM: 07:04 Medical Screening Exam initiated samina 12:04 Differential diagnosis: Nonspecific abd pain, gastritis, cholecystitis, pancreatitis, samina appendicitis, diverticulitis, viral gastroenteritis, gastroenteritis. Data reviewed: vital signs, nurses notes, lab test result(s), EKG, radiologic studies, CT scan, plain films. Consideration of Admission/Observation Escalation of care including admission/observation considered. I considered the following discharge prescriptions or medication management in the emergency department Medications were administered in the Emergency Department. See MAR. Independent interpretation of the following test(s) in the Emergency Department EKG: See my EKG interpretation above. Test considered but Not performed: Ultrasound NO ABD USG. Historians other than the Patient: Spouse/Significant Other: WELL INFORMED. Care significantly affected by the following chronic conditions: ANXIETY , BIPOLAR, CHF, GERD, [place]. 12/28 07:19 Order name: Basic Metabolic Panel; Complete Time: 10:40 [facility] 12/28 07:19 Order name: CBC with Diff; Complete Time: 10:40 [facility] 12/28 07:19 Order name: D-Dimer; Complete Time: 10:40 [facility] 12/28 07:19 Order name: LFT's; Complete Time: 10:40 [facility] 12/28 07:19 Order name: Magnesium; Complete Time: 10:40 [facility] 12/28 07:19 Order name: NT PRO-BNP; Complete Time: 10:40 [facility] 12/28 07:19 Order name: PT-INR; Complete Time: 10:40 [facility] 12/28 07:19 Order name: Troponin HS; Complete Time: 10:40 [facility] 12/28 07:19 Order name: COVID-19 Ag + Flu A+B Ag; Complete Time: 10:40 [facility] 12/28 07:19 Order name: Blood Culture Adult (2) 12/28 07:19 Order name: Lactate w/ 2H reflex if indic.; Complete Time: 10:40 [facility] 12/28 07:19 Order name: PREGU; Complete Time: 10:40 [facility] 12/28 07:19 Order name: UA Rfx Mickey Cult if indicated; Complete Time: 10:40 [facility] 12/28 07:19 Order name: Chest Pa And Lat (2 Views) XRAY; Complete Time: 10:40 [facility] 12/28 10:41 Order name: CT Chest For PE Angio; Complete Time: 11:55 [facility] 12/28 10:41 Order name: US Extremity Venous W Compression Derek 12/28 07:19 Order name: EKG; Complete Time: 07:20 [facility] 12/28 07:19 Order name: Cardiac monitoring; Complete Time: 08:41 [facility] 12/28 07:19 Order name: EKG - Nurse/Tech; Complete Time: 08:41 [facility] 12/28 07:19 Order name: IV Saline Lock; Complete Time: 08:16 [facility] 12/28 07:19 Order name: Labs collected and sent; Complete Time: 08:16 [facility] 12/28 07:19 Order name: O2 Per Protocol; Complete Time: 08:16 [facility] 12/28 07:19 Order name: O2 Sat Monitoring; Complete Time: 08:16 [facility] EC:00 Rate is 79 beats/min. Rhythm is regular. QRS [place] is Normal. MS interval is normal. QRS samina interval is normal. QT interval is normal. No Q waves. T waves are Normal. No ST changes noted. Clinical impression: NSR w/ Non-specific ST/T Changes and No evidence of ischemia. Interpreted by me. Reviewed by me. Administered Medications: 08:40 Drug: NS 0.9% IV (30 ml/kg) 30 ml/kg IV at bolus once; Sepsis Protocol; to be given as ap3 a bolus over 90 minutes Route: IV; Rate: bolus; Site: left antecubital; 10:31 Follow up: IV Status: Completed infusion ap3 08:40 Drug: Ondansetron IVP 8 mg IVP once; over 2 minutes Route: IVP; Site: left antecubital; ap3 10:30 Follow up: Response: No adverse reaction; Nausea is decreased ap3 09:30 Drug: Rocephin IV 1 grams IV at per protocol once; Given slow IV push per pharmacy ap3 instructions Route: IV; Rate: per protocol; Site: left antecubital; 10:31 Follow up: IV Status: Completed infusion; IV Intake: 50ml ap3 09:30 Drug: AZITHromycin PO 500 mg PO once Route: PO; ap3 10:30 Follow up: Response: No adverse reaction ap3 Disposition Summary: 12/28/24 12:07 Discharge Ordered Notes: Location: Home samina Problem: new samina Symptoms: have improved samina Condition: Stable samian Diagnosis - Nausea with vomiting, unspecified samina - Diarrhea, unspecified samina - Acute upper respiratory infection, unspecified samina - Cough samina Followup: samina - With: Private Physician - When: 2 - 3 days - Reason: Recheck today's complaints, Continuance of care, Re-evaluation by your physician Followup: samina - With: Danielle Craven MD - When: 2 - 3 days - Reason: Recheck today's complaints, Re-evaluation by your physician Discharge Instructions: - Discharge Summary Sheet samina - Food Choices to Help Relieve Diarrhea, Adult samina - Diarrhea, Adult samina - Nausea and Vomiting, Adult samina - Cool Mist Vaporizer samina - Nausea and Vomiting, Adult, [id number] samina - Cough, Adult samina Forms: - Medication Reconciliation Form samina - Antibiotic Education samina - Prescription Opioid Use samina - Patient Portal Instructions samina - Leadership Thank You Letter samina - Work release form [email or web address] Prescriptions: - ondansetron 4 mg Oral Tablet,disintegrating - take 1 tablet ORAL route every 6 hours as needed for nausea and vomiting; 20 samina tablet; Refills: 0, Product Selection Permitted - Zithromax 500 mg Oral tablet - take 1 tablet ORAL route once daily for 4 days; 4 tablet; Refills: 0, Product samina Selection Permitted Signatures: Dispatcher [employer] Klaus Randhawa MD MD cha Prokisch, Amanda RN RN ap3 Clay Solitario RN RN ll1
--- NOTE | 2024-12-28 12:07 | ER ---
Nurse's Notes [facility] [place] Name: Deyanira Baxter Age: 29 yrs Sex: Female : 1995 Arrival Date: 12/28/2024 Time: 06:54 Bed 16 Private MD: Diagnosis: Nausea with vomiting, unspecified;Diarrhea, unspecified;Acute upper respiratory infection, unspecified;Cough Presentation: 12/28 07:05 Chief complaint: Patient states: Cough, fever, [place], N/V. Coronavirus screen: Client ll1 denies travel out of the [place] in the last 14 days. cough unrelated to allergies, fatigue, fever, headache, nausea, vomiting. Client presents with at least one sign or symptom that may indicate coronavirus-19. Standard/surgical mask placed on the client. Ebola Screen: Patient denies travel to an Ebola-affected area in the 21 days before illness onset. Initial Sepsis Screen: Does the patient meet any 2 criteria? No. Patient's initial sepsis screen is negative. Does the patient have a suspected source of infection? No. Patient's initial sepsis screen is negative. Risk Assessment: Do you want to hurt yourself or someone else? Patient reports no desire to harm self or others. 07:05 Acuity: DEEPAK 3 ll1 07:05 Method Of Arrival: Ambulatory ll1 10:04 Onset of symptoms is unknown. 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 - Infectious Disease History:: Denies. - Social history:: Smoking status: Reported history of juuling and/or vaping. - Family history:: not pertinent. Screenin:03 [facility] ED Fall Risk Assessment (Adult) History of falling in the last 3 months, ap3 including since admission No falls in past 3 months (0 pts) Confusion or Disorientation No (0 pts) Intoxicated or Sedated No (0 pts) Impaired Gait No (0 pts) Mobility Assist Device Used No (0 pt) Altered Elimination No (0 pt) Score/Fall Risk Level 0 - 2 = Low Risk Oriented to surroundings, Maintained a safe environment, Educated pt \T\ family on fall prevention, incl call for assistance when getting out of bed, Assessed \T\ reinforced patient's understanding of fall precautions, Hourly rounding (assess needs \T\ fall precautionary measures) done, Used ambulatory aids as needed (educated on \T\ assisted with). Abuse screen: Denies threats or abuse. Nutritional screening: No deficits noted. Tuberculosis screening: No symptoms or risk factors identified. Assessment: 10:02 General: Appears ill, Behavior is calm, cooperative, appropriate for age. Pain: Denies ap3 pain. Neuro: Level of Consciousness is awake, alert, obeys commands, Oriented to person, place, time, situation. Cardiovascular: Patient's skin is warm and dry. Respiratory: Reports cough that is non-productive, Airway is patent Respiratory effort is even, unlabored, Respiratory pattern is regular, symmetrical. GI: Abdomen is non-distended, Reports nausea. 12:20 Reassessment: No changes from previously documented assessment. Patient and/or family ll1 updated on plan of care and expected duration. Pain level reassessed. Patient is alert, oriented x 3, equal unlabored respirations, skin warm/dry/pink. Vital Signs: 07:05 Resp 18; Temp 97.5; Weight 127.01 kg; Height 5 ft. 5 in. ; Pain 6/10; ll1 08:17 BP 129 / 80; Pulse 83; Resp 19; Pulse Ox 97% on R/A; ap3 09:23 BP 120 / 88; Pulse 92; Resp 18; Pulse Ox 100% on R/A; ap3 11:55 BP 123 / 58; Pulse 64; Resp 18; Pulse Ox 98% on R/A; ap3 12:20 BP 113 / 55; Pulse 75; Resp 16; Pulse Ox 98% ; ll1 07:05 Body Mass Index 46.59 (127.01 kg, 165.1 cm) ll1 07:05 Pain Scale: Adult ll1 ED Course: 06:59 Patient arrived in ED. [id number] 07:00 Arm band placed on Patient placed in an exam room, on a stretcher. ll1 07:01 Klaus Bernard MD is Attending Physician. ms3 07:06 Triage completed. ll1 07:44 Chest Pa And Lat (2 Views) XRAY In Process Unspecified. EDMS 08:16 Aleja Mathews, RN is Primary Nurse. ap3 08:16 Initial lab(s) drawn, by me. Inserted saline lock: 22 gauge in left antecubital area, ap3 using aseptic technique. Blood collected. Flushed with 10 mL NS. 08:40 EKG done, by ED staff, reviewed by Klaus Bernard MD. ap3 10:03 Patient has correct armband on for positive identification. Bed in low position. Call ap3 light in reach. Side rails up X 1. Adult w/ patient. Provided Education on: medications prior to administration . Client placed on continuous cardiac and pulse oximetry monitoring. NIBP monitoring applied. engine monitor on. Pulse ox on. NIBP on. 10:03 No provider procedures requiring assistance completed. ap3 11:08 CT Chest For PE Angio In Process Unspecified. EDMS 11:28 US Extremity Venous W Compression Derek In Process Unspecified. EDMS 12:06 Danielle Craven MD is Referral Physician. samina 12:28 IV discontinued, intact, bleeding controlled, No redness/swelling at site. Pressure ll1 dressing applied. Administered Medications: 08:40 Drug: NS 0.9% IV (30 ml/kg) 30 ml/kg IV at bolus once; Sepsis Protocol; to be given as ap3 a bolus over 90 minutes Route: IV; Rate: bolus; Site: left antecubital; 10:31 Follow up: IV Status: Completed infusion ap3 08:40 Drug: Ondansetron IVP 8 mg IVP once; over 2 minutes Route: IVP; Site: left antecubital; ap3 10:30 Follow up: Response: No adverse reaction; Nausea is decreased ap3 09:30 Drug: Rocephin IV 1 grams IV at per protocol once; Given slow IV push per pharmacy ap3 instructions Route: IV; Rate: per protocol; Site: left antecubital; 10:31 Follow up: IV Status: Completed infusion; IV Intake: 50ml ap3 09:30 Drug: AZITHromycin PO 500 mg PO once Route: PO; ap3 10:30 Follow up: Response: No adverse reaction ap3 Medication: 12:28 VIS not applicable for this client. ll1 Intake: 10:31 IV: 50ml; Total: 50ml. ap3 Outcome: 12:07 Discharge ordered by . samina 12:21 Patient left the ED. rg5 12:21 Discharged to home ambulatory, ll1 12:21 Condition: stable 12:21 Discharge instructions given to patient, Instructed on discharge instructions, follow up and referral plans. medication usage, Demonstrated understanding of instructions, follow-up care, medications, Prescriptions given X 2, Signatures: Dispatcher [employer] EDMS Klaus Beranrd MD MD cha Prokisch, Amanda, RN RN ap3 Clay Solitario RN RN ll1 Arnold Leyva DO DO ms3 Alexa Gonzales jj6 Wm Farnsworth, RN RN rg5
--- NOTE | 2024-12-28 12:29 | RAD REPORT ---
EXAMINATION: US bilateral LOWER EXTREMITY VENOUS DOPPLER CLINICAL INDICATION: Leg pain TECHNIQUE: Sonographic evaluation of the veins of the lower extremity bilaterally formed.Grayscale, c olor and spectral analysis performed on all vessels COMPARISON: No prior exam. FINDINGS: The common femoral, superficial femoral, greater saphenous, popliteal and posterior tibial veins bila terally are compressible and demonstrate augmentation. Doppler demonstrates good flow. IMPRESSION: No evidence of deep venous thrombosis involving either lower extremity
[2024-12-28 12:55] VITALS: TEMP 97.5
[2024-12-28 12:58] VITALS: BP 120/88; O2SAT 100
== END 2024-12-28 12:21 | disposition home or self-care (01) ==
LOC: ER 06:54
DX: J06.9 Acute upper respiratory infection, unspecified (principal); R19.7 Diarrhea, unspecified; Z11.52 Encounter for screening for COVID-19
CPT/HCPCS: 96365; 93005; 87040 ×2; 85025; 81001; 80048; 36415; 83735; 81025; 85610; 85379; 80076; 83605; 84484; 83880; 71275; 71046; 93970; 96375; 99285; 87428; Q9967; J2405; J7030; J0696